=== PATIENT | female | born 1960 | race Caucasian/White ===

== ENCOUNTER 2019-08-04 15:14 | Emergency (ER) | payer BC, SELFPAY ==
[2019-08-04 15:17] VITALS: BP 150/70; PULSE 84; RESP 20; TEMP 36.8; O2SAT 96
--- NOTE | 2019-08-04 15:20 | ECG_ITS ---
Measurements Intervals [place] Rate: 89 P: 54 ND: 137 QRS: -10 QRSD: 118 T: 31 QT: 381 QTc: 465 Interpretive Statements SINUS RHYTHM INCOMPLETE RIGHT BUNDLE BRANCH BLOCK VOLTAGE CRITERIA FOR LVH MINIMAL Q WAVES- LATERAL LEADS BORDERLINE ECG Electronically Signed On 08-05-2019 7:03:10 CDT by Yves Mazariegos D.O.
[2019-08-04 15:36] LABS: Basophils Absolute Auto 0.1 K/mm3 (0.0-0.1); Basophils Percent Auto 0.9 % (0.2-1.2); Eosinophils Absolute Auto 0.1 K/mm3 (0-0.3); Eosinophils Percent Auto 0.9 % (0-4.4); Hematocrit 41.8 % (37.0-47.0); Hemoglobin 14.1 g/dL (12.0-15.0); Immature Granulocyte Absolute 0.02 K/mm3 (0.00-0.031); Immature Granulocyte Percent A 0.3 % (0-0.5); Lymphocytes Percent Auto 19.1 % (18.3-44.2); Mean Corpuscular HGB Conc 33.7 g/dl (32-36); Mean Corpuscular Hemoglobin 27.7 pg (26-34); Mean Corpuscular Volume 82.1 fl (80-100); Mean Platelet Volume 10.2 fl (7.4-10.4); Monocytes Absolute Auto 0.6 K/mm3 (0.1-0.6); Monocytes Percent Auto 11.1 % (2.6-8.5); Neutrophils Absolute Auto 3.9 K/mm3 (1.3-6.7); Neutrophils Percent Auto 67.7 % (45.5-73.1); Platelet Count Result 290 k/mm3 (150-375); Red Blood Count 5.09 M/mm3 (4.2-5.4); Red Cell Distribution Width 13.6 % (11.5-14.5); White Blood Count 5.8 K/mm3 (4.5-10.0)
[2019-08-04 15:48] LABS: Alanine Aminotransferase 28 U/L (4-35); Albumin Level 4.2 g/dL (3.5-5.1); Alkaline Phosphatase 76 U/L (38-126); Aspartate Amino Transferase 30 U/L (14-36); Bilirubin,Total 0.6 mg/dL (0.2-1.3); Blood Urea Nitrogen 8 mg/dL (7-17); Carbon Dioxide 25 mmol/L (22-30); Chloride 102 mmol/L (98-107); Estimated CRCL calculation 104 ml/min; Estimated Glomerular Filt Rate > 60; Ethanol < 10 mg/dL (<10); Glucose 141 mg/dL (65-105); Sodium 136 mmol/L (137-145)
--- NOTE | 2019-08-04 16:02 | ED.PSYCH ---
HPI - Psych General Chief Complaint: Psychiatric Symptoms Stated Complaint: psych Time Seen by Provider: 08/04/19 15:53 Source: patient and family Mode of arrival: ambulatory Limitations: no limitations History of Present Illness HPI Narrative: Patient arrived by ambulance to the emergency room with her . Her telling me that patient been doing weird the staff over the last 7 days, hearing voices over the last 2 days, patient is noncompliance with her medications. Patient denies any fever, chills, nausea, vomiting, suicidal or homicidal ideation. Duration: intermittent Related Data Home Medications Medication Instructions Recorded Confirmed allopurinol 100 mg PO DAILY 08/04/19 alprazolam [Xanax] 4 mg PO BID 08/04/19 amlodipine 5 mg PO DAILY 08/04/19 apixaban [Eliquis] 2.5 mg PO BID 08/04/19 atorvastatin 40 mg PO DAILY 08/04/19 buspirone 10 mg PO TID 08/04/19 calcitriol 0.25 mcg PO DAILY 08/04/19 diltiazem HCl 180 mg PO DAILY 08/04/19 divalproex [Depakote] 250 mg PO TID 08/04/19 ergocalciferol (vitamin D2) 50,000 unit PO 08/04/19 [Vitamin D2] ferrous sulfate 325 mg PO DAILY 08/04/19 flecainide 100 mg PO Q12H 08/04/19 fluticasone propionate [Flovent 1 puff INHALATION Q12H 08/04/19 HFA] furosemide [Lasix] 40 mg PO BID 08/04/19 hydralazine 50 mg PO DAILY 08/04/19 loratadine 10 mg PO DAILY 08/04/19 magnesium oxide 400 mg PO QID 08/04/19 melatonin 5 mg PO HS PRN 08/04/19 metoprolol succinate 100 mg PO DAILY 08/04/19 flhqdvtj-ote-GF-lycopen-lutein 1 tablet PO DAILY 08/04/19 [Centrum Silver Men] omega 3-njt-wmx-fish oil [Fish Oil] 1 cap PO BID 08/04/19 potassium chloride 99 meq PO BID 08/04/19 sertraline 100 mg PO DAILY 08/04/19 spironolactone 25 mg PO DAILY 08/04/19 tizanidine 2 mg PO HS 08/04/19 trazodone 50 mg PO HS 08/04/19 vitamin Q73-ngnpd acid tavia SUBLINGUAL 08/04/19 Allergies Allergy/AdvReac Type Severity Reaction Status Date / Time No Known Allergies Allergy Unverified 08/04/19 15:25 Review of Systems Review of Systems: Narrative: CONSTITUTIONAL: Denies fever, chills, or sweats. EYES: Denies visual changes, redness, or discharge. ENT: Denies rhinorrhea, congestion, sore throat, or otalgia. CARDIOVASCULAR: Denies chest pain, palpitations, or edema. RESPIRATORY: Denies cough or dyspnea. GASTROINTESTINAL: Denies abdominal pain, nausea, vomiting, or diarrhea. GENITOURINARY: Denies dysuria or hematuria. SKIN: Denies rash or itching. MUSCULOSKELETAL: Denies back pain, joint pain, or myalgia. NEUROLOGIC: Denies headache, numbness, or weakness. PSYCHIATRIC: Denies anxiety or depression. Exam Narrative: Exam Narrative: General appearance: Well-developed, well-nourished Skin: Normal color Head: Normocephalic, nontraumatic Eyes: Clear conjunctiva ENT: Oropharynx normal, ears normal, nose normal Neck: Supple, nontender Chest and respiratory: Airway patent, no respiratory distress, no accessory muscle use Heart: Regular rate/rhythm Abdomen: Soft, nontender, no organomegaly, quiet bowel sounds Vascular: Normal peripheral pulses, normal capillary refill. Musculoskeletal: Normal range of motion, nontender back Neurologic: Alert and oriented ?3, DRIVER STARTING GATE is normal as tested, no gross motor deficit Course Course Emergency Course: Stable Vital Signs Vital signs: Vital Signs Temperature 36.8 C 08/04/19 15:17 Pulse Rate 84 08/04/19 15:17 Respiratory Rate 08/04/19 15:17 Blood Pressure 150/70 H 08/04/19 15:17 Pulse Oximetry 96 08/04/19 15:17 Temperature 36.8 C 08/04/19 15:17 Pulse Rate 84 08/04/19 15:17 Respiratory Rate 08/04/19 15:17 Blood Pressure 150/70 H 05
[2019-08-04 16:50] LABS: Add Urine Microscopic? YES; Appearance Urine Cloudy (Clear); Bilirubin Urine Negative (Negative); Blood Urine 3+ (Negative); Color Urine Red (Yellow); Glucose Urine UA Negative (Negative); Ketones Urine 1+ mg/dL (Negative); Leukocyte Esterase Ur 1+ LEU/UL (Negative); Mucus Urine Rare /lpf; Nitrate Urine Negative (Negative); Protein Urine 2+ mg/dL (Negative); RBC Urine >75 /hpf (0-2); Specific Grav Ur 1.021 (1.001-1.035); WBC Urine 21-30 /hpf
[2019-08-04 16:56] LABS: Amphetamine Screen Urine Positive (Negative); Barbiturate Screen Urine Negative (Negative); Benzodiazepines Screen Urine Negative (Negative); Cannabinoid Screen Urine Positive (Negative); Cocaine Screen Urine Negative (Negative); Methadone Screen Urine Negative (Negative); Opiate Screen Urine Negative (Negative); Phencyclidine Screen Urine Negative (Negative)
--- NOTE | 2019-08-04 19:02 | PC.NURSE ---
pt amb to bathroom with out difficulty pt spoke with crisis for evaluation
[2019-08-04 19:04] VITALS: BP 128/60; PULSE 76; RESP 20; O2SAT 98
--- NOTE | 2019-08-04 20:57 | PC.NURSE ---
CALL RECEIVED FROM RN AT [facility]. UPDATES GIVEN. STATES WILL CALL MD AND CALL BACK IF PT IS ACCEPTED
--- NOTE | 2019-08-04 21:42 | PC.NURSE ---
CALL RECEIVED FROM DEONTE DEL CID HAS DENIED PT. STATES SHE JOHNSON SNOT MEET CRITERIA FOR INVOLUNTARY ADMISSION AT THIS TIME
[2019-08-04 21:57] VITALS: BP 119/64; PULSE 75; RESP 20; O2SAT 99
[2019-08-04 21:58] VITALS: BP 101/87; PULSE 72; RESP 20; O2SAT 99
--- NOTE | 2019-08-04 22:40 | PC.NURSE ---
CALL RECEIVED FROM GARY WITH CRISIS. UPDATES GIVEN. STATES SHE WILL CALL BACK IN THE MORNING TO CHECK WITH THE PT.
[2019-08-05 06:40] VITALS: BP 128/99; PULSE 76; RESP 20; O2SAT 100
[2019-08-05] MEDS: POTASSIUM CHLORIDE 20 MEQ TABLET 40 MEQ PO (08:14)
[2019-08-05 10:00] VITALS: BP 123/55; PULSE 72; RESP 16; TEMP 36.9; O2SAT 99
[2019-08-05 15:30] VITALS: BP 138/80; PULSE 95; RESP 16; TEMP 37.2; O2SAT 100
--- NOTE | 2019-08-05 19:37 | PC.NURSE ---
Could not update TRANSFER ASSESSMENT. [facility] arrived at 1934 to transport patient to [place].
== END 2019-08-05 19:42 | disposition short-term general hospital (02) ==
PROVIDERS: Emergency Medicine; Emergency Provider General Practice
DX: F20.9 Schizophrenia, unspecified (principal); N39.0 Urinary tract infection, site not specified; Z79.01 Long term (current) use of anticoagulants; I45.10 Unspecified right bundle-branch block; R94.31 Abnormal electrocardiogram [ECG] [EKG]
CPT/HCPCS: 36415; 80053; 80307; 81001; 84443; 85025; 87086; 93005; 99285; A9270

== ENCOUNTER → 2021-09-10 13:02 | Outpatient (CLI) | payer BC, SELFPAY ==
--- NOTE | ~2021-09-10 | CT_ITS ---
Corrected Report Correction to Ordering Provider 09/14/2021 [facility] CT OF LEFT ANKLE EXAMINATION: CT ankle LT wo con DATE: 09/10/2021 13:16 INDICATION: Pain in the arch of left foot for one month. Peroneal tendinitis. Plantar fasciitis. TECHNIQUE: Computed tomography (CT) of the left ankle was performed without intravenous contrast. Automated exposure control and iterative reconstruction technique were employed. The dose-length product was 107.67 mGy-cm. COMPARISON: None FINDINGS: Limitations: None. Bones: No acute fracture or dislocation. Corticated osseous fragments along the superior aspect of the anterior talus may reflect old capsular avulsion. Joint space narrowing, subchondral sclerosis and subchondral cyst formation present in the medial talus, posterior subtalar joint, and the articulation of the navicular with the medial cuneiform and the first through third tarsometatarsal joints. Plantar enthesopathy. Soft Tissues:The soft tissues appear within normal limits. No evidence of mass or fluid collection. Fluid: No significant fluid within the joint capsule or surrounding bursal spaces. IMPRESSION: No acute osseous finding in the right ankle. Degenerative changes present at the tibiotalar, posterior subtalar, and multiple midfoot joints. Plantar enthesopathy. Reviewed, dictated and finalized at location K. MTDD IMPRESSION: No acute osseous finding in the right ankle. Degenerative changes present at th e tibiotalar, posterior subtalar, and multiple midfoot joints. Plantar enthesop athy.
== END ==
PROVIDERS: PCP Family Medicine; Visit Provider Student in an Organized Health Care Education/Training Program
DX: M76.72 Peroneal tendinitis, left leg (principal); M19.072 Primary osteoarthritis, left ankle and foot; M72.2 Plantar fascial fibromatosis; M19.09 Primary osteoarthritis, other specified site
CPT/HCPCS: 73700

== ENCOUNTER 2021-10-27 15:42 | Outpatient (CLI) | payer BC, SELFPAY ==
--- NOTE | ~2021-10-27 | DEXA_ITS ---
Bone Density Report Name: AMALIA WILEY Age: 61 Sex: Female Ethnicity: White Date of : 1960 Indication: postmenopausal; screening for osteoporosis; height loss; cancer; Referring Provider: PHILOMENA, YEFRI [place] Study: Bone densitometry was performed. Exam Date: October 27, 2021 Accession number: [id number] Bone Density: Region BMD T-score Z-score Classification AP Spine(L1-L4) 1.007 -0.4 1.0 Normal Femoral Neck (Left) 0.759 -0.8 0.5 Normal Total Hip (Left) 0.761 -1.5 -0.6 Osteopenia Femoral Neck (Right) 0.712 -1.2 0.0 Osteopenia Total Hip (Right) 0.819 -1.0 -0.1 Normal Total Hip Mean 0.790 -1.3 -0.4 Osteopenia World Health Organization criteria for BMD impression classify patients as: Normal (T-score at or above -1.0), Osteopenia (T-score between -1.0 and -2.5), or Osteoporosis (T-score at or below -2.5). 10-year Fracture Risk(1): Major Osteoporotic Fracture 6.7% Hip Fracture 0.4% Reported Risk Factors: [place] (), Neck BMD=0.712, BMI=35.2 (1) FRAX(R) Version 3.08. Fracture probability calculated for an untreated patient. Fracture probability may be lower if the patient has received treatment. Clinical Information Provided by Patient: Has used the following medications: HRT (i.e. estrogen/hormone therapy) Has the following medical conditions: Cancer Patient maximum height was 68 Menopause Age: 60 No regular weight bearing exercise Drinks caffeinated beverages Onset of menses at age 15 Number of children 1 Impression: The patient has low bone mass, based on the Left Total Hip T-score. The patient has an estimated ten-year risk of hip fracture of 0.4% and an estimated ten-year risk of major fracture of 6.7%, based on the WHO FRAX algorithm. Discussion: BONE DENSITY IS LOW AT ONE OR MORE SKELETAL SITES. This patient's lowest T-score is low at one or more skeletal sites. It meets the World Health Organization's (WHO) criteria for ?low bone mass? (T-score between -1.0 and -2.5). The patient's 10-year risk of fracture as calculated by FRAX is less than the threshold where pharmacological therapy is recommended by the National Osteoporosis Foundation (NOF). However, all treatment decisions require clinical judgment and consideration of individual patient factors, including patient preferences, comorbidities, previous drug use, risk factors not captured in the FRAX model (e.g., frailty, falls, vitamin D deficiency, increased bone turnover, interval significant decline in bone density) and possible under or overestimation of fracture risk by FRAX. The patient should follow a healthful lifestyle (good nutrition with adequate calcium and vitamin D, and appropriate weight-bearing exercise). Follow-Up: Consider repeating this study in 2 to 3 years to reassess this patien
== END 2021-10-27 15:43 | disposition home or self-care (01) ==
PROVIDERS: PCP Family Medicine; Visit Provider Internal Medicine Medical Oncology
DX: Z78.0 Asymptomatic menopausal state (principal); M85.89 Other specified disorders of bone density and structure, multiple sites
CPT/HCPCS: 77080

== ENCOUNTER 2024-05-06 09:26 | Outpatient (CLI) | payer OTHER, SELFPAY ==
--- NOTE | ~2024-05-06 | XR_ITS ---
HISTORY: M17.12 - Unilateral primary osteoarthritis, left knee COMPARISON: None TECHNIQUE: 4 views of the left knee were performed FINDINGS: No acute or subacute fracture. Diffuse bony demineralization. Near complete obliteration of the medial tibiofemoral joint space with sclerosis of the tibial platea u. Trace lateral tibiofemoral joint space narrowing. Ossification of the insertion of the quadriceps tendon is identified. 3 mm ossific density projects within the lateral tibiofemoral joint space. No suprapatellar joint effusion is identified. The infrapatellar joint space is clear. Vascular calcifications within the soft tissues IMPRESSION: Severe degenerative disease and diffuse bony demineralization, without acute fracture. Reviewed, dictated and finalized at location A. ICAL MATERIAL HANDLER IMPRESSION: Severe degenerative disease and diffuse bony demineralization, wit hout acute fracture.
--- OUTSIDE RECORDS SUMMARY | 2024-05-06 10:24 | XMS_ITS | Clinical Summary ---
Author Organization [facility] Virtual Care Address [address] [place] [phone] Phone Care Team Providers Care Clinical Trials Systems Administrator Name Role Phone Tracie Hart MD Primary Care Provi osvaldo Dago Hannon MD Unavailable [phone] Allergies No known active allergies Medications Soolantra 1 % cream As needed 0 Active Invega Sustenna 117 mg/0.75 mL syringe INJ 117 MG IM TO DELTOID OR GLUTEAL AREA ONCE A MONTH UTD 0 Active Epiduo Forte 0.3-2.5 % gel with pump 1 Active methylphenidate CD (METADATE CD) 50 mg CR capsule Take 1 capsule (50 mg total) by mouth every morning Active temazepam (RESTORIL) 15 mg capsuleIndications :Insomnia Take 1 capsule (15 mg total) by mouth nightly as needed for sleep Active anastrozole (ARIMIDEX) 1 mg tabletIndications: Malignant neoplasm of overlapping sites of right breast in female, estrogen receptor positive (HCC) Take 1 tablet (1 mg total) by mouth daily 90 tablet 3 4 Active sertraline (ZOLOFT) 100 mg tablet Take 1 tablet (100 mg total) by mouth daily 5 Active tirzepatide, weight loss, (Zepbound) 2.5 mg/0.5 mL pen injector Inject 0.5 mL (2.5 mg total) under the skin every 7 days 2 mL 5 Active hydrocortisone 2.5 % cream 0 025 Discontin ued(Thera py completed ) spironolactone (ALDACTONE) 50 mg tablet Take by mouth daily 0 025 Discontin ued(Patie nt Reported) calcium carbonate (OS-WILLIAMS) 1,250 mg (500 mg elemental) tablet Take 1 tablet (1,250 mg total) by mouth daily 025 Discontin ued(Patie nt Reported) meloxicam (MOBIC) 7.5 mg tabletIndications: Primary osteoarthritis of both knees Take 1 tablet (7.5 mg total) by mouth daily 90 tablet 3 025 Discontin ued(Thera py completed ) semaglutide (Wegovy) 0.25 mg/0.5 mL auto-injector Inject 0.5 mL (0.25 mg total) under the skin every 7 days Notify provider 1 week prior to refill needed. 2 mL 4 025 Discontin ued(Alter angeline therapy) Active Problems Problem Noted Date Diagnosed Date History of colonic polyps 12/14/2023 Primary osteoarthritis of both knees 12/08/2022 Assessment & Plan (04/19/2024 12:24 PM GUM MACHINE FILLER): Chronic. Left greater than worse, planning to have arthroscopy on the left knee. - Continue to follow with Dr. Virgen ([place]) for x-rays - Patient that she will need to schedule a preoperative exam 1 month prior to her surgery once this is scheduled - We will plan to send a note to Dr. Virgen's office stating that she can proceed to scheduling surgery. Will need repeat CBC, CMP and EKG within 1 month of surgery. Assessment & Plan (12/14/2023 11:15 AM CDT): Chronic. Stable. Continue to follow with Orthopedic surgery, has MRI upcoming. History of right breast cancer 06/17/2021 Assessment & Plan (04/19/2024 9:02 AM GUM MACHINE FILLER): Chronic. Continue anastrozole. Continue to follow with Oncology. Assessment & Plan (12/14/2023 11:15 AM CDT): Chronic. Continue anastrozole. Continue to follow with Oncology. Assessment & Plan (12/08/2022 10:11 AM CDT): Chronic, stable Continue anastrozole Continue to follow with Oncology Update me with any changes or concerns Malignant neoplasm of overla pping sites of right breast in female, estrogen receptor positive 04/15/2021 Cancer Staging:Clinical stage from 04/05/2021:Stage IA(cT1b, cN0(f), cM0, G2, ER+, AR+, HER2-) - Signed by Tania Sloan MD on 04/21/2021 Assessment & Plan (12/08/2022 10:22 AM CDT): Chronic, stable Managed by oncology Continue anastrazole Assessment & Plan (10/11/2021 4:40 PM CDT): Continue Arimidex Continue to follow with Oncology and surgery Update me with any changes or concerns Again, she completed her preop clearance, and was cleared for her procedure Assessment & Plan (09/23/2021 8:36 AM CDT): Continue Arimidex Continue to follow with surgery and Oncology Cardiac clearance completed Will need psychiatry clearance Otherwise, medically cleared for surgery Assessment & Plan (05/06/2021 9:53 AM GUM MACHINE FILLER): Will try to recheck her labs We may need an us of her liver Keep appointment with oncology Hyponatremia 11/17/2020 Assessment & Plan (12/08/2022 10:11 AM CDT): Chronic, multifactorial Continue to monitor Assessment & Plan (10/11/2021 4:40 PM CDT): Last labs normal Continue to follow with Hematology/Oncology Continue to encourage no alcohol use Assessment & Plan (09/23/2021 8:36 AM CDT): Improved on her last lab recheck Assessment & Plan (05/06/2021 9:48 AM GUM MACHINE FILLER): Recurrent Appointment with oncology today Will recheck labs Differential is wide including medication effect vs over hydration vs other Will repeat labs Assessment & Plan (02/26/2021 7:51 AM GUM MACHINE FILLER): Follow up labs were normal Continue to monitor Assessment & Plan (11/17/2020 9:51 AM CDT): ?related to increased water intake prior to testing vs alcohol Will recheck in 6 weeks Encouraged to consider incendiaries supervisor Decrease alcohol Update me with any changes Elevated liver function tests 11/17/2020 Assessment & Plan (12/08/2022 10:10 AM CDT): Chronic, but now resolved Continue to monitor Assessment & Plan (10/11/2021 4:38 PM CDT): F/u LFT's normal Continue to monitor Assessment & Plan (09/23/2021 8:36 AM CDT): Repeat LFTs normal Assessment & Plan (05/06/2021 9:50 AM GUM MACHINE FILLER): Higher than is has been Will recheck her labs Stressed to her we need to look at an ultrasound for possible pathology- she declined Further guidance once we have the results Assessment & Plan (02/26/2021 7:52 AM GUM MACHINE FILLER): Repeat normal We discussed checking an ultrasound of her liver- she does want to hold off Update me with any changes Call for questions or concerns Assessment & Plan (11/17/2020 9:52 AM CDT): We discussed a GI referral, RUQ us- she does not want to do it at this time Will recheck in 6 weeks If it is still elevated- we need to do more testing Cut down on ETOH Any questions, let me know Annual physical exam 12/25/2019 Overview (12/14/2023): Discussed healthy diet and disease prevention- reviewed working on healthy diet, regular physical activity to your level, wearing sun screen, seat belts. Reviewed no drinking or driving, no texting/driving Discussed importance of scheduling recommended screening tests. Encouraged to look at a POA/Living will Health Maintenance: Last PAP: 12/2019- Neg, Neg HPV Last mammogram: 10/03- WNL Last colonoscopy:2020- due in 4 years, ordered Last Tdap: 2017 Last pneumonia/Prevnar: complete Last Shingrix: up to date Last Flu: 12/14/23 Last Pneumonia: 2022 Last COVID: booster encouraged Test results: if you have not received communication about test results within 7 days of the test being performed, please contact the office. I strongly encourage myChart sign ups. It can facilitate communication flow. Please contact the office for instructions on signing up. Assessment & Plan (12/14/2023 10:35 AM CDT): Health Maintenance: 12/14/23 Last PAP: 12/2019- Neg, Neg HPV Last mammogram: 10/03- WNL Last colonoscopy:2020- due in 4 years, referral provided Last Tdap: 2017 Last pneumonia/Prevnar: complete Last Shingrix: up to date Last Flu: 12/14/23 Last Pneumonia: 2022 Last COVID: booster encouraged Assessment & Plan (12/08/2022 10:19 AM CDT): Discussed healthy diet and disease prevention- reviewed working on healthy diet, regular physical activity to your level, wearing sun screen, seat belts. Reviewed no drinking or driving, no texting/driving Discussed importance of scheduling recommended screening tests. Encouraged to look at a POA/Living will Health Maintenance: Last PAP: 12/2019- Neg, Neg HPV Last mammogram: 08/02- WNL Last colonoscopy:2020- due in 4 years Last Tdap: 2018 Last pneumonia/Prevnar: reviewed Last Shingrix: up to date Last Flu: 2022 Last Pneumonia: 2022 Last COVID: reviewed booster Test results: if you have not received communication about test results within 7 days of the test being performed, please contact the office. I strongly encourage myChart sign ups. It can facilitate communication flow. Please contact the office for instructions on signing up. Assessment & Plan (10/11/2021 4:17 PM CDT): Discussed healthy diet and disease prevention- reviewed working on healthy diet, regular physical activity to your level, wearing sun screen, seat belts. Reviewed no drinking or driving, no texting/driving Discussed importance of scheduling recommended screening tests. Discussed importance of regular physical examinations for health maintenance Health Maintenance: Last PAP: 12/2019- Neg, Neg HPV Last mammogram: up to date Last colonoscopy:2020- due in 3 years Last Tdap: 2017 Last pneumonia/Prevnar: reviewed Last Shingrix: up to date Last Flu: up to date Last COVID: reviewed booster Test results: if you have not received communication about test results within 7 days of the test being performed, please contact the office. I strongly encourage [employer] sign ups. It can facilitate communication flow. Please contact the office for instructions on signing up. Assessment & Plan (12/25/2019 1:47 PM CDT): Work on healthy low carb diet Healthy activity for 30 minutes daily Wear sun screen, seat belts No texting/drinking and driving Health Maintenance: Last PAP: today Last mammogram:11/27/2019-Neg Last DEXA: @60 Last colonoscopy/cologuard: referral placed Last Tdap: 2014 Last pneumonia/Prevnar: pneumonia -2017 Last Shingrix: encouraged Last Flu: yearly Personal history of colonic polyps 12/11/2019 Overview (12/11/2019): Added automatically from request for surgery [id number] Assessment & Plan (12/08/2022 10:12 AM CDT): Last colonoscopy reviewed Will be due for follow-up in 2023 Assessment & Plan (10/11/2021 4:40 PM CDT): Plan for colonoscopy in 2022 Assessment & Plan (12/25/2019 1:47 PM CDT): Referral placed Class 2 obesity due to exces s calories with body mass index (BMI) of 36.0 to 36.9 in adult 09/24/2019 Assessment & Plan (04/19/2024 9:02 AM GUM MACHINE FILLER): Chronic. Uncontrolled. Patient working on keeping her BMI below 37 in order to have knee surgery. She would like to try Zepbound but this and Wegovy were not covered by her insurance last time we checked. She may look into Wellness clinics. Assessment & Plan (12/14/2023 11:16 AM CDT): Chronic uncontrolled. Not able to exercise much due to knee arthritis. Continue to work on healthy diet. Discussed options including medication management, patient would like to try Wegovy, script sent. Risks and benefits discussed today.. Assessment & Plan (12/08/2022 10:10 AM CDT): BMI Follow-up includes: nutrition counseling. Assessment & Plan (10/11/2021 4:37 PM CDT): BMI Follow-up includes: nutrition counseling. Assessment & Plan (05/06/2021 9:59 AM GUM MACHINE FILLER): BMI Follow-up includes: nutrition counseling. Assessment & Plan (11/17/2020 9:54 AM CDT): BMI Follow-up includes: nutrition counseling. Assessment & Plan (12/25/2019 5:16 PM CDT): BMI Follow-up includes: nutrition counseling. Assessment & Plan (09/24/2019 9:32 AM CDT): BMI Follow-up includes: nutrition counseling. Acne vulgaris 08/27/2019 Assessment & Plan (12/08/2022 10:20 AM CDT): Chronic, stable Managed by Dermatology Continue current regimen Assessment & Plan (10/11/2021 4:19 PM CDT): Chronic, stable Continue to follow with derm Assessment & Plan (11/17/2020 10:02 AM CDT): continue spironolactone Continue to monitor her labs Assessment & Plan (08/27/2019 9:28 AM CDT): Continue spironolactone Thalassemia 01/29/2014 Assessment & Plan (12/14/2023 10:35 AM CDT): Chronic. Stable. No evidence of anemia or blood cell abnormalities. Monitor. Assessment & Plan (12/08/2022 10:13 AM CDT): Chronic, stable Manage by Oncology/Hematology Update me with any changes Assessment & Plan (10/11/2021 4:52 PM CDT): Continue to follow with Oncology/Hematology Assessment & Plan (12/25/2019 5:18 PM CDT): Will try to get notes from her prior school photographs detailer Assessment & Plan (09/24/2019 9:30 AM CDT): With history of low iron Will recheck her CBC and iron Further guidance once we have the results Call for questions or concerns Assessment & Plan (08/27/2019 9:28 AM CDT): Will attempt to get records Bipolar I disorder, most rec ent episode (or current) depressed, severe, specified as with psychotic behavior ([facility]) 02/15/2013 Assessment & Plan (04/19/2024 9:01 AM GUM MACHINE FILLER): Chronic. Improving.. - Continue to follow with psychiatry managing sertraline Assessment & Plan (12/14/2023 10:33 AM CDT): Chronic. Not well controlled. Patient looking for a new psychiatrist, has reference listed call. Only taking fluoxetine 40 mg daily that she would like to continue with us until she see pschiatry. We will discuss with supervising physician Assessment & Plan (12/08/2022 10:09 AM CDT): Chronic, stable Bipolar versus schizophrenia Managed by Psychiatry Continue her current regimen Assessment & Plan (10/11/2021 4:36 PM CDT): Chronic, stable Continue her current regimen Continue to follow with psychiatry Update me with any changes Assessment & Plan (09/23/2021 8:36 AM CDT): Continue to follow with psychiatry Continue current regimen Update me with any changes or concerns Call for questions Assessment & Plan (11/17/2020 9:53 AM CDT): Doing fair Continue current regimen Continue to follow with psychiatry Update me with any changes Call for questions or concerns Assessment & Plan (12/25/2019 5:15 PM CDT): Continue to follow with her psychiatrist Assessment & Plan (09/24/2019 9:36 AM CDT): Improved on current regimen Continue current regimen Continue to follow with psychiatrist Assessment & Plan (08/27/2019 9:27 AM CDT): Continue to follow with her psychiatrist Update me with any changes Schizophrenia 06/29/2012 Assessment & Plan (04/19/2024 9:03 AM GUM MACHINE FILLER): Chronic. Continue to follow with psychiatry. Assessment & Plan (12/14/2023 10:35 AM CDT): Chronic. Uncertain of stability. Patient looking for a new psychiatrist, has reference listed call. Only taking fluoxetine 40 mg daily that she would like to continue with us until she see pschiatry. We will discuss with supervising physician Assessment & Plan (12/08/2022 10:12 AM CDT): Chronic, stable Managed by Psychiatry Continue her current regimen Assessment & Plan (10/11/2021 4:52 PM CDT): Chronic, stable Continue her current regimen Continue to follow with psychiatry Update me with any changes Assessment & Plan (09/23/2021 8:37 AM CDT): Continue to follow with psychiatry Continue Invega Update me with any changes or concerns Call for questions Assessment & Plan (05/06/2021 9:50 AM GUM MACHINE FILLER): With medications that could affect her sodium Will recheck her labs Assessment & Plan (02/26/2021 7:53 AM GUM MACHINE FILLER): Stable Continue to follow with her psychiatrist Continue healthy changes for her mood Call for questions or concerns Assessment & Plan (11/17/2020 9:53 AM CDT): Doing fair Continue current regimen Continue to follow with psychiatry Update me with any changes Call for questions or concerns Assessment & Plan (09/24/2019 9:36 AM CDT): Improved on current regimen Continue current regimen Continue to follow with psychiatrist Assessment & Plan (08/27/2019 9:26 AM CDT): Recently hospitalized Improved delusions, no dangerous thoughts currently Continue to follow with her psychiatrist Any dangerous thoughts to the er Call for questions or concerns ADHD, 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 Somewhat stable, not currently on medication - Continue to follow with psychiatry Assessment & Plan (12/14/2023 10:34 AM CDT): Chronic. Uncontrolled. Patient has run out of Vyvanse and can not go back to her previous psychiatrist. She is currently looking for a new psychiatrist. - Follow-up with recommendation list provided and those covered by insurance Assessment & Plan (12/08/2022 10:20 AM CDT): Chronic, stable Managed by Psychiatry Continue vyvanse Update me with any changes or concerns Assessment & Plan (10/11/2021 4:20 PM CDT): Chronic, stable Continue to follow with Dr Kam Assessment & Plan (12/25/2019 5:14 PM CDT): Continue to follow with her psychiatrist Assessment & Plan (09/24/2019 9:35 AM CDT): Stable Continue current regimen Continue to follow with her psychiatrist Assessment & Plan (08/27/2019 9:25 AM CDT): Continue to follow with her psychiatrist Generalized anxiety disorder 02/23/2012 Overview (08/27/2019): Note: Unchanged Assessment & Plan (12/14/2023 10:34 AM CDT): Chronic. Somewhat stable. Will discuss with supervising physician continuing fluoxetine 40 mg daily. Assessment & Plan (12/08/2022 10:10 AM CDT): Chronic, stable Managed by Psychiatry Continue her current regimen Assessment & Plan (10/11/2021 4:39 PM CDT): Chronic, stable Continue her current regimen Continue to follow with psychiatry Update me with any changes Assessment & Plan (12/25/2019 5:16 PM CDT): Continue to follow with her psychiatrist Assessment & Plan (08/27/2019 9:28 AM CDT): Continue to follow with her psychiatrist Update me with any changes Call for questions or concerns Panic disorder without agoraphobia 02/23/2012 Overview (08/27/2019): Note: Unchanged Assessment & Plan (12/14/2023 10:34 AM CDT): Chronic. Somewhat stable. Will discuss with supervising physician continuing fluoxetine 40 mg daily. Assessment & Plan (12/08/2022 10:11 AM CDT): Chronic, stable Managed by Psychiatry Continue her current regimen Update me with any changes Assessment & Plan (10/11/2021 4:40 PM CDT): Chronic, stable Continue her current regimen Continue to follow with psychiatry Update me with any changes Resolved Problems Problem Noted Date Diagnosed Date Resolved Date Screen for colon cancer 12/11/201911/12 Overview (12/11/2019): Added automatically from request for surgery [id number] Anemia 11/19/2013 10/11/2021 Assessment & Plan (09/23/2021 8:36 AM CDT): Currently following with Hematology Continue to monitor Assessment & Plan (12/25/2019 5:15 PM CDT): I am going to try to get notes from her prior school photographs detailer she feels that is related to her bariatric surgery She is currently on an [id number] iron, At this time she can continue it I would recommend a CBC in 6 months Call for questions or concerns Assessment & Plan (09/24/2019 9:30 AM CDT): Will check labs for possible pathology Encounters Date Type Department Care Team Description 04/19/2024 8:30 AM GUM MACHINE FILLER Office Visit [address] [phone] Kelsie Parra PA Primary osteoarthritis of both knees (Primary Dx); ADHD, predominantly inattentive type; Bipolar I disorder, most recent episode (or current) depressed, severe, specified as with psychotic behavior (CMS/HCC) (HCC); Class 2 severe obesity due to excess calories with serious comorbidity and body mass index (BMI) of 36.0 to 36.9 in adult ([facility]); History of right breast cancer; Other schizophrenia ([facility]) 04/19/2024 Telephone [facility] Medicine [address] [place] [phone] Tracie Hart MD Prior Auth request for Zepbound 04/19/2024 Orders Only [address] [phone] Kelsie Parra PA 04/19/[address] [phone] Tracie Hart MD Medical Question/Miscellaneous 02/21/2024 Telephone [facility] [address] [place] [address] Office [address] [place] [address] Clau Dave 02/19/2024 Telephone [facility] [address] [place] [address] Office [facility] [address] [place] [phone] Myrtle Gallagher CLT 02/09/2024 Orders Only [address] [phone] Kelsie Parra PA 02/09/[address] [phone] Kelsie Parra PA from Last 3 Months Immunizations Immunization Administration Dates Next Due Influenza, Quadrivalent, Spl it, Preservative Free, Intramuscular 12/08/2022,12/14/2021,12/25/2019,01/16 Influenza, Trivalent, IM (MDV) 12/11/2014 Influenza, Trivalent, Preser vative Free, Intramuscular 12/14/2023 Influenza, Unspecified 11/15/2021,2020,10/15/2013,10/01 Osiel SARS-CoV-2 Monovalen t Vaccination (12+ YRS) 02/16/2021 Pfizer SARS-CoV-2 Monovalent Vaccination (12+ Yrs) PURPLE 06/16/2020,05/26/2020 Pfizer Sars-Cov-2 Bivalent V accination (12+ YRS) 12/14/2021 Pneumococcal Conjugate Pcv20 12/08/2022 Pneumococcal Polysaccharide PPV23 01/04/2018 RSV Vaccine, Pref, Recombina nt, Subunit, Adjuvanted, PF, IM (Arexvy) 12/27/2022 Tdap 01/16/2018,03/13/2014 ZOSTER Recombinant 06/09/2021,02/26/2021 Surgical History Surgery Date Site/Laterality Comments BARIATRIC SURGERY 03/13/1999 - 03/12/2000 Wash [facility] COLONOSCOPY 10/23/2015 US GUIDED BIOPSY LYMPH NODE SUPERFICIAL LEFT 04/05/2021 N/A SECTION 03/13/2000 - 03/12/2001 BREAST BIOPSY 04/05/2021 Right MASTECTOMY COMPLETE / SIMPLE W/ SENTINEL NODE BIOPSY 06/17/2021 Right with sentinel lymph node dissection BREAST RECONSTRUCTION 06/17/2021 Right immediate with tissuse community liaison officer and matrix REDUCTION MAMMAPLASTY Medical History Medical History Date Comments ADHD (attention deficit hyperactivity disorder) Bipolar 1 disorder (HCC) Anxiety Psychotic affective disorder (HCC) Breast cancer (HCC) right Right bundle branch block Family History Medical History Relation Name Comments Diabetes Brother Diabetes Father Heart Valve Replacement Father Macular degeneration Father No Known Problems Maternal Grandfather Blood disorder Maternal Grandmother Hypothyroidism Maternal Grandmother Foot problems Mother Knee Replacement Mother Stroke Paternal Grandfather No Known Problems Paternal Grandmother Breast cancer Sister 1 Breast cancer Sister 2 Relation Name Status Comments Brother Alive Father Alive Maternal Grandfather Maternal Grandmother Mother Alive Paternal Grandfather Paternal Grandmother Sister 1 Alive Sister 2 Alive Social History Tobacco Use Types Packs/Day Years Used Date Smoking Tobacco: Never Smokeless Tobacco: Never Tobacco Cessation:Counseling Given: Not Answered Alcohol Use Standard Drinks/Week Comments Not Currently 0 (1 standard drink = 0.6 oz pur e alcohol) occasionally AUDIT-C Answer Date Recorded Q1: How often do you have a drink containing alc ohol? Monthly or less 04/19/2024 Q2: How many drinks containi ng alcohol do you have on a typical day when you are drinking? 1 or 2 04/19/2024 Q3: How often do you have si x or more drinks on one occasion? Never 04/19/2024 PHQ-2 Answer Date Recorded PHQ-2 Total Score (If total score is 3 or more points, staff should administer the PHQ-9) 0 04/19/2024 Comments No Sex and Gender Information Value Date Recorded Sex Assigned at Not on file Legal Sex Female 11:37 PM GUM MACHINE FILLER Gender Identity Not on file Sexual Orientation Not on file Obstetrics History Para Term AB IAB SAB Ectopic Multiple Livin g Live Births 2 1 1 Date Outcome GA Total Labor Labor/2nd/3rd Weight Sex Type Anes PTL Juliana A1 A5 Name Clin Term Last Filed Vital Signs Vital Sign Reading Time Taken Comments Blood Pressure 130/70 04/19/2024 8:29 AM GUM MACHINE FILLER Pulse 75 04/19/2024 8:29 AM GUM MACHINE FILLER Temperature 36.4 C (97.5 F) 04/19/2024 8:29 AM GUM MACHINE FILLER Respiratory Rate 16 04/19/2024 8:29 AM GUM MACHINE FILLER Oxygen Saturation 95% 04/19/2024 8:29 AM GUM MACHINE FILLER Inhaled Oxygen Concentration - - Weight 102.1 kg (225 lb) 04/19/2024 8:29 AM GUM MACHINE FILLER Height 167.6 cm (5' 6 ) 04/19/2024 8:29 AM GUM MACHINE FILLER Body Mass Index 36.32 04/19/2024 8:29 AM GUM MACHINE FILLER Plan of Treatment Upcoming Encounters Date Type Department Care Team (Late st Contact Info) Description 12/25/2024 7:55 AM CDT Hospital Encounter [address] [address] Donato Aragon MD [address] [place] [address] DR MINOR [address] [place] [phone] 12/25/2024 7:55 AM CDT - 12/25/2024 8:25 AM CDT Surgery [address] [address] Dontao Aragon MD [address] [place] [address] [place] [address] COLONOSCOPY Scheduled Procedures Name Priority Associated Diagnoses Date/Ti me COLONOSCOPY History of colonic polyps 12/25/2024 7:55 AM CDT Health Maintenance Due Date Last Done Comments Hepatitis B Screening 02/18/1980 Covid-19 Vaccine (7 - Mixed Product risk season) 2024 01/17/2024, 12/27/2022, 12/14/2021, Additional history exists Breast Cancer Screening-Mammogram 09/18/2024 09/19/2023, 07/18/2022, 02/23/2021, Additional history exists Regular Well Visit/Exam 18-64 12/13/2024, 12/08/2022, 12/08/2022, Additional history exists Cervical Cancer Screening 12/24/2024 12/25/2019, Depression Screening 04/19/2025 04/19/2024, 12/08/2022, 12/08/2022, Additional history exists DTaP/Tdap/Td Vaccine (3 - Td or Tdap) 01/17/2028 01/16/2018, 03/13/2014 Colon Cancer Screening-Colonoscopy 01/27/2030 01/28/2020, 01/28/2020, 10/23/2015 Colon Cancer Screening-CT Colonography Discontinued 01/28/2020, 01/28/2020, 10/23/2015 Colon Cancer Screening-DNA Stool Discontinued 01/28/2020, 01/28/2020, 10/23/2015 Colon Cancer Screening-FIT Discontinued 01/27, 01/28/2020, 10/23/2015 Colon Cancer Screening-Sigmoidoscopy Discontinued 01/28/2020, 01/28/2020, 10/23/2015 Hepatitis C Screening Completed 11/11/2020, 020 Zoster Vaccine Completed 06/09/2021, 02/26/2021 Pneumococcal vaccine <65 Completed 12/08/2022, 12/12 Influenza Vaccine Completed 12/14/2023, , 12/14/2021, Additional history exists Medical Devices Implanted Type Area Rn Field Case Manager Device Identifier Shelf Expiration Date Model / Serial / Lot [employer] [id number] Implant Mammary [id number] Plus Sm Te Mh 450cc - [id number] - [id number] Implanted:Qty: 1 on 06/17/2021 by Shen Reeder, DO at [facility] Right: Breast [employer] 12/13/2024 [id number] / [id number] / [employer] Implant Breast Moderate Plus Profile Smooth Memorygel Boost 590cc Gel [id number] - [id number] - [id number] Implanted:Qty: 1 on 10/15/2021 by Shen Reeder, DO at [facility] Right: Breast [employer] 07/20/2026 [id number] / [id number] / Procedures Procedure Name Priority Date/Time Associated Diagnosis Comments SCREENING MAMMOGRAM LEFT W ROCKY UNILATERAL ONLY Schedule Routine, Read Routine (OP Routine) 09/19/2023 10:27 AM CDT Encounter for screening mammogram for malignant neoplasm of breast HEPATITIS PANEL, ACUTE Routine 11/11/2020 2:42 PM CDT Elevated liver function tests COLONOSCOPY 01/28/2020 7:57 AM GUM MACHINE FILLER PAP ONLY Routine 12/25/2019 5:14 PM CDT from Last 3 Months or Most Recently Relevant to Health Maintenance Results * Screening Mammogram Left W Rocky Unilateral Only (09/19/2023 10:27 AM CDT) Anatomical Region Laterality Modality Breast Left Mammography Impressions 09/19/2023 12:25 PM CDT BI-RADS ATLAS category (left): 1 - Negative There is no mammographic evidence of malignancy. A 1 year screening mammogram is recommended. The patient has been or will be contacted. We recommend annual screening mammography for women at average risk of breast cancer beginning at age 40, based on guidelines of the [employer] (ACR Practice Parameter for the Performance of Screening and Diagnostic Mammography) and [employer]. For women with and elevated risk of breast cancer, please refer to the ACR Practice Parameter for specific screening recommendations. The patient will be entered into a reminder system with a target due date of 1 year for her next screening exam. Narrative 09/19/2023 12:25 PM CDT Screening Mammogram Left W Rocky Unilateral Only: 09/19/23 The study was acquired using full field digital technology and interpreted from soft copy. 2D digital mammographic views, as well as 3D digital tomosynthesis were performed in the CC and MLO projections of the left breast. CLINICAL: Encounter for screening mammogram for malignant neoplasm of breast. Medical history includes breast cancer. Status post left mastectomy. COMPARISONS: 07/18/2022 Screening Mammogram Left W Rocky Unilateral Only 06/17/2021 Radiologic Examination of Surgical Specimen 04/05/2021 US Guided Breast Biopsy Right 03/24/2021 US Breast Right Limited 03/24/2021 Diagnostic Mammogram Right W Rocky 02/23/2021 Screening Mammogram Bilateral W Rokcy 11/27/2019 Screening Mammogram 2D Bilateral BREAST TISSUE: The left breast has scattered areas of fibroglandular density. FINDINGS: No suspicious masses, suspicious calcifications, or other suspicious findings are seen within the left breast. There has been no suspicious change. us Aaron Mason MD IM MAMMO PROCEDURES Final Result * Hepatitis panel, acute (11/11/2020 2:42 PM CDT) Hep A IgM NON-REACTI VE NON-REACT JEFFREY [facility] Comment: For additional information, please refer to http://Get Fractal.[employer]/faq/VXN257 (This link is being provided for informational/ educational purposes only.) HepBsAg NON-REACTI VE NON-REACT JEFFREY [facility] Hep B core IgM NON-REACTI VE NON-REACT JEFFREY [facility] Hep C Ab NON-REACTI VE NON-REACT JEFFREY [facility] SIGNAL TO CUT-OFF 0.01 <1.00 [facility] Comment: HCV antibody was non-reactive. There is no laboratory evidence of HCV infection. In most cases, no further action is required. However, if recent HCV exposure is suspected, a test for HCV RNA (test code 08241) is suggested. For additional information please refer to http://Get Fractal.[employer]/faq/EUD50z1 (This link is being provided for informational/ educational purposes only.) Blood specimen (specimen) 11/11/2020 2:42 PM CDT 11/11/2020 2:42 PM CDT Narrative [facility] - 11/12/2020 3:22 PM CDT FASTING:NO FASTING: NO us Tracie Hart MD LAB MICROBIOLOGY - GENERAL ORDERABLES Final Result [facility] [address] [place] [id number] * COLONOSCOPY (01/28/2020 7:57 AM GUM MACHINE FILLER) Anatomical Region Laterality Modality Other Narrative Procedure Note Donato Aragon MD - 01/28/2020 7:57 AM CST [facility] Patient Name: Katrina Cheng Procedure Date: 01/28/2020 7:57 AM Date of : 1960 Admit Type: Outpatient Age: 59 Gender: Female Attending MD: Donato Aragon M.D. Room: [facility] ENDOSCOPY ROOM 1 Note Status: Finalized Patient Profile: This is a 59 year old female. Patient with historyof colon polyps including large adenoma polyp in the rectum requiring transanal resection. No familyhistory of colon cancer. Procedure: Colonoscopy Indications: Surveillance: Personal history of adenomatous polypson last colonoscopy > 3 years ago, Last colonoscopy: October 2015 Referring MD: Tracie Hart M.D. Providers: Donato Aragon M.D. Impression: - One 6 mm polyp in the descending colon, removedwith a jumbo cold forceps. Resected and retrieved. - One 4 mm polyp in the rectum, removed with a jumbo cold forceps. Resected and retrieved. - Internal hemorrhoids. Recommendation: - Await pathology results. - Repeat colonoscopy in 3 - 5 years for screening purposes. Medicines: Monitored Anesthesia Care Complications: No immediate complications. Estimated Blood Loss: Estimated blood loss: none. Procedure: Pre-Anesthesia Assessment: - Prior to the procedure, a History and Physical was performed, and patient medications and allergieswere reviewed. The patient's tolerance of previous anesthesia was also reviewed. The risks and benefitsof the procedure and the sedation options and riskswere discussed with the patient. All questions were answered, and informed consent was obtained. Prior Anticoagulants: The patient has taken no previous anticoagulant or antiplatelet agents. ASA Grade Assessment: II - A patient with mild systemicdisease. After reviewing the risks and benefits, the patientwas deemed in satisfactory condition to undergo the procedure. The benefits, risks and alternatives of theprocedure and sedation were discussed and informed consent was obtained. All questions were answered. Please referto the signed informed consent document in the medical record. Bowel prep was administered using a splitdose. The bowel preparation used was Miralax. The bowel preparation used was bisacodyl tablets. The scopewas passed under direct vision. The PediatricColonoscope [id number] was introduced through the anusand advanced to the the cecum, identified by appendiceal orifice and ileocecal valve. The quality of thebowel preparation was good. Findings: The perianal and digital rectal examinations were normal. The cecum appeared normal. The ileum appeared normal. A 6 mm polyp was found in the descending colon. The polyp wassessile. The polyp was removed with a jumbo cold forceps. Resection andretrieval were complete. A 4 mm polyp was found in the rectum. The polyp was sessile. Thepolyp was removed with a jumbo cold forceps. Resection and retrieval were complete. Internal hemorrhoids were found during retroflexion. The hemorrhoids were small. Electronically signed by Donato Aragon M.D. Danitza DonohueD. 01/28/2020 9:57:00 AM Number of Addenda: 0 Note Initiated On: 01/28/2020 7:57 AM Procedure Code(s): --- Professional --- 57262, Colonoscopy, flexible; with biopsy, single or multiple Diagnosis Code(s): --- Professional --- Z86.010, Personal history of colonic polyps K64.8, Other hemorrhoids D12.4, Benign neoplasm of descending colon K62.1, Rectal polyp CPT copyright 2017 [employer]. All rights reserved. The codes documented in this report are preliminary and upon book retailer reviewmay be revised to meet current compliance requirements. Recognized by the [employer] for promoting quality in endoscopy us Donato Aragon MD ENDOSCOPY PROCEDURES Final Result * Pap Only (12/25/2019 5:14 PM CDT) CLINICAL INFORMATION: Filiberto Kam Comment:SCREENING LMP Filiberto Kam Comment:UNKNOWN Previous Pap Filiberto Kam Comment:INFORMATION NOT PROV IDED Prev. Bx Filiberto Kam Comment:INFORMATION NOT PROV IDED SOURCE: Filiberto Kam Comment:Cervix, Endocervix Pap, specimen adequacy Filiberto Kam Comment: Satisfactory for evaluation. Endocervical/transformation zone component present. Age and/or menstrual status not provided HPV interp Filiberto Kam Comment:Negative for intraep ithelial lesion or malignancy. Paint Stockman [facility] Dot Kam Comment: MLO, CT(ASCP) CT screening location: [place] [address] [place] [address] Comment Filiberto Kam Comment: EXPLANATORY NOTE: The Pap is a screening test for cervical cancer. It is not a diagnostic test and is subject to false negative and false positive results. It is most reliable when a satisfactory sample, regularly obtained, is submitted with relevant clinical findings and history, and when the Pap result is evaluated along with historic and current clinical information. 12/25/2019 5:14 PM CDT 12/27/2019 12:27 PM CDT us Tracie Hart MD LAB CYTOLOGY ORDERA BLES Final Result Performing Organization Address City/State/[facility] Co de Phone [id number] [address] [place] [address] from Last 3 Months or Most Recently Relevant to Health Maintenance Insurance MEDICARE CIG[employer] OPEN ACCESS CIGNA OPEN ACCESS Advance Directives For more information, please contact: [phone] * Full Code (Latest Code Status on File) Date Activated Date Inactivated Comments 06/17/2021 7:15 PM 06/18/2021 7:28 PM * Full Code Date Activated Date Inactivated Comments 01/28/2020 8:22 AM 01/28/2020 2:39 PM Care Teams Clinical Trials Systems Administrator Relationship Specialty Start Date End Date Tracie Hart MD [address] [place] [address] PCP - General Family Medicine 08/28/19 Dago Hannon MD [address] [place] [address] Medical Oncologist Hematology and Oncology 04/21/21
--- OUTSIDE RECORDS SUMMARY | 2024-05-06 10:24 | XMS_ITS | Referral Summary ---
Author Organization [facility] Virtual Care Address [address] [place] [phone] Phone Care Team Providers Care Electro Winning Operator Name Role Phone Tracie Hart MD Primary Care Provi osvaldo Dago Hannon MD Unavailable [phone] Encounters Date Type Department Care Team Description 04/19/2024 Telephone [facility] [address] [place] [phone] Tracie Hart MD Prior Auth request for Zepbound 04/19/2024 Orders Only [address] [phone] Kelsie Parra PA 04/19/[address] [phone] Tracie Hart MD Medical Question/Miscellaneous 04/19/2024 8:30 AM SEWING TECHNIQUES DEMONSTRATOR Office Visit [facility] [address] [place] [phone] Kelsie Parra, PA Primary osteoarthritis of both knees (Primary Dx); ADHD, predominantly inattentive type; Bipolar I disorder, most recent episode (or current) depressed, severe, specified as with psychotic behavior (CMS/HCC) (HCC); Class 2 severe obesity due to excess calories with serious comorbidity and body mass index (BMI) of 36.0 to 36.9 in adult (HCC); History of right breast cancer; Other schizophrenia (HCC) 02/21/2024 Telephone [facility] [address] [place] [address] Office [facility] [address] [place] [phone] Clau Dave 02/19/2024 Telephone [facility] [address] [place] [address] Office [facility] [address] [place] [phone] Myrtle Gallagher, SEAN 02/09/2024 Orders Only [facility] [address] [place] [phone] Kelsie Parra PA 02/09/[address] [phone] Kelsie Parra PA from Last 3 Months Allergies No known active allergies Medications Soolantra [...] 12/08/2022 Assessment & Plan (04/19/2024 12:24 PM SEWING TECHNIQUES DEMONSTRATOR): Chronic. Left greater than worse, planning to have arthroscopy on the left knee. - Continue to follow with Dr. Virgen ([place]) for x-rays - Patient that she will [...] 06/17/2021 Assessment & Plan (04/19/2024 9:02 AM SEWING TECHNIQUES DEMONSTRATOR): Chronic. Continue anastrozole. Continue to follow with [...] from 04/05/2021:Stage IA(cT1b, cN0(f), cM0, G2, ER+, OR+, HER2-) - Signed by Tania Sloan MD [...] surgery Assessment & Plan (05/06/2021 9:53 AM SEWING TECHNIQUES DEMONSTRATOR): Will try to recheck her labs We [...] recheck Assessment & Plan (05/06/2021 9:48 AM SEWING TECHNIQUES DEMONSTRATOR): Recurrent Appointment with oncology today Will recheck labs Differential is wide including medication effect vs over hydration vs other Will repeat labs Assessment & Plan (02/26/2021 7:51 AM SEWING TECHNIQUES DEMONSTRATOR): Follow up labs were normal Continue to monitor Assessment & Plan (11/17/2020 9:51 AM CDT): ?related to increased water intake prior to testing vs alcohol Will recheck in 6 weeks Encouraged to consider splicer operator Decrease alcohol Update me with any changes Elevated liver function tests 11/17/2020 Assessment & Plan (12/08/2022 10:10 AM CDT): Chronic, but now resolved Continue to monitor Assessment & Plan (10/11/2021 4:38 PM CDT): F/u LFT's normal Continue to monitor Assessment & Plan (09/23/2021 8:36 AM CDT): Repeat LFTs normal Assessment & Plan (05/06/2021 9:50 AM SEWING TECHNIQUES DEMONSTRATOR): Higher than is has been Will recheck her labs Stressed to her we need to look at an ultrasound for possible pathology- she declined Further guidance once we have the results Assessment & Plan (02/26/2021 7:52 AM SEWING TECHNIQUES DEMONSTRATOR): Repeat normal We discussed checking an ultrasound [...] please contact the office. I strongly encourage [employer] sign ups. It can facilitate communication flow. [...] (12/11/2019): Added automatically from request for surgery [id number] Assessment & Plan (12/08/2022 10:12 AM CDT): [...] 09/24/2019 Assessment & Plan (04/19/2024 9:02 AM SEWING TECHNIQUES DEMONSTRATOR): Chronic. Uncontrolled. Patient working on keeping her [...] counseling. Assessment & Plan (05/06/2021 9:59 AM SEWING TECHNIQUES DEMONSTRATOR): BMI Follow-up includes: nutrition counseling. 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 Improving.. - Continue to follow with [...] 06/29/2012 Assessment & Plan (04/19/2024 9:03 AM SEWING TECHNIQUES DEMONSTRATOR): Chronic. Continue to follow with psychiatry. Assessment [...] questions Assessment & Plan (05/06/2021 9:50 AM SEWING TECHNIQUES DEMONSTRATOR): With medications that could affect her sodium Will recheck her labs Assessment & Plan (02/26/2021 7:53 AM SEWING TECHNIQUES DEMONSTRATOR): Stable Continue to follow with her psychiatrist [...] Unchanged Assessment & Plan (04/19/2024 9:01 AM SEWING TECHNIQUES DEMONSTRATOR): Chronic. Somewhat stable, not currently on medication [...] (12/11/2019): Added automatically from request for surgery [id number] Anemia 11/19/2013 10/11/2021 Assessment & Plan (09/23/2021 8:36 AM CDT): Currently following with Hematology Continue to monitor Assessment & Plan (12/25/2019 5:15 PM CDT): I am going to try to get notes from her prior master naval parachutist she feels that is related to her bariatric surgery She is currently on an zshy-[id number]-emjfdai iron, At this time she can continue it I would recommend a CBC in 6 months Call for questions or concerns Assessment & Plan (09/24/2019 9:30 AM CDT): Will check labs for possible pathology Immunizations Immunization Administration Dates Next Due Influenza, Quadrivalent, Spl it, Preservative Free, Intramuscular 12/08/2022,12/14/2021,12/25/2019,01/16 Influenza, Trivalent, IM (MDV) 12/11/2014 Influenza, Trivalent, Preser vative Free, Intramuscular 12/14/2023 Influenza, Unspecified 11/15/2021,2020,10/15/2013,10/01 Moderna SARS-CoV-2 Monovalen t Vaccination (12+ YRS) 02/16/2021 Pfizer SARS-CoV-2 Monovalent Vaccination (12+ Yrs) PURPLE 06/16/2020,05/26/2020 Pfizer Sars-Cov-2 Bivalent V accination (12+ YRS) 12/14/2021 Pneumococcal Conjugate Pcv20 12/08/2022 Pneumococcal Polysaccharide PPV23 01/04/2018 RSV Vaccine, Pref, Recombina nt, Subunit, Adjuvanted, PF, IM (Arexvy) 12/27/2022 Tdap 01/16/2018,03/13/2014 ZOSTER Recombinant 06/09/2021,02/26/2021 Social History Tobacco Use Types Packs/Day Years [...] on file Legal Sex Female 11:37 PM SEWING TECHNIQUES DEMONSTRATOR Gender Identity Not on file Sexual Orientation Not on file Last Filed Vital Signs Vital Sign Reading Time Taken Comments Blood Pressure 130/70 04/19/2024 8:29 AM SEWING TECHNIQUES DEMONSTRATOR Pulse 75 04/19/2024 8:29 AM SEWING TECHNIQUES DEMONSTRATOR Temperature 36.4 C (97.5 F) 04/19/2024 8:29 AM SEWING TECHNIQUES DEMONSTRATOR Respiratory Rate 16 04/19/2024 8:29 AM SEWING TECHNIQUES DEMONSTRATOR Oxygen Saturation 95% 04/19/2024 8:29 AM SEWING TECHNIQUES DEMONSTRATOR Inhaled Oxygen Concentration - - Weight 102.1 kg (225 lb) 04/19/2024 8:29 AM SEWING TECHNIQUES DEMONSTRATOR Height 167.6 cm (5' 6 ) 04/19/2024 8:29 AM SEWING TECHNIQUES DEMONSTRATOR Body Mass Index 36.32 04/19/2024 8:29 AM SEWING TECHNIQUES DEMONSTRATOR Plan of Treatment Upcoming Encounters Date Type Department Care Team (Late st Contact Info) Description 12/25/2024 7:55 AM CDT Hospital Encounter [address] [address] Donato Aragon MD [address] [place] [address] [address] 12/25/2024 7:55 AM CDT - 12/25/2024 8:25 AM CDT Surgery [address] [place] [address] Donato Aragon MD 4 [facility] [address] [address] COLONOSCOPY Scheduled Procedures Name Priority Associated Diagnoses Date/Ti me COLONOSCOPY History of colonic polyps 12/25/2024 7:55 AM CDT Medical Devices Implanted Type Area Contact Lens Curve Grinder Device Identifier Shelf Expiration Date Model / Serial / Lot [employer] [id number] Implant Mammary Cpx4 Plus Sm Te Mh 450cc - [id number] - [id number] Implanted:Qty: 1 on 06/17/2021 by Shen Reeder, DO at [facility] Right: Breast [employer] 12/13/2024 [id number] / [id number] / [employer] Implant Breast Moderate Plus Profile Smooth Memorygel Boost 590cc Gel Drpt497 - [id number] - [id number] Implanted:Qty: 1 on 10/15/2021 by Shen Reeder, DO at [facility] Right: Breast [employer] 07/20/2026 [id number] / [id number] / Procedures Procedure Name Priority Date/Time Associated Diagnosis Comments SCREENING MAMMOGRAM LEFT W ROCKY UNILATERAL ONLY Schedule Routine, Read Routine (OP Routine) 09/19/2023 10:27 AM CDT Encounter for screening mammogram for malignant neoplasm of breast HEPATITIS PANEL, ACUTE Routine 11/11/2020 2:42 PM CDT Elevated liver function tests COLONOSCOPY 01/28/2020 7:57 AM SEWING TECHNIQUES DEMONSTRATOR PAP ONLY Routine 12/25/2019 5:14 PM CDT [...] age 40, based on guidelines of the [employer] (ACR Practice Parameter for the Performance of Screening and Diagnostic Mammography) and [place] [employer]. For women [...] W Rocky 02/23/2021 Screening Mammogram Bilateral W Rocky 11/27/2019 Screening Mammogram 2D Bilateral BREAST TISSUE: The left breast has scattered areas of fibroglandular density. FINDINGS: No suspicious masses, suspicious calcifications, or other suspicious findings are seen within the left breast. There has been no suspicious change. us Aaron Mason MD IMG MAMMO PROCEDURES Final Result * Hepatitis panel, acute (11/11/2020 2:42 PM CDT) Hep A IgM NON-REACTI VE NON-REACT JEFFREY [facility] Comment: For additional information, please refer to http://education.SquareKey.[employer]/faq/BMS088 (This link is being provided for informational/ [...] a test for HCV RNA (test code 03560) is suggested. For additional information please refer to http://education.TouchOfModern.com/faq/NUH07s4 (This link is being provided for informational/ educational purposes only.) Blood specimen (specimen) 11/11/2020 2:42 PM CDT 11/11/2020 2:42 PM CDT Narrative [facility] - 11/12/2020 3:22 PM CDT FASTING:NO FASTING: NO Tracie Hart MD LAB MICROBIOLOGY - GENERAL ORDERABLES Final Result [facility] [address] [place] [address] * COLONOSCOPY (01/28/2020 7:57 AM SEWING TECHNIQUES DEMONSTRATOR) Anatomical Region Laterality Modality Other Narrative Procedure Note Donato Aragon MD - 01/28/2020 7:57 AM CST [facility] Patient Name: Katrina Cheng Procedure Date: 01/28/2020 7:57 AM Date of : 1960 Admit Type: Outpatient Age: 59 Gender: Female Attending MD: Donato Aragon M.D. Room: [facility] ENDOSCOPY ROOM 1 Note Status: [...] passed under direct vision. The PediatricColonoscope [id number] was introduced through the anusand advanced to [...] small. Electronically signed by Donato Aragon M.D. Donato Aragon M.D. 01/28/2020 9:57:00 AM Number of Addenda: 0 Note Initiated On: 01/28/2020 7:57 AM Procedure Code(s): --- Professional --- 24748, Colonoscopy, flexible; with biopsy, single or multiple Diagnosis Code(s): --- Professional --- Z86.010, Personal history of colonic polyps K64.8, Other hemorrhoids D12.4, Benign neoplasm of descending colon K62.1, Rectal polyp CPT copyright 2017 [employer]. All rights reserved. The codes documented in this report are preliminary and upon death surveys coder reviewmay be revised to meet current compliance requirements. Recognized by the [employer] for promoting quality in endoscopy Donato Aragon MD ENDOSCOPY PROCEDURES Final Result * Pap Only (12/25/2019 5:14 PM CDT) CLINICAL INFORMATION: Lisha SteinbergHever Kam Comment:SCREENING LMP Lisha SteinbergBernaConstance Kam Comment:UNKNOWN Previous Pap Lisha SteinbergBernaConstance Kam Comment:INFORMATION NOT PROV IDED Prev. Bx Lisha SteinbergBernaConstance hay Eddy Comment:INFORMATION NOT PROV IDED SOURCE: Lisha SteinbergBernaConstance Kam Comment:Cervix, Endocervix Pap, specimen adequacy Lisha SteinbergBernaConstance Kam Comment: Satisfactory for evaluation. Endocervical/transformation zone component present. Age and/or menstrual status not provided HPV interp Lisha SteinbergBernaConstance hay Eddy Comment:Negative for intraep ithelial lesion or malignancy. Packer Que st SteinbergBernaConstance Kam Comment: MLO, CT(ASCP) CT screening location: [place] [address] [address] [place] [address] Comment Lisha IdrisHever Kam Comment: EXPLANATORY NOTE: The Pap is [...] MD LAB CYTOLOGY ORDERA BLES Final Result LISHA Jurado [place] [address] [address] [place] [phone] from Last 3 Months or Most Recently Relevant to Health Maintenance Insurance MEDICARE [place] OPEN ACCESS [employer] OPEN ACCESS Advance Directives For more information, please contact: [phone] * Full Code (Latest Code Status on File) Date Activated Date Inactivated Comments 06/17/2021 7:15 PM 06/18/2021 7:28 PM * Full Code Date Activated Date Inactivated Comments 01/28/2020 8:22 AM 01/28/2020 2:39 PM Care Teams Electro Winning Operator Relationship Specialty Start Date End Date Tracie Hart MD [address] [place], [place] [id number] PCP - General Family Medicine 08/28/19 Dago Hannon MD [address] [place] [address] Medical Oncologist Hematology and Oncology 04/21/21
--- OUTSIDE RECORDS SUMMARY | 2024-05-06 10:24 | XMS_ITS ---
Author Organization [facility] As [employer] [facility] Address [address] [place] [address] [address] [facility] [address] [place] [address] Care Team Providers Care Fabricating Machine Operator Name Role Phone Jonnie Quach [phone] REASON FOR VISIT FYI only Social History Sex Assigned At : Social History Observation Description Sex Assigned At Female Encounters En[facility] [place] [address] [address] [facility] [address] [facility] [address] [place] [address] 12/04/2023 Jonnie Quach Plan Of Treatment No Information Progress Notes * Germaine WILEYKevinOB:1960 (63 yo F)Acc No.[id number]:12/04/2023 Patient: Katrina FLORENTINO :1960 A ge:63 Y S ex:Female Address:[address] [place] [id number] * true * Date: Generated for Printi ng/Famimig/eTransmitting on: 0 05/06/2024 10:24 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
--- OUTSIDE RECORDS SUMMARY | 2024-05-06 10:25 | XMS_ITS ---
Author Organization [facility] Address [facility] [facility] [address] [place] [address] Care Team Providers Care Manager Float Name Role Phone Jonnie Quach [phone] Social History Sex Assigned At : Social History Observation Description Sex Assigned At Female Encounters Encounter Location Date Provider Diagnosis [facility] [address] [facility] [address] [place] [address] 12/04/2023 Jonnie Quach Plan Of Treatment No Information Progress Notes * Jj WILEYOB:1960 (63 yo F)Acc No.[id number]:12/04/2023 Patient: Katrina FLORENTINO :1960 A ge:63 Y S ex:Female Address:[address] [place] [address] * true * Date: Generated for Shell barbosa/Sarina/eTransmitting on: 0 05/06/2024 10:24 AM 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
--- OUTSIDE RECORDS SUMMARY | 2024-05-06 10:25 | XMS_ITS | Patient Health Summary ---
Author Organization [facility] [email or web address] Address [address] [place] [address] Care Team Providers Care Baker [facility] Name Role Phone Unavailable Primary Care Provider Unavailabl e Note from [facility],non-owned Affiliates and Associated Physician Practices is amultiple site organization consisting of ambulatory clinics and hospital sitesin [place], [place], [place] and [place]. This disclosure is being madepursuant to the Care Everywhere program and may not contain all information available regarding this patient. Last updated 17.[facility] [email or web address] Allergies No known active allergies Medications * Be aware that medications may not be up to date on this document. Alwaysverify current medications with the patient. * spironolactone (ALDACTONE) 50 MG tablet Take 50 mg by mouth once daily Take 3 tabs for acne Reasons: Common Acne * clonazePAM (KLONOPIN) 0.5 MG tablet(Started 08/20/2019) Take 1 tablet by mouth nightly as needed for Anxiety Reasons: Manic-Depression * OXcarbazepine (TRILEPTAL) 300 MG tablet(Started 08/21/2019) Take 1 tablet by mouth once daily Reasons: Manic-Depression, bipo * OXcarbazepine (TRILEPTAL) 600 MG tablet(Started 08/20/2019) Take 1 tablet by mouth at bedtime Reasons: mood disorder * FLUoxetine (PROZAC) 20 MG capsule(Started 08/21/2019) Take 1 capsule by mouth once daily Reasons: Depression Active Problems Problem Noted Date Diagnosed Date Schizophrenia 08/05/2019 Social History Tobacco Use Types Packs/Day Years Used Date Smoking Tobacco: Never Smokeless Tobacco: Never Tobacco Cessation:Counseling Given: Yes Comments:nonsmoker Alcohol Use Standard Drinks/Week Comments Not Currently 0 (1 standard drink = 0.6 oz pur e alcohol) AUDIT-C Answer Date Recorded Q1: How often do you have a drink containing alc ohol? Never 08/05/2019 Average Number of Drinks Not on file 020 Frequency of Binge Drinking Not on file 07/12 Sex and Gender Information Value Date Recorded Sex Assigned at Not on file Gender Identity Not on file Sexual Orientation Not on file Last Filed Vital Signs Vital Sign Reading Time Taken Comments Blood Pressure 126/67 08/20/2019 7:50 AM CDT Pulse 69 08/20/2019 7:50 AM CDT Temperature 36.7 C (98.1 F) 08/20/2019 10:57 AM CDT Respiratory Rate 18 08/20/2019 7:50 AM CDT Oxygen Saturation 96% 08/20/2019 7:50 AM CDT Inhaled Oxygen Concentration - - Weight 95.3 kg (210 lb) 08/05/2019 9:20 PM CDT Height 167 cm (5' 5.75 ) 08/05/2019 9:20 PM CDT Body Mass Index 34.16 08/05/2019 9:20 PM CDT Procedures * HEMOGLOBIN A1C(Performed 08/08/2019) * LIPID PROFILE(Performed 08/08/2019) * BASIC METABOLIC PANEL (CALCIUM TOTAL)(Performed 08/07/2019) * GROSS + MICRO EXAM(Performed 12/02/1999) Results * HEMOGLOBIN A1C (08/08/2019 6:15 AM CDT) Hemoglobin A1c 5.4 4.2 - 5.6 % 08/08/2019 6:44 AM CDT [facility] Estimated Average Glucose 108 mg/dL 08/08/2019 6:44 AM CDT [facility] Blood BLOOD SPECIMEN / Unknown Lab Venipuncture / Unknown 08/08/2019 6:15 AM CDT 08/08/2019 6:25 AM CDT Narrative [facility] - 08/08/2019 6:44 AM CDT The following cutoff levels are recommended by [place] [employer]. A1c > 6.5% : considered as diabetes if two separate tests >6.5% or in an appropriate clinical setting. A1c 5.7% - 6.4% : considered as prediabetes (suggest increased risk for diabetes and cardiovascular disease) Control target level: Should be individualized. < 7 for general (non-) , < 8% less stringent goal, < 6.5 more stringent goal. Hemoglobin A1c measurements are used as an aid in the diagnosis of diabetic mellitus, as an aid to identify patients who may be at the risk for developing diabetic mellitus, and for the monitoring long-term blood glucose control in individuals with diabetes mellitus. This test should not replace glucose testing for patients with Type 1 diabetes, pediatric patients, or women. Falsely low HbA1c results may be observed in patients with clinical conditions that shorten erythrocyte life span or decrease mean erythrocyte age such as the presence of unstable hemoglobin variants, elevated hemoglobin F level or other causes of hemolytic anemia . HbA1c may not accurately reflect glycemic control when clinical conditions that affect erythrocyte survival are present. Severe Iron deficiency anemia may yield falsely high results. Hemoglobin A1c assay should not be used to diagnose or monitor diabetes in patients with malignancy, recent blood transfusion, chronic kidney or liver disease. This method may yield falsely low results when hemoglobin (HbF) exceeds 5% in the specimen. Josefina Tanner MD LAB - CHEMISTRY FABRIZIO GONZALEZ [facility] Organization Address City/State/[facility] Co de Phone Number [facility] [address] * LIPID PROFILE (08/08/2019 6:15 AM CDT) [facility] Cholesterol 126 <200 mg/dL 08/08/2019 6:52 AM T [facility] Triglycerides 67 <150 mg/dL 08/08/2019 6:52 AM T [facility] HDL Cholesterol 46 >40 mg/dL 0 6:52 AM T [facility] Chol HDL Ratio 2.7 1.0 - 6.0 08/08/2019 6:52 AM T [facility] LDL Calculated 67 65 - 130 mg/dL 08/08/2019 6:52 AM T [facility] VLDL Calculated 13 <=30 mg/dL 0 6:52 AM T [facility] Blood BLOOD SPECIMEN / Unknown Lab Venipuncture / Unknown 08/08/2019 6:15 AM CDT 08/08/2019 6:25 AM CDT Narrative [facility] - 08/08/2019 6:52 AM CDT Lipid Profile Comment: CHOLESTEROL LEVEL..................CLINICAL INTERPRETATION LESS THAN 200 MG/DL..............................DESIRABLE 200-239 MG/DL..............................BORDERLINE HIGH GREATER THAN 240 MG/DL................................HIGH LDL-CHOLESTEROL LEVEL..............CLINICAL INTERPRETATION LESS THAN 100 MG/DL................................OPTIMAL 100-129 MG/DL.................................NEAR OPTIMAL GREATER THAN 160 MG/DL...........................HIGH RISK HDL RISK LEVEL GREATER THEN 60 MG/DL............................DECREASED 40-60 MG/DL........................................AVERAGE LESS THAN 40 MG/DL...............................INCREASED TRIGLYCERIDE LEVEL..................CLINICAL INTERPRETATION LESS THAN 150 MG/DL...............................DESIRABLE 150-199 MG/DL...............................BORDERLINE HIGH 200-499 MG/DL..........................................HIGH GREATER THAN 500..................................VERY HIGH THE NATIONAL CHOLESTEROL EDUCATION PROGRAM HAS SET THE ABOVE GUIDELINES (REFERANCE VALUES) FOR CHOLESTEROL AND HDL. RISK ASSOCIATED WITH CHOLESTEROL/HDL RATIOS RISK....................MALE RATIO.............FEMALE RATIO 1/2 AVERAGE.................<3.4.......................<3.3 LOW RISK.................... 4.0 ...................... 3.8 AVERAGE..................... 5.0 ...................... 4.5 2X AVERAGE.................. 9.5 ...................... 7.0 3X AVERAGE...................>23........................>11 Josefina Tanner MD LAB - CHEMISTRY FABRIZIO GONZALEZ [facility] [address] [place], [place] [id number] [place] [address] * (ABNORMAL) BASIC METABOLIC PANEL (CALCIUM TOTAL) (08/07/2019 7:54 AM CDT) Glucose 108 70 - 125 mg/dL 08/07/2019 8:31 AM CDT [facility] Sodium 141 136 - 145 mmol/L 08/07/2019 8:31 AM CDT [facility] Potassium 3.6 3.4 - 4.5 mmol/L 08/07/2019 8:31 AM CDT [facility] Chloride 107 98 - 107 mmol/L 08/07/2019 8:31 AM CDT [facility] CO2 25 22 - 29 mmol/L 08/07/2019 8:31 AM CDT [facility] Calcium 9.3 8.4 - 10.2 mg/dL 08/07/2019 8:31 AM T [facility] Anion Gap 13 10 - 20 mmol/L 08/07/2019 8:31 AM CDT [facility] BUN 5.5(L) 9.8 - 20.1 mg/dL 08/07/2019 8:31 AM CDT [facility] Creatinine 0.66 0.57 - 1.11 mg/dL 08/07/2019 8:31 AM T [facility] eGFR by MDRD >60 >60 mL/min/1.7 3m2 08/07/2019 8:31 AM CDT [facility] eGFR by MDRD >60 >60 mL/min/1.7 3m2 08/07/2019 8:31 AM CDT [facility] Blood BLOOD SPECIMEN / Unknown Lab Venipuncture / Unknown 08/07/2019 7:54 AM CDT 08/07/2019 8:06 AM CDT Emma Garcia PRODUCE LABORER-INSPECTOR PLATING LAB - CHEMISTRY O RDERABLES Performing Organization Address [facility] Co de Phone Number [facility] [address] * GROSS + MICRO EXAM (12/02/1999 2:28 PM CDT) Result CASE NUMBER [id number] Comment: ORDERING PHYSICIAN DARREN JOYNER SPECIMEN TYPE Tissue-cerv. polyp Date 12/02/1999 Physician Akash Gross Description The specimen is received in a formalin-filled container labeled with the patient's name and `cervical polyp is a fernandez brown polyp, 2.5 x 1.5 x 1.0 cm. The specimen is bisected revealing a fernandez smooth cut surface. The specimen is totally submitted. RK/jmc Microscopic Exam The specimen consists ofa endocervical polyp lined by sqamo-columnar epithelium with kandice of sqamous metaplsia.No dysplasia is seen.The ar stroma is cellular in nature without mitotic activity. Within the cellular stroma is a mild to moderate degree of neutrophilic and lymphocytic infiltration. Benign endocervical glands with mucinous producing columnar epithelium are present. No atypia is identified within the endocervical glands.The stroma is myofibroblastic in nature. Trichrome stain confirms the smooth muscle nature.No evodencs of anaplasia ,malignancy is seen. RK/ SR Diagnosis I. Cervix, endocervical polyp A. Endocervical polyp. B. Marked acute and chronic inflammation C. See micro. mikaela SR Spool Hauler [facility] Pathologist Rainer Gooden M.D. Snomed. 12/03/1999 1141 <1> CPT code 05369/67733,[id number]/75993 MISCELLANEOUS SAMPLES / Unknown 12/02/1999 2:28 PM CDT 12/02/1999 2:28 PM CDT Historical Provider LAB - PATHOLOGY/C YTOLOGY ORDERABLES
--- OUTSIDE RECORDS SUMMARY | 2024-05-06 10:25 | XMS_ITS ---
Author Organization [facility] [employer] [facility] Address [address] [place] [address] Care Team Providers Care Clip Baker Name Role Phone Jonnie Quach Unavailable [phone] Carloz Hahn Unavailable [phone] REASON FOR VISIT ADHD Test Medications Medication SIG (Take, Route, Frequency, Duration) Notes Start Date End Date Status Escitalopram Oxalate 5 MG 1 tablet Orall y Once a day for 30 days 11/14/2023 Active Social History Sex Assigned At : Social History Observation Description Sex Assigned At Female Encounters Encounter Location Date Provider Diagnosis [facility] [address] [facility] [address] [facility] [address] [place] [address] 12/08/2023 Carloz Hahn Plan Of Treatment No Information Progress Notes * Germaine WILEYneDOB:1960 (64 yo F)Acc No.[id number]:12/08/2023 ADHD Testing Patient: Katrina FLORENTINO Provider: Constance HAHN MD :1960 A ge:63 Y S ex:Female Date:12/08/2023 Address:[address] [place], [place] [id number] Subjective: * Chief Complaints: * 1 . ADHD Test. * Medical History: * Medications: T aking Escitalopram Oxalate 5 MG Tablet 1 tablet Orally Once a day Objective: * Vitals: Assessment: Plan: * Treatment: * Billing Information: * Visit Code: * Procedure Codes: * Electronic signature of Pauly Hahn MD on 05/06/2024 at 10:25 AM PRODUCTION CONTROL COORDINATOR Sign off status: Pending * Provider: Constance HAHN MD Date: 0 12/08/2023 Generated for Shell barbosa/Sarina/Jaspal on: 0 05/06/2024 10:25 AM PRODUCTION CONTROL COORDINATOR
--- OUTSIDE RECORDS SUMMARY | 2024-05-06 10:25 | XMS_ITS | Referral Summary ---
Author Organization [facility] [employer] Address [address] [facility] [address] [facility] [address] Care Team Providers Care Armor Reconnaissance Specialist Name Role Phone Unavailable Primary Care Provider Unavailabl e Source Comments [facility],non-owned Affiliates and Associated Physician Practices is amultiple site organization consisting of ambulatory clinics and hospital sitesin [place], [place], [place] and [place]. This disclosure is being madepursuant to the Care Everywhere program and may not contain all information available regarding this patient. Last updated 17.[facility] [employer] Allergies No known active allergies Medications * Be aware that medications may not be up to date on this document. Alwaysverify current medications with the patient. Medication Sig Dispensed Refills Start Date End Date Status spironolactone (ALDACTONE) 50 MG tabletIndications:A cne Vulgaris Take 50 mg by mouth once daily Take 3 tabs for acne Reasons: Common Acne Active clonazePAM (KLONOPIN) 0.5 MG tabletIndications:B ipolar Mood Disorder Take 1 tablet by mouth nightly as needed for Anxiety Reasons: Manic-Depression 15 tablet 08/20/2019 Active OXcarbazepine (TRILEPTAL) 300 MG tabletIndications:B ipolar Mood Disorder,bipo Take 1 tablet by mouth once daily Reasons: Manic-Depression, bipo 30 tablet 08/21/2019 Active OXcarbazepine (TRILEPTAL) 600 MG tabletIndications:m ood disorder Take 1 tablet by mouth at bedtime Reasons: mood disorder 30 tablet 08/20/2019 Active FLUoxetine (PROZAC) 20 MG capsuleIndications: Depression Take 1 capsule by mouth once daily Reasons: Depression 30 capsule 08/21/2019 Active Active Problems Problem Noted Date Diagnosed Date [...] Mass Index 34.16 08/05/2019 9:20 PM CDT Functional Status Functional Status Response Date of Assess ment Is person deaf or have serious hearing difficult y? No 08/20/2019 Is person blind or have serious difficulty seein g? No 08/20/2019 Does person have serious dif ficulty walking/climbing stairs? No 08/20/2019 Does person have difficulty dressing/bathing? No 08/20/2019 Does person have difficulty doing errands alone? No 08/20/2019 Cognitive Status Response Date of Assessm ent Does person have difficulty concentrating/remembering/making decisions? No 08/20/2019 Plan of Treatment Not on file Procedures Procedure Name Priority Date/Time Associated Diagnosis Comments LIPID PROFILE Routine 08/08/2019 6:15 AM CDT from Last 3 Months or Most Recently Relevant to Health Maintenance Results * LIPID PROFILE (08/08/2019 6:15 AM CDT) Cholesterol 126 <200 mg/dL 08/08/2019 6:52 AM T [facility] Triglycerides 67 <150 mg/dL 08/08/2019 6:52 AM T [facility] HDL Cholesterol 46 >40 mg/dL 0 6:52 AM T [facility] Chol HDL Ratio 2.7 1.0 - 6.0 08/08/2019 6:52 AM T [facility] LDL Calculated 67 65 - 130 mg/dL 08/08/2019 6:52 AM T [facility] VLDL Calculated 13 <=30 mg/dL 0 6:52 AM T [facility] Blood BLOOD SPECIMEN / Unknown Lab Venipuncture / Unknown 08/08/2019 6:15 AM CDT 08/08/2019 6:25 AM CDT Narrative [facility] - 08/08/2019 6:52 AM CDT Lipid [...] Tanner MD LAB - CHEMISTRY FABRIZIO GONZALEZ [facility] [address] [place] [address], [place] from Last 3 Months or Most Recently Relevant to Health Maintenance Advance Directives * Full Code (Latest Code Status on File) Date Activated Date Inactivated Comments 08/05/2019 10:20 PM 08/20/2019 1:03 PM
--- OUTSIDE RECORDS SUMMARY | 2024-05-06 10:25 | XMS_ITS | Encounter Summary ---
Author Organization [facility] Healthcare Address [address] [place] [address] Care Team Providers Care Chemical Preparer Name Role Phone Tracie Hart MD Primary Care Provi osvaldo Dago Hannon MD Unavailable [phone] Reason for Visit * Reason Onset Date Comments Medical Question/Miscellaneous 04/19/2024 Encounter Details Date Type Department Care Team (Late st Contact Info) Description 04/19/2024 Telephone [facility] Medical Group Family Medicine [address] [address] Tracie Hart MD [address] [place] [id number] Medical Question/Miscellaneous Social History Tobacco Use Types Packs/Day Years Used Date Smoking Tobacco: Never Smokeless Tobacco: Never Alcohol Use Standard Drinks/Week Comments Not Currently [...] file Legal Sex Female 11:37 PM SEWING DEMONSTRATOR Gender Identity Not on file Sexual Orientation Not on file documented as of this encounter Functional Status * Audit-C Score Answer Date of Assessment Author 1 04/19/2024 8:27 AM Alexandra Key MA * Question Answer Date of Assessment Author Q1: How often do you have a drink containing alcohol? Monthly or less 04/19/2024 8:27 AM Alexandra Key MA Q2: How many drinks containing alcohol do you have on a typical day when you are drinking? 1 or 2 04/19/2024 8:27 AM Karsten Key MA Q3: How often do you have six or more drinks on one occasion? Never 04/19/2024 8:27 AM Alexandra Key MA documented as of this encounter Miscellaneous Notes * Telephone Encounter - Ella Wray - 04/19/2024 1:20 PM CST Call Back Caller???s Concern: Patient aware and 1 month follow up scheduled for 05/20 Does message need to be routed? Yes-Action Needed NG DEMONSTRATOR * Telephone Encounter - Thuy Meneses LPN - 04/19/2024 1:12 PM CST Spoke with dr henriquez's office. Faxed office note per their request to [phone] Attempted to reach patient l to set up 1 month follow up for weight loss check, unable to lvm. Willreach out again NG DEMONSTRATOR * Telephone Encounter - Kelsie Parra PA - 04/19/2024 12:24 PM SEWING DEMONSTRATOR Please contact: Dr. Vitaliy Virgen, orthopedic surgery at [place]. [facility]. [phone] fax Let them know that patient can proceed with scheduling knee knee arthroscopy, but she will need to have repeat lab work and EKG within 1 month of surgery date. NG DEMONSTRATOR * Telephone Encounter - Ro Vilchis - 04/19/2024 9:12 AM CST Medical Question/Miscellaneous Caller???s Concern: Pt says at her last OV Kelsie said she would prescribe her a GLP-1 if she wasinterested. So she would like a script for Tirzepatide/ Zepbound 2.5 mg sent over to [facility] #[id number] Does message need to be routed? Yes-Action Needed NG DEMONSTRATOR documented in this encounter Plan of Treatment Upcoming Encounters Date Type Department Care Team (Late st Contact Info) Description 12/25/2024 7:55 AM CDT Hospital Encounter [address] [address] Donato Aragon MD [address] [facility] [address] [place] [address] 12/25/2024 7:55 AM CDT - 12/25/2024 8:25 AM CDT Surgery [address] [address] Donato Aragon MD [address] [place] [address] [address] [place] [id number] COLONOSCOPY Scheduled Procedures Name Priority Associated Diagnoses Date/Ti me COLONOSCOPY History of colonic polyps 12/25/2024 7:55 AM CDT documented as of this encounter Visit Diagnoses Not on filedocumented in this encounter Care Teams Chemical Preparer Relationship Specialty Start Date End Date Tracie Hart MD [address] [place] [address] PCP - General Family Medicine 08/28/19 Dago Hannon MD [address] [place] [address] Medical Oncologist Hematology and Oncology 04/21/21 documented as of this encounter
--- OUTSIDE RECORDS SUMMARY | 2024-05-06 10:25 | XMS_ITS | Patient Health Record ---
Author Organization [facility] [employer] Address [address] [facility] [address] [place] [address] Care Team Providers Care Aluminum Siding Mechanic Name Role Phone Jonnie Quach Unavailable [phone] EstebanCarloz grove Unavailable [phone] Allergies No Known Allergies Results Component Value Reference Range Notes UDT Reviewed date:11/15/2023 12:22:16 PM Interpretation: Performing Lab: Notes/Report: THC N 0 - 50 ng/ml Cocaine N 0 - 300 ng/ml Amphetamine N 0 - 1000 ng/ml Buprenorphine (BUP) N 0 - 10 ng/ml Secobarbital (Bar) N 0 - 300 ng/ml Oxazepam (BZO) N 0 - 300 ng/ml 4-wgeiabqkom-1,7-oyytelxb-4,3-diphenylpyrrolidine (DONNY P) N 0 - 300 ng/ml Methamphetamine (MET) N 0 - 1000 ng/ml Methylenedioxymethamphetamine (MDMA) N 0 - 500 ng/ml Morphine (MOP 300/[id number]) N 0 - 300 ng/ml Methadone (MTD) N 0 - 300 ng/ml Phencyclidine (PCP) N 0 - 25 ng/ml Propoxyphene (PPX) N 0 - 300 ng/ml Nortriptyline (TCA) N 0 - 1000 ng/ml Oxycodone N 0 - 300 ng/ml Reason For Referral No Information Medications Medication SIG (Take, Route, Frequency, Duration) Notes Start Date End Date Status Escitalopram Oxalate 5 MG 1 tablet Orall y Once a day for 30 days 11/14/2023 Active Social History Tobacco Use: Social History Observation Description Date Details (start date - stop date) Never Smoker NA - NA Sex Assigned At : Social History Observation Description Sex Assigned At Female Tobacco Control (Standard) Question Answer Notes Tobacco use: Nonsmoker Problems Problem Type SNOMED Code ICD Code Onset Dates Problem Status W/U Status Risk Notes Problem [id number] Severe episode o f recurrent major depressive disorder, without psychotic features (F33.2) Active confirmed Problem [id number] ADHD (attention deficit hyperactivity disorder) evaluation (Z13.39) Active confirmed Vital Signs Heart Rate 75 /min 11/14/2023 Height-cm 170.18 cm 11/14/2023 Blood pressure diastolic 72 mm Hg 11/14/2023 Weight-kg 96.89 kg 11/14/2023 Height 67 in 11/14/2023 Blood pressure systolic 101 mm Hg 11/14/2023 Weight 213.6 lbs 11/14/2023 BMI 33.45 kg/m2 11/14/2023 Procedures Procedure Date Ordered Date Performed Result Body Sit e ADHD Testing 11/14/2023 N/A Encounters Encounter Location Date Provider Diagnosis [employer] ([employer] [address] [address] 11/14/2023 Jonnie Clubb Severe episode of recurrent major depressive disorder, without psychotic features F33.2 and ADHD (attention deficit hyperactivity disorder) evaluation Z13.39 [facility] [address] [address] 11/20/2023 Jonnie Clubb [employer] [address] [address] 11/20/2023 Jonnie Clubb Severe episode of recurrent major depressive disorder, without psychotic features F33.2 [facility] [address] [address] 12/04/2023 Jonnie Clubb [facility] [address] [address] 12/04/2023 Jonnie Clubb Assessments Encounter Date Diagnosis (ICD Code) Assessment Notes Treatment Notes Treatment Clinical Notes Section Notes 11/14/2023 Severe episode of recurrent major depressive disorder, without psychotic features (ICD-10 - F33.2) 1. Major Depressive Disorder, Moderately Severe - Plan: Discontinue Jeanine's Wort after 6 months of use. Initiate Escitalopram (Lexapro) at 5 mg daily. Monitor for side effects such as GI issues, serotonin surge, and increased suicidal thoughts. If severe side effects occur, advise the patient to cut the pill in half. Schedule a follow-up appointment in two weeks to assess medication response and side effects. 2. Anxiety - Plan: Utilize Escitalopram (Lexapro) to address anxiety symptoms, as it may also aid in anxiety relief. Consider referral to counseling or therapy if anxiety symptoms persist. 3. Suspected Attention Deficit Hyperactivity Disorder (ADHD) - Plan: Schedule ADHD testing due to reported symptoms like difficulty concentrating, organizing tasks, and completing activities. Reevaluate the treatment plan based on test results and consider medication adjustments if necessary. 4. Follow-up Appointment - Plan: Schedule a follow-up appointment for November 28 at 9:00 AM to assess the response to Escitalopram, discuss ADHD testing results, and adjust the treatment plan as needed. 5. Additional Notes - Plan: Note the patient reports no allergies or significant medical history. There is a family history of schizophrenia (paternal uncle). The patient currently does not use alcohol, tobacco, or illicit drugs and reports no suicidal ideation at this time. 11/14/2023 ADHD (attention deficit hyperactivity disorder) evaluation (ICD-10 - Z13.39) 1. Major Depressive Disorder, Moderately Severe - Plan: Discontinue Jeanine's Wort after 6 months of use. Initiate Escitalopram (Lexapro) at 5 mg daily. Monitor for side effects such as GI issues, serotonin surge, and increased suicidal thoughts. If severe side effects occur, advise the patient to cut the pill in half. Schedule a follow-up appointment in two weeks to assess medication response and side effects. 2. Anxiety - Plan: Utilize Escitalopram (Lexapro) to address anxiety symptoms, as it may also aid in anxiety relief. Consider referral to counseling or therapy if anxiety symptoms persist. 3. Suspected Attention Deficit Hyperactivity Disorder (ADHD) - Plan: Schedule ADHD testing due to reported symptoms like difficulty concentrating, organizing tasks, and completing activities. Reevaluate the treatment plan based on test results and consider medication adjustments if necessary. 4. Follow-up Appointment - Plan: Schedule a follow-up appointment for November 28 at 9:00 AM to assess the response to Escitalopram, discuss ADHD testing results, and adjust the treatment plan as needed. 5. Additional Notes - Plan: Note the patient reports no allergies or significant medical history. There is a family history of schizophrenia (paternal uncle). The patient currently does not use alcohol, tobacco, or illicit drugs and reports no suicidal ideation at this time. 11/20/2023 Severe episode of recurrent major depressive disorder, without psychotic features (ICD-10 - F33.2) 11/14/2023 Other Learning About Depression Screening material was printed Assessment and plan reviewed with patient Call for problems with medication, side effects or need for dosage change Discussed medication side effects Patient education materials were given to the patient. discontinue [place] Wart. call office or come to walk-in clinic or go to the emergency room if suicidal thoughts occur. 1. Major Depressive Disorder, Moderately Severe - Plan: Discontinue Oscoda's Wort after 6 months of use. Initiate Escitalopram (Lexapro) at 5 mg daily. Monitor for side effects such as GI issues, serotonin surge, and increased suicidal thoughts. If severe side effects occur, advise the patient to cut the pill in half. Schedule a follow-up appointment in two weeks to assess medication response and side effects. 2. Anxiety - Plan: Utilize Escitalopram (Lexapro) to address anxiety symptoms, as it may also aid in anxiety relief. Consider referral to counseling or therapy if anxiety symptoms persist. 3. Suspected Attention Deficit Hyperactivity Disorder (ADHD) - Plan: Schedule ADHD testing due to reported symptoms like difficulty concentrating, organizing tasks, and completing activities. Reevaluate the treatment plan based on test results and consider medication adjustments if necessary. 4. Follow-up Appointment - Plan: Schedule a follow-up appointment for November 28 at 9:00 AM to assess the response to Escitalopram, discuss ADHD testing results, and adjust the treatment plan as needed. 5. Additional Notes - Plan: Note the patient reports no allergies or significant medical history. There is a family history of schizophrenia (paternal uncle). The patient currently does not use alcohol, tobacco, or illicit drugs and reports no suicidal ideation at this time. Plan Of Treatment Pending Test Test Name Order Date ADHD Testing 11/14/2023 Insurance Providers Payer Name Payer Address Payer Phone Subscriber Number Group Number Insured Name Patient Relationship to Insured Coverage Start Date Coverage End Date Cameron [employer] [address] [facility] [place] [id number] [phone] [id number] Katrina Cheng Self - patient is the insured
--- OUTSIDE RECORDS SUMMARY | 2024-05-06 10:25 | XMS_ITS | Clinical Summary ---
Author Organization [facility] Address [address] [facility] [place] [address] Care Team Providers Care Fruit Sorter Name Role Phone Unavailable Primary Care Provider Unavailabl e Source Comments [facility],non-owned Affiliates and Associated Physician Practices is amultiple site organization consisting of ambulatory clinics and hospital sitesin [place], [place], [place] and [place]. This disclosure is being madepursuant to the Care Everywhere program and may not contain all information available regarding this patient. Last updated 17.[facility] Allergies No known active allergies Medications * [...] Mass Index 34.16 08/05/2019 9:20 PM CDT Plan of Treatment Health Maintenance Due Date Last Done Comments COLOGUARD (AGES 45-75) - COL ON CA SCREENING 1960 COLON MONITORING 1962 COLONOSCOPY - COLON CA SCREENING 1962 CT COLONOGRAPHY - COLON CA SCREENING 1962 Colorectal Cancer Screening 1962 FIT - COLON CA SCREENING 1962 FLEX SIG - COLON CA SCREENING 1962 MAMMOGRAM 1962 PAP SMEAR 1962 HIV SCREENING 1977 HEPATITIS C SCREENING 02/13/1980 DTAP/TDAP/TD VACCINES (1 - Tdap) 1981 PNEUMOCOCCAL VACCINE 50+ (1 of 1 - PCV) 02/18/2012 ZOSTER VACCINE (1 of 2) 02/18/2012 COVID-19 VACCINE ( - 2023-2 5 season) 2023 INFLUENZA VACCINE (#1) 2023 DEPRESSION SCREENING 03/13/2024 LIPID TESTING 08/07/2024 08/08/2019 Respiratory Syncytial Virus (RSV) Vaccine Pt: or over 60 yrs (1 - 1-dose 75+ series) 2037 HEPATITIS B VACCINE Aged Out No longe r eligible based on patient's age to complete this topic HIB VACCINE Aged Out No longer eligi ble based on patient's age to complete this topic HPV VACCINE Aged Out No longer eligi ble based on patient's age to complete this topic MENINGOCOCCAL (Group B) VACCINE Aged Out No longer eligible based on patient's age to complete this topic MENINGOCOCCAL VACCINE Aged Out No vicki yordy eligible based on patient's age to complete this topic PNEUMOCOCCAL VACCINE Aged Out No long er eligible based on patient's age to complete this topic Procedures Procedure Name Priority Date/Time Associated Diagnosis Comments LIPID PROFILE Routine 08/08/2019 6:15 AM CDT from Last 3 Months or Most Recently Relevant to Health Maintenance Results * LIPID PROFILE (08/08/2019 6:15 AM CDT) [facility] Cholesterol 126 <200 mg/dL 08/08/2019 6:52 AM CDT [facility] Triglycerides 67 <150 mg/dL 08/08/2019 6:52 AM CDT [facility] HDL Cholesterol 46 >40 mg/dL 0 6:52 AM CDT [facility] Chol HDL Ratio 2.7 1.0 - 6.0 08/08/2019 6:52 AM CDT [facility] LDL Calculated 67 65 - 130 mg/dL 08/08/2019 6:52 AM CDT [facility] VLDL Calculated 13 <=30 mg/dL 0 6:52 AM CDT [facility] Blood BLOOD SPECIMEN / Unknown Lab Venipuncture / Unknown 08/08/2019 6:15 AM CDT 08/08/2019 6:25 AM CDT Narrative [facility] - 08/08/2019 6:52 AM CDT [...] Tanner MD LAB - CHEMISTRY FABRIZIO GONZALEZ [facility] [address] [place] [address], [facility] from Last 3 Months or Most Recently Relevant to Health Maintenance Advance Directives * Full Code (Latest Code Status on File) Date Activated Date Inactivated Comments 08/05/2019 10:20 PM 08/20/2019 1:03 PM
--- OUTSIDE RECORDS SUMMARY | 2024-05-06 10:25 | XMS_ITS | Clinical Summary ---
Author Organization [facility] Address [address] [place] [address] Care Team Providers Care Float Tender Name Role Phone Unavailable Primary Care Provider Unavailabl e Social History Tobacco Use Types Packs/Day Years Used Date Smoking Tobacco: Never Assessed Comments Unknown Sex and Gender Information Value Date Recorded Sex Assigned at Not on file Legal Sex Female 4:12 PM CDT Gender Identity Not on file Sexual Orientation Not on file Plan of Treatment Health Maintenance Due Date Last Done Comments Cervical Cancer Screening Pa p Smear (Age 30 to 64) Every 3 Years 1962 Colorectal Cancer Screening Colonoscopy (10 Years) 1962 Annual Physical 1965 Hepatitis C 02/18/1980 DTaP, Tdap and Td Vaccines ( 1 - Tdap) 1981 Cervical Cancer Screening Pa p with HPV Testing (Age 30 to 64) Every 5 Years 02/18/1992 Cervical Cancer Screening with HPV 02/18/1992 Mammogram Screening 2002 Zoster Vaccines (1 of 2) 02/18/2012 COVID-19 Vaccine (2023-2 5 season) 2023 Influenza Adult (#1) 2023 RSV Immunization or 60+ Years (1 - 1-dose 75+ series) 2037 Meningococcal B Vaccine Aged Out No l onger eligible based on patient's age to complete this topic Meningococcal Vaccine Aged Out No vicki yordy eligible based on patient's age to complete this topic Pneumococcal Vaccine: Pediat rics (0 to 5 Years) and At-Risk Patients (6 to 64 Years) Aged Out No longer eligible b ased on patient's age to complete this topic RSV Immunizations Under 20 Months Aged Out No longer eligible based on patient's age to complete this topic
== END 2024-05-06 09:27 | disposition home or self-care (01) ==
PROVIDERS: Visit Provider Orthopaedic Surgery
DX: M17.12 Unilateral primary osteoarthritis, left knee (principal); M81.0 Age-related osteoporosis without current pathological fracture
CPT/HCPCS: 73564

== ENCOUNTER 2024-06-11 09:25 | Outpatient (CLI) | payer OTHER, SELFPAY ==
--- NOTE | ~2024-06-11 | CT_ITS ---
EXAMINATION: CT LE LT wo con DATE: 06/11/2024 09:50 INDICATION: Left knee osteoarthritis for preoperative planning TECHNIQUE: High resolution computed tomography (CT) of the left lower extremity from the hip through the ankle was performed without intravenous contrast. Additional sagittal and coronal reconstructions were performed. Automated exposure control and iterative reconstruction technique were employed. The dose-length product was 1749.05 mGy-cm. COMPARISON: None FINDINGS: Tricompartmental osteoarthritis at the left knee, severe with prominent subarticular cystlike changes in the medial compartment and at the lateral side of the patellofemoral compartment. Mild osteoarthr itis at the lateral compartment. Minimal left knee joint effusion. Small Solano's cyst. Mild osteoarth ritis at the left ankle with subarticular cystlike changes along the medial margin of the talar dome. Moderate to severe osteoarthritis at the subtalar, naviculocuneiform and multiple tarsometatarsal juancho ints. Mild osteoarthritis at the remaining joints in the left foot. Minimal left hip osteoarthritis. There is a soft tissues are unremarkable. No pathologically enlarged left pelvic or inguinal lymphade nopathy. IMPRESSION: 1. Polyarticular osteoarthritis, severe at the medial and patellofemoral compartment of the left knee . 2. Additional moderate to severe polyarticular osteoarthritis at the left mid and hindfoot. Reviewed, dictated and finalized at location A. IMPRESSION: 1. Polyarticular osteoarthritis, severe at the medial and patellofemoral compar tment of the left knee. 2. Additional moderate to severe polyarticular osteoarthritis at the left mid a nd hindfoot.
--- OUTSIDE RECORDS SUMMARY | 2024-06-11 10:05 | XMS_ITS ---
Author Organization [facility] [email or web address] [facility] Address [address] [place] [address] [address] [facility] [address] [place] [address] Care Team Providers Care Circuit Board Inspector Name Role Phone Jonnie Quach [phone] REASON FOR VISIT FYI only Social History Sex Assigned At : Social History Observation Description Sex Assigned At Female [facility]counters En[facility] [place] [address] [facility] [address] [facility] [address] [place] [address] 12/04/2023 Jonnie Quach Plan Of Treatment No Information Progress Notes * Germaine WILEYKevinOB:1960 (63 yo F)Acc No.[id number]:12/04/2023 Patient: Katrina FLORENTINO :1960 A ge:63 Y S ex:Female Address:[address] [place] [address] * true * Date: Generated for Printi ng/Rog/eTransmitting on: 0 06/11/2024 10:05 AM CDT
--- OUTSIDE RECORDS SUMMARY | 2024-06-11 10:05 | XMS_ITS | Referral Summary ---
Author Organization [facility] Virtual Care Address [address] [place] [phone] Phone Care Team Providers Care Renovation Plant Supervisor Name Role Phone Tracie Hart MD Primary Care Provi osvaldo Gibran Cooper MD Unavailable [phone] Encounters Date Type Department Care Team Description 06/11/2024 Telephone [facility] [address] [place] [address] Medical Office [address] [place] [address] [facility] 06/07/2024 Results Follow-Up [facility] [address] [phone] Tracie Hart MD 05/27/2024 9:00 AM CDT Lab [address] [place] [address] Malignant neoplasm of overlapping sites of right breast in female, estrogen receptor positive (HCC); Vitamin D deficiency 05/27/2024 9:30 AM CDT Office Visit [facility] [address] [place] [address] Office [address] [place] [address] Gibran Cooper MD Malignant neoplasm of overlapping sites of right breast in female, estrogen receptor positive (HCC) (Primary Dx); Screening mammogram for breast cancer; 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; Vitamin D deficiency 04/19/2024 Telephone [facility] [address] [address] Tracie Hart MD Prior Auth request for Zepbound 04/19/2024 Orders Only [facility] [address] [place] [phone] Kelsie Parra PA 04/19/[address] [address] Tracie Hart MD Medical Question/Miscellaneous 04/19/2024 8:30 AM DEPUTY SHERIFF BAILIFF Office Visit [address] [address] Kelsie Parra PA Primary osteoarthritis of both knees (Primary Dx); ADHD, predominantly inattentive type; Bipolar I disorder, most recent episode (or current) depressed, severe, specified as with psychotic behavior (HCC); Class 2 severe obesity due to excess calories with serious comorbidity and body mass index (BMI) of 36.0 to 36.9 in adult (HCC); History of right breast cancer; Other schizophrenia (HCC) from Last 3 Months Allergies No known active allergies Medications Soolantra 1 % cream As needed 0 Active Invega Sustenna 117 mg/0.75 mL syringe INJ 117 MG IM TO DELTOID OR GLUTEAL AREA ONCE A MONTH UTD 0 Active Epiduo Forte 0.3-2.5 % gel with pump 1 Active temazepam (RESTORIL) 15 mg capsuleIndicati ons:Insomnia Take 1 capsule (15 mg total) by mouth nightly as needed for sleep Active anastrozole (ARIMIDEX) 1 mg tabletIndicatio ns:Malignant neoplasm of overlapping sites of right breast [...] every 7 days 2 mL 5 Active Additional Information Patient not taking.Reported on 05/27/2024 methylphenidate ER (METADATE ER) 20 mg CR tablet TAKE 1 TABLET BY MOUTH TWICE DAILY IN THE MORNING AND AT NOON 5 Active methylphenidate CD (METADATE CD) 50 mg CR capsule Take 1 capsule (50 mg total) by mouth every morning 025 Discontin ued(Alter angeline therapy) Active Problems Problem Noted Date Diagnosed Date History of colonic polyps 12/14/2023 Primary osteoarthritis of both knees 12/08/2022 Assessment & Plan (04/19/2024 12:24 PM DEPUTY SHERIFF BAILIFF): Chronic. Left greater than worse, planning to have arthroscopy on the left knee. - Continue to follow with Dr. Virgen ([place]) for x-rays - Patient that she will [...] 06/17/2021 Assessment & Plan (04/19/2024 9:02 AM DEPUTY SHERIFF BAILIFF): Chronic. Continue anastrozole. Continue to follow with [...] from 04/05/2021:Stage IA(cT1b, cN0(f), cM0, G2, ER+, WA+, HER2-) - Signed by Tania Sloan MD [...] surgery Assessment & Plan (05/06/2021 9:53 AM DEPUTY SHERIFF BAILIFF): Will try to recheck her labs We [...] recheck Assessment & Plan (05/06/2021 9:48 AM DEPUTY SHERIFF BAILIFF): Recurrent Appointment with oncology today Will recheck labs Differential is wide including medication effect vs over hydration vs other Will repeat labs Assessment & Plan (02/26/2021 7:51 AM DEPUTY SHERIFF BAILIFF): Follow up labs were normal Continue to monitor Assessment & Plan (11/17/2020 9:51 AM CDT): ?related to increased water intake prior to testing vs alcohol Will recheck in 6 weeks 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 Decrease alcohol Update me with any changes Elevated liver function tests 11/17/2020 Assessment & Plan (12/08/2022 10:10 AM CDT): Chronic, but now resolved Continue to monitor Assessment & Plan (10/11/2021 4:38 PM CDT): F/u LFT's normal Continue to monitor Assessment & Plan (09/23/2021 8:36 AM CDT): Repeat LFTs normal Assessment & Plan (05/06/2021 9:50 AM DEPUTY SHERIFF BAILIFF): Higher than is has been Will recheck her labs Stressed to her we need to look at an ultrasound for possible pathology- she declined Further guidance once we have the results Assessment & Plan (02/26/2021 7:52 AM DEPUTY SHERIFF BAILIFF): Repeat normal We discussed checking an ultrasound [...] Neg HPV Last mammogram: 10/03- WNL Last colonoscopy:2019- due in 4 years, ordered Last Tdap: [...] colonoscopy:2020- due in 4 years Last Tdap: 2017 Last pneumonia/Prevnar: reviewed [...] colonoscopy:2020- due in 3 years Last Tdap: 2018 Last pneumonia/Prevnar: reviewed [...] (12/11/2019): Added automatically from request for surgery [id number] Assessment & Plan (12/08/2022 10:12 AM CDT): [...] 09/24/2019 Assessment & Plan (04/19/2024 9:02 AM DEPUTY SHERIFF BAILIFF): Chronic. Uncontrolled. Patient working on keeping her [...] medication management, patient would like to try Weteey, script sent. Risks and benefits discussed today.. Assessment & Plan (12/08/2022 10:10 AM CDT): BMI Follow-up includes: nutrition counseling. Assessment & Plan (10/11/2021 4:37 PM CDT): BMI Follow-up includes: nutrition counseling. Assessment & Plan (05/06/2021 9:59 AM DEPUTY SHERIFF BAILIFF): BMI Follow-up includes: nutrition counseling. 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 Improving.. - Continue to follow with [...] 06/29/2012 Assessment & Plan (04/19/2024 9:03 AM DEPUTY SHERIFF BAILIFF): Chronic. Continue to follow with psychiatry. Assessment [...] questions Assessment & Plan (05/06/2021 9:50 AM DEPUTY SHERIFF BAILIFF): With medications that could affect her sodium Will recheck her labs Assessment & Plan (02/26/2021 7:53 AM DEPUTY SHERIFF BAILIFF): Stable Continue to follow with her psychiatrist [...] Unchanged Assessment & Plan (04/19/2024 9:01 AM DEPUTY SHERIFF BAILIFF): Chronic. 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 she feels that is related to her bariatric surgery She is currently on an wzax-[id number]-[id number] iron, At this time she can continue [...] on file Legal Sex Female 11:37 PM DEPUTY SHERIFF BAILIFF Gender Identity Not on file Sexual Orientation Not on file Last Filed Vital Signs Vital Sign Reading Time Taken Comments Blood Pressure 120/63 05/27/2024 9:11 AM CDT Pulse 64 05/27/2024 9:11 AM CDT Temperature 36.3 C (97.3 F) 05/27/2024 9:11 AM CDT Respiratory Rate 20 05/27/2024 9:11 AM CDT Oxygen Saturation 97% 05/27/2024 9:11 AM CDT Inhaled Oxygen Concentration - - Weight 100.7 kg (222 lb) 05/27/2024 9:11 AM CDT Height 167.6 cm (5' 6 ) 04/19/2024 8:29 AM DEPUTY SHERIFF BAILIFF Body Mass Index 35.83 04/19/2024 8:29 AM DEPUTY SHERIFF BAILIFF Plan of Treatment Upcoming Encounters Date Type Department Care Team (Late st Contact Info) Description 12/25/2024 7:55 AM CDT Hospital Encounter [address] [address] Donato Aragon MD [address] [place] [address] [address] MINOR [address] [place] [phone] 12/25/2024 7:55 AM CDT - 12/25/2024 8:25 AM CDT Surgery [address] [address] Donato Aragon MD [address] [place] [address] DR MINOR [address] [place] [id number] COLONOSCOPY Scheduled Procedures Name Priority Associated Diagnoses Date/Ti me COLONOSCOPY History of colonic polyps 12/25/2024 7:55 AM CDT Medical Devices Implanted Type Area Continuous Improvement Facilitator Device Identifier Shelf Expiration Date Model / Serial / Lot Gap Extend [employer] [id number] Implant Mammary [id number] Plus Sm Te Mh 450cc - [id number] - [id number] Implanted:Qty: 1 on 06/17/2021 by Shen Reeder, DO at [facility] Right: Breast [employer] 12/13/2024 [id number] / [id number] / [employer] Implant Breast Moderate Plus Profile Smooth Memorygel Boost 590cc Gel [id number] - [id number] - [id number] Implanted:Qty: 1 on 10/15/2021 by Shen Reeder, DO at [facility] Right: Breast [employer] 07/20/2026 [id number] / [id number] / Procedures Procedure Name Priority Date/Time Associated Diagnosis Comments EGFR Routine 05/27/2024 8:55 AM CDT Malignant neoplasm of overlapping sites of right breast in female, estrogen receptor positive (HCC) VITAMIN D 25 HYDROXY Routine 05/27/2024 8:55 AM CDT Vitamin D deficiency DIFFERENTIAL AUTO Routine 05/27/2024 8:5 5 AM CDT Malignant neoplasm of overlapping sites of right breast in female, estrogen receptor positive (HCC) CBC WITH AUTO DIFFERENTIAL Routine 05/27/2024 8:55 AM CDT Malignant neoplasm of overlapping sites of right breast in female, estrogen receptor positive (HCC) COMPREHENSIVE METABOLIC PANEL Routine 05/27/2024 8:55 AM CDT Malignant neoplasm of overlapping sites of right breast in female, estrogen receptor positive (HCC) CEA Routine 05/27/2024 8:55 AM CDT Malignant neoplasm of overlapping sites of right breast in female, estrogen receptor positive (HCC) CANCER ANTIGEN 15-3 Routine 05/27/2024 8 :55 AM CDT Malignant neoplasm of overlapping sites of right breast in female, estrogen receptor positive (HCC) SCREENING MAMMOGRAM LEFT W ROCKY UNILATERAL ONLY Schedule Routine, Read Routine (OP Routine) 09/19/2023 10:27 AM CDT Encounter for screening mammogram for malignant neoplasm of breast HEPATITIS PANEL, ACUTE Routine 11/11/2020 2:42 PM CDT Elevated liver function tests COLONOSCOPY 01/28/2020 7:57 AM DEPUTY SHERIFF BAILIFF PAP ONLY Routine 12/25/2019 5:14 PM CDT from Last 3 Months or Most Recently Relevant to Health Maintenance Results * eGFR (05/27/2024 8:55 AM CDT) eGFR >90 >=60 mL/min/1. 73 m2 Comment: Interpretive Data Reference Interval Normal >/= 90 mL/min/1.73m2 Mildly decreased* 60 - 89 mL/min/1.73m2 Mildly to moderately decreased 45 - 59 mL/min/1.73m2 Moderately to severely decreased 30 - 44 mL/min/1.73m2 Severely decreased 15 - 29 mL/min/1.73m2 Kidney Failure < 15 mL/min/1.73m2 *Relative to young adult level Estimated glomerular filtration rate is determined by the 2020 CKD-EPI equation recommended by the National Kidney Foundation (A Unifying Approach to GFR Estimation: Recommendations of the NKF-ASK Task Force on Reassessing the Inclusion of Race in Diagnosing Kidney Disease, JASN 2020). The CKD-EPI equation should not be used for patients with unstable renal function and has not been validated in children and those over 70. Current interpretive data was last reviewed 2021. Testing performed by: [facility], [facility], [place], [address] Blood 05/27/2024 8:55 AM CDT 05/27/2024 9:09 AM CDT us Florecita Singh SOFTWARE VALIDATION ENGINEER LAB BLOOD ORDERABLES Final Result CARL ANGUIANO (GENTRY) 1 [facility] Department [place] [address] * Differential, auto (05/27/2024 8:55 AM CDT) Pathologist [facility] Neutrophil abs 3.6 1.5 - 6.5 K/cumm Comment:Testing performed by : [facility] [address], Medical Office [facility] [address], [place] [address] Imm gran abs 0.0 0.0 - 0.1 K/cumm [facility] ([place]) Comment:Testing performed by : [facility] [address], Medical Office [facility] [address], [place] [address] Lymphocyte abs 1.6 0.8 - 3.3 K/cumm [facility] ([place]) Comment:Testing performed by : [facility] [address], Medical Office [facility] [address], [place] [address] Monocyte abs 0.4 0.2 - 0.8 K/cumm [facility] ([place]) Comment:Testing performed by : [facility] [address], Medical Office [facility] [address], [place] [address] Eosinophil abs 0.1 0.0 - 0.5 K/cumm [facility] ([place]) Comment:Testing performed by : [facility] [address], Medical Office [facility] [address] [facility] [address], [place] [address] Basophil abs 0.1 0.0 - 0.1 K/cumm [facility] ([place]) Comment:Testing performed by : [facility] [address], Medical Office [facility] [address], [place] [address] Neutrophil pct 62.2 % [facility] ([place]) Comment: Interpretive Data Percent cell count reference ranges are not reported, since discordance with absolute values may lead to misinterpretation of CBC data. Current Interpretive Data was last revised on 2022. Testing performed by: [facility] [address], Medical Office [facility] [address], [place] [address] Imm gran pct 0.2 % [facility] ([place]) Comment: Interpretive Data Percent cell count reference ranges are not reported, since discordance with absolute values may lead to misinterpretation of CBC data. Current Interpretive Data was last revised on 2022. Testing performed by: [facility] [address], Medical Office [address], [place] [address] Lymphocyte pct 27.2 % [facility] ([place]) Comment: Interpretive Data Percent cell count reference ranges are not reported, since discordance with absolute values may lead to misinterpretation of CBC data. Current Interpretive Data was last revised on 2022. Testing performed by: [facility] [address], Medical Office [facility] [address], [place] [address] Monocyte pct 7.3 % CARL ANGUIANO ([place]) Comment: Interpretive Data Percent cell count reference ranges are not reported, since discordance with absolute values may lead to misinterpretation of CBC data. Current Interpretive Data was last revised on 2022. Testing performed by: [facility] [address], Medical Office [facility] [address], [place] [address] Eosinophil pct 2.1 % CERNE R SILVIO ([place]) Comment: Interpretive Data Percent cell count reference ranges are not reported, since discordance with absolute values may lead to misinterpretation of CBC data. Current Interpretive Data was last revised on 2022. Testing performed by: [facility] [address], Medical Office [facility] [address], [place] [address] Basophil pct 1.0 % CARL ANGUIANO ([place]) Comment: Interpretive Data Percent cell count reference ranges are not reported, since discordance with absolute values may lead to misinterpretation of CBC data. Current Interpretive Data was last revised on 2022. Testing performed by: [facility] [address], Medical Office [facility] [address], [place] [address] Blood 05/27/2024 8:55 AM CDT 05/27/2024 9:01 AM CDT us Florecita Singh SOFTWARE VALIDATION ENGINEER LAB BLOOD ORDERABLES Final Result CARL ANGUIANO ([place]) 1 [facility] [place] [address] * CBC with auto differential (05/27/2024 8:55 AM CDT) WBC 5.7 3.8 - 9.9 K/cumm Comment:Testing performed by : [facility] [address], Medical Office [address], [place] [address] Hgb 13.8 11.9 - 15.5 g/dL [facility] ([place]) Comment:Testing performed by : [facility] [address], Medical Office [address], [place] [address] Hct 42.5 35.6 - 45.5 % [facility] ([place]) Comment:Testing performed by : [facility] [address], Medical Office [address], [place] [address] Plt 281 150 - 400 K/cumm [facility] ([place]) Comment:Testing performed by : [facility] [address], Medical Office [facility] [address], [place] [address] MPV 10.1 9.1 - 12.3 fL [facility] ([place]) Comment:Testing performed by : [facility] [address], Medical Office [facility] [address], [place] [address] RBC 4.85 3.90 - 5.20 M/cumm [facility] ([place]) Comment:Testing performed by : [facility] [address], Medical Office [facility] [address], [place] [address] MCV 87.6 81.3 - 96.4 fL [facility] ([place]) Comment:Testing performed by : [facility] [address], Medical Office [facility] [address], [place] [address] MCH 28.5 27.1 - 33.3 pg [facility] ([place]) Comment:Testing performed by : [facility] [address], Medical Office [address], [place] [address] MCHC 32.5 32.3 - 35.7 g/dL [facility] ([place]) Comment:Testing performed by : [facility] [address], Medical Office [facility] [address], [place] [address] RDW CV 13.4 11.1 - 14.9 % [facility] ([place]) Comment:Testing performed by : [facility] [address], Medical Office [address], [place] [address] RDW SD 43.5 35.7 - 48.1 fL CARL ANGUIANO (GENTRY) Comment:Testing performed by : [facility] [address], Medical Office [address], [place] [address] NRBC abs Not Measured 0.00 - 0.01 K/cumm CARL ANGUIANO (GENTRY) Comment:Testing performed by : [facility] [address], Medical Office [facility] [address], [place] [address] Blood 05/27/2024 8:55 AM CDT 05/27/2024 9:01 AM CDT us Florecita Singh NP LAB BLOOD ORDERABLES Final Result Performing Organization Address City/[facility]/ZIP Co de Phone Number CARL ANGUIANO (GENTRY) 1 [facility] Department [place] [address] * Cancer antigen 15-3 (05/27/2024 8:55 AM CDT) Pathologist [facility] CA 15-3 ag 6.0 1.0 - 30.0 units/mL Comment: Interpretive Data The Víctor CA 15-3 assay procedure was used. Results from different manufacturers or methods may not be comparable. Serial testing should be performed using the same method. Testing performed by: [facility], [address] [place] [address]., [id number] Blood 05/27/2024 8:55 AM CDT 05/27/2024 11:21 AM CDT us Gibran Cooper MD LAB BLOOD ORDERABLES Alejandra l Result CARL ANGUIANO (GENTRY) 1 [facility] Department [place] [address] * Vitamin D 25 hydroxy (05/27/2024 8:55 AM CDT) [facility] Vitamin D 25-OH 41 30 - 80 ng/mL Comment:Testing performed by : [facility], [facility], [place], [address] Blood 05/27/2024 8:55 AM CDT 05/27/2024 9:48 AM CDT Gibran Cooper MD LAB BLOOD ORDERABLES Alejandra l Result Performing Organization Address City/[facility]/ZIP Co de Phone Number CARL ANGUIANO ([place]) 1 [facility] Department [place] [address] * CEA (05/27/2024 8:55 AM CDT) CEA 1.8 0.1 - 5.0 ng/mL Comment: Interpretive Data The Víctor CEA assay procedure was used. Results from different manufacturers or methods may not be comparable. Serial testing should be performed using the same method. Testing performed by: [facility], [address] [place] [address], [address] Blood 05/27/2024 8:55 AM CDT 05/27/2024 11:21 AM CDT Gibran Cooper MD LAB BLOOD ORDERABLES Alejandra l Result Performing Organization Address [facility] Co de Phone Number CALR ANGUIANO (GENTRY) 1 [facility] Department [place] [address] * Comprehensive metabolic panel (05/27/2024 8:55 AM CDT) Pathologist [facility] Sodium 138 135 - 145 mmol/L Comment:Testing performed by : [place], [address] Potassium, pl 3.9 3.3 - 4.9 mmol/L [facility] ([place]) Comment:Testing performed by : [place], [address] Chloride 101 97 - 110 mmol/L [facility] ([place]) Comment:Testing performed by : [place], [address] CO2 25 22 - 32 mmol/L [facility] ([place]) Comment:Testing performed by : [place], [address] Anion gap 12 2 - 15 mmol/L [facility] ([place]) Comment:Testing performed by : [place], [address] BUN 11 6 - 25 mg/dL [facility] ([place]) Comment:Testing performed by : [facility], [place], [address] Creatinine 0.61 0.60 - 1.10 mg/dL [facility] ([place]) Comment:Testing performed by : [facility], [place], [address] Glucose 93 70 - 199 mg/dL [facility] ([place]) Comment: Interpretive Data Fasting glucose >/= 126 mg/dl is diagnostic for diabetes. Fasting is defined as no caloric intake for at least 8 hours. Fasting glucose between 100 mg/dl to 125 mg/dl is diagnostic of prediabetes. In a patient with classic symptoms of hyperglycemia or hyperglycemic crisis, a random glucose >/= 200 mg/dl is diagnostic for diabetes. In the absence of unequivocal hyperglycemia, results should be confirmed by repeat testing. The classification and Diagnosis of Diabetes Diabetes Care 202; 46: S19-S40. Current interpretive data was last revised 2022. Testing performed by: [place], [address] Calcium 9.6 8.5 - 10.3 mg/dL [facility] (GEN[place]) Comment:Testing performed by : [place], [address] Bilirubin, total 0.3 0.1 - 1.2 mg/dL [facility] ([place]) Comment:Testing performed by : [facility], [place], [address] Protein, pl 7.3 6.5 - 8.5 g/dL [facility] ([place]) Comment:Testing performed by : [facility], [place], [address] Albumin 4.5 3.5 - 5.0 g/dL [facility] ([place]) Comment:Testing performed by : [facility], [place], [address] Alk phos 89 40 - 130 Units/L [facility] (GENTRY) Comment:Testing performed by : [facility], [place], [address] ALT 17 7 - 45 Units/L [facility] ([place]) Comment:Testing performed by : [facility], [place], [address] AST 20 10 - 45 Units/L [facility] (GENTRY) Comment:Testing performed by : [facility], [facility], [place], [address] Blood 05/27/2024 8:55 AM CDT 05/27/2024 9:09 AM CDT us Florecita Singh SOFTWARE VALIDATION ENGINEER LAB BLOOD ORDERABLES Final Result CARL SILVIO (GENTRY) 1 [facility] Department [place] [address] * Screening Mammogram Left W Rocky Unilateral [...] age 40, based on guidelines of the [employer] (ACR Practice Parameter for the Performance of Screening and Diagnostic Mammography) and [employer] [place]. For women [...] Comment: For additional information, please refer to http://[employer]/faq/ZWB791 (This link is being provided for informational/ [...] a test for HCV RNA (test code 53886) is suggested. For additional information please refer to http://[employer]/faq/ZAQ96u6 (This link is being provided for informational/ educational purposes only.) Blood specimen (specimen) 11/11/2020 2:42 PM CDT 11/11/2020 2:42 PM CDT Narrative [facility] - 11/12/2020 3:22 PM CDT FASTING:NO FASTING: NO us Tracie Hart MD LAB MICROBIOLOGY - GENERAL ORDERABLES Final Result [facility] [address] [facility] [place] [address] * COLONOSCOPY (01/28/2020 7:57 AM DEPUTY SHERIFF BAILIFF) Anatomical Region Laterality Modality Other Narrative Procedure Note Donato Aragon MD - 01/28/2020 7:57 AM CST [facility] Patient Name: Katrina Cheng Procedure Date: 01/28/2020 7:57 AM Date of : 1960 Admit Type: Outpatient Age: 59 Gender: Female Attending MD: Donato Aragon M.D. Room: [facility] ENDOSCOPY ROOM 1 Note Status: Finalized Patient [...] passed under direct vision. The PediatricColonoscope PCF-H190L [id number] was introduced through the anusand advanced to [...] 7:57 AM Procedure Code(s): --- Professional --- 21897, Colonoscopy, flexible; with biopsy, single or multiple Diagnosis Code(s): --- Professional --- Z86.010, Personal history of colonic polyps K64.8, Other hemorrhoids D12.4, Benign neoplasm of descending colon K62.1, Rectal polyp CPT copyright 2017 [employer]. All rights reserved. The codes documented in this report are preliminary and upon battery plate remover reviewmay be revised to meet current compliance requirements. Recognized by the [employer] for promoting quality [...] Comment:Negative for intraep ithelial lesion or malignancy. Sales Order Clerk Des Gonsalves Comment: MLO, CT(ASCP) CT screening location: [place] [address] [place] [address] Comment Filiberto Kam Comment: EXPLANATORY NOTE: The [...] 5:14 PM CDT 12/27/2019 12:27 PM CDT Tracie Hart MD LAB CYTOLOGY ORDERA BLES Final Result [facility] [address] [place] [address] from Last 3 Months or Most Recently Relevant to Health Maintenance Insurance MEDICARE CIGNA OPEN ACCESS CIGNA OPEN ACCESS Advance Directives For more information, please contact: [phone] * Full Code (Latest Code Status on File) Date Activated Date Inactivated Comments 06/17/2021 7:15 PM 06/18/2021 7:28 PM * Full Code Date Activated Date Inactivated Comments 01/28/2020 8:22 AM 01/28/2020 2:39 PM Care Teams Renovation Plant Supervisor Relationship Specialty Start Date End Date Tracie Hart MD [address] [facility] [place] [address] PCP - General Family Medicine 08/28/19 Gibran Cooper MD [address] [place] [address] [address] [place] [address] Medical Oncologist Medical Oncology 05/23/24
--- OUTSIDE RECORDS SUMMARY | 2024-06-11 10:05 | XMS_ITS | Encounter Summary ---
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 Gender Identity Not on file Sexual Orientation Not on file documented as of this encounter Plan of Treatment Upcoming Encounters Date Type Department Care Team (Late st Contact Info) Description 12/25/2024 7:55 AM CDT Hospital Encounter [address] [address] Donato Aragon MD [address] [facility] [address] [place] [address] 12/25/2024 7:55 AM CDT - 12/25/2024 8:25 AM CDT Surgery [address] [address] Donato Aragon MD [address] [facility] [address] [place] [address] COLONOSCOPY Scheduled Procedures Name Priority Associated Diagnoses Date/Ti me COLONOSCOPY History of colonic polyps 12/25/2024 7:55 AM CDT documented as of this encounter Visit Diagnoses Not on filedocumented in this encounter Care Teams Quality Control Technician Relationship Specialty Start Date End Date Tracie Hart MD [address] [place] [address] PCP - General Family Medicine 08/28/19 Gibran Cooper MD [address] [place] [address] [address] [place] [address] Medical Oncologist Medical Oncology 05/23/24 documented as of this encounter
--- OUTSIDE RECORDS SUMMARY | 2024-06-11 10:05 | XMS_ITS | Clinical Summary ---
Author Organization [facility] Address [address] [place] [address] Care Team Providers Care Cloud Systems Architect Name Role Phone Unavailable Primary Care Provider [...]
--- OUTSIDE RECORDS SUMMARY | 2024-06-11 10:05 | XMS_ITS ---
Author Organization [facility] Address [address] [facility] [address] [place] [address] Care Team Providers Care Escalator Service Mechanic Name Role Phone Jonnie Quach [phone] Social History Sex Assigned At : Social History Observation Description Sex Assigned At Female Encounters Encounter Location Date Provider Diagnosis [facility] [address] [facility] [address] [place] [address] 12/04/2023 Jonnie Quach Plan Of Treatment No Information Progress Notes * Jj WILEYOB:1960 (63 yo F)Acc No.[id number]:12/04/2023 Patient: Katrina FLORENTINO :1960 A ge:63 Y S ex:Female Address:[address] [place] [address] * true * Date: Generated for Shell barbosa/Sarina/eTransmitting on: 0 06/11/2024 10:05 AM CDT
--- OUTSIDE RECORDS SUMMARY | 2024-06-11 10:05 | XMS_ITS | Encounter Summary ---
Author Organization [facility] Address [address] [place] [address] Phone Care Team Providers Care Ems Instructor Name Role Phone Tracie Hart MD Primary Care Provi osvaldo Gibran Cooper MD Unavailable [phone] Encounter Details Date Type Department Care Team (Late st Contact Info) Description 06/11/2024 Telephone [facility] Oncology [address] [place] [address] [address] [address] Kari Mejias Social History Tobacco Use Types Packs/Day Years [...] on file 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 Pt stated that she had a lump removed during breast exam and this company will be testing the lump against her current medications. The phone number provided was [phone] and pt was told to call back if this number did not work. Pt voiced understanding. documented in this encounter Plan of Treatment Upcoming Encounters Date Type Department Care Team (Late st Contact Info) Description 12/25/2024 7:55 AM CDT Hospital Encounter [address] [address] Donato Aragon MD [address] [facility] [address] [place] [address] 12/25/2024 7:55 AM CDT - 12/25/2024 8:25 AM CDT Surgery [address] [address] Donato Aragon MD [address] [place] [address] [address] [place] [address] COLONOSCOPY Scheduled Procedures Name Priority Associated Diagnoses Date/Ti me COLONOSCOPY History of colonic polyps 12/25/2024 7:55 AM CDT documented as of this encounter Visit Diagnoses Not on filedocumented in this encounter Care Teams Ems Instructor Relationship Specialty Start Date End Date Tracie Hart MD [facility] [address] [place] [address] PCP - General Family Medicine 08/28/19 Gibran Cooper MD [address] [facility] [address] [place] [address] Medical Oncologist Medical Oncology 05/23/24 documented as of this encounter
--- OUTSIDE RECORDS SUMMARY | 2024-06-11 10:05 | XMS_ITS | Clinical Summary ---
Author Organization [facility] [employer] Address [address] [facility] [place] [address] Care Team Providers Care Campus Recruiting Intern Name Role Phone Unavailable Primary Care Provider Unavailabl e Source Comments [facility],non-owned Affiliates and Associated Physician Practices is amultiple site organization consisting of ambulatory clinics and hospital sitesin [place], [place] and [place]. This disclosure is being madepursuant to the Care Everywhere program and may not contain all information available regarding this patient. Last updated 17.[facility] [employer] Allergies No known active allergies Medications * [...] to complete this topic MENINGOCOCCAL (Group B) VACC INE SHARED DECISION-MAKING Aged Out No longer eligibl e based on patient's age to complete this topic MENINGOCOCCAL GROUPS A/C/Y/W VACCINE Aged Out No longer eligible b ased [...] 126 <200 mg/dL 08/08/2019 6:52 AM CDT [facility] Triglycerides 67 <150 mg/dL 08/08/2019 6:52 AM CDT [facility] HDL Cholesterol 46 >40 mg/dL 0 6:52 AM CDT [facility] Chol HDL Ratio 2.7 1.0 - 6.0 08/08/2019 6:52 AM CDT [facility] LDL Calculated 67 65 - 130 mg/dL 08/08/2019 6:52 AM CDT [facility] VLDL Calculated 13 <=30 mg/dL 0 6:52 AM CDT [facility] Blood BLOOD SPECIMEN / Unknown Lab Venipuncture / Unknown 08/08/2019 6:15 AM CDT 08/08/2019 6:25 AM CDT Narrative [facility] - 08/08/2019 6:52 AM [...] Tanner MD LAB - CHEMISTRY FABRIZIO GONZALEZ Performing Organization Address City/State/[facility] Co de Phone Number [facility] [address] from Last 3 Months or Most Recently Relevant to Health Maintenance Advance Directives * Full Code (Latest Code Status on File) Date Activated Date Inactivated Comments 08/05/2019 10:20 PM 08/20/2019 1:03 PM
--- OUTSIDE RECORDS SUMMARY | 2024-06-11 10:05 | XMS_ITS | Clinical Summary ---
Author Organization [facility] Virtual Care Address [address] [place] [phone] Phone Care Team Providers Care Clinical Sales Consultant Name Role Phone Tracie Hart MD Primary Care Provi osvaldo Gibran Cooper MD Unavailable [phone] Allergies No known active allergies Medications Soolantra [...] 12/08/2022 Assessment & Plan (04/19/2024 12:24 PM CAKE PULLER): Chronic. Left greater than worse, planning to have arthroscopy on the left knee. - Continue to follow with Dr. Virgen (Gilson) for x-rays - Patient that she will [...] 06/17/2021 Assessment & Plan (04/19/2024 9:02 AM CAKE PULLER): Chronic. Continue anastrozole. Continue to follow with [...] surgery Assessment & Plan (05/06/2021 9:53 AM CAKE PULLER): Will try to recheck her labs We [...] recheck Assessment & Plan (05/06/2021 9:48 AM CAKE PULLER): Recurrent Appointment with oncology today Will recheck labs Differential is wide including medication effect vs over hydration vs other Will repeat labs Assessment & Plan (02/26/2021 7:51 AM CAKE PULLER): Follow up labs were normal Continue to monitor Assessment & Plan (11/17/2020 9:51 AM CDT): ?related to increased water intake prior to testing vs alcohol Will recheck in 6 weeks Encouraged to consider human services professional Decrease alcohol Update me with any changes Elevated liver function tests 11/17/2020 Assessment & Plan (12/08/2022 10:10 AM CDT): Chronic, but now resolved Continue to monitor Assessment & Plan (10/11/2021 4:38 PM CDT): F/u LFT's normal Continue to monitor Assessment & Plan (09/23/2021 8:36 AM CDT): Repeat LFTs normal Assessment & Plan (05/06/2021 9:50 AM CAKE PULLER): Higher than is has been Will recheck her labs Stressed to her we need to look at an ultrasound for possible pathology- she declined Further guidance once we have the results Assessment & Plan (02/26/2021 7:52 AM CAKE PULLER): Repeat normal We discussed checking an ultrasound [...] please contact the office. I strongly encourage [facility] sign ups. It can facilitate communication flow. [...] Neg HPV Last mammogram: 08/02- WNL Last colonoscopy:2019- due in 4 years Last Tdap: 2017 Last pneumonia/Prevnar: reviewed Last Shingrix: up to date Last Flu: 2022 Last Pneumonia: 2022 Last COVID: reviewed booster Test results: if you have not received communication about test results within 7 days of the test being performed, please contact the office. I strongly encourage [facility] sign ups. It can facilitate communication flow. [...] (12/11/2019): Added automatically from request for surgery [id number] Assessment & Plan (12/08/2022 10:12 AM CDT): [...] 09/24/2019 Assessment & Plan (04/19/2024 9:02 AM CAKE PULLER): Chronic. Uncontrolled. Patient working on keeping her [...] counseling. Assessment & Plan (05/06/2021 9:59 AM CAKE PULLER): BMI Follow-up includes: nutrition counseling. Assessment & [...] try to get notes from her prior internet sales associate Assessment & Plan (09/24/2019 9:30 AM CDT): [...] 02/15/2013 Assessment & Plan (04/19/2024 9:01 AM CAKE PULLER): Chronic. Improving.. - Continue to follow with [...] 06/29/2012 Assessment & Plan (04/19/2024 9:03 AM CAKE PULLER): Chronic. Continue to follow with psychiatry. Assessment [...] questions Assessment & Plan (05/06/2021 9:50 AM CAKE PULLER): With medications that could affect her sodium Will recheck her labs Assessment & Plan (02/26/2021 7:53 AM CAKE PULLER): Stable Continue to follow with her psychiatrist [...] Unchanged Assessment & Plan (04/19/2024 9:01 AM CAKE PULLER): Chronic. Somewhat stable, not currently on medication [...] (12/11/2019): Added automatically from request for surgery [id number] Anemia 11/19/2013 10/11/2021 Assessment & Plan (09/23/2021 8:36 AM CDT): Currently following with Hematology Continue to monitor Assessment & Plan (12/25/2019 5:15 PM CDT): I am going to try to get notes from her prior internet sales associate she feels that is related to her bariatric surgery She is currently on an dpfr-ccl-etjzjnf iron, At this time she can continue it I would recommend a CBC in 6 months Call for questions or concerns Assessment & Plan (09/24/2019 9:30 AM CDT): Will check labs for possible pathology Encounters Date Type Department Care Team Description 06/11/2024 Telephone [facility] On[facility] [address] [place] [address] Office [facility] [address] [place] [address] Kari Mejias 06/07/2024 Results Follow-Up [address] [phone] Tracie Hart MD 05/27/2024 9:30 AM CDT Office Visit [facility] On[facility] [address] [place] [address] [address] [place] [address] Gibran Cooper MD Malignant neoplasm of overlapping sites of right breast in female, estrogen receptor positive (HCC) (Primary Dx); Screening mammogram for breast cancer; USP 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 inhibitor; Vitamin D deficiency 05/27/2024 9:00 AM CDT Lab [address] [place] [address] Malignant neoplasm of overlapping sites of right breast in female, estrogen receptor positive (HCC); Vitamin D deficiency 04/19/2024 8:30 AM CAKE PULLER Office Visit [address] [phone] Kelsie Parra PA Primary osteoarthritis of both knees (Primary Dx); ADHD, predominantly inattentive type; Bipolar I disorder, most recent episode (or current) depressed, severe, specified as with psychotic behavior (HCC); Class 2 severe obesity due to excess calories with serious comorbidity and body mass index (BMI) of 36.0 to 36.9 in adult (HCC); History of right breast cancer; Other schizophrenia (HCC) 04/19/[address] [phone] Tracie Hart MD Prior Auth request for Zepbound 04/19/2024 Orders Only [facility] Medicine [address] [phone] Kelsie Parra PA 04/19/2024 Telephone [facility] [address] [phone] Tracie Hart MD Medical Question/Miscellaneous from Last 3 Months Immunizations Immunization Administration [...] Comments BARIATRIC SURGERY 03/13/1999 - 03/12/2000 [facility] COLONOSCOPY 10/23/2015 US GUIDED BIOPSY LYMPH NODE SUPERFICIAL LEFT 04/05/2021 N/A SECTION 03/13/2000 - 03/12/2001 BREAST BIOPSY 04/05/2021 Right MASTECTOMY COMPLETE / SIMPLE W/ SENTINEL NODE BIOPSY 06/17/2021 Right with sentinel lymph node dissection BREAST RECONSTRUCTION 06/17/2021 Right immediate with tissuse operating room surgical technician and matrix REDUCTION MAMMAPLASTY Medical History Medical History Date Comments ADHD (attention deficit hyperactivity disorder) Bipolar 1 disorder (HCC) Anxiety Psychotic affective disorder Breast cancer (HCC) right Right bundle branch [...] on file Legal Sex Female 11:37 PM CAKE PULLER Gender Identity Not on file Sexual Orientation [...] cm (5' 6 ) 04/19/2024 8:29 AM CAKE PULLER Body Mass Index 35.83 04/19/2024 8:29 AM CAKE PULLER Plan of Treatment Upcoming Encounters Date Type Department Care Team (Late st Contact Info) Description 12/25/2024 7:55 AM CDT Hospital Encounter [address] [address] Donato Aragon MD [address] [facility] [address] [place] [address] 12/25/2024 7:55 AM CDT - 12/25/2024 8:25 AM CDT Surgery [address] [address] Donato Aragon MD [address] [facility] [address] [place] [address] COLONOSCOPY Scheduled Procedures Name Priority Associated Diagnoses Date/Ti me COLONOSCOPY History of colonic polyps 12/25/2024 7:55 AM CDT Health Maintenance Due Date Last Done Comments Hepatitis B Screening 02/18/1980 Covid-19 Vaccine (7 - Mixed Product risk ) 07/16/2024 01/17/2024, 12/27/2022, 12/14/2021, Additional history exists Breast [...] history exists Medical Devices Implanted Type Area Strip Cutter Device Identifier Shelf Expiration Date Model / Serial / Lot [employer] [id number] Implant Mammary Cpx4 Plus Sm Te 450cc - [id number] - [id number] Implanted:Qty: 1 on 06/17/2021 by Shen Reeder, DO at [facility] Right: Breast [employer] 12/13/2024 [id number] / [id number] / [employer] Implant Breast Moderate Plus Profile Smooth Memorygel Boost 590cc Gel [id number] - [id number] - [id number] Implanted:Qty: 1 on 10/15/2021 by Shen Reeder, DO at [facility] Right: Breast [employer] 07/20/2026 [id number] / [id number] / Procedures Procedure Name Priority Date/Time [...] liver function tests COLONOSCOPY 01/28/2020 7:57 AM CAKE PULLER PAP ONLY Routine 12/25/2019 5:14 PM CDT [...] was last reviewed 2021. Testing performed by: [facility], [facility], [place], [address] Blood 05/27/2024 8:55 AM CDT 05/27/2024 9:09 AM CDT us Florecita Singh DIALYSIS TECHNICIAN LAB BLOOD ORDERABLES Final Result CARL ANGUIANO ([place]) 1 [facility] Department [place] [address] * Differential, auto (05/27/2024 8:55 AM CDT) Neutrophil abs 3.6 1.5 - 6.5 K/cumm Comment:Testing performed by : [facility] [address], Medical Office [facility] [address], [place] [address] Imm gran abs 0.0 0.0 - 0.1 K/cumm [facility] ([place]) Comment:Testing performed by : [facility] [address], Medical Office [facility] [address], [place] [address] Lymphocyte abs 1.6 0.8 - 3.3 K/cumm [facility] ([place]) Comment:Testing performed by : [facility] [address], Medical Office [facility] [address], [place] [address] Monocyte abs 0.4 0.2 - 0.8 K/cumm [facility] ([place]) Comment:Testing performed by : [facility] [address], Medical Office [facility] [address], [place] [address] Eosinophil abs 0.1 0.0 - 0.5 K/cumm [facility] ([place]) Comment:Testing performed by : [facility] [address], Medical Office [facility] [address], [place] [address] Basophil abs 0.1 0.0 - 0.1 K/cumm [facility] ([place]) Comment:Testing performed by : [facility] [address], Medical Office [address], [place] [address] Neutrophil pct 62.2 % [facility] ([place]) Comment: Interpretive Data Percent cell count reference ranges are not reported, since discordance with absolute values may lead to misinterpretation of CBC data. Current Interpretive Data was last revised on 2022. Testing performed by: [facility] [address], Medical Office [address], [place] [address] Imm gran pct 0.2 % [facility] ([place]) Comment: Interpretive Data Percent cell count reference ranges are not reported, since discordance with absolute values may lead to misinterpretation of CBC data. Current Interpretive Data was last revised on 2022. Testing performed by: [facility] [address], Medical Office [address], [place] [address] Lymphocyte pct 27.2 % [facility] ([place]) Comment: Interpretive Data Percent cell count reference ranges are not reported, since discordance with absolute values may lead to misinterpretation of CBC data. Current Interpretive Data was last revised on 2022. Testing performed by: [facility] [address], Medical Office [address], [place] [address] Monocyte pct 7.3 % [facility] ([place]) Comment: Interpretive Data Percent cell count reference ranges are not reported, since discordance with absolute values may lead to misinterpretation of CBC data. Current Interpretive Data was last revised on 2022. Testing performed by: [facility] [address], Medical Office [address], [place] [address] Eosinophil pct 2.1 % [facility] ([place]) Comment: Interpretive Data Percent cell count reference ranges are not reported, since discordance with absolute values may lead to misinterpretation of CBC data. Current Interpretive Data was last revised on 2022. Testing performed by: [facility] [address], Medical Office [address], [place] [address] Basophil pct 1.0 % [facility] ([place]) Comment: Interpretive Data Percent cell count reference ranges are not reported, since discordance with absolute values may lead to misinterpretation of CBC data. Current Interpretive Data was last revised on 2022. Testing performed by: [facility] [address], Medical Office [facility] [address], [place] [address] Blood 05/27/2024 8:55 AM CDT 05/27/2024 9:01 AM CDT Florecita Singh DIALYSIS TECHNICIAN LAB BLOOD ORDERABLES Final Result CARL ANGUIANO ([place]) [address] [facility] Department of Laboratories [place] [address] [address] * CBC with auto differential (05/27/2024 8:55 AM CDT) WBC 5.7 3.8 - 9.9 K/cumm Comment:Testing performed by : [facility] [address], Medical Office [facility] [address], [place] [address] Hgb 13.8 11.9 - 15.5 g/dL [facility] ([place]) Comment:Testing performed by : [facility] [address], Medical Office [facility] [address], [place] [address] Hct 42.5 35.6 - 45.5 % [facility] ([place]) Comment:Testing performed by : [facility] [address], Medical Office [facility] [address], [place] [address] Plt 281 150 - 400 K/cumm [facility] ([place]) Comment:Testing performed by : [facility] [address], Medical Office [facility] [address], [place] [address] MPV 10.1 9.1 - 12.3 fL [facility] ([place]) Comment:Testing performed by : [facility] [address], Medical Office [facility] [address], [place] [address] RBC 4.85 3.90 - 5.20 M/cumm [facility] ([place]) Comment:Testing performed by : [facility] [address], Medical Office [facility] [address], [place] [address] MCV 87.6 81.3 - 96.4 fL [facility] ([place]) Comment:Testing performed by : [facility] [address], Medical Office [facility] [address], [place] [address] MCH 28.5 27.1 - 33.3 pg [facility] ([place]) Comment:Testing performed by : [facility] [address], Medical Office [facility] [address], [place] [address] MCHC 32.5 32.3 - 35.7 g/dL [facility] ([place]) Comment:Testing performed by : [facility] [address], Medical Office [facility] [address], [place] [address] RDW CV 13.4 11.1 - 14.9 % [facility] ([place]) Comment:Testing performed by : [facility] [address], Medical Office [facility] [address], [place] [address] RDW SD 43.5 35.7 - 48.1 fL [facility] ([place]) Comment:Testing performed by : [facility] [address], Medical Office [facility] [address], [place] [address] NRBC abs Not Measured 0.00 - 0.01 K/cumm [facility] ([place]) Comment:Testing performed by : [facility] [address], Medical Office [facility] [address], [place] [address] Blood 05/27/2024 8:55 AM CDT 05/27/2024 9:01 AM CDT Florecita Singh DIALYSIS TECHNICIAN LAB BLOOD ORDERABLES Final Result CARL ANGUIANO ([place]) 1 [facility] Department [place] [address] * Cancer antigen 15-3 (05/27/2024 8:55 AM CDT) Pathologist [facility] CA 15-3 ag 6.0 1.0 - 30.0 units/mL Comment: Interpretive Data The Víctor CA 15-3 assay procedure was used. Results from different manufacturers or methods may not be comparable. Serial testing should be performed using the same method. Testing performed by: [address] [address] Blood 05/27/2024 8:55 AM CDT 05/27/2024 11:21 AM CDT Gibran Cooper MD LAB BLOOD ORDERABLES Alejandra l Result CARL ANGUIANO ([place]) 1 [facility] [place] [address] * Vitamin D 25 hydroxy (05/27/2024 8:55 AM CDT) Vitamin D 25-OH 41 30 - 80 ng/mL Comment:Testing performed by : [facility], [facility], [place], [address] Blood 05/27/2024 8:55 AM CDT 05/27/2024 9:48 AM CDT Gibran Cooper MD LAB BLOOD ORDERABLES Alejandra l Result Performing Organization Address [facility] Co de Phone Number CARL [facility] (SCHENECTADY) 1 [facility] [place] [address] * CEA (05/27/2024 8:55 AM CDT) CEA 1.8 0.1 - 5.0 ng/mL Comment: Interpretive Data The Víctor CEA assay procedure was used. Results from different manufacturers or methods may not be comparable. Serial testing should be performed using the same method. Testing performed by: [address] [place]., [address] Blood 05/27/2024 8:55 AM CDT 05/27/2024 11:21 AM CDT Gibran Cooper MD LAB BLOOD ORDERABLES Alejandra l Result CARL ANGUIANO ([place]) [address] [facility] [place] [address] * Comprehensive metabolic panel (05/27/2024 8:55 AM CDT) Sodium 138 135 - 145 mmol/L Comment:Testing performed by : [facility], [facility], [place], [address] Potassium, pl 3.9 3.3 - 4.9 mmol/L [facility] ([place]) Comment:Testing performed by : [facility], [place], [address] Chloride 101 97 - 110 mmol/L [facility] ([place]) Comment:Testing performed by : [facility], [facility], [place], [address] CO2 25 22 - 32 mmol/L [facility] ([place]) Comment:Testing performed by : [facility], [facility], [place], [address] Anion gap 12 2 - 15 mmol/L [facility] ([place]) Comment:Testing performed by : [facility], [place], [address] BUN 11 6 - 25 mg/dL [facility] ([place]) Comment:Testing performed by : [facility], [place], [address] Creatinine 0.61 0.60 - 1.10 mg/dL [facility] ([place]) Comment:Testing performed by : [facility], [place], [address] Glucose 93 70 - 199 mg/dL [facility] ([place]) Comment: Interpretive Data Fasting glucose >/= 126 [...] classification and Diagnosis of Diabetes Diabetes Care 2021; 46: S19-S40. Current interpretive data was last revised 2022. Testing performed by: [facility], [place], [address] Calcium 9.6 8.5 - 10.3 mg/dL [facility] ([place]) Comment:Testing performed by : [facility], [place], [address] Bilirubin, total 0.3 0.1 - 1.2 mg/dL [facility] ([place]) Comment:Testing performed by : [facility], [place], [address] Protein, pl 7.3 6.5 - 8.5 g/dL [facility] ([place]) Comment:Testing performed by : [facility], [place], [address] Albumin 4.5 3.5 - 5.0 g/dL [facility] ([place]) Comment:Testing performed by : [facility], [place], [address] Alk phos 89 40 - 130 Units/L [facility] ([place]) Comment:Testing performed by : [facility], [place], [address] ALT 17 7 - 45 Units/L [facility] ([place]) Comment:Testing performed by : [facility], [place], [address] AST 20 10 - 45 Units/L [facility] ([place]) Comment:Testing performed by : [facility], [place], [address] Blood 05/27/2024 8:55 AM CDT 05/27/2024 9:09 AM CDT Florecita Singh DIALYSIS TECHNICIAN LAB BLOOD ORDERABLES Final Result CARL [facility] ([place]) 1 [facility] [place] [address] * Screening Mammogram Left W Rocky Unilateral [...] age 40, based on guidelines of the [employer] (ACR Practice Parameter for the Performance of Screening and Diagnostic Mammography) and [place] [employer]. For women [...] Comment: For additional information, please refer to http://education.BigMachines.Turbine Truck Engines/faq/UQW197 (This link is being provided for informational/ [...] a test for HCV RNA (test code 51608) is suggested. For additional information please refer to http://education.Moneylib/faq/JPV12d5 (This link is being provided for informational/ educational purposes only.) Blood specimen (specimen) 11/11/2020 2:42 PM CDT 11/11/2020 2:42 PM CDT Narrative [facility] - 11/12/2020 3:22 PM CDT FASTING:NO FASTING: NO us Tracie Hart MD LAB MICROBIOLOGY - GENERAL ORDERABLES Final Result [facility] [address] [address] * COLONOSCOPY (01/28/2020 7:57 AM CAKE PULLER) Anatomical Region Laterality Modality Other Narrative Procedure Note Donato Aragon MD - 01/28/2020 7:57 AM CST [facility] Patient Name: Katrina Cheng Procedure Date: 01/28/2020 7:57 AM Date of : 1960 Admit Type: Outpatient Age: 59 Gender: Female Attending MD: Donato Aragon M.D. Room: [facility] ENDOSCOPY ROOM 1 Note Status: Finalized [...] passed under direct vision. The PediatricColonoscope [id number] was introduced through the anusand advanced to [...] 7:57 AM Procedure Code(s): --- Professional --- 82132, Colonoscopy, flexible; with biopsy, single or multiple Diagnosis Code(s): --- Professional --- Z86.010, Personal history of colonic polyps K64.8, Other hemorrhoids D12.4, Benign neoplasm of descending colon K62.1, Rectal polyp CPT copyright 2017 [employer]. All rights reserved. The codes documented in this report are preliminary and upon bid writer reviewmay be revised to meet current compliance requirements. Recognized by the [place] [employer] for promoting quality [...] and/or menstrual status not provided HPV interp [facility] Comment:Negative for intraep ithelial lesion or malignancy. Baggage Porter [facility] Comment: MLO, CT(ASCP) CT screening location: [place] [address] [place] [address] [facility] Comment: EXPLANATORY NOTE: The Pap is [...] MD LAB CYTOLOGY ORDERA BLES Final Result [place] [address] [place] [address] from Last 3 Months or Most Recently Relevant to Health Maintenance Insurance MEDICARE [facility] Address: [facility] [address] [place] [address] [employer] OPEN ACCESS [facility] OPEN ACCESS Advance Directives For more information, please contact: [phone] * Full Code (Latest Code Status on File) Date Activated Date Inactivated Comments 06/17/2021 7:15 PM 06/18/2021 7:28 PM * Full Code Date Activated Date Inactivated Comments 01/28/2020 8:22 AM 01/28/2020 2:39 PM Care Teams Clinical Sales Consultant Relationship Specialty Start Date End Date Tracie Hart MD [facility] [address] [place] [address] PCP - General Family Medicine 08/28/19 Gibran Cooper MD [address] [place] [address] [place] [address] Medical Oncologist Medical Oncology 05/23/24
--- OUTSIDE RECORDS SUMMARY | 2024-06-11 10:05 | XMS_ITS | Patient Health Record ---
Author Organization [facility] As [employer] Address [address] [facility] [address] [facility] [address] [place] [address] Care Team Providers Care Hide Worker Name Role Phone Jonnie Quach Unavailable [phone] EtsebanCarloz grove Unavailable [phone] Allergies No Known Allergies Results Component Value Reference Range Notes UDT Reviewed date:11/15/2023 12:22:16 PM Interpretation: Performing Lab: Notes/Report: THC N 0 - 50 ng/ml Cocaine N 0 - 300 ng/ml Amphetamine N 0 - 1000 ng/ml Buprenorphine (BUP) N 0 - 10 ng/ml Secobarbital (Bar) N 0 - 300 ng/ml Oxazepam (BZO) N 0 - 300 ng/ml 3-eutdhkofpm-6,4-jfyfjimr-0,3-diphenylpyrrolidine (DONNY P) N 0 - 300 ng/ml Methamphetamine (MET) N 0 - 1000 ng/ml Methylenedioxymethamphetamine (MDMA) N 0 - 500 ng/ml Morphine (MOP 300/DSQ5857) N 0 - 300 ng/ml Methadone (MTD) N 0 - 300 ng/ml Phencyclidine (PCP) N 0 - 25 ng/ml Nortriptyline (TCA) N 0 - 1000 ng/ml Oxycodone N 0 - 300 ng/ml x N 0 - 300 ng/ml Reason For [...] Problem Status W/U Status Risk Notes Problem [id number] Severe episode o f recurrent major depressive disorder, without psychotic features (F33.2) Active confirmed Problem [id number] ADHD (attention deficit hyperactivity disorder) evaluation (Z13.39) [...] N/A Encounters Encounter Location Date Provider Diagnosis [facility] [address] [address] 11/14/2023 Jonnie Clubb Severe episode of recurrent major depressive disorder, without psychotic features F33.2 and ADHD (attention deficit hyperactivity disorder) evaluation Z13.39 [facility] [address] [address] 11/20/2023 Jonnie Clubb [facility] [address] [address] 11/20/2023 Jonnie Clubb Severe episode of recurrent major depressive disorder, without psychotic features F33.2 [facility] [address] [address] 12/04/2023 Jonnie Clubb [facility] [address] [address] 12/04/2023 Jonnie Clubb Assessments Encounter Date Diagnosis [...] Depressive Disorder, Moderately Severe - Plan: Discontinue Stony[place]'s Wort after 6 months of use. Initiate [...] materials were given to the patient. discontinue [place] [facility]. call office or come to walk-in clinic or go to the emergency room if suicidal thoughts occur. 1. Major Depressive Disorder, Moderately Severe - Plan: Discontinue [place]ony[place]'s Wort after 6 months of use. Initiate [...] Insured Coverage Start Date Coverage End Date [employer] [address] [place] [address] [phone] [id number] Katrina Cheng Self - patient is the insured
--- OUTSIDE RECORDS SUMMARY | 2024-06-11 10:06 | XMS_ITS ---
Author Organization [facility] [employer] [facility] Address [address] [place] [address] Care Team Providers Care Blender Conveyor Operator Name Role Phone Jonnie Quach Unavailable [phone] Carloz Hahn Unavailable [phone] REASON FOR VISIT ADHD Test Medications Medication SIG (Take, Route, Frequency, Duration) Notes Start Date End Date Status Escitalopram Oxalate 5 MG 1 tablet Orall y Once a day for 30 days 11/14/2023 Active Social History Sex Assigned At : Social History Observation Description Sex Assigned At Female Encounters Encounter Location Date Provider Diagnosis [facility] [address] [facility] [address] [facility] [address] [place] [address] 12/08/2023 Carloz Hahn Plan Of Treatment No Information Progress Notes * Germaine WILEYneDOB:1960 (64 yo F)Acc No.[id number]:12/08/2023 ADHD Testing Patient: Katrina FLORENTINO Provider: Constance HAHN MD :1960 A ge:63 Y S ex:Female Date:12/08/2023 Address:[address] [place], [place] [id number] Subjective: * Chief Complaints: * 1 . ADHD Test. * Medical History: * Medications: T aking Escitalopram Oxalate 5 MG Tablet 1 tablet Orally Once a day Objective: * Vitals: Assessment: Plan: * Treatment: * Billing Information: * Visit Code: * Procedure Codes: * Electronic signature of Pauly Hahn MD on 06/11/2024 at 10:05 AM CDT Sign off status: Pending * Provider: Constance HAHN MD Date: 0 12/08/2023 Generated for Shell barbosa/Sarina/Jaspal on: 0 06/11/2024 10:05 AM CDT
[2024-06-11 17:08] LABS: Hematocrit 40.8 % (37.0-47.0); Hemoglobin 13.5 g/dL (12.0-15.0)
[2024-06-11 17:31] LABS: Albumin Level 4.3 g/dL (3.5-5.1); Estimated Glomerular Filt Rate > 60; Glucose 109 mg/dL (65-110)
== END 2024-06-11 09:26 | disposition home or self-care (01) ==
PROVIDERS: PCP Orthopaedic Surgery; Visit Provider Orthopaedic Surgery
DX: M17.12 Unilateral primary osteoarthritis, left knee (principal); D64.9 Anemia, unspecified
CPT/HCPCS: 36415; 73700; 82040; 82565; 82947; 85014; 85018

== ENCOUNTER 2024-06-12 13:34 | Outpatient (CLI) | payer OTHER, SELFPAY ==
--- NOTE | 2024-06-12 13:39 | ECG_ITS ---
Test Date: 2024-06-12 13:52:05 Measurements Intervals [place] Rate: 57 P: 1 [place]: 128 QRS: -12 QRSD: 116 T: 8 QT: 481 QTc: 469 Interpretive Statements SINUS BRADYCARDIA INCOMPLETE RIGHT BUNDLE BRANCH BLOCK VOLTAGE CRITERIA FOR LVH BORDERLINE ECG No previous ECG available for comparison Electronically Signed On 06-12-2024 14:07:49 CDT by Yves Mazariegos D.O.
--- OUTSIDE RECORDS SUMMARY | 2024-06-12 14:52 | XMS_ITS | Encounter Summary ---
Author Organization [facility] Address [address] [place] [address] Care Team Providers Care Weaving Professor Name Role Phone Tracie Hart MD Primary Care Provi osvaldo Gibran Cooper MD Unavailable [phone] Encounter Details Date Type Department Care Team (Late st Contact Info) Description 06/07/2024 Results Follow-Up [facility] Family Medicine [address] [address] Tracie Hart MD [address] [address] Social History Tobacco Use Types [...] on file Legal Sex Female 11:37 PM INPATIENT NURSING AIDE Gender Identity Not on file Sexual Orientation Not on file documented as of this encounter Plan of Treatment Upcoming Encounters Date Type Department Care Team (Late st Contact Info) Description 12/25/2024 7:55 AM CDT Hospital Encounter [address] [address] Donato Aragon MD [address] [facility] [address] [place] [address] 12/25/2024 7:55 AM CDT - 12/25/2024 8:25 AM CDT Surgery [address] [address] Donato Aragon MD [address] [facility] [address] [place] [address] COLONOSCOPY Scheduled Procedures Name Priority Associated Diagnoses Date/Ti me COLONOSCOPY History of colonic polyps 12/25/2024 7:55 AM CDT documented as of this encounter Visit Diagnoses Not on filedocumented in this encounter Care Teams Weaving Professor Relationship Specialty Start Date End Date Tracie Hart MD [address] [place] [address] PCP - General Family Medicine 08/28/19 Gibran Cooper MD [address] [place] [address] [address] [place] [address] Medical Oncologist Medical Oncology 05/23/24 documented as of this encounter
--- OUTSIDE RECORDS SUMMARY | 2024-06-12 14:52 | XMS_ITS | Referral Summary ---
Author Organization [facility] Virtual [facility] Address [address] [place] [phone] Phone Care Team Providers Care Survey Research Professor Name Role Phone Tracie Hart MD Primary Care Provi osvaldo Gibran Cooper MD Unavailable [phone] Encounters Date Type Department Care Team Description 06/11/2024 Telephone [facility] Oncology [address] [place] [address] Medical [address] [place] [address] [facility] 06/07/2024 Results Follow-Up [facility] Medicine [address] [address] Tracie Hart MD 05/27/2024 9:00 AM CDT Lab [address] [place] [address] Malignant neoplasm of overlapping sites of right breast in female, estrogen receptor positive (HCC); Vitamin D deficiency 05/27/2024 9:30 AM CDT Office Visit [facility] Oncology [address] [place] [address] Office [address] [place] [address] Gibran Cooper MD Malignant neoplasm of overlapping sites of right breast in female, estrogen receptor positive (HCC) (Primary Dx); Screening mammogram for breast cancer; 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 terminal 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 Left greater than worse, planning to have arthroscopy on the left knee. - Continue to follow with Dr. Virgen ([place]) for x-rays - Patient that she will [...] 06/17/2021 Assessment & Plan (04/19/2024 9:02 AM FRAMING INSPECTOR): Chronic. Continue anastrozole. Continue to follow with [...] from 04/05/2021:Stage IA(cT1b, cN0(f), cM0, G2, ER+, WY+, HER2-) - Signed by Tania Sloan MD [...] surgery Assessment & Plan (05/06/2021 9:53 AM FRAMING INSPECTOR): Will try to recheck her labs We [...] recheck Assessment & Plan (05/06/2021 9:48 AM FRAMING INSPECTOR): Recurrent Appointment with oncology today Will recheck labs Differential is wide including medication effect vs over hydration vs other Will repeat labs Assessment & Plan (02/26/2021 7:51 AM FRAMING INSPECTOR): Follow up labs were normal Continue to monitor Assessment & Plan (11/17/2020 9:51 AM CDT): ?related to increased water intake prior to testing vs alcohol Will recheck in 6 weeks Encouraged to consider financial associate Decrease alcohol Update me with any changes Elevated liver function tests 11/17/2020 Assessment & Plan (12/08/2022 10:10 AM CDT): Chronic, but now resolved Continue to monitor Assessment & Plan (10/11/2021 4:38 PM CDT): F/u LFT's normal Continue to monitor Assessment & Plan (09/23/2021 8:36 AM CDT): Repeat LFTs normal Assessment & Plan (05/06/2021 9:50 AM FRAMING INSPECTOR): Higher than is has been Will recheck her labs Stressed to her we need to look at an ultrasound for possible pathology- she declined Further guidance once we have the results Assessment & Plan (02/26/2021 7:52 AM FRAMING INSPECTOR): Repeat normal We discussed checking an ultrasound [...] (12/11/2019): Added automatically from request for surgery [id number] Assessment & Plan (12/08/2022 10:12 AM CDT): [...] 09/24/2019 Assessment & Plan (04/19/2024 9:02 AM FRAMING INSPECTOR): Chronic. Uncontrolled. Patient working on keeping her [...] counseling. Assessment & Plan (05/06/2021 9:59 AM FRAMING INSPECTOR): BMI Follow-up includes: nutrition counseling. Assessment & [...] try to get notes from her prior operations asst Assessment & Plan (09/24/2019 9:30 AM CDT): [...] 02/15/2013 Assessment & Plan (04/19/2024 9:01 AM FRAMING INSPECTOR): Chronic. Improving.. - Continue to follow with [...] 06/29/2012 Assessment & Plan (04/19/2024 9:03 AM FRAMING INSPECTOR): Chronic. Continue to follow with psychiatry. Assessment [...] questions Assessment & Plan (05/06/2021 9:50 AM FRAMING INSPECTOR): With medications that could affect her sodium Will recheck her labs Assessment & Plan (02/26/2021 7:53 AM FRAMING INSPECTOR): Stable Continue to follow with her psychiatrist [...] Unchanged Assessment & Plan (04/19/2024 9:01 AM FRAMING INSPECTOR): Chronic. Somewhat stable, not currently on medication [...] (12/11/2019): Added automatically from request for surgery [id number] Anemia 11/19/2013 10/11/2021 Assessment & Plan (09/23/2021 8:36 AM CDT): Currently following with Hematology Continue to monitor Assessment & Plan (12/25/2019 5:15 PM CDT): I am going to try to get notes from her prior operations asst she feels that is related to her bariatric surgery She is currently on an [id number] iron, At this time she can continue [...] on file Legal Sex Female 11:37 PM FRAMING INSPECTOR Gender Identity Not on file Sexual Orientation [...] cm (5' 6 ) 04/19/2024 8:29 AM FRAMING INSPECTOR Body Mass Index 35.83 04/19/2024 8:29 AM FRAMING INSPECTOR Plan of Treatment Upcoming Encounters Date Type Department Care Team (Late st Contact Info) Description 12/25/2024 7:55 AM CDT Hospital Encounter [address] [address] Donato Aragon MD [address] [place] [address] DR [address]OR [address] [place] [address] 12/25/2024 7:55 AM CDT - 12/25/2024 8:25 AM CDT Surgery [address] [address] Donato Aragon MD [address] [place] [address] DR [address] [place] [address] COLONOSCOPY Scheduled Procedures Name Priority Associated Diagnoses Date/Ti me COLONOSCOPY History of colonic polyps 12/25/2024 7:55 AM CDT Medical Devices Implanted Type Area Application Support Manager Device Identifier Shelf Expiration Date Model / Serial / Lot [employer] [id number] Implant Mammary Cpx4 Plus Sm Te Mh 450cc - [id number] - [id number] Implanted:Qty: 1 on 06/17/2021 by Shen Reeder, DO at [facility] Right: Breast [employer] 12/13/2024 [id number] / [id number] / [employer] Implant Breast Moderate Plus Profile Smooth Memorygel Boost 590cc Gel [id number] - [id number] - [id number] Implanted:Qty: 1 on 10/15/2021 by Shen Reeder, DO at [facility] Right: Breast [employer] 07/20/2026 [id number] / [id number] / Procedures Procedure Name Priority Date/Time [...] liver function tests COLONOSCOPY 01/28/2020 7:57 AM FRAMING INSPECTOR PAP ONLY Routine 12/25/2019 5:14 PM CDT [...] was last reviewed 2021. Testing performed by: [facility], [facility], [place], [address] Blood 05/27/2024 8:55 AM CDT 05/27/2024 9:09 AM CDT us Florecita Singh [employer] LAB BLOOD ORDERABLES Final Result [facility] AN[facility] ([place]) 1 [facility] Department [place] [address] * Differential, auto (05/27/2024 8:55 AM CDT) Pathologist [facility] Neutrophil abs 3.6 1.5 - 6.5 K/cumm Comment:Testing performed by : [facility] [address], Medical Office [facility] [address], [place] [address] Imm gran abs 0.0 0.0 - 0.1 K/cumm [facility] ([place]) Comment:Testing performed by : [facility] [address], Medical Office [facility] [address], [place] [address] Lymphocyte abs 1.6 0.8 - 3.3 K/cumm [facility] ([place]) Comment:Testing performed by : [facility] [address], Medical Office [facility] [address], [place] [address] Monocyte abs 0.4 0.2 - 0.8 K/cumm [facility] ([place]) Comment:Testing performed by : [facility] [address], Medical Office [facility] [address], [place] [address] Eosinophil abs 0.1 0.0 - 0.5 K/cumm [facility] ([place]) Comment:Testing performed by : [facility] [address], Medical Office [facility] B [facility] [address], [place] [address] Basophil abs 0.1 0.0 - 0.1 K/cumm [facility] ([place]) Comment:Testing performed by : [facility] [address], Medical Office [facility] [address], [place] [address] Neutrophil pct 62.2 % [facility] ([place]) Comment: Interpretive Data Percent cell count reference ranges are not reported, since discordance with absolute values may lead to misinterpretation of CBC data. Current Interpretive Data was last revised on 2022. Testing performed by: [facility] [address], Medical Office [facility] B [facility] [address], [place] [address] Imm gran pct 0.2 % [facility] ([place]) Comment: Interpretive Data Percent cell count reference ranges are not reported, since discordance with absolute values may lead to misinterpretation of CBC data. Current Interpretive Data was last revised on 2022. Testing performed by: [facility] [address], Medical Office Bld[address], [place] [address] Lymphocyte pct 27.2 % [facility] ([place]) Comment: Interpretive Data Percent cell count reference ranges are not reported, since discordance with absolute values may lead to misinterpretation of CBC data. Current Interpretive Data was last revised on 2022. Testing performed by: [facility] [address], Medical Office [facility] [address], [place] [address] Monocyte pct 7.3 % [facility] ([place]) Comment: Interpretive Data Percent cell count reference ranges are not reported, since discordance with absolute values may lead to misinterpretation of CBC data. Current Interpretive Data was last revised on 2022. Testing performed by: [facility] [address], Medical Office [facility] [address], [place] [address] Eosinophil pct 2.1 % [facility] R [facility] ([place]) Comment: Interpretive Data Percent cell count reference ranges are not reported, since discordance with absolute values may lead to misinterpretation of CBC data. Current Interpretive Data was last revised on 2022. Testing performed by: [facility] [address], Medical Office [facility] [address], [place] [address] Basophil pct 1.0 % [facility] ([place]) Comment: Interpretive Data Percent cell count reference ranges are not reported, since discordance with absolute values may lead to misinterpretation of CBC data. Current Interpretive Data was last revised on 2022. Testing performed by: [facility] [address], Medical Office [facility] [address], [place] [address] Blood 05/27/2024 8:55 AM CDT 05/27/2024 9:01 AM CDT us Florecita Singh [employer] LAB BLOOD ORDERABLES Final Result [facility] AN[facility]O ([place]) 1 [facility] [place] [address] * CBC with auto differential (05/27/2024 8:55 AM CDT) WBC 5.7 3.8 - 9.9 K/cumm Comment:Testing performed by : [facility] [address], Medical Office Bld[address], [place] [address] Hgb 13.8 11.9 - 15.5 g/dL [facility] ([place]) Comment:Testing performed by : [facility] [address], Medical Office [address], [place] [address] Hct 42.5 35.6 - 45.5 % [facility] ([place]) Comment:Testing performed by : [facility] [address], Medical Office [address], [place] [address] Plt 281 150 - 400 K/cumm [facility] ([place]) Comment:Testing performed by : [facility] [address], Medical Office [facility] [address], [place] [address] MPV 10.1 9.1 - 12.3 fL [facility] ([place]) Comment:Testing performed by : [facility] [address], Medical Office [facility] [address], [place] [address] RBC 4.85 3.90 - 5.20 M/cumm [facility] ([place]) Comment:Testing performed by : [facility] [address], Medical Office [facility] [address], [place] [address] MCV 87.6 81.3 - 96.4 fL [facility] ([place]) Comment:Testing performed by : [facility] [address], Medical Office [facility] [address], [place] [address] MCH 28.5 27.1 - 33.3 pg [facility] ([place]) Comment:Testing performed by : [facility] [address], Medical Office [address]ld[address], [place] [address] MCHC 32.5 32.3 - 35.7 g/dL [facility] ([place]) Comment:Testing performed by : [facility] [address], Medical Office [facility] [address], [place] [address] RDW CV 13.4 11.1 - 14.9 % [facility] ([place]) Comment:Testing performed by : [facility] [address], Medical Office [address]ld[address], [place] [address] RDW SD 43.5 35.7 - 48.1 fL [facility] AN[facility] ([place]) Comment:Testing performed by : [facility] [address], Medical Office [address], [place] [address] NRBC abs Not Measured 0.00 - 0.01 K/cumm CAR[facility] ANGUIAN[facility] ([place]) Comment:Testing performed by : [facility] [address], Medical Office [facility] [address], [place] [address] Blood 05/27/2024 8:55 AM CDT 05/27/2024 9:01 AM CDT us Florecita Singh NP LAB BLOOD ORDERABLES Final Result Performing Organization Address City/[facility]/ZIP Co de Phone Number CARL ANGUIANO ([place]) 1 [facility] Department [place] [address] * Cancer antigen 15-3 (05/27/2024 8:55 AM CDT) Pathologist [facility] CA 15-3 ag 6.0 1.0 - 30.0 units/mL Comment: Interpretive Data The Víctor CA 15-3 assay procedure was used. Results from different manufacturers or methods may not be comparable. Serial testing should be performed using the same method. Testing performed by: [facility], [address] [place] [address]., [address] Blood 05/27/2024 8:55 AM CDT 05/27/2024 11:21 AM CDT us Gibran Cooper MD LAB BLOOD ORDERABLES Alejandra l Result [facility] ANGUIANO ([place]) 1 [facility] Department [place] [address] * Vitamin D 25 hydroxy (05/27/2024 8:55 AM CDT) [facility] Vitamin D 25-OH 41 30 - 80 ng/mL Comment:Testing performed by : [facility], [facility], [place], [address] Blood 05/27/2024 8:55 AM CDT 05/27/2024 9:48 AM CDT Gibran Cooper MD LAB BLOOD ORDERABLES Alejandra l Result Performing Organization Address City/[facility]/ZIP Co de Phone Number CARL ANGUIANO ([place]) 1 [facility] Department [place] [address] * CEA (05/27/2024 8:55 AM CDT) CEA 1.8 0.1 - 5.0 ng/mL Comment: Interpretive Data The Víctor CEA assay procedure was used. Results from different manufacturers or methods may not be comparable. Serial testing should be performed using the same method. Testing performed by: [facility], [address] [place] [address], [address] Blood 05/27/2024 8:55 AM CDT 05/27/2024 11:21 AM CDT Gibran Cooper MD LAB BLOOD ORDERABLES Alejandra l Result Performing Organization Address [facility] Co de Phone Number CARL ANGUIANO ([place]) 1 [facility] Department [place] [address] * Comprehensive metabolic panel (05/27/2024 8:55 AM CDT) Pathologist [facility] Sodium 138 135 - 145 mmol/L Comment:Testing performed by : [place], [address] Potassium, pl 3.9 3.3 - 4.9 mmol/L [facility] ([place]) Comment:Testing performed by : [place], [address] Chloride 101 97 - 110 mmol/L [facility] ([place]) Comment:Testing performed by : [place], [address] CO2 25 22 - 32 mmol/L [facility] ([place]) Comment:Testing performed by : [place], [address] Anion gap 12 2 - 15 mmol/L [facility] ([place]) Comment:Testing performed by : [place], [address] BUN 11 6 - 25 mg/dL [facility] ([place]) Comment:Testing performed by : [facility][1], [place], [address] Creatinine 0.61 0.60 - 1.10 mg/dL [facility] ([place]) Comment:Testing performed by : [facility][1], [place], [address] Glucose 93 70 - 199 mg/dL [facility] ([place]) Comment: Interpretive Data Fasting glucose >/= 126 [...] was last revised 2022. Testing performed by: [place], [address] Calcium 9.6 8.5 - 10.3 mg/dL [facility] ([place]) Comment:Testing performed by : [place], [address] Bilirubin, total 0.3 0.1 - 1.2 mg/dL [facility] ([place]) Comment:Testing performed by : [facility][1], [place], [address] Protein, pl 7.3 6.5 - 8.5 g/dL [facility] ([place]) Comment:Testing performed by : [facility][1], [place], [address] Albumin 4.5 3.5 - 5.0 g/dL [facility] ([place]) Comment:Testing performed by : [facility][1], [place], [address] Alk phos 89 40 - 130 Units/L [facility] ([place]) Comment:Testing performed by : [facility][1], [place], [address] ALT 17 7 - 45 Units/L [facility] ([place]) Comment:Testing performed by : [facility][1], [place], [address] AST 20 10 - 45 Units/L [facility] ([place]) Comment:Testing performed by : [facility], [facility], [place], [address] Blood 05/27/2024 8:55 AM CDT 05/27/2024 9:09 AM CDT us Florecita Singh [employer] LAB BLOOD ORDERABLES Final Result CARL SILVIO ([place]) 1 [facility] Department [place] [address] * Screening Mammogram Left W Rocky Unilateral [...] age 40, based on guidelines of the [employer] [employer] (ACR Practice Parameter for the Performance of Screening and Diagnostic Mammography) and [employer] [employer]. For women [...] Comment: For additional information, please refer to http://SmartCells.protected-networks.com/faq/YMF541 (This link is being provided for informational/ [...] a test for HCV RNA (test code 70386) is suggested. For additional information please refer to http://SmartCells.protected-networks.com/faq/WSV27k7 (This link is being provided for informational/ educational purposes only.) Blood specimen (specimen) 11/11/2020 2:42 PM CDT 11/11/2020 2:42 PM CDT Narrative [facility] - 11/12/2020 3:22 PM CDT FASTING:NO FASTING: NO us Tracie Hart MD LAB MICROBIOLOGY - GENERAL ORDERABLES Final Result [facility] [address] [address] [facility] [place] [address] * COLONOSCOPY (01/28/2020 7:57 AM FRAMING INSPECTOR) Anatomical Region Laterality Modality Other Narrative Procedure Note Donato Aragon MD - 01/28/2020 7:57 AM CST [facility] Patient Name: Katrina Cheng Procedure Date: 01/28/2020 7:57 AM Date of : 1960 Admit Type: Outpatient Age: 59 Gender: Female Attending MD: Donato Aragon M.D. Room: COUNT INCLUDES THE [facility] ENDOSCOPY ROOM 1 Note Status: Finalized [...] passed under direct vision. The PediatricColonoscope [id number] was introduced through the anusand advanced to [...] 7:57 AM Procedure Code(s): --- Professional --- 69491, Colonoscopy, flexible; with biopsy, single or multiple Diagnosis Code(s): --- Professional --- Z86.010, Personal history of colonic polyps K64.8, Other hemorrhoids D12.4, Benign neoplasm of descending colon K62.1, Rectal polyp CPT copyright 2017 [employer]. All rights reserved. The codes documented in this report are preliminary and upon remote coders reviewmay be revised to meet current compliance requirements. Recognized by the [place] [employer] for promoting quality [...] Comment:Negative for intraep ithelial lesion or malignancy. Program Advocate Des Gonsalves Comment: MLO, CT(ASCP) CT screening location: [place] [address] [place] [address] Comment Filiberto Kam Comment: EXPLANATORY NOTE: The [...] MD LAB CYTOLOGY ORDERA BLES Final Result [facility] [place] [address] [place] [address] from Last 3 Months or Most Recently Relevant to Health Maintenance Insurance MEDICARE CIGNA OPEN ACCESS CIGNA OPEN ACCESS Advance Directives For more information, please contact: [phone] * Full Code (Latest Code Status on File) Date Activated Date Inactivated Comments 06/17/2021 7:15 PM 06/18/2021 7:28 PM * Full Code Date Activated Date Inactivated Comments 01/28/2020 8:22 AM 01/28/2020 2:39 PM Care Teams Survey Research Professor Relationship Specialty Start Date End Date Tracie Hart MD [address] [facility] [place] [address] PCP - General Family Medicine 08/28/19 Gibran Cooper MD [address] [place] [address] [address] [place] [address] Medical Oncologist Medical Oncology 05/23/24
--- OUTSIDE RECORDS SUMMARY | 2024-06-12 14:52 | XMS_ITS | Encounter Summary ---
Author Organization [facility] Address [address] [place] [address] Phone Care Team Providers Care Demonstrator Sales Name Role Phone Tracie Hart MD Primary Care Provi osvaldo Gibran Cooper MD Unavailable [phone] Encounter Details Date Type Department Care Team (Late st Contact Info) Description 06/11/[address] 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 Pt stated that she had a lump removed during breast exam and this company will be testing the lump against her current medications. The phone number provided was [phone] and pt was told to call back if this number did not work. Pt voiced understanding. documented in this encounter Plan of Treatment Upcoming Encounters Date Type Department Care Team (Late st Contact Info) Description 12/25/2024 7:55 AM CDT Hospital Encounter [address] [address] Donato Aragon MD [address] [facility] [address] [place] [address] 12/25/2024 7:55 AM CDT - 12/25/2024 8:25 AM CDT Surgery [address] [address] Donato Aragon MD [address] [place] [address] [address] [place] [address] COLONOSCOPY Scheduled Procedures Name Priority Associated Diagnoses Date/Ti me COLONOSCOPY History of colonic polyps 12/25/2024 7:55 AM CDT documented as of this encounter Visit Diagnoses Not on filedocumented in this encounter Care Teams Demonstrator Sales Relationship Specialty Start Date End Date Tracie Hart MD [facility] [address] [place] [address] PCP - General Family Medicine 08/28/19 Gibran Cooper MD [address] [facility] [address] [place] [address] Medical Oncologist Medical Oncology 05/23/24 documented as of this encounter
--- OUTSIDE RECORDS SUMMARY | 2024-06-12 14:52 | XMS_ITS | Clinical Summary ---
Author Organization [facility] Virtual Care Address [address] [place] [phone] Phone Care Team Providers Care Track Fitter Name Role Phone Tracie Hart MD Primary Care Provi osvaldo Gibran Cooper MD Unavailable [phone] Allergies No known active allergies Medications Soolantra [...] 12/08/2022 Assessment & Plan (04/19/2024 12:24 PM MANAGER PROFESSIONAL DEVELOPMENT): Chronic. Left greater than worse, planning to have arthroscopy on the left knee. - Continue to follow with Dr. Virgen ([place]) for x-rays - Patient that she will [...] 06/17/2021 Assessment & Plan (04/19/2024 9:02 AM MANAGER PROFESSIONAL DEVELOPMENT): Chronic. Continue anastrozole. Continue to follow with [...] from 04/05/2021:Stage IA(cT1b, cN0(f), cM0, G2, ER+, NJ+, HER2-) - Signed by Tania Sloan MD [...] surgery Assessment & Plan (05/06/2021 9:53 AM MANAGER PROFESSIONAL DEVELOPMENT): Will try to recheck her labs We [...] recheck Assessment & Plan (05/06/2021 9:48 AM MANAGER PROFESSIONAL DEVELOPMENT): Recurrent Appointment with oncology today Will recheck labs Differential is wide including medication effect vs over hydration vs other Will repeat labs Assessment & Plan (02/26/2021 7:51 AM MANAGER PROFESSIONAL DEVELOPMENT): Follow up labs were normal Continue to monitor Assessment & Plan (11/17/2020 9:51 AM CDT): ?related to increased water intake prior to testing vs alcohol Will recheck in 6 weeks 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 Decrease alcohol Update me with any changes Elevated liver function tests 11/17/2020 Assessment & Plan (12/08/2022 10:10 AM CDT): Chronic, but now resolved Continue to monitor Assessment & Plan (10/11/2021 4:38 PM CDT): F/u LFT's normal Continue to monitor Assessment & Plan (09/23/2021 8:36 AM CDT): Repeat LFTs normal Assessment & Plan (05/06/2021 9:50 AM MANAGER PROFESSIONAL DEVELOPMENT): Higher than is has been Will recheck her labs Stressed to her we need to look at an ultrasound for possible pathology- she declined Further guidance once we have the results Assessment & Plan (02/26/2021 7:52 AM MANAGER PROFESSIONAL DEVELOPMENT): Repeat normal We discussed checking an ultrasound [...] please contact the office. I strongly encourage Pheedohart sign ups. It can facilitate communication flow. [...] please contact the office. I strongly encourage Pheedohart sign ups. It can facilitate communication flow. [...] (12/11/2019): Added automatically from request for surgery [id number] Assessment & Plan (12/08/2022 10:12 AM CDT): [...] 09/24/2019 Assessment & Plan (04/19/2024 9:02 AM MANAGER PROFESSIONAL DEVELOPMENT): Chronic. Uncontrolled. Patient working on keeping her [...] counseling. Assessment & Plan (05/06/2021 9:59 AM MANAGER PROFESSIONAL DEVELOPMENT): BMI Follow-up includes: nutrition counseling. 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 Improving.. - Continue to follow with [...] 06/29/2012 Assessment & Plan (04/19/2024 9:03 AM MANAGER PROFESSIONAL DEVELOPMENT): Chronic. Continue to follow with psychiatry. Assessment [...] questions Assessment & Plan (05/06/2021 9:50 AM MANAGER PROFESSIONAL DEVELOPMENT): With medications that could affect her sodium Will recheck her labs Assessment & Plan (02/26/2021 7:53 AM MANAGER PROFESSIONAL DEVELOPMENT): Stable Continue to follow with her psychiatrist [...] Unchanged Assessment & Plan (04/19/2024 9:01 AM MANAGER PROFESSIONAL DEVELOPMENT): Chronic. 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 she feels that is related to her bariatric surgery She is currently on an juqc-tfd-iwfmtll iron, At this time she can continue it I would recommend a CBC in 6 months Call for questions or concerns Assessment & Plan (09/24/2019 9:30 AM CDT): Will check labs for possible pathology Encounters Date Type Department Care Team Description 06/11/2024 Telephone [facility] [address] [place] [address] Office [facility] [address] [place] [address] Krai Mejias 06/07/2024 Results Follow-Up [address] [phone] Tracie Hart MD 05/27/2024 9:30 AM CDT Office Visit [facility] [address] [place] [address] [address] [place] [address] Gibran Cooper MD Malignant neoplasm of overlapping sites of right breast in female, estrogen receptor positive (HCC) (Primary Dx); Screening mammogram for breast cancer; half-way 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 inhibitor; Vitamin D deficiency 05/27/2024 9:00 AM CDT Lab [address] [place] [address] Malignant neoplasm of overlapping sites of right breast in female, estrogen receptor positive (HCC); Vitamin D deficiency 04/19/2024 8:30 AM MANAGER PROFESSIONAL DEVELOPMENT Office Visit [address] [phone] Kelsie Parra PA Primary osteoarthritis of both knees (Primary Dx); ADHD, predominantly inattentive type; Bipolar I disorder, most recent episode (or current) depressed, severe, specified as with psychotic behavior (HCC); Class 2 severe obesity due to excess calories with serious comorbidity and body mass index (BMI) of 36.0 to 36.9 in adult (HCC); History of right breast cancer; Other schizophrenia (HCC) 04/19/[address] [phone] Tracie Hart MD Prior Auth request for Zepbound 04/19/2024 Orders Only [facility] [address] [phone] Kelsie Parra PA 04/19/2024 Telephone [facility] [address] [phone] Tracie Hart MD Medical Question/Miscellaneous [...] Comments BARIATRIC SURGERY 03/13/1999 - 03/12/2000 [facility] COLONOSCOPY 10/23/2015 US GUIDED BIOPSY LYMPH NODE SUPERFICIAL LEFT 04/05/2021 N/A SECTION 03/13/2000 - 03/12/2001 BREAST BIOPSY 04/05/2021 Right MASTECTOMY COMPLETE / SIMPLE W/ SENTINEL NODE BIOPSY 06/17/2021 Right with sentinel lymph node dissection BREAST RECONSTRUCTION 06/17/2021 Right immediate with tissuse sound printer and matrix REDUCTION MAMMAPLASTY Medical History Medical [...] on file Legal Sex Female 11:37 PM MANAGER PROFESSIONAL DEVELOPMENT Gender Identity Not on file Sexual Orientation [...] cm (5' 6 ) 04/19/2024 8:29 AM MANAGER PROFESSIONAL DEVELOPMENT Body Mass Index 35.83 04/19/2024 8:29 AM MANAGER PROFESSIONAL DEVELOPMENT Plan of Treatment Upcoming Encounters Date Type Department Care Team (Late st Contact Info) Description 12/25/2024 7:55 AM CDT Hospital Encounter [address] [address] Donato Aragon MD [address] [facility] [address] [place] [address] 12/25/2024 7:55 AM CDT - 12/25/2024 8:25 AM CDT Surgery [address] [address] Donato Aragon MD [address] [facility] [facility] [address] [place] [address] COLONOSCOPY Scheduled Procedures Name Priority Associated Diagnoses [...] history exists Medical Devices Implanted Type Area Hotel Maintenance Engineer Device Identifier Shelf Expiration Date Model / Serial / Lot [employer] [id number] Implant Mammary Cpx4 Plus Sm Te 450cc - [id number] - [id number] Implanted:Qty: 1 on 06/17/2021 by Shen Redeer, DO at [facility] Right: Breast [employer] 12/13/2024 [id number] / [id number] / [employer] Implant Breast Moderate Plus Profile Smooth Memorygel Boost 590cc Gel [id number] - [id number] - [id number] Implanted:Qty: 1 on 10/15/2021 by Shen Reeder, DO at [facility] Right: Breast [employer] 07/20/2026 [id number] / [id number] / Procedures Procedure Name Priority Date/Time [...] liver function tests COLONOSCOPY 01/28/2020 7:57 AM MANAGER PROFESSIONAL DEVELOPMENT PAP ONLY Routine 12/25/2019 5:14 PM CDT [...] was last reviewed 2021. Testing performed by: [facility], [facility], [place], [address] Blood 05/27/2024 8:55 AM CDT 05/27/2024 9:09 AM CDT us Florecita Singh STAFF DESIGN ENGINEER LAB BLOOD ORDERABLES Final Result [facility] ([place]) [facility] Department [place] [address] * Differential, auto (05/27/2024 8:55 AM CDT) Neutrophil abs 3.6 1.5 - 6.5 K/cumm Comment:Testing performed by : [facility] [address], Medical Office [facility] [address], [place] [address] Imm gran abs 0.0 0.0 - 0.1 K/cumm [facility] ([place]) Comment:Testing performed by : [facility] [address], Medical Office [facility] [address], [place] [address] Lymphocyte abs 1.6 0.8 - 3.3 K/cumm [facility] ([place]) Comment:Testing performed by : [facility] [address], Medical Office [facility] [address], [place] [address] Monocyte abs 0.4 0.2 - 0.8 K/cumm [facility] ([place]) Comment:Testing performed by : [facility] [address], Medical Office [facility] [address], [place] [address] Eosinophil abs 0.1 0.0 - 0.5 K/cumm [facility] ([place]) Comment:Testing performed by : [facility] [address], Medical Office [facility] [address], [place] [address] Basophil abs 0.1 0.0 - 0.1 K/cumm [facility] ([place]) Comment:Testing performed by : [facility] [address], Medical Office [address], [place] [address] Neutrophil pct 62.2 % [facility] ([place]) Comment: Interpretive Data Percent cell count reference ranges are not reported, since discordance with absolute values may lead to misinterpretation of CBC data. Current Interpretive Data was last revised on 2022. Testing performed by: [facility] [address], Medical Office [address], [place] [address] Imm gran pct 0.2 % [facility] ([place]) Comment: Interpretive Data Percent cell count reference ranges are not reported, since discordance with absolute values may lead to misinterpretation of CBC data. Current Interpretive Data was last revised on 2022. Testing performed by: [facility] [address], Medical Office [address], [place] [address] Lymphocyte pct 27.2 % [facility] ([place]) Comment: Interpretive Data Percent cell count reference ranges are not reported, since discordance with absolute values may lead to misinterpretation of CBC data. Current Interpretive Data was last revised on 2022. Testing performed by: [facility] [address], Medical Office [address], [place] [address] Monocyte pct 7.3 % [facility] ([place]) Comment: Interpretive Data Percent cell count reference ranges are not reported, since discordance with absolute values may lead to misinterpretation of CBC data. Current Interpretive Data was last revised on 2022. Testing performed by: [facility] [address], Medical Office [address], [place] [address] Eosinophil pct 2.1 % [facility] ([place]) Comment: Interpretive Data Percent cell count reference ranges are not reported, since discordance with absolute values may lead to misinterpretation of CBC data. Current Interpretive Data was last revised on 2022. Testing performed by: [facility] [address], Medical Office [address], [place] [address] Basophil pct 1.0 % [facility] ([place]) Comment: Interpretive Data Percent cell count reference ranges are not reported, since discordance with absolute values may lead to misinterpretation of CBC data. Current Interpretive Data was last revised on 2022. Testing performed by: [facility] [address], Medical Office [facility] [address], [place] [address] Blood 05/27/2024 8:55 AM CDT 05/27/2024 9:01 AM CDT Florecita Singh STAFF DESIGN ENGINEER LAB BLOOD ORDERABLES Final Result [facility] ([place]) [facility] Department of Laboratories [place] [address] [address] * CBC with auto differential (05/27/2024 8:55 AM CDT) WBC 5.7 3.8 - 9.9 K/cumm Comment:Testing performed by : [facility] [address], Medical Office [facility] [address], [place] [address] Hgb 13.8 11.9 - 15.5 g/dL [facility] ([place]) Comment:Testing performed by : [facility] [address], Medical Office [facility] [address], [place] [address] Hct 42.5 35.6 - 45.5 % [facility] ([place]) Comment:Testing performed by : [facility] [address], Medical Office [facility] [address], [place] [address] Plt 281 150 - 400 K/cumm [facility] ([place]) Comment:Testing performed by : [facility] [address], Medical Office [facility] [address], [place] [address] MPV 10.1 9.1 - 12.3 fL [facility] ([place]) Comment:Testing performed by : [facility] [address], Medical Office [facility] [address], [place] [address] RBC 4.85 3.90 - 5.20 M/cumm [facility] ([place]) Comment:Testing performed by : [facility] [address], Medical Office [facility] [address], [place] [address] MCV 87.6 81.3 - 96.4 fL [facility] ([place]) Comment:Testing performed by : [facility] [address], Medical Office [facility] [address], [place] [address] MCH 28.5 27.1 - 33.3 pg [facility] ([place]) Comment:Testing performed by : [facility] [address], Medical Office [facility] [address], [place] [address] MCHC 32.5 32.3 - 35.7 g/dL [facility] ([place]) Comment:Testing performed by : [facility] [address], Medical Office [facility] [address], [place] [address] RDW CV 13.4 11.1 - 14.9 % [facility] ([place]) Comment:Testing performed by : [facility] [address], Medical Office [facility] [address], [place] [address] RDW SD 43.5 35.7 - 48.1 fL [facility] ([place]) Comment:Testing performed by : [facility] [address], Medical Office [facility] [address], [place] [address] NRBC abs Not Measured 0.00 - 0.01 K/cumm [facility] ([place]) Comment:Testing performed by : [facility] [address], Medical Office [facility] [address], [place] [address] Blood 05/27/2024 8:55 AM CDT 05/27/2024 9:01 AM CDT Florecita Singh STAFF DESIGN ENGINEER LAB BLOOD ORDERABLES Final Result [facility] ([place]) [facility] Department [place] [address] * Cancer antigen 15-3 (05/27/2024 8:55 AM CDT) Pathologist [facility] CA 15-3 ag 6.0 1.0 - 30.0 units/mL Comment: Interpretive Data The Víctor CA 15-3 assay procedure was used. Results from different manufacturers or methods may not be comparable. Serial testing should be performed using the same method. Testing performed by: [address] [address] Blood 05/27/2024 8:55 AM CDT 05/27/2024 11:21 AM CDT Gibran Cooper MD LAB BLOOD ORDERABLES Alejandra l Result [facility] ([place]) 1 [facility] [place] [address] * Vitamin D 25 hydroxy (05/27/2024 8:55 AM CDT) Vitamin D 25-OH 41 30 - 80 ng/mL Comment:Testing performed by : [facility], [facility], [place], [address] Blood 05/27/2024 8:55 AM CDT 05/27/2024 9:48 AM CDT Gibran Cooper MD LAB BLOOD ORDERABLES Alejandra l Result Performing Organization Address [facility] Co de Phone Number [facility] ([place]) 1 [facility] [place] [address] * CEA (05/27/2024 8:55 AM CDT) CEA 1.8 0.1 - 5.0 ng/mL Comment: Interpretive Data The Víctor CEA assay procedure was used. Results from different manufacturers or methods may not be comparable. Serial testing should be performed using the same method. Testing performed by: [address] [place]., [address] Blood 05/27/2024 8:55 AM CDT 05/27/2024 11:21 AM CDT Gibran Cooper MD LAB BLOOD ORDERABLES Alejandra l Result [facility] ([place]) [facility] [place] [address] * Comprehensive metabolic panel (05/27/2024 8:55 AM CDT) Sodium 138 135 - 145 mmol/L Comment:Testing performed by : [facility], [facility], [place], [address] Potassium, pl 3.9 3.3 - 4.9 mmol/L [facility] ([place]) Comment:Testing performed by : [facility], [place], [address] Chloride 101 97 - 110 mmol/L [facility] ([place]) Comment:Testing performed by : [facility], [facility], [place], [address] CO2 25 22 - 32 mmol/L [facility] ([place]) Comment:Testing performed by : [facility], [facility], [place], [address] Anion gap 12 2 - 15 mmol/L [facility] ([place]) Comment:Testing performed by : [facility], [place], [address] BUN 11 6 - 25 mg/dL [facility] ([place]) Comment:Testing performed by : [facility], [place], [address] Creatinine 0.61 0.60 - 1.10 mg/dL [facility] ([place]) Comment:Testing performed by : [facility], [place], [address] Glucose 93 70 - 199 mg/dL [facility] ([place]) Comment: Interpretive Data Fasting glucose >/= 126 [...] was last revised 2022. Testing performed by: [facility], [place], [address] Calcium 9.6 8.5 - 10.3 mg/dL [facility] ([place]) Comment:Testing performed by : [facility], [place], [address] Bilirubin, total 0.3 0.1 - 1.2 mg/dL [facility] ([place]) Comment:Testing performed by : [facility], [place], [address] Protein, pl 7.3 6.5 - 8.5 g/dL [facility] ([place]) Comment:Testing performed by : [facility], [place], [address] Albumin 4.5 3.5 - 5.0 g/dL [facility] ([place]) Comment:Testing performed by : [facility], [place], [address] Alk phos 89 40 - 130 Units/L [facility] ([place]) Comment:Testing performed by : [facility], [place], [address] ALT 17 7 - 45 Units/L [facility] ([place]) Comment:Testing performed by : [facility], [place], [address] AST 20 10 - 45 Units/L [facility] ([place]) Comment:Testing performed by : [facility], [place], [address] Blood 05/27/2024 8:55 AM CDT 05/27/2024 9:09 AM CDT Florecita Singh STAFF DESIGN ENGINEER LAB BLOOD ORDERABLES Final Result [facility] ([place]) 1 [facility] [place] [address] * Screening Mammogram Left W Rocky Unilateral [...] age 40, based on guidelines of the [place] [employer] (ACR Practice Parameter for the Performance of Screening and Diagnostic Mammography) and [place] [employer]. For women [...] Comment: For additional information, please refer to http://education.Jo[employer]/faq/PQX539 (This link is being provided for informational/ [...] a test for HCV RNA (test code 81308) is suggested. For additional information please refer to http://education.[employer]/faq/BVZ84t8 (This link is being provided for informational/ educational purposes only.) Blood specimen (specimen) 11/11/2020 2:42 PM CDT 11/11/2020 2:42 PM CDT Narrative [facility] - 11/12/2020 3:22 PM CDT FASTING:NO FASTING: NO us Tracie Hart MD LAB MICROBIOLOGY - GENERAL ORDERABLES Final Result [email or web address] [address] [address] [address] * COLONOSCOPY (01/28/2020 7:57 AM MANAGER PROFESSIONAL DEVELOPMENT) Anatomical Region Laterality Modality Other Narrative Procedure Note Donato Aragon MD - 01/28/2020 7:57 AM CST [facility] Patient Name: Katrina Cheng Procedure Date: 01/28/2020 7:57 AM Date of : 1960 Admit Type: Outpatient Age: 59 Gender: Female Attending MD: Donato Aragon M.D. Room: [facility] ENDOSCOPY ROOM 1 Note Status: [...] passed under direct vision. The PediatricColonoscope [id number] was introduced through the anusand advanced to [...] 7:57 AM Procedure Code(s): --- Professional --- 01179, Colonoscopy, flexible; with biopsy, single or multiple Diagnosis Code(s): --- Professional --- Z86.010, Personal history of colonic polyps K64.8, Other hemorrhoids D12.4, Benign neoplasm of descending colon K62.1, Rectal polyp CPT copyright 2017 [place] [employer]. All rights reserved. The codes documented in this report are preliminary and upon shear grinder operator helper reviewmay be revised to meet current compliance requirements. Recognized by the [place] [employer] for promoting quality [...] and/or menstrual status not provided HPV interp [facility] Comment:Negative for intraep ithelial lesion or malignancy. Screw Machine Set Up Operator [facility] Comment: MLO, CT(ASCP) CT screening location: [place] [address] [place] [address] Comment [facility] Comment: EXPLANATORY NOTE: The Pap is [...] MD LAB CYTOLOGY ORDERA BLES Final Result [place] [address] [place] [address] from Last 3 Months or Most Recently Relevant to Health Maintenance Insurance MEDICARE [employer] OPEN ACCESS [facility] OPEN ACCESS Advance Directives For more information, please contact: [phone] * Full Code (Latest Code Status on File) Date Activated Date Inactivated Comments 06/17/2021 7:15 PM 06/18/2021 7:28 PM * Full Code Date Activated Date Inactivated Comments 01/28/2020 8:22 AM 01/28/2020 2:39 PM Care Teams Track Fitter Relationship Specialty Start Date End Date Tracie Hart MD [facility] [address] [place] [address] PCP - General Family Medicine 08/28/19 Gibran Cooper MD [address] [place] [address] [place] [address] Medical Oncologist Medical Oncology 05/23/24
--- OUTSIDE RECORDS SUMMARY | 2024-06-12 14:52 | XMS_ITS ---
Author Organization [facility] As [facility] Address [address] [place] [address] [address] [facility] [address] [place] [address] Care Team Providers Care Conservation Policy Analyst Name Role Phone Jonnie Quach [phone] REASON FOR VISIT FYI only Social History Sex Assigned At : Social History Observation Description Sex Assigned At Female Encounters Encounter [facility] Date [facility] [place] [address] [facility] [address] [facility] [address] [place] [address] 12/04/2023 Jonnie Quach Plan Of Treatment No Information Progress Notes * Germaine WILEYKevinOB:1960 (63 yo F)Acc No.[id number]:12/04/2023 Patient: Katrina FLORENTINO :1960 A ge:63 Y S ex:Female Address:[address] [place] [address] * true * Date: Generated for Printi ng/Rog/eTransmitting on: 0 06/12/2024 02:52 PM CDT
--- OUTSIDE RECORDS SUMMARY | 2024-06-12 14:53 | XMS_ITS ---
Author Organization [facility] Address [address] [facility] [address] [place] [address] Care Team Providers Care Pairer Odds Name Role Phone Jonnie Quach [phone] Social History Sex Assigned At : Social History Observation Description Sex Assigned At Female Encounters Encounter Location Date Provider Diagnosis [facility] [address] [facility] [address] [place] [address] 12/04/2023 Jonnie Quach Plan Of Treatment No Information Progress Notes * Jj WILEYOB:1960 (63 yo F)Acc No.[id number]:12/04/2023 Patient: Katrina FLORENTINO :1960 A ge:63 Y S ex:Female Address:[address] [place] [address] * true * Date: Generated for Shell barbosa/Sarina/eTransmitting on: 0 06/12/2024 02:52 PM CDT
--- OUTSIDE RECORDS SUMMARY | 2024-06-12 14:53 | XMS_ITS | Clinical Summary ---
Author Organization [facility] [employer] Address [address] [facility] [place] [address] Care Team Providers Care Ladies Attendant Name Role Phone Unavailable Primary Care Provider Unavailabl e Source Comments [facility],non-owned Affiliates and Associated Physician Practices is amultiple site organization consisting of ambulatory clinics and hospital sitesin [place], [place], [place] and [place]. This disclosure is being madepursuant to the Care Everywhere program and may not contain all information available regarding this patient. Last updated 17.[facility] [employer] Allergies No known active allergies Medications * [...] VACCINE ( - 2023-2 5 season) 2023 DEPRESSION SCREENING 03/13/2024 LIPID TESTING 08/07/2024 08/08/2019 INFLUENZA VACCINE (Season Ended) 2024 Respiratory Syncytial Virus (RSV) Vaccine Pt: or [...] 126 <200 mg/dL 08/08/2019 6:52 AM CDT [facility] Triglycerides 67 <150 mg/dL 08/08/2019 6:52 AM CDT [facility] HDL Cholesterol 46 >40 mg/dL 0 6:52 AM CDT [facility] Chol HDL Ratio 2.7 1.0 - 6.0 08/08/2019 6:52 AM CDT [facility] LDL Calculated 67 65 - 130 mg/dL 08/08/2019 6:52 AM CDT [facility] VLDL Calculated 13 <=30 mg/dL 0 6:52 AM CDT [facility] Blood BLOOD SPECIMEN / Unknown Lab Venipuncture / Unknown 08/08/2019 6:15 AM CDT 08/08/2019 6:25 AM CDT Narrative [facility] - 08/08/2019 6:52 AM CDT [...] - CHEMISTRY FABRIZIO GONZALEZ Performing Organization Address City/State/[facility] [[email or web address]] Co de Phone Number [facility] [address] from Last 3 Months or Most Recently Relevant to Health Maintenance Advance Directives * Full Code (Latest Code Status on File) Date Activated Date Inactivated Comments 08/05/2019 10:20 PM 08/20/2019 1:03 PM
--- OUTSIDE RECORDS SUMMARY | 2024-06-12 14:53 | XMS_ITS ---
Author Organization [facility] Address [address] [place] [address] Care Team Providers Care Manager Oncology Name Role Phone Jonnie Quach Unavailable [phone] Carloz Hahn Unavailable [phone] REASON FOR VISIT ADHD Test Medications Medication SIG (Take, Route, Frequency, Duration) Notes Start Date End Date Status Escitalopram Oxalate 5 MG 1 tablet Orall y Once a day for 30 days 11/14/2023 Active Social History Sex Assigned At : Social History Observation Description Sex Assigned At Female Encounters Encounter Location Date Provider Diagnosis [facility] [address] [facility] [address] [facility] [address] [place] [address] 12/08/2023 Carloz Hahn Plan Of Treatment No Information Progress Notes * Germaine WILEYneDOB:1960 (64 yo F)Acc No.[id number]:12/08/2023 ADHD Testing Patient: Katrina FLORENTINO Provider: Constance HAHN MD :1960 A ge:63 Y S ex:Female Date:12/08/2023 Address:[address] [place], [place] [id number] Subjective: * Chief Complaints: * 1 . ADHD Test. * Medical History: * Medications: T aking Escitalopram Oxalate 5 MG Tablet 1 tablet Orally Once a day Objective: * Vitals: Assessment: Plan: * Treatment: * Billing Information: * Visit Code: * Procedure Codes: * Electronic signature of Pauly Hahn MD on 06/12/2024 at 02:53 PM CDT Sign off status: Pending * Provider: Constance HAHN MD Date: 0 12/08/2023 Generated for Shell barbosa/Sarina/Jaspal on: 0 06/12/2024 02:53 PM CDT
--- OUTSIDE RECORDS SUMMARY | 2024-06-12 14:53 | XMS_ITS | Patient Health Record ---
Author Organization [facility] Address [address] [facility] [address] [facility] [address] [place] [address] Care Team Providers Care Investor Relations Associate Name Role Phone Jonnie Quach Unavailable [phone] EstebanCarloz grove Unavailable [phone] Allergies No Known Allergies Results Component Value Reference Range Notes UDT Reviewed date:11/15/2023 12:22:16 PM Interpretation: Performing Lab: Notes/Report: THC N 0 - 50 ng/ml Cocaine N 0 - 300 ng/ml Amphetamine N 0 - 1000 ng/ml Buprenorphine (BUP) N 0 - 10 ng/ml Secobarbital (Bar) N 0 - 300 ng/ml Oxazepam (BZO) N 0 - 300 ng/ml 2-qkuytqwfio-5,3-tvyebghg-3,3-diphenylpyrrolidine (DONNY P) N 0 - 300 ng/ml Methamphetamine (MET) N 0 - 1000 ng/ml Methylenedioxymethamphetamine (MDMA) N 0 - 500 ng/ml Morphine (MOP 300/BTB4556) N 0 - 300 ng/ml Methadone (MTD) [...] Problem Status W/U Status Risk Notes Problem [id number] Severe episode o f recurrent major depressive disorder, without psychotic features (F33.2) Active confirmed Problem 215307593 ADHD (attention deficit hyperactivity disorder) evaluation (Z13.39) [...] N/A Encounters Encounter Location Date Provider Diagnosis [facility] [address] [address] 11/14/2023 Jonnie Clubb Severe episode of recurrent major depressive disorder, without psychotic features F33.2 and ADHD (attention deficit hyperactivity disorder) evaluation Z13.39 [employer] [address] [address] 11/20/2023 Jonnie Clubb [facility] [address] [address] 11/20/2023 Jonnie Clubb Severe episode of recurrent major depressive disorder, without psychotic features F33.2 [employer] [address] [address] 12/04/2023 Jonnie Clubb [employer] [address] [address] 12/04/2023 Jonnie Clubb Assessments Encounter Date Diagnosis [...] Depressive Disorder, Moderately Severe - Plan: Discontinue Val[place]'s Wort after 6 months of use. Initiate [...] materials were given to the patient. discontinue [place] Wart. call office or come to walk-in clinic or go to the emergency room if suicidal thoughts occur. 1. Major Depressive Disorder, Moderately Severe - Plan: Discontinue Val[place]'s Wort after 6 months of use. Initiate [...] Date Coverage End Date [employer] [address] [place] [address] [id number] Katrina Cheng Self - patient is the insured
--- OUTSIDE RECORDS SUMMARY | 2024-06-12 14:53 | XMS_ITS | Clinical Summary ---
Author Organization [facility] Address [address] [place] [id number] Care Team Providers Care Pot Liner Name Role Phone Unavailable Primary Care Provider [...]
== END 2024-06-12 13:35 | disposition home or self-care (01) ==
PROVIDERS: Visit Provider Orthopaedic Surgery
DX: Z01.812 Encounter for preprocedural laboratory examination (principal); M17.12 Unilateral primary osteoarthritis, left knee; R00.1 Bradycardia, unspecified; I45.10 Unspecified right bundle-branch block
CPT/HCPCS: 93005

== ENCOUNTER 2024-07-29 11:09 | Inpatient (IN) | payer OTHER, MEDICARE, SELFPAY ==
[2024-07-29] VITALS (12 sets, daily range): BP systolic 134–178; BP diastolic 62–90; PULSE 65–109; RESP 15–21; TEMP 36.6–37.2; O2SAT 96–98; BMI 34.6
--- NOTE | ~2024-07-29 | XR_ITS ---
EXAMINATION: XR surgery orthopedic DATE: 07/30/2024 14:45 CDT INDICATION: LEFT IT NAIL . TECHNIQUE: 7 fluoroscopic images of the left leg were obtained during left intertrochanteric nail maksim cement, performed by Dr. Smalls. I was not present during the procedure. Fluoroscopy exposure chio e was 1 minute 4.7 seconds. Air Kerma 28.843 mGy. DAP 5.7179 mGym2. COMPARISON: X-ray left femur 07/29/2024 FINDINGS/IMPRESSION: Fluoroscopic documentation of left intertrochanteric nail placement. Please refer to the operative no te for complete procedural details . Reviewed, dictated and finalized at location K.
--- NOTE | ~2024-07-29 | XR_ITS ---
CHEST RADIOGRAPH CLINICAL HISTORY: cough . COMPARISON: None available TECHNIQUE: Single portable view of the chest. FINDINGS The cardiomediastinal silhouette is unremarkable. The lungs are clear. IMPRESSION: No focal infiltrate or effusion. Reviewed, dictated and finalized at location A.
--- NOTE | ~2024-07-29 | XR_ITS ---
EXAMINATION: XR hip LT 2V w AP pelvis, XR femur LT min 2V, [id number] DATE: 07/29/2024 15:08 INDICATION: Shortening of the left leg and left knee pain post fall TECHNIQUE: 1. Anteroposterior view of the pelvis and anteroposterior and cross-table lateral views of the left h ip were obtained. 2. AP and lateral views of the left femur were obtained on overlapping proximal and distal images. 3. AP and lateral views of the left knee were obtained. COMPARISON: None. FINDINGS: Mildly comminuted intertrochanteric fracture of the proximal left femur with 15 degrees varus angulat ion and some external rotation of the main distal fragment relative to the femoral head and neck frag ment. There appears be a nondisplaced fracture line extending across the base of the lesser trochante r. No other fractures identified either in the pelvis or in the more distal left femur. Bilateral hip joint spaces appear normal. Mild osteoarthritis at the bilateral sacral iliac joints. There is trico mpartmental osteoarthritis at the left knee with severe joint space narrowing at the medial compartme nt on the lateral projection. Mild to moderate joint space narrowing at the patellofemoral articulati on. No left knee joint effusion. IMPRESSION: 1. Mildly comminuted intertrochanteric fracture the proximal left femur with external rotation and 15 degrees varus angulation between the femoral head and neck fragment in the metaphyseal fragment. 2. Severe medial compartment predominant tricompartmental osteoarthritis at the left knee. Reviewed, dictated and finalized at location A. IMPRESSION: 1. Mildly comminuted intertrochanteric fracture the proximal left femur with ex ternal rotation and 15 degrees varus angulation between the femoral head and ne ck fragment in the metaphyseal fragment. 2. Severe medial compartment predominant tricompartmental osteoarthritis at the left knee. IMPRESSION: 1. Mildly comminuted intertrochanteric fracture the proximal left femur with ex ternal rotation and 15 degrees varus angulation between the femoral head and ne ck fragment in the metaphyseal fragment. 2. Severe medial compartment predominant tricompartmental osteoarthritis at the left knee.
--- OUTSIDE RECORDS SUMMARY | 2024-07-29 11:46 | XMS_ITS | Referral Summary ---
Author Organization [facility] Virtual Care Address [address] [place] [phone] Phone Care Team Providers Care Molding Line Assistant Name Role Phone Tracie Hart MD Primary Care Provi osvaldo Gibran Cooper MD Unavailable [phone] Encounters Date Type Department Care Team Description 07/29/2024 Nurse Triage [facility] Medicine [address] [place] [phone] Tracie Hart MD 07/15/[address] [phone] Tracie Hart MD Surgery Clearance Form 07/04/2024 Telephone [facility] Oncology [address] [place] [address] Medical [address] [place] [phone] Myrtle Gallagher, CLLamonte 06/11/2024 Telephone [facility] Oncology [address] [place] [address] Medical Office [address] [place] [phone] Kari Mejias 06/07/2024 Results Follow-Up [address] [phone] Tracie Hart MD Surgical pathology 05/27/2024 9:00 AM CDT Lab [facility] [address] [place] [address] Malignant neoplasm of overlapping sites of right breast in female, estrogen receptor positive (HCC); Vitamin D deficiency 05/27/2024 9:30 AM CDT Office Visit [facility] Oncology [address] Medical Office [address] [place] [phone] Gibran Cooper MD Malignant neoplasm of overlapping sites of right breast in female, estrogen receptor positive (HCC) (Primary Dx); Screening mammogram for breast cancer; 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 counselor 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 inhibitor; Vitamin D deficiency from Last 3 Months Allergies No known active allergies Medications Soolantra 1 % cream As needed 0 Active Invega Sustenna 117 mg/0.75 mL syringe INJ 117 MG IM TO DELTOID OR GLUTEAL AREA ONCE A MONTH UTD 0 Active Epiduo Forte 0.3-2.5 % gel with pump 1 Active temazepam (RESTORIL) 15 mg capsuleIndicatio ns:Insomnia Take 1 capsule (15 mg total) by mouth nightly as needed for sleep Active anastrozole (ARIMIDEX) 1 mg tabletIndication s:Malignant neoplasm of overlapping sites of right breast [...] THE MORNING AND AT NOON 5 Active Active Problems Problem Noted Date Diagnosed Date History of colonic polyps 12/14/2023 Primary osteoarthritis of both knees 12/08/2022 Assessment & Plan (04/19/2024 12:24 PM ECO INDUSTRIAL DEVELOPMENT CONSULTANT): Chronic. Left greater than worse, planning to have arthroscopy on the left knee. - Continue to follow with Dr. Virgen ([place]) for x-rays - Patient that she will [...] 06/17/2021 Assessment & Plan (04/19/2024 9:02 AM ECO INDUSTRIAL DEVELOPMENT CONSULTANT): Chronic. Continue anastrozole. Continue to follow with [...] from 04/05/2021:Stage IA(cT1b, cN0(f), cM0, G2, ER+, NH+, HER2-) - Signed by Tania Sloan MD [...] surgery Assessment & Plan (05/06/2021 9:53 AM ECO INDUSTRIAL DEVELOPMENT CONSULTANT): Will try to recheck her labs We [...] recheck Assessment & Plan (05/06/2021 9:48 AM ECO INDUSTRIAL DEVELOPMENT CONSULTANT): Recurrent Appointment with oncology today Will recheck labs Differential is wide including medication effect vs over hydration vs other Will repeat labs Assessment & Plan (02/26/2021 7:51 AM ECO INDUSTRIAL DEVELOPMENT CONSULTANT): Follow up labs were normal Continue to monitor Assessment & Plan (11/17/2020 9:51 AM CDT): ?related to increased water intake prior to testing vs alcohol Will recheck in 6 weeks 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 Decrease alcohol Update me with any changes Elevated liver function tests 11/17/2020 Assessment & Plan (12/08/2022 10:10 AM CDT): Chronic, but now resolved Continue to monitor Assessment & Plan (10/11/2021 4:38 PM CDT): F/u LFT's normal Continue to monitor Assessment & Plan (09/23/2021 8:36 AM CDT): Repeat LFTs normal Assessment & Plan (05/06/2021 9:50 AM ECO INDUSTRIAL DEVELOPMENT CONSULTANT): Higher than is has been Will recheck her labs Stressed to her we need to look at an ultrasound for possible pathology- she declined Further guidance once we have the results Assessment & Plan (02/26/2021 7:52 AM ECO INDUSTRIAL DEVELOPMENT CONSULTANT): Repeat normal We discussed checking an ultrasound [...] please contact the office. I strongly encourage Level Chefhart sign ups. It can facilitate communication flow. Please contact the office for instructions on signing up. Assessment & Plan (12/14/2023 10:35 AM CDT): Health Maintenance: 12/14/23 Last PAP: 12/2019- Neg, Neg HPV Last mammogram: 10/03- WNL Last colonoscopy:2020- due in 4 years, referral provided Last Tdap: 2018 Last pneumonia/Prevnar: complete Last Shingrix: up to [...] placed Last Tdap: 2014 Last pneumonia/Prevnar: pneumonia Last Shingrix: encouraged Last Flu: yearly Personal history of colonic polyps 12/11/2019 Overview (12/11/2019): Added automatically from request for surgery [id number] Assessment & Plan (12/08/2022 10:12 AM CDT): [...] 09/24/2019 Assessment & Plan (04/19/2024 9:02 AM ECO INDUSTRIAL DEVELOPMENT CONSULTANT): Chronic. Uncontrolled. Patient working on keeping her [...] counseling. Assessment & Plan (05/06/2021 9:59 AM ECO INDUSTRIAL DEVELOPMENT CONSULTANT): BMI Follow-up includes: nutrition counseling. Assessment & [...] try to get notes from her prior adolescent medicine specialist Assessment & Plan (09/24/2019 9:30 AM CDT): [...] 02/15/2013 Assessment & Plan (04/19/2024 9:01 AM ECO INDUSTRIAL DEVELOPMENT CONSULTANT): Chronic. Improving.. - Continue to follow with [...] 06/29/2012 Assessment & Plan (04/19/2024 9:03 AM ECO INDUSTRIAL DEVELOPMENT CONSULTANT): Chronic. Continue to follow with psychiatry. Assessment [...] questions Assessment & Plan (05/06/2021 9:50 AM ECO INDUSTRIAL DEVELOPMENT CONSULTANT): With medications that could affect her sodium Will recheck her labs Assessment & Plan (02/26/2021 7:53 AM ECO INDUSTRIAL DEVELOPMENT CONSULTANT): Stable Continue to follow with her psychiatrist [...] Unchanged Assessment & Plan (04/19/2024 9:01 AM ECO INDUSTRIAL DEVELOPMENT CONSULTANT): Chronic. Somewhat stable, not currently on medication [...] (12/11/2019): Added automatically from request for surgery [id number] Anemia 11/19/2013 10/11/2021 Assessment & Plan (09/23/2021 8:36 AM CDT): Currently following with Hematology Continue to monitor Assessment & Plan (12/25/2019 5:15 PM CDT): I am going to try to get notes from her prior adolescent medicine specialist she feels that is related to her bariatric surgery She is currently on an auok-mep-qoazroa iron, At this time she can continue [...] on file Legal Sex Female 11:37 PM ECO INDUSTRIAL DEVELOPMENT CONSULTANT Gender Identity Not on file Sexual Orientation [...] cm (5' 6 ) 04/19/2024 8:29 AM ECO INDUSTRIAL DEVELOPMENT CONSULTANT Body Mass Index 35.83 04/19/2024 8:29 AM ECO INDUSTRIAL DEVELOPMENT CONSULTANT Plan of Treatment Upcoming Encounters Date Type Department Care Team (Late st Contact Info) Description 12/25/2024 8:00 AM CDT Hospital Encounter [address] [address] Donato Aragon MD [address] [facility] [address] [place] [phone] 12/25/2024 8:00 AM CDT - 12/25/2024 8:30 AM CDT Surgery [address] [address] Donato Aragon MD [address] [facility] [address] [place] [address] COLONOSCOPY Scheduled Procedures Name Priority Associated Diagnoses Date/Ti me COLONOSCOPY History of colonic polyps 12/25/2024 8:00 AM CDT Medical Devices Implanted Type Area Electronic Masking System Operator Device Identifier Shelf Expiration Date Model / Serial / Lot [employer] [id number] Implant Mammary Cpx4 Plus Sm Te Mh 450cc - [id number] - [id number] Implanted:Qty: 1 on 06/17/2021 by Shen Reeder, DO at [facility] Right: Breast [employer] 12/13/2024 [id number] / [id number] / [employer] Implant Breast Moderate Plus Profile Smooth Memorygel Boost 590cc Gel [id number] - [id number] - [id number] Implanted:Qty: 1 on 10/15/2021 by Shen Reeder, DO at [facility] Right: Breast [employer] 07/20/2026 [id number] / [id number] / Procedures Procedure Name Priority Date/Time [...] liver function tests COLONOSCOPY 01/28/2020 7:57 AM ECO INDUSTRIAL DEVELOPMENT CONSULTANT PAP ONLY Routine 12/25/2019 5:14 PM CDT [...] was last reviewed 2021. Testing performed by: [facility], [address], [place], [address] Blood 05/27/2024 8:55 AM CDT 05/27/2024 9:09 AM CDT us Florecita Singh BAR ROLLER LAB BLOOD ORDERABLES Final Result [facility] ([place]) [address] Department [place] [address] * Differential, auto (05/27/2024 8:55 AM CDT) Neutrophil abs 3.6 1.5 - 6.5 K/cumm Comment:Testing performed by : [facility] [address], Medical Office [facility] [address], [place] [address] Imm gran abs 0.0 0.0 - 0.1 K/cumm [facility] ([place]) Comment:Testing performed by : [facility] [address], Medical Office [facility] [address], [place] [address] Lymphocyte abs 1.6 0.8 - 3.3 K/cumm [facility] ([place]) Comment:Testing performed by : [facility] [address], Medical Office [facility] [address], [place] [address] Monocyte abs 0.4 0.2 - 0.8 K/cumm [facility] ([place]) Comment:Testing performed by : [facility] [address], Medical Office [address], [place] [address] Eosinophil abs 0.1 0.0 - 0.5 K/cumm [facility] ([place]) Comment:Testing performed by : [facility] [address], Medical Office [address], [place] [address] Basophil abs 0.1 0.0 - 0.1 K/cumm [facility] ([place]) Comment:Testing performed by : [facility] [address], Medical Office [facility] [address], [place] [address] Neutrophil pct 62.2 % [facility] ([place]) Comment: Interpretive Data Percent cell count reference ranges are not reported, since discordance with absolute values may lead to misinterpretation of CBC data. Current Interpretive Data was last revised on 2022. Testing performed by: [facility] [address], Medical Office [facility] [address], [place] [address] Imm gran pct 0.2 % [facility] ([place]) Comment: Interpretive Data Percent cell count reference ranges are not reported, since discordance with absolute values may lead to misinterpretation of CBC data. Current Interpretive Data was last revised on 2022. Testing performed by: [facility] [address], Medical Office [facility] [address], [place] [address] Lymphocyte pct 27.2 % [facility] ([place]) Comment: Interpretive Data Percent cell count reference ranges are not reported, since discordance with absolute values may lead to misinterpretation of CBC data. Current Interpretive Data was last revised on 2022. Testing performed by: [facility] [address], Medical Office [facility] [address], [place] [address] Monocyte pct 7.3 % [facility] ([place]) Comment: Interpretive Data Percent cell count reference ranges are not reported, since discordance with absolute values may lead to misinterpretation of CBC data. Current Interpretive Data was last revised on 2022. Testing performed by: [facility] [address], Medical Office [address], [place] [address] Eosinophil pct 2.1 % [facility] ([place]) Comment: Interpretive Data Percent cell count reference ranges are not reported, since discordance with absolute values may lead to misinterpretation of CBC data. Current Interpretive Data was last revised on 2022. Testing performed by: [facility] [address], Medical Office [facility] [address], [place] [address] Basophil pct 1.0 % [facility] ([place]) Comment: Interpretive Data Percent cell count reference ranges are not reported, since discordance with absolute values may lead to misinterpretation of CBC data. Current Interpretive Data was last revised on 2022. Testing performed by: [facility] [address], Medical Office [facility] [address], [place] [address] Blood 05/27/2024 8:55 AM CDT 05/27/2024 9:01 AM CDT Florecita Singh BAR ROLLER LAB BLOOD ORDERABLES Final Result [facility] ([place]) [address] [facility] Department [place] [address] * CBC with auto differential (05/27/2024 8:55 AM CDT) WBC 5.7 3.8 - 9.9 K/cumm Comment:Testing performed by : [facility] [address], Medical Office [facility] [address], [place] [address] Hgb 13.8 11.9 - 15.5 g/dL [facility] ([place]) Comment:Testing performed by : [facility] [address], Medical Office [facility] [address], [place] [address] Hct 42.5 35.6 - 45.5 % [facility] ANGUIAN[facility] ([place]) Comment:Testing performed by : [facility] [address], Medical Office [address], [place] [address] Plt 281 150 - 400 K/cumm [facility] ([place]) Comment:Testing performed by : [facility] [address], Medical Office [facility] [address], [place] [address] MPV 10.1 9.1 - 12.3 fL [facility] ([place]) Comment:Testing performed by : [facility] [address], Medical Office [facility] [address], [place] [address] RBC 4.85 3.90 - 5.20 M/cumm [facility] ([place]) Comment:Testing performed by : [facility] [address], Medical Office [facility] [address], [place] [address] MCV 87.6 81.3 - 96.4 fL [facility] ([place]) Comment:Testing performed by : [facility] [address], Medical Office [facility] [address], [place] [address] MCH 28.5 27.1 - 33.3 pg [facility] ([place]) Comment:Testing performed by : [facility] [address], Medical Office [facility] [address], [place] [address] MCHC 32.5 32.3 - 35.7 g/dL [facility] ([place]) Comment:Testing performed by : [facility] [address], Medical Office [facility] [address], [place] [address] RDW CV 13.4 11.1 - 14.9 % [facility] ([place]) Comment:Testing performed by : [facility] [address], Medical Office [facility] [address], [place] [address] RDW SD 43.5 35.7 - 48.1 fL [facility] ([place]) Comment:Testing performed by : [facility] [address], Medical Office [facility] [address], [place] [address] NRBC abs Not Measured 0.00 - 0.01 K/cumm [facility] ([place]) Comment:Testing performed by : [facility] [address], Medical Office [facility] [address], [place] [address] Blood 05/27/2024 8:55 AM CDT 05/27/2024 9:01 AM CDT us Florecita Singh BAR ROLLER LAB BLOOD ORDERABLES Final Result [facility] ([place]) [address] [facility] Department [place] [address] * Cancer antigen 15-3 (05/27/2024 8:55 AM CDT) CA 15-3 ag 6.0 1.0 - 30.0 units/mL Comment: Interpretive Data The Víctor CA 15-3 assay procedure was used. Results from different manufacturers or methods may not be comparable. Serial testing should be performed using the same method. Testing performed by: [address], [address] Blood 05/27/2024 8:55 AM CDT 05/27/2024 11:21 AM CDT Gibran Cooper MD LAB BLOOD ORDERABLES Alejandra l Result Performing Organization Address City/[facility]/ZIP Co de Phone Number [facility] ([place]) [address] [facility] Department [place] [address] * Vitamin D 25 hydroxy (05/27/2024 8:55 AM CDT) [facility] Vitamin D 25-OH 41 30 - 80 ng/mL Comment:Testing performed by : [facility], [facility], [place], [address] Blood 05/27/2024 8:55 AM CDT 05/27/2024 9:48 AM CDT Gibran Cooper MD LAB BLOOD ORDERABLES Alejandra l Result [facility] ([place]) [address] [place] [address] [place] [address] * CEA (05/27/2024 8:55 AM CDT) Pathologist [facility] CEA 1.8 0.1 - 5.0 ng/mL Comment: Interpretive Data The Víctor CEA assay procedure was used. Results from different manufacturers or methods may not be comparable. Serial testing should be performed using the same method. Testing performed by: [address] [address] Blood 05/27/2024 8:55 AM CDT 05/27/2024 11:21 AM CDT us Gibran Cooper MD LAB BLOOD ORDERABLES Alejandra damon Result [facility] ([place]) [address] [facility] Department [place] [address] * Comprehensive metabolic panel (05/27/2024 8:55 AM CDT) Sodium 138 135 - 145 mmol/L Comment:Testing performed by : [facility], [place], [address] Potassium, pl 3.9 3.3 - 4.9 mmol/L [facility] ([place]) Comment:Testing performed by : [facility], [place], [address] Chloride 101 97 - 110 mmol/L [facility] ([place]) Comment:Testing performed by : [facility], [place], [address] CO2 25 22 - 32 mmol/L [facility] ([place]) Comment:Testing performed by : [facility], [place], [address] Anion gap 12 2 - 15 mmol/L [facility] ([place]) Comment:Testing performed by : [facility], [place], [address] BUN 11 6 - 25 mg/dL [facility] ([place]) Comment:Testing performed by : [facility], [place], [address] Creatinine 0.61 0.60 - 1.10 mg/dL [facility] ([place]) Comment:Testing performed by : [facility], [place], [address] Glucose 93 70 - 199 mg/dL [facility] ([place]) Comment: Interpretive Data Fasting glucose >/= 126 [...] was last revised 2022. Testing performed by: [place], [address] Calcium 9.6 8.5 - 10.3 mg/dL [facility] ([place]) Comment:Testing performed by : [facility], [place], [address] Bilirubin, total 0.3 0.1 - 1.2 mg/dL [facility] ([place]) Comment:Testing performed by : [facility], [place], [address] Protein, pl 7.3 6.5 - 8.5 g/dL [facility] ([place]) Comment:Testing performed by : [facility], [place], [address] Albumin 4.5 3.5 - 5.0 g/dL [facility] ([place]) Comment:Testing performed by : [facility], [place], [address] Alk phos 89 40 - 130 Units/L [facility] ([place]) Comment:Testing performed by : [facility], [place], [address] ALT 17 7 - 45 Units/L [facility] ([place]) Comment:Testing performed by : [facility], [place], [address] AST 20 10 - 45 Units/L [facility] ([place]) Comment:Testing performed by : [facility], [place], [address] Blood 05/27/2024 8:55 AM CDT 05/27/2024 9:09 AM CDT us Florecita Singh BAR ROLLER LAB BLOOD ORDERABLES Final Result [facility] ([place]) [address] [facility] Department [place] [address] * Screening Mammogram Left W Rocky Unilateral [...] age 40, based on guidelines of the [employer] (ACR Practice Parameter for the Performance of Screening and Diagnostic Mammography) and [place]. For women [...] Hep A IgM NON-REACTI VE NON-REACT JEFFREY [facility] Comment: For additional information, please refer to http://education.tabulate.PadMatcher/faq/BXX440 (This link is being provided for informational/ [...] a test for HCV RNA (test code 47446) is suggested. For additional information please refer to http://education.DEY Storage Systems/faq/VCF25x5 (This link is being provided for informational/ educational purposes only.) Blood specimen (specimen) 11/11/2020 2:42 PM CDT 11/11/2020 2:42 PM CDT Narrative [facility] - 11/12/2020 3:22 PM CDT FASTING:NO FASTING: NO Tracie Hart MD LAB MICROBIOLOGY - GENERAL ORDERABLES Final Result [facility] [address] [place] [address] * COLONOSCOPY (01/28/2020 7:57 AM ECO INDUSTRIAL DEVELOPMENT CONSULTANT) Anatomical Region Laterality Modality Other Narrative Procedure Note Donato Aragon MD - 01/28/2020 7:57 AM CST [facility] Patient Name: Katrina Cheng Procedure Date: 01/28/2020 7:57 AM Date of : 1960 Admit Type: Outpatient Age: 59 Gender: Female Attending MD: Donato Aragon M.D. Room: [facility] ENDOSCOPY ROOM 1 Note Status: Finalized Patient [...] passed under direct vision. The PediatricColonoscope [id number] was introduced through the anusand advanced to [...] 7:57 AM Procedure Code(s): --- Professional --- 44503, Colonoscopy, flexible; with biopsy, single or multiple Diagnosis Code(s): --- Professional --- Z86.010, Personal history of colonic polyps K64.8, Other hemorrhoids D12.4, Benign neoplasm of descending colon K62.1, Rectal polyp CPT copyright 2017 [employer]. All rights reserved. The codes documented in this report are preliminary and upon sales and customer relations rep reviewmay be revised to meet current compliance requirements. Recognized by the [place] [employer] for promoting quality in endoscopy Donato Aragon MD ENDOSCOPY PROCEDURES Final Result * Pap Only (12/25/2019 5:14 PM CDT) Pathologist [facility] CLINICAL INFORMATION: Lisha Kam Comment:SCREENING LMP Lisha Kam Comment:UNKNOWN Previous Pap Lisha SteinbergBernaConstance hay Eddy Comment:INFORMATION NOT PROV IDED Prev. Bx Lisha hay Eddy Comment:INFORMATION NOT PROV IDED SOURCE: Lisha Kam Comment:Cervix, Endocervix Pap, specimen adequacy Lisha SteinbergBernaConstance Kam Comment: Satisfactory for evaluation. Endocervical/transformation zone component present. Age and/or menstrual status not provided HPV interp Lisha SteinbergBernaConstance Kam Comment:Negative for intraep ithelial lesion or malignancy. Polisher And Buffer Que st SteinbergBernaConstance Kam Comment: MLO, CT(ASCP) CT screening location: [place] [address] [address] [place] [address] Comment Lisha SteinbergBernaConstance hay Eddy Comment: EXPLANATORY NOTE: The Pap is a [...] CYTOLOGY ORDERA BLES Final Result LISHA [place] [address] [place] [phone] from Last 3 Months or Most Recently Relevant to Health Maintenance Insurance MEDICARE [employer] OPEN ACCESS [facility] OPEN ACCESS Advance Directives For more information, please contact: [phone] * Full Code (Latest Code Status on File) Date Activated Date Inactivated Comments 06/17/2021 7:15 PM 06/18/2021 7:28 PM * Full Code Date Activated Date Inactivated Comments 01/28/2020 8:22 AM 01/28/2020 2:39 PM Care Teams Molding Line Assistant Relationship Specialty Start Date End Date Tracie Hart MD [address] [place], [place] [address] PCP - General Family Medicine 08/28/19 Gibran Cooper MD [address] [place] [address] [place] [address] Medical Oncologist Medical Oncology 05/23/24
--- OUTSIDE RECORDS SUMMARY | 2024-07-29 11:46 | XMS_ITS | Clinical Summary ---
Author Organization [facility] Address [address] [place] [address] Care Team Providers Care Salesforce Developer Name Role Phone Unavailable Primary Care Provider [...] Screening with HPV 02/18/1992 Mammogram Screening 2002 Pneumococcal Vaccine: 50+ Ye ars (1 of 1 - PCV) 02/18/2012 Zoster Vaccines (1 of 2) 02/18/2012 COVID-19 Vaccine (2023-2 5 season) 2023 RSV Immunization or 60+ Years (1 [...]
--- OUTSIDE RECORDS SUMMARY | 2024-07-29 11:46 | XMS_ITS | Encounter Summary ---
Author Organization [facility] Healthcare Address [address] [place] [id number] Care Team Providers Care Director Of Technology Name Role Phone Tracie Hart MD Primary Care Provi osvaldo Gibran Cooper MD Unavailable [phone] Reason for Visit * Reason Onset Date Comments Leg Injury 07/29/2024 Encounter Details Date Type Department Care Team (Late st Contact Info) Description 07/29/2024 Nurse Triage [facility] Family Medicine [address] [phone] Tracie Hart MD [address] [place] [id number] Social History Tobacco Use Types Packs/Day [...] on file Legal Sex Female 11:37 PM [employer]CIAL [employer] Gender Identity Not on file Sexual Orientation Not on file documented as of this encounter Miscellaneous Notes * Telephone Encounter - Latasha Bangura RN - 07/29/2024 9:01 AM CDT Reason for Conversation Leg Injury Background 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 Pt twisted left foot last night. Pt report she cannot put weight on L foot. Pt denies swelling, obvious deformity, lacerations ornumbness. Pt notes using tylenol is helpful. Pt reports since yesterday has not gotten out of bed due to pain and pt was assisted to bed by her daughter yesterday after fall. Pt reports she thinks its muscular pain. JAGJIT Miller sent SC and advised OV or UC. Pt reports her can help get her to the office, advised to call back with worsening concerns. Pt verbalized understanding. Provider contacted via secure chat for ED disposition consult. Recommendation from provider:Schedule in PCP office Disposition Go to ED/UCC Now (or to Office With PCP Approval) Reason for Disposition Can't stand (bear weight) or walk No Initial Assessment on file. No Additional Information on file. Protocols Used Foot [id number] * Telephone Encounter - Latasha Bangura RN - 07/29/2024 8:56 AM CDT Regarding: fell on left leg, severe pain with movement ----- Message from Hue [place] sent at 07/29/2024 8:55 AM CDT ----- Symptom Based Call Chief Complaint(s): fell on left leg, severe pain with movement Duration: 1 day What type of symptom(s) is the patient experiencing? Red Flag. Is the patient concerned they are experiencing a medical emergency requiring an ambulance? No Additional Comments: Patient fell last night on left leg, she stated when she moves the pain is severe and she feels she is unable to walk, she made an appointment for Monday, 07/31 but would stilllike to discuss next steps with nurse until her appointment date Does message need to be routed? Yes-Action Needed documented in this encounter Plan of Treatment Upcoming Encounters Date Type Department Care Team (Late st Contact Info) Description 12/25/2024 8:00 AM CDT Hospital Encounter [address] [address] Donato Aragon MD [address] [facility] [address] [place] [address] 12/25/2024 8:00 AM CDT - 12/25/2024 8:30 AM CDT Surgery [address] [address] Donato Aragon MD [address] [facility] [address] [place] [address] COLONOSCOPY Scheduled Procedures Name Priority Associated Diagnoses Date/Ti me COLONOSCOPY History of colonic polyps 12/25/2024 8:00 AM CDT documented as of this encounter Visit Diagnoses Not on filedocumented in this encounter Care Teams Director Of Technology Relationship Specialty Start Date End Date Tracie Hart MD [facility] [address] [place] [address] PCP - General Family Medicine 08/28/19 Gibran Cooper MD [address] [place] [address] [address] [place] [address] Medical Oncologist Medical Oncology 05/23/24 documented as of this encounter
--- OUTSIDE RECORDS SUMMARY | 2024-07-29 11:46 | XMS_ITS | Clinical Summary ---
Author Organization [facility] Virtual Care Address [address] [place] [phone] Phone Care Team Providers Care Cattle Feeder Name Role Phone Tracie Hart MD Primary Care Provi osvaldo Gibran Cooper MD Unavailable [phone] Allergies No known active allergies Medications Soolantra [...] 12/08/2022 Assessment & Plan (04/19/2024 12:24 PM [employer]): Chronic. Left greater than worse, planning to have arthroscopy on the left knee. - Continue to follow with Dr. Virgen ([place]) for x-rays - Patient that she will [...] 06/17/2021 Assessment & Plan (04/19/2024 9:02 AM [employer]): Chronic. Continue anastrozole. Continue to follow with [...] from 04/05/2021:Stage IA(cT1b, cN0(f), cM0, G2, ER+, LA+, HER2-) - Signed by Tania Sloan MD [...] surgery Assessment & Plan (05/06/2021 9:53 AM [employer]): Will try to recheck her labs We [...] recheck Assessment & Plan (05/06/2021 9:48 AM [employer]): Recurrent Appointment with oncology today Will recheck labs Differential is wide including medication effect vs over hydration vs other Will repeat labs Assessment & Plan (02/26/2021 7:51 AM [employer]): Follow up labs were normal Continue to monitor Assessment & Plan (11/17/2020 9:51 AM CDT): ?related to increased water intake prior to testing vs alcohol Will recheck in 6 weeks 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 Decrease alcohol Update me with any changes Elevated liver function tests 11/17/2020 Assessment & Plan (12/08/2022 10:10 AM CDT): Chronic, but now resolved Continue to monitor Assessment & Plan (10/11/2021 4:38 PM CDT): F/u LFT's normal Continue to monitor Assessment & Plan (09/23/2021 8:36 AM CDT): Repeat LFTs normal Assessment & Plan (05/06/2021 9:50 AM [employer]): Higher than is has been Will recheck her labs Stressed to her we need to look at an ultrasound for possible pathology- she declined Further guidance once we have the results Assessment & Plan (02/26/2021 7:52 AM [employer]): Repeat normal We discussed checking an ultrasound [...] (12/11/2019): Added automatically from request for surgery [id number] Assessment & Plan (12/08/2022 10:12 AM CDT): [...] 09/24/2019 Assessment & Plan (04/19/2024 9:02 AM [employer]): Chronic. Uncontrolled. Patient working on keeping her [...] counseling. Assessment & Plan (05/06/2021 9:59 AM [employer]): BMI Follow-up includes: nutrition counseling. 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 Improving.. - Continue to follow with [...] 06/29/2012 Assessment & Plan (04/19/2024 9:03 AM [employer]): Chronic. Continue to follow with psychiatry. Assessment [...] questions Assessment & Plan (05/06/2021 9:50 AM [employer]): With medications that could affect her sodium Will recheck her labs Assessment & Plan (02/26/2021 7:53 AM [employer]): Stable Continue to follow with her psychiatrist [...] Unchanged Assessment & Plan (04/19/2024 9:01 AM [employer]): Chronic. 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 she feels that is related to her bariatric surgery She is currently on an vaqe-weq-xswwfeu iron, At this time she can continue it I would recommend a CBC in 6 months Call for questions or concerns Assessment & Plan (09/24/2019 9:30 AM CDT): Will check labs for possible pathology Encounters Date Type Department Care Team Description 07/29/2024 Nurse Triage [address] [address] Tracie Hart MD 07/15/[address] [address] Tracie Hart MD Surgery Clearance Form 07/04/2024 Telephone [facility] Oncology [address] [place] [address] [address] [place] [address] Myrtle Gallagher, CLT 06/11/2024 Telephone [facility] Oncology [address] [place] [address] [address] [place] [address] Kari Mejias 06/07/2024 Results Follow-Up [address] [phone] Tracie Hart MD Surgical pathology 05/27/2024 9:30 AM CDT Office Visit [facility] Oncology [address] [place] [address] [address] [place] [address] Gibran Cooper MD Malignant neoplasm of overlapping sites of right breast in female, estrogen receptor positive (HCC) (Primary Dx); Screening mammogram for breast cancer; 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; Vitamin D deficiency 05/27/2024 9:00 AM CDT Lab [address] [place] [address] Malignant neoplasm of overlapping sites of right breast in female, estrogen receptor positive (HCC); Vitamin D deficiency from Last 3 Months Immunizations Immunization Administration [...] Site/Laterality Comments BARIATRIC SURGERY 03/13/1999 - 03/12/2000 [facility] COLONOSCOPY 10/23/2015 US GUIDED BIOPSY LYMPH NODE SUPERFICIAL LEFT 04/05/2021 N/A SECTION 03/13/2000 - 03/12/2001 BREAST BIOPSY 04/05/2021 Right MASTECTOMY COMPLETE / SIMPLE W/ SENTINEL NODE BIOPSY 06/17/2021 Right with sentinel lymph node dissection BREAST RECONSTRUCTION 06/17/2021 Right immediate with tissuse professor of apologetics and matrix REDUCTION MAMMAPLASTY Medical History Medical [...] on file Legal Sex Female 11:37 PM [employer] Gender Identity Not on file Sexual Orientation [...] cm (5' 6 ) 04/19/2024 8:29 AM [employer] Body Mass Index 35.83 04/19/2024 8:29 AM [employer] Plan of Treatment Upcoming Encounters Date Type Department Care Team (Late st Contact Info) Description 12/25/2024 8:00 AM CDT Hospital Encounter [address] [address] Donato Aragon MD [address] [place] [address] DR MINOR [address] [place] [address] 12/25/2024 8:00 AM CDT - 12/25/2024 8:30 AM CDT Surgery [address] [address] Donato Aragon MD [address] [place] [address] [address] [address] COLONOSCOPY Scheduled Procedures Name Priority Associated Diagnoses Date/Ti me COLONOSCOPY History of colonic polyps 12/25/2024 8:00 AM CDT Health Maintenance Due Date Last Done Comments Meningococcal B Vaccine (1 o f 5 - Increased Risk) 02/18/1972 Hepatitis B Screening 02/18/1980 Covid-19 Vaccine (7 [...] history exists Medical Devices Implanted Type Area Accountant Auditor Device Identifier Shelf Expiration Date Model / Serial / Lot [employer] [id number] Implant Mammary [id number] Plus Sm Te Mh 450cc - [id number] - [id number] Implanted:Qty: 1 on 06/17/2021 by Shen Reeder, DO at [facility] Right: Breast [employer] 12/13/2024 [id number] / [id number] / [employer] Implant Breast Moderate Plus Profile Smooth Memorygel Boost 590cc Gel [id number] - [id number] - [id number] Implanted:Qty: 1 on 10/15/2021 by Shen Reeder, DO at [facility] Right: Breast [employer] 07/20/2026 [id number] / [id number] / Procedures Procedure Name Priority Date/Time [...] liver function tests COLONOSCOPY 01/28/2020 7:57 AM [employer] PAP ONLY Routine 12/25/2019 5:14 PM CDT [...] was last reviewed 2021. Testing performed by: [facility], [facility], [place], [address] Blood 05/27/2024 8:55 AM CDT 05/27/2024 9:09 AM CDT us Florecita Singh PATTERN CHECKER LAB BLOOD ORDERABLES Final Result [facility] ([place]) 1 [facility] Department [place] [address] * Differential, auto (05/27/2024 8:55 AM CDT) Neutrophil abs 3.6 1.5 - 6.5 K/cumm Comment:Testing performed by : [facility] [address], Medical Office [facility] [address], [place] [address] Imm gran abs 0.0 0.0 - 0.1 K/cumm [facility] ([place]) Comment:Testing performed by : [facility] [address], Medical Office [facility] [address], [place] [address] Lymphocyte abs 1.6 0.8 - 3.3 K/cumm [facility] ([place]) Comment:Testing performed by : [facility] [address], Medical Office [facility] [address], [place] [address] Monocyte abs 0.4 0.2 - 0.8 K/cumm [facility] ([place]) Comment:Testing performed by : [facility] [address], Medical Office [facility] [address], [place] [address] Eosinophil abs 0.1 0.0 - 0.5 K/cumm [facility] ([place]) Comment:Testing performed by : [facility] [address], Medical Office [facility] [address], [place] [address] Basophil abs 0.1 0.0 - 0.1 K/cumm [facility] ([place]) Comment:Testing performed by : [facility] [address], Medical Office [facility] [address], [place] [address] Neutrophil pct 62.2 % [facility] ([place]) Comment: Interpretive Data Percent cell count reference ranges are not reported, since discordance with absolute values may lead to misinterpretation of CBC data. Current Interpretive Data was last revised on 2022. Testing performed by: [facility] [address], Medical Office [facility] [address], [place] [address] Imm gran pct 0.2 % [facility] ([place]) Comment: Interpretive Data Percent cell count reference ranges are not reported, since discordance with absolute values may lead to misinterpretation of CBC data. Current Interpretive Data was last revised on 2022. Testing performed by: [facility] [address], Medical Office [facility] [address], [place] [address] Lymphocyte pct 27.2 % [facility] ([place]) Comment: Interpretive Data Percent cell count reference ranges are not reported, since discordance with absolute values may lead to misinterpretation of CBC data. Current Interpretive Data was last revised on 2022. Testing performed by: [facility] [address], Medical Office [facility] [address], [place] [address] Monocyte pct 7.3 % [facility] ([place]) Comment: Interpretive Data Percent cell count reference ranges are not reported, since discordance with absolute values may lead to misinterpretation of CBC data. Current Interpretive Data was last revised on 2022. Testing performed by: [facility] [address], Medical Office [facility] [address], [place] [address] Eosinophil pct 2.1 % [facility] ([place]) Comment: Interpretive Data Percent cell count reference ranges are not reported, since discordance with absolute values may lead to misinterpretation of CBC data. Current Interpretive Data was last revised on 2022. Testing performed by: [facility] [address], Medical Office [facility] [address], [place] [address] Basophil pct 1.0 % [facility] ([place]) Comment: Interpretive Data Percent cell count reference ranges are not reported, since discordance with absolute values may lead to misinterpretation of CBC data. Current Interpretive Data was last revised on 2022. Testing performed by: [facility] [address], Medical Office [facility] [address], [place] [address] Blood 05/27/2024 8:55 AM CDT 05/27/2024 9:01 AM CDT us Florecita Singh NP LAB BLOOD ORDERABLES Final Result [facility] ([place]) 1 [facility] [place] [address] * CBC with auto differential (05/27/2024 8:55 AM CDT) WBC 5.7 3.8 - 9.9 K/cumm Comment:Testing performed by : [facility] [address], Medical Office [address], [place] [address] Hgb 13.8 11.9 - 15.5 g/dL [facility] ([place]) Comment:Testing performed by : [facility] [address], Medical Office [address], [place] [address] Hct 42.5 35.6 - 45.5 % [facility] ([place]) Comment:Testing performed by : [facility] [address], Medical Office [address], [place] [address] Plt 281 150 - 400 K/cumm [facility] ([place]) Comment:Testing performed by : [facility] [address], Medical Office [address], [place] [address] MPV 10.1 9.1 - 12.3 fL [facility] ([place]) Comment:Testing performed by : [facility] [address], Medical Office [address], [place] [address] RBC 4.85 3.90 - 5.20 M/cumm [facility] ([place]) Comment:Testing performed by : [facility] [address], Medical Office [address], [place] [address] MCV 87.6 81.3 - 96.4 fL [facility] ([place]) Comment:Testing performed by : [facility] [address], Medical Office [address], [place] [address] MCH 28.5 27.1 - 33.3 pg [facility] ([place]) Comment:Testing performed by : [facility] [address], Medical Office [address], [place] [address] MCHC 32.5 32.3 - 35.7 g/dL [facility] ([place]) Comment:Testing performed by : [facility] [address], Medical Office [address], [place] [address] RDW CV 13.4 11.1 - 14.9 % [facility] ([place]) Comment:Testing performed by : [facility] [address], Medical Office [address], [place] [address] RDW SD 43.5 35.7 - 48.1 fL [facility] ([place]) Comment:Testing performed by : [facility] [address], Medical Office [address], [place] [address] NRBC abs Not Measured 0.00 - 0.01 K/cumm [facility] ([place]) Comment:Testing performed by : [facility] [address], Medical Office [address], [place] [address] Blood 05/27/2024 8:55 AM CDT 05/27/2024 9:01 AM CDT us Florecita Singh NP LAB BLOOD ORDERABLES Final Result Performing Organization Address City/[facility]/ZIP Co de Phone Number [facility] ([place]) 1 [facility] [employer] [place] [address] * Cancer antigen 15-3 (05/27/2024 8:55 AM CDT) Pathologist [facility] CA 15-3 ag 6.0 1.0 - 30.0 units/mL Comment: Interpretive Data The Víctor CA 15-3 assay procedure was used. Results from different manufacturers or methods may not be comparable. Serial testing should be performed using the same method. Testing performed by: [facility], [address] [place] [address]., [address] Blood 05/27/2024 8:55 AM CDT 05/27/2024 11:21 AM CDT us Gibran Cooper MD LAB BLOOD ORDERABLES Alejandra l Result [facility] ([place]) 1 [facility] [place] [address] * Vitamin D 25 hydroxy (05/27/2024 8:55 AM CDT) Pathologist [facility] Vitamin D 25-OH 41 30 - 80 ng/mL Comment:Testing performed by : [facility], [place], [address] Blood 05/27/2024 8:55 AM CDT 05/27/2024 9:48 AM CDT us Gibran Cooper MD LAB BLOOD ORDERABLES Alejandra l Result [facility] ([place]) [address] [place] [address] Department [place] [address] * CEA (05/27/2024 8:55 AM CDT) CEA 1.8 0.1 - 5.0 ng/mL Comment: Interpretive Data The Víctor CEA assay procedure was used. Results from different manufacturers or methods may not be comparable. Serial testing should be performed using the same method. Testing performed by: [facility], [address] [place] [address], [address] Blood 05/27/2024 8:55 AM CDT 05/27/2024 11:21 AM CDT us Gibran Cooper MD LAB BLOOD ORDERABLES Alejandra l Result Performing Organization Address City/[facility]/ZIP Co de Phone Number [facility] ([place]) [address] [place] [address] Department [place] [address] * Comprehensive metabolic panel (05/27/2024 8:55 AM CDT) Sodium 138 135 - 145 mmol/L Comment:Testing performed by : [place], [address] Potassium, pl 3.9 3.3 - 4.9 mmol/L [facility] ([place]) Comment:Testing performed by : [place], [address] Chloride 101 97 - 110 mmol/L [facility] ([place]) Comment:Testing performed by : [place], [address] CO2 25 22 - 32 mmol/L [facility] ([place]) Comment:Testing performed by : [facility], [place], [address] Anion gap 12 2 - 15 mmol/L [facility] ([place]) Comment:Testing performed by : [facility], [place], [address] BUN 11 6 - 25 mg/dL [facility] ([place]) Comment:Testing performed by : [facility], [place], [address] Creatinine 0.61 0.60 - 1.10 mg/dL [facility] ([place]) Comment:Testing performed by : [facility], [place], [address] Glucose 93 70 - 199 mg/dL [facility] ([place]) Comment: Interpretive Data Fasting glucose >/= 126 [...] was last revised 2022. Testing performed by: [facility], [place], [address] Calcium 9.6 8.5 - 10.3 mg/dL [facility] ([place]) Comment:Testing performed by : [facility], [place], [address] Bilirubin, total 0.3 0.1 - 1.2 mg/dL [facility] ([place]) Comment:Testing performed by : [facility], [place], [address] Protein, pl 7.3 6.5 - 8.5 g/dL [facility] ([place]) Comment:Testing performed by : [facility], [place], [address] Albumin 4.5 3.5 - 5.0 g/dL [facility] ([place]) Comment:Testing performed by : [facility], [place], [address] Alk phos 89 40 - 130 Units/L [facility] ([place]) Comment:Testing performed by : [facility], [place], [address] ALT 17 7 - 45 Units/L [facility] ([place]) Comment:Testing performed by : [facility], [facility], [place], [address] AST 20 10 - 45 Units/L [facility] ([place]) Comment:Testing performed by : [facility], [facility], [place], [address] Blood 05/27/2024 8:55 AM CDT 05/27/2024 9:09 AM CDT us Florecita Singh NP LAB BLOOD ORDERABLES Final Result [facility] ([place]) 1 [facility] Department [place] [address] * Screening Mammogram Left W Rocky Unilateral [...] age 40, based on guidelines of the [place] [employer] (ACR Practice Parameter for the Performance of Screening and Diagnostic Mammography) and [place] [employer]. For women [...] Comment: For additional information, please refer to http://hoccer/faq/DBK214 (This link is being provided for informational/ [...] a test for HCV RNA (test code 41671) is suggested. For additional information please refer to http://Divided[employer]/faq/JNM48g7 (This link is being provided for informational/ educational purposes only.) Blood specimen (specimen) 11/11/2020 2:42 PM CDT 11/11/2020 2:42 PM CDT Narrative [facility] - 11/12/2020 3:22 PM CDT FASTING:NO FASTING: NO us Tracie Hart MD LAB MICROBIOLOGY - GENERAL ORDERABLES Final Result [facility] [address] [address] * COLONOSCOPY (01/28/2020 7:57 AM [employer]) Anatomical Region Laterality Modality Other Narrative Procedure Note Donato Aragon MD - 01/28/2020 7:57 AM CST [facility] Patient Name: Katrina Cheng Procedure Date: [...] passed under direct vision. The PediatricColonoscope [id number] was introduced through the anusand advanced to [...] The hemorrhoids were small. Electronically signed by Ahmad Karadaghy, M.D. Donato Aragon M.D. 01/28/2020 9:57:00 AM Number of Addenda: 0 Note Initiated On: 01/28/2020 7:57 AM Procedure Code(s): --- Professional --- 60970, Colonoscopy, flexible; with biopsy, single or multiple Diagnosis Code(s): --- Professional --- Z86.010, Personal history of colonic polyps K64.8, Other hemorrhoids D12.4, Benign neoplasm of descending colon K62.1, Rectal polyp CPT copyright 2017 [employer]. All rights reserved. The codes documented in this report are preliminary and upon metallurgical tester reviewmay be revised to meet current compliance requirements. Recognized by the [place] [employer] for promoting quality [...] Comment:Negative for intraep ithelial lesion or malignancy. Chamber Walker Des Gonsalves Comment: MLO, CT(ASCP) CT screening location: [place] [address] [place] [address] Comment Filiberto Kam Comment: EXPLANATORY NOTE: The [...] CDT Tracie Hart MD LAB CYTOLOGY ORDERA MICHELLES Final Result [facility] [address] [place] [address] from Last 3 Months or Most Recently Relevant to Health Maintenance Insurance MEDICARE [employer] OPEN ACCESS [employer] Advance Directives For more information, please contact: [phone] * Full Code (Latest Code Status on File) Date Activated Date Inactivated Comments 06/17/2021 7:15 PM 06/18/2021 7:28 PM * Full Code Date Activated Date Inactivated Comments 01/28/2020 8:22 AM 01/28/2020 2:39 PM Care Teams Cattle Feeder Relationship Specialty Start Date End Date Tracie Hart MD [address] [place] [address] PCP - General Family Medicine 08/28/19 Gibran Cooper MD [address] [place] [address] Medical Oncologist Medical Oncology 05/23/24
--- OUTSIDE RECORDS SUMMARY | 2024-07-29 11:46 | XMS_ITS ---
Author Organization [facility] As NewsBasis [facility] Address [address] [place] [address] Care Team Providers Care Spd Manager Name Role Phone Jonnie Quach Unavailable [phone] Carloz Hahn Unavailable [phone] REASON FOR VISIT ADHD Test Medications Medication SIG (Take, Route, Frequency, Duration) Notes Start Date End Date Status Escitalopram Oxalate 5 MG 1 tablet Orall y Once a day for 30 days 11/14/2023 Active Social History Sex Assigned At : Social History Observation Description Sex Assigned At Female Encounters Encounter Location Date Provider Diagnosis [facility] [address] [facility] [address] [place] [address] 12/08/2023 Carloz Hahn Plan Of Treatment No Information Progress Notes * Germaine WILEYneDOB:1960 (64 yo F)Acc No.[id number]:12/08/2023 ADHD Testing Patient: Katrina FLORENTINO Provider: Constance HAHN MD :1960 A ge:63 Y S ex:Female Date:12/08/2023 Address:[address] [place] [address] Subjective: * Chief Complaints: * 1 . ADHD Test. * Active Problem List F33.2 Severe episode of re current major depressive disorder, without psychotic features Modified On:11/14/2023W/U Status:confirmed Z13.39 ADHD (attention defi cit hyperactivity disorder) evaluation Modified On:11/14/2023W/U Status:confirmed * Medical History: * Medications: T aking Escitalopram Oxalate 5 MG Tablet 1 tablet Orally Once a day Objective: * Vitals: Assessment: Plan: * Treatment: * Billing Information: * Visit Code: * Procedure Codes: * Electronic signature of Pauly Hahn MD on 07/29/2024 at 11:46 AM CDT Sign off status: Pending * Provider: Constance HAHN MD Date: 0 12/08/2023 Generated for Shell barbosa/Sarina/Jaspal on: 0 07/29/2024 11:46 AM CDT
--- OUTSIDE RECORDS SUMMARY | 2024-07-29 11:46 | XMS_ITS | Clinical Summary ---
Author Organization [facility] [employer] Address [address] [place] [address] Care Team Providers Care Outside Sales Inspector Name Role Phone Unavailable Primary Care Provider Unavailabl e Source Comments [facility],non-owned Affiliates and Associated Physician Practices is amultiple site organization consisting of ambulatory clinics and hospital sitesin [place], [place], [place] and [place]. This disclosure is being madepursuant to the Care Everywhere program and may not contain all information available regarding this patient. Last updated 17.[facility] [employer] Allergies No known active allergies Medications * This document contains information received from the source organization and may not represent a complete record from that organization. * Be aware that medications may not be up to date on this document. Alwaysverify current medications with the patient. spironolactone (ALDACTONE) 50 MG tabletIndicatio ns:Acne Vulgaris Take 50 mg by mouth once daily Take 3 tabs for acne Reasons: Common Acne Active clonazePAM (KLONOPIN) 0.5 MG tabletIndicatio ns:Bipolar Mood Disorder Take 1 tablet by mouth nightly as needed for Anxiety Reasons: Manic-Depressio n 15 tablet 0 Active OXcarbazepine (TRILEPTAL) 300 MG tabletIndicatio ns:Bipolar Mood Disorder,bipo Take 1 tablet by mouth once daily Reasons: Manic-Depressio n, bipo 30 tablet 0 Active OXcarbazepine (TRILEPTAL) 600 MG tabletIndicatio ns:mood disorder Take 1 tablet by mouth at bedtime Reasons: mood disorder 30 tablet 0 Active FLUoxetine (PROZAC) 20 MG capsuleIndicati ons:Depression Take 1 capsule by mouth once daily Reasons: Depression 30 capsule 0 Active Active Problems Problem Noted Date Diagnosed [...] of Binge Drinking Not on file 07/12 Comments No Sex and Gender Information Value Date Recorded Sex Assigned at Not on file 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 Gender Identity Not on file Sexual Orientation [...] - COLON CA SCREENING 1962 MAMMOGRAM 1962 HIV SCREENING 1977 HEPATITIS C SCREENING 02/13/1980 DTAP/TDAP/TD VACCINES (1 - Tdap) 1981 PNEUMOCOCCAL VACCINE 50+ (1 of 1 - PCV) 02/18/2012 ZOSTER VACCINE (1 of 2) 02/18/2012 COVID-19 VACCINE (1 - 2023-2 5 season) 2023 DEPRESSION SCREENING [...] 126 <200 mg/dL 08/08/2019 6:52 AM CDT [facility] Triglycerides 67 <150 mg/dL 08/08/2019 6:52 AM CDT [facility] HDL Cholesterol 46 >40 mg/dL 0 6:52 AM CDT [facility] Chol HDL Ratio 2.7 1.0 - 6.0 08/08/2019 6:52 AM CDT [facility] LDL Calculated 67 65 - 130 mg/dL 08/08/2019 6:52 AM CDT [facility] VLDL Calculated 13 <=30 mg/dL 0 6:52 AM CDT [facility] Blood BLOOD SPECIMEN / Unknown Lab Venipuncture / Unknown 08/08/2019 6:15 AM CDT 08/08/2019 6:25 AM CDT Narrative [facility] - 08/08/2019 6:52 AM CDT Lipid [...] 2X AVERAGE.................. 9.5 ...................... 7.0 3X AVERAGE...................>23........................>11 us Josefina Tanner MD LAB - CHEMISTRY ORDERABLES Alejandra damon Result [facility] [address] from Last 3 Months or Most Recently Relevant to Health Maintenance Insurance [facility] Advance Directives * Full Code (Latest Code Status on File) Date Activated Date Inactivated Comments 08/05/2019 10:20 PM 08/20/2019 1:03 PM
--- OUTSIDE RECORDS SUMMARY | 2024-07-29 11:46 | XMS_ITS | Patient Health Record ---
Author Organization [facility] [employer] Address [address] [facility] [address] [facility] [address] [place] [address] Care Team Providers Care Weatherization Director Name Role Phone Jonnie Quach Unavailable [phone] EstebanCarloz grove Unavailable [phone] Allergies No Known Allergies Results Component Value Reference Range Notes UDT Reviewed date:11/15/2023 12:22:16 PM Interpretation: Performing Lab: Notes/Report: THC N 0 - 50 ng/ml Cocaine N 0 - 300 ng/ml Amphetamine N 0 - 1000 ng/ml Buprenorphine (BUP) N 0 - 10 ng/ml Secobarbital (Bar) N 0 - 300 ng/ml Oxazepam (BZO) N 0 - 300 ng/ml 0-ecfywqxaml-7,1-amsafghl-6,3-diphenylpyrrolidine (DONNY P) N 0 - 300 ng/ml Methamphetamine (MET) N 0 - 1000 ng/ml Methylenedioxymethamphetamine (MDMA) N 0 - 500 ng/ml Morphine (MOP 300/[id number]) N 0 - 300 ng/ml Methadone (MTD) [...] Problem Status W/U Status Risk Notes Problem [id number] Severe episode o f recurrent major depressive disorder, without psychotic features (F33.2) Active confirmed Problem 137799171 ADHD (attention deficit hyperactivity disorder) evaluation (Z13.39) [...] N/A Encounters Encounter Location Date Provider Diagnosis Action, [facility] [address] [address] 11/14/2023 Jonnie Clubb Severe episode of recurrent major depressive disorder, without psychotic features F33.2 and ADHD (attention deficit hyperactivity disorder) evaluation Z13.39 [facility] [address] [address] 11/20/2023 Jonnie Clubb [facility] [address] [address] 11/20/2023 Jonnie Clubb Severe episode of recurrent major depressive disorder, without psychotic features F33.2 [facility] [address] [address] 12/04/2023 Jonnie Clubb [facility] [address] [address] 12/04/2023 Jonnie Clubb Assessments Encounter Date Diagnosis (ICD Code) Assessment Notes Treatment Notes Treatment Clinical Notes Section Notes 11/20/2023 Severe episode of recurrent major depressive disorder, without psychotic features (ICD-10 - F33.2) 11/14/2023 Severe episode of recurrent major depressive [...] no suicidal ideation at this time. 11/14/2023 Other Learning About Depression Screening material was printed Assessment and plan reviewed with patient Call for problems with medication, side effects or need for dosage change Discussed medication side effects Patient education materials were given to the patient. discontinue Collier Wart. call office or come to walk-in [...] Coverage Start Date Coverage End Date [employer] [address] [place] [address] [phone] [id number] Katrina Cheng Self - patient is the insured
--- OUTSIDE RECORDS SUMMARY | 2024-07-29 11:46 | XMS_ITS | Encounter Summary ---
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 Gender Identity Not on file Sexual Orientation Not on file documented as of this encounter Plan of Treatment Upcoming Encounters Date Type Department Care Team (Late st Contact Info) Description 12/25/2024 8:00 AM CDT Hospital Encounter [address] [address] Donato Aragon MD [address] [facility] [address] [place] [address] 12/25/2024 8:00 AM CDT - 12/25/2024 8:30 AM CDT Surgery [address] [address] Donato Aragon MD [address] [facility] [address] [place] [address] COLONOSCOPY Scheduled Procedures Name Priority Associated Diagnoses Date/Ti me COLONOSCOPY History of colonic polyps 12/25/2024 8:00 AM CDT documented as of this encounter Visit Diagnoses Not on filedocumented in this encounter Care Teams Surgical Garment Assembly Supervisor Relationship Specialty Start Date End Date Tracie Hart MD [address] [place] [address] PCP - General Family Medicine 08/28/19 Gibran Cooper MD [address] [place] [address] [address] [place] [address] Medical Oncologist Medical Oncology 05/23/24 documented as of this encounter
[2024-07-29 13:26] LABS: Add Urine Microscopic? YES; Appearance Urine Cloudy (Clear); Bacteria Urine None Seen /hpf; Bilirubin Urine Negative (Negative); Blood Urine Negative (Negative); Color Urine Dark Yellow (Yellow); Glucose Urine UA Negative (Negative); Hyaline Casts Urine Present /lpf; Ketones Urine 3+ mg/dL (Negative); Leukocyte Esterase Ur Negative LEU/UL (Negative); Need Manual Microscopic Reviewed; Nitrate Urine Negative (Negative); Non Pathogenic Casts >20; Protein Urine 1+ mg/dL (Negative); RBC Urine 0-2 /hpf (0-2); Specific Grav Ur 1.029 (1.001-1.035); Squamous Epithelial Cell Urine Few /hpf (Few); WBC Urine 0-5 /hpf (0-3); pH Urine 5.5 (5.0-9.0)
--- OUTSIDE RECORDS SUMMARY | 2024-07-29 13:30 | XMS_ITS | Clinical Summary ---
Author Organization [facility] [employer] Address [address] [facility] [place] [address] Care Team Providers Care Environmental Services Supervisor Name Role Phone Unavailable Primary Care Provider Unavailabl e Source Comments [facility],non-owned Affiliates and Associated Physician Practices is amultiple site organization consisting of ambulatory clinics and hospital sitesin [place], [place], [place] and [place]. This disclosure is being madepursuant to the Care Everywhere program and may not contain all information available regarding this patient. 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 Gender Identity Not on file Sexual Orientation [...] 126 <200 mg/dL 08/08/2019 6:52 AM CDT [facility] Triglycerides 67 <150 mg/dL 08/08/2019 6:52 AM CDT [facility] HDL Cholesterol 46 >40 mg/dL 0 6:52 AM CDT [facility] Chol HDL Ratio 2.7 1.0 - 6.0 08/08/2019 6:52 AM CDT [facility] LDL Calculated 67 65 - 130 mg/dL 08/08/2019 6:52 AM CDT [facility] VLDL Calculated 13 <=30 mg/dL 0 6:52 AM CDT [facility] Blood BLOOD SPECIMEN / Unknown Lab Venipuncture / Unknown 08/08/2019 6:15 AM CDT 08/08/2019 6:25 AM CDT Narrative [facility] - 08/08/2019 6:52 AM CDT [...] LAB - CHEMISTRY ORDERABLES Alejandra damon Result [facility] [address] from Last 3 Months or Most Recently Relevant to Health Maintenance Insurance [facility] Advance Directives * Full Code (Latest Code Status on File) Date Activated Date Inactivated Comments 08/05/2019 10:20 PM 08/20/2019 1:03 PM
--- OUTSIDE RECORDS SUMMARY | 2024-07-29 13:30 | XMS_ITS | Encounter Summary ---
Author Organization [facility] Healthcare Address [address] [place] [address] Care Team Providers Care Hog Man Name Role Phone Tracie Hart MD Primary Care Provi osvaldo Gibran Cooper MD Unavailable [phone] Reason for Visit * Reason Onset Date Comments Leg Injury 07/29/2024 Encounter Details Date Type Department Care Team (Late st Contact Info) Description 07/29/2024 Nurse Triage [facility] Medical Group Family Medicine [address] [address] Tracie Hart MD [address] [place] [address] Social History Tobacco Use Types Packs/Day [...] on file 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 [...] Additional Information on file. Protocols Used Foot Kslhrn-Ihtjz-IS * Telephone Encounter - Latasha Bangura RN [...] Description 12/25/2024 8:00 AM CDT Hospital Encounter [address] [address] Donato Aragon MD [address] [facility] [place] [address] 12/25/2024 8:00 AM CDT - 12/25/2024 8:30 AM CDT Surgery [address] [address] Donato Aragon MD [address] [facility] [address] [place] [address] COLONOSCOPY Scheduled Procedures Name Priority Associated Diagnoses Date/Ti me COLONOSCOPY History of colonic polyps 12/25/2024 8:00 AM CDT documented as of this encounter Visit Diagnoses Not on filedocumented in this encounter Care Teams Hog Man Relationship Specialty Start Date End Date Tracie Hart MD [facility] [address] [place] [address] PCP - General Family Medicine 08/28/19 Gibran Cooper MD [address] [place] [address] [address] [place] [address] Medical Oncologist Medical Oncology 05/23/24 documented as of this encounter
--- OUTSIDE RECORDS SUMMARY | 2024-07-29 13:30 | XMS_ITS | Referral Summary ---
Author Organization [facility] Virtual Care Address [address] [place] [phone] Phone Care Team Providers Care Lathe Puller Name Role Phone Tracie Hart MD Primary Care Provi osvaldo Gibran Cooper MD Unavailable [phone] Encounters Date Type Department Care Team Description 07/29/2024 Nurse Triage [facility] Medicine [address] [place] [phone] Tracie Hart MD 07/15/[address] [phone] Tracie Hart MD Surgery Clearance Form 07/04/2024 Telephone [facility] [address] [place] [address] Medical [address] [place] [phone] Myrtle Gallagher, CLLamonte 06/11/2024 Telephone [facility] [address] [place] [address] Medical Office [address] [place] [phone] Kari Mejias 06/07/2024 Results Follow-Up [address] [phone] Tracie Hart MD Surgical pathology 05/27/2024 9:[address] 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 Left greater than worse, planning to have arthroscopy on the left knee. - Continue to follow with Dr. Virgen ([place]) for x-rays - Patient that she will [...] 06/17/2021 Assessment & Plan (04/19/2024 9:02 AM ORDNANCE ENGINEER): Chronic. Continue anastrozole. Continue to follow with [...] from 04/05/2021:Stage IA(cT1b, cN0(f), cM0, G2, ER+, MN+, HER2-) - Signed by Tania Sloan MD [...] surgery Assessment & Plan (05/06/2021 9:53 AM ORDNANCE ENGINEER): Will try to recheck her labs We [...] recheck Assessment & Plan (05/06/2021 9:48 AM ORDNANCE ENGINEER): Recurrent Appointment with oncology today Will recheck labs Differential is wide including medication effect vs over hydration vs other Will repeat labs Assessment & Plan (02/26/2021 7:51 AM ORDNANCE ENGINEER): Follow up labs were normal Continue to monitor Assessment & Plan (11/17/2020 9:51 AM CDT): ?related to increased water intake prior to testing vs alcohol Will recheck in 6 weeks 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 Decrease alcohol Update me with any changes Elevated liver function tests 11/17/2020 Assessment & Plan (12/08/2022 10:10 AM CDT): Chronic, but now resolved Continue to monitor Assessment & Plan (10/11/2021 4:38 PM CDT): F/u LFT's normal Continue to monitor Assessment & Plan (09/23/2021 8:36 AM CDT): Repeat LFTs normal Assessment & Plan (05/06/2021 9:50 AM ORDNANCE ENGINEER): Higher than is has been Will recheck her labs Stressed to her we need to look at an ultrasound for possible pathology- she declined Further guidance once we have the results Assessment & Plan (02/26/2021 7:52 AM ORDNANCE ENGINEER): Repeat normal We discussed checking an ultrasound [...] please contact the office. I strongly encourage FX Alignedhart sign ups. It can facilitate communication flow. [...] (12/11/2019): Added automatically from request for surgery [id number] Assessment & Plan (12/08/2022 10:12 AM CDT): [...] 09/24/2019 Assessment & Plan (04/19/2024 9:02 AM ORDNANCE ENGINEER): Chronic. Uncontrolled. Patient working on keeping her [...] counseling. Assessment & Plan (05/06/2021 9:59 AM ORDNANCE ENGINEER): BMI Follow-up includes: nutrition counseling. 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 Improving.. - Continue to follow with [...] 06/29/2012 Assessment & Plan (04/19/2024 9:03 AM ORDNANCE ENGINEER): Chronic. Continue to follow with psychiatry. Assessment [...] questions Assessment & Plan (05/06/2021 9:50 AM ORDNANCE ENGINEER): With medications that could affect her sodium Will recheck her labs Assessment & Plan (02/26/2021 7:53 AM ORDNANCE ENGINEER): Stable Continue to follow with her psychiatrist [...] Unchanged Assessment & Plan (04/19/2024 9:01 AM ORDNANCE ENGINEER): Chronic. 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 she feels that is related to her bariatric surgery She is currently on an [id number] iron, At this time she can continue [...] on file Legal Sex Female 11:37 PM ORDNANCE ENGINEER Gender Identity Not on file Sexual [...] cm (5' 6 ) 04/19/2024 8:29 AM ORDNANCE ENGINEER Body Mass Index 35.83 04/19/2024 8:29 AM ORDNANCE ENGINEER Plan of Treatment Upcoming Encounters Date Type Department Care Team (Late st Contact Info) Description 12/25/2024 8:00 AM CDT Hospital Encounter [address] [address] Donato Aragon MD [address] [facility] [address] [place] [address] 12/25/2024 8:00 AM CDT - 12/25/2024 8:30 AM CDT Surgery [address] [address] Donato Aragon MD [address] [facility] [address] [place] [address] COLONOSCOPY Scheduled Procedures Name Priority Associated Diagnoses Date/Ti me COLONOSCOPY History of colonic polyps 12/25/2024 8:00 AM CDT Medical Devices Implanted Type Area Operations Support Specialist Device Identifier Shelf Expiration Date Model / Serial / Lot [employer] [id number] Implant Mammary Cpx4 Plus Sm Te Mh 450cc - [id number] - [id number] Implanted:Qty: 1 on 06/17/2021 by Shen Reeder, DO at [facility] Right: Breast [employer] 12/13/2024 [id number] / [id number] / [employer] Implant Breast Moderate Plus Profile Smooth Memorygel Boost 590cc Gel [id number] - [id number] - [id number] Implanted:Qty: 1 on 10/15/2021 by Shen Reeder, DO at [facility] Right: Breast [employer] 07/20/2026 [id number] / [id number] / Procedures Procedure Name Priority Date/Time [...] liver function tests COLONOSCOPY 01/28/2020 7:57 AM ORDNANCE ENGINEER PAP ONLY Routine 12/25/2019 5:14 PM CDT [...] was last reviewed 2021. Testing performed by: [facility], One [facility], [place], [address] Blood 05/27/2024 8:55 AM CDT 05/27/2024 9:09 AM CDT us Florecita Singh MERCHANDISE EXECUTIVE LAB BLOOD ORDERABLES Final Result [facility] ([place]) 1 [facility] Department [place] [address] * Differential, auto (05/27/2024 8:55 AM CDT) Neutrophil abs 3.6 1.5 - 6.5 K/cumm Comment:Testing performed by : [facility] [address], Medical Office [facility] [address], [place] [address] Imm gran abs 0.0 0.0 - 0.1 K/cumm [facility] ([place]) Comment:Testing performed by : [facility] [address], Medical Office [facility] [address], [place] [address] Lymphocyte abs 1.6 0.8 - 3.3 K/cumm [facility] ([place]) Comment:Testing performed by : [facility] [address], Medical Office [facility] [address], [place] [address] Monocyte abs 0.4 0.2 - 0.8 K/cumm [facility] ([place]) Comment:Testing performed by : [facility] [address], Medical Office [address], [place] [address] Eosinophil abs 0.1 0.0 - 0.5 K/cumm [facility] ([place]) Comment:Testing performed by : [facility] [address], Medical Office [address], [place] [address] Basophil abs 0.1 0.0 - 0.1 K/cumm [facility] ([place]) Comment:Testing performed by : [facility] [address], Medical Office [facility] [address], [place] [address] Neutrophil pct 62.2 % [facility] R [facility] ([place]) Comment: Interpretive Data Percent cell count reference ranges are not reported, since discordance with absolute values may lead to misinterpretation of CBC data. Current Interpretive Data was last revised on 2022. Testing performed by: [facility] [address], Medical Office [facility] [address], [place] [address] Imm gran pct 0.2 % [facility] ([place]) Comment: Interpretive Data Percent cell count reference ranges are not reported, since discordance with absolute values may lead to misinterpretation of CBC data. Current Interpretive Data was last revised on 2022. Testing performed by: [facility] [address], Medical Office [facility] [address], [place] [address] Lymphocyte pct 27.2 % [facility] ([place]) Comment: Interpretive Data Percent cell count reference ranges are not reported, since discordance with absolute values may lead to misinterpretation of CBC data. Current Interpretive Data was last revised on 2022. Testing performed by: [facility] [address], Medical Office [facility] [address], [place] [address] Monocyte pct 7.3 % [facility] ([place]) Comment: Interpretive Data Percent cell count reference ranges are not reported, since discordance with absolute values may lead to misinterpretation of CBC data. Current Interpretive Data was last revised on 2022. Testing performed by: [facility] [address], Medical Office [address], [place] [address] Eosinophil pct 2.1 % [facility] ([place]) Comment: Interpretive Data Percent cell count reference ranges are not reported, since discordance with absolute values may lead to misinterpretation of CBC data. Current Interpretive Data was last revised on 2022. Testing performed by: [facility] [address], Medical Office [facility] [address], [place] [address] Basophil pct 1.0 % [facility] ([place]) Comment: Interpretive Data Percent cell count reference ranges are not reported, since discordance with absolute values may lead to misinterpretation of CBC data. Current Interpretive Data was last revised on 2022. Testing performed by: [facility] [address], Medical Office [facility] [address], [place] [address] Blood 05/27/2024 8:55 AM CDT 05/27/2024 9:01 AM CDT Florecita Singh MERCHANDISE EXECUTIVE LAB BLOOD ORDERABLES Final Result [facility] ([place]) 1 [facility] Department [place] [address] * CBC with auto differential (05/27/2024 8:55 AM CDT) WBC 5.7 3.8 - 9.9 K/cumm Comment:Testing performed by : [facility] [address], Medical Office [facility] [address], [place] [address] Hgb 13.8 11.9 - 15.5 g/dL [facility] ([place]) Comment:Testing performed by : [facility] [address], Medical Office [facility] [address], [place] [address] Hct 42.5 35.6 - 45.5 % [facility] AN[facility] ([place]) Comment:Testing performed by : [facility] [address], Medical Office dg [address], [place] [address] Plt 281 150 - 400 K/cumm [facility] ([place]) Comment:Testing performed by : [facility] [address], Medical Office [facility] [address], [place] [address] MPV 10.1 9.1 - 12.3 fL [facility] ([place]) Comment:Testing performed by : [facility] [address], Medical Office [facility] [address], [place] [address] RBC 4.85 3.90 - 5.20 M/cumm [facility] ([place]) Comment:Testing performed by : [facility] [address], Medical Office [facility] [address], [place] [address] MCV 87.6 81.3 - 96.4 fL [facility] ([place]) Comment:Testing performed by : [facility] [address], Medical Office [facility] [address], [place] [address] MCH 28.5 27.1 - 33.3 pg [facility] ([place]) Comment:Testing performed by : [facility] [address], Medical Office [facility] [address], [place] [address] MCHC 32.5 32.3 - 35.7 g/dL [facility] ([place]) Comment:Testing performed by : [facility] [address], Medical Office [facility] [address], [place] [address] RDW CV 13.4 11.1 - 14.9 % [facility] ([place]) Comment:Testing performed by : [facility] [address], Medical Office [facility] [address], [place] [address] RDW SD 43.5 35.7 - 48.1 fL [facility] ([place]) Comment:Testing performed by : [facility] [address], Medical Office [facility] [address], [place] [address] NRBC abs Not Measured 0.00 - 0.01 K/cumm [facility] ([place]) Comment:Testing performed by : [facility] [address], Medical Office [facility] [address], [place] [address] Blood 05/27/2024 8:55 AM CDT 05/27/2024 9:01 AM CDT us Florecita Singh MERCHANDISE EXECUTIVE LAB BLOOD ORDERABLES Final Result [facility] ([place]) 1 [facility] Department [place] [address] * Cancer antigen 15-3 (05/27/2024 8:55 AM CDT) CA 15-3 ag 6.0 1.0 - 30.0 units/mL Comment: Interpretive Data The Víctor CA 15-3 assay procedure was used. Results from different manufacturers or methods may not be comparable. Serial testing should be performed using the same method. Testing performed by: [address], [address] Blood 05/27/2024 8:55 AM CDT 05/27/2024 11:21 AM CDT Gibran Cooper MD LAB BLOOD ORDERABLES Alejandra l Result Performing Organization Address City/[facility]/ZIP Co de Phone Number [facility] ([place]) [facility] Department [place] [address] * Vitamin D 25 hydroxy (05/27/2024 8:55 AM CDT) [facility] Vitamin D 25-OH 41 30 - 80 ng/mL Comment:Testing performed by : [facility], [facility], [place], [address] Blood 05/27/2024 8:55 AM CDT 05/27/2024 9:48 AM CDT Gibran Cooper MD LAB BLOOD ORDERABLES Alejandra l Result [facility] ([place]) [address] [place] [address] [place] [address] * CEA (05/27/2024 8:55 AM CDT) Pathologist [facility] CEA 1.8 0.1 - 5.0 ng/mL Comment: Interpretive Data The Víctor CEA assay procedure was used. Results from different manufacturers or methods may not be comparable. Serial testing should be performed using the same method. Testing performed by: [address] [address] Blood 05/27/2024 8:55 AM CDT 05/27/2024 11:21 AM CDT us Gibran Cooper MD LAB BLOOD ORDERABLES Alejandra damon Result [facility] ([place]) 1 [facility] Department [place] [address] * Comprehensive metabolic panel (05/27/2024 8:55 AM CDT) Sodium 138 135 - 145 mmol/L Comment:Testing performed by : [facility], [place], [address] Potassium, pl 3.9 3.3 - 4.9 mmol/L [facility] ([place]) Comment:Testing performed by : [facility], [place], [address] Chloride 101 97 - 110 mmol/L [facility] ([place]) Comment:Testing performed by : [facility], [place], [address] CO2 25 22 - 32 mmol/L [facility] ([place]) Comment:Testing performed by : [facility], [place], [address] Anion gap 12 2 - 15 mmol/L [facility] ([place]) Comment:Testing performed by : [facility], [place], [address] BUN 11 6 - 25 mg/dL [facility] ([place]) Comment:Testing performed by : [facility], [place], [address] Creatinine 0.61 0.60 - 1.10 mg/dL [facility] ([place]) Comment:Testing performed by : [facility], [place], [address] Glucose 93 70 - 199 mg/dL [facility] ([place]) Comment: Interpretive Data Fasting glucose >/= 126 [...] was last revised 2022. Testing performed by: [place], [address] Calcium 9.6 8.5 - 10.3 mg/dL [facility] ([place]) Comment:Testing performed by : [facility], [place], [address] Bilirubin, total 0.3 0.1 - 1.2 mg/dL [facility] ([place]) Comment:Testing performed by : [facility], [place], [address] Protein, pl 7.3 6.5 - 8.5 g/dL [facility] ([place]) Comment:Testing performed by : [facility], [place], [address] Albumin 4.5 3.5 - 5.0 g/dL [facility] ([place]) Comment:Testing performed by : [facility], [place], [address] Alk phos 89 40 - 130 Units/L [facility] ([place]) Comment:Testing performed by : [facility], [place], [address] ALT 17 7 - 45 Units/L [facility] ([place]) Comment:Testing performed by : [facility], [place], [address] AST 20 10 - 45 Units/L [facility] ([place]) Comment:Testing performed by : [facility], [place], [address] Blood 05/27/2024 8:55 AM CDT 05/27/2024 9:09 AM CDT us Florecita Singh MERCHANDISE EXECUTIVE LAB BLOOD ORDERABLES Final Result [facility] ([place]) 1 [facility] Department [place] [address] * Screening Mammogram Left W Rocky Unilateral [...] age 40, based on guidelines of the [place] [employer] (ACR Practice Parameter for the Performance of Screening and Diagnostic Mammography) and [place] [employer]. For women [...] Hep A IgM NON-REACTI VE NON-REACT JEFF[facility] Comment: For additional information, please refer to http://education.Nurigene.Souktel/faq/SKP713 (This link is being provided for informational/ [...] a test for HCV RNA (test code 63542) is suggested. For additional information please refer to http://education.Ektron/faq/UEK12z4 (This link is being provided for informational/ educational purposes only.) Blood specimen (specimen) 11/11/2020 2:42 PM CDT 11/11/2020 2:42 PM CDT Narrative [facility] - 11/12/2020 3:22 PM CDT FASTING:NO FASTING: NO Tracie Hart MD LAB MICROBIOLOGY - GENERAL ORDERABLES Final Result [facility] [address] [address] [place] [address] * COLONOSCOPY (01/28/2020 7:57 AM ORDNANCE ENGINEER) Anatomical Region Laterality Modality Other Narrative Procedure Note Donato Aragon MD - 01/28/2020 7:57 AM CST [facility] Patient Name: Katrina Cheng Procedure Date: 01/28/2020 7:57 AM Date of : 1960 Admit Type: Outpatient Age: 59 Gender: Female Attending MD: Donato Aragon M.D. Room: [facility] ENDOSCOPY ROOM 1 Note Status: [...] passed under direct vision. The PediatricColonoscope [id number] was introduced through the anusand advanced to [...] 7:57 AM Procedure Code(s): --- Professional --- 72332, Colonoscopy, flexible; with biopsy, single or multiple Diagnosis Code(s): --- Professional --- Z86.010, Personal history of colonic polyps K64.8, Other hemorrhoids D12.4, Benign neoplasm of descending colon K62.1, Rectal polyp CPT copyright 2017 [place] [employer]. All rights reserved. The codes documented in this report are preliminary and upon collections analyst reviewmay be revised to meet current compliance requirements. Recognized by the [place] [employer] for promoting quality in endoscopy Donato Aragon MD ENDOSCOPY PROCEDURES Final Result * Pap Only (12/25/2019 5:14 PM CDT) Pathologist [facility] CLINICAL INFORMATION: Lisha Kam Comment:SCREENING LMP Lisha [...] Comment:Negative for intraep ithelial lesion or malignancy. Foreign Agent Que st SteinbergBenraConstance Kam Comment: MLO, CT(ASCP) CT screening location: [place] [address] [address] [place] [address] Comment Lisha SteinbergBernaConstance hay Eddy Comment: EXPLANATORY [...] ORDERA BLES Final Result LISHA [place] [address] [place] [address] from Last 3 Months or Most Recently Relevant to Health Maintenance Insurance MEDICARE [employer] OPEN ACCESS [facility] OPEN ACCESS Advance Directives For more information, please contact: [phone] * Full Code (Latest Code Status on File) Date Activated Date Inactivated Comments 06/17/2021 7:15 PM 06/18/2021 7:28 PM * Full Code Date Activated Date Inactivated Comments 01/28/2020 8:22 AM 01/28/2020 2:39 PM Care Teams Lathe Puller Relationship Specialty Start Date End Date Tracie Hart MD [address] [place], [place] [address] PCP - General Family Medicine 08/28/19 Gibran Cooper MD [address] [place] [address] [place] [address] Medical Oncologist Medical Oncology 05/23/24
--- OUTSIDE RECORDS SUMMARY | 2024-07-29 13:30 | XMS_ITS | Encounter Summary ---
Author Organization [facility] Healthcare Address [address] [place] [address] Care Team Providers Care School Transportation Supervisor Name Role Phone Tracie Hart MD Primary Care Provi osvaldo Gibran Cooper MD Unavailable [phone] Encounter Details Date Type Department Care Team (Late st Contact Info) Description 06/07/2024 Results Follow-Up [facility] Medical Group Family Medicine [address] [phone] Tracie Hart MD [address] [address] Surgical pathology Social History Tobacco [...] on file Legal Sex Female 11:37 PM 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 Gender Identity Not on file Sexual Orientation Not on file documented as of this encounter Plan of Treatment Upcoming Encounters Date Type Department Care Team (Late st Contact Info) Description 12/25/2024 8:00 AM CDT Hospital Encounter [address] [address] Donato Aragon MD [address] [facility] [address] [place] [address] 12/25/2024 8:00 AM CDT - 12/25/2024 8:30 AM CDT Surgery [address] [address] Donato Aragon MD [address] [facility] [address] [place] [address] COLONOSCOPY Scheduled Procedures Name Priority Associated Diagnoses Date/Ti me COLONOSCOPY History of colonic polyps 12/25/2024 8:00 AM CDT documented as of this encounter Visit Diagnoses Not on filedocumented in this encounter Care Teams School Transportation Supervisor Relationship Specialty Start Date End Date Tracie Hart MD [address] [place] [address] PCP - General Family Medicine 08/28/19 Gibran Cooper MD [address] [place] [address] [address] [place] [address] Medical Oncologist Medical Oncology 05/23/24 documented as of this encounter
--- OUTSIDE RECORDS SUMMARY | 2024-07-29 13:30 | XMS_ITS | Clinical Summary ---
Author Organization [facility] Virtual Care Address [address] [place] [phone] Phone Care Team Providers Care Automotive Painter Helper Name Role Phone Tracie Hart MD Primary Care Provi osvaldo Gibran Cooper MD Unavailable [phone] Allergies No known active allergies Medications Soolantra [...] 12/08/2022 Assessment & Plan (04/19/2024 12:24 PM RECESSING MACHINE OPERATOR): Chronic. Left greater than worse, planning to have arthroscopy on the left knee. - Continue to follow with Dr. Virgen ([place]) for x-rays - Patient that she will [...] 06/17/2021 Assessment & Plan (04/19/2024 9:02 AM RECESSING MACHINE OPERATOR): Chronic. Continue anastrozole. Continue to follow with [...] from 04/05/2021:Stage IA(cT1b, cN0(f), cM0, G2, ER+, CT+, HER2-) - Signed by Tania Sloan MD [...] surgery Assessment & Plan (05/06/2021 9:53 AM RECESSING MACHINE OPERATOR): Will try to recheck her labs We [...] recheck Assessment & Plan (05/06/2021 9:48 AM RECESSING MACHINE OPERATOR): Recurrent Appointment with oncology today Will recheck labs Differential is wide including medication effect vs over hydration vs other Will repeat labs Assessment & Plan (02/26/2021 7:51 AM RECESSING MACHINE OPERATOR): Follow up labs were normal Continue to monitor Assessment & Plan (11/17/2020 9:51 AM CDT): ?related to increased water intake prior to testing vs alcohol Will recheck in 6 weeks Encouraged to consider cryptography teacher Decrease alcohol Update me with any changes Elevated liver function tests 11/17/2020 Assessment & Plan (12/08/2022 10:10 AM CDT): Chronic, but now resolved Continue to monitor Assessment & Plan (10/11/2021 4:38 PM CDT): F/u LFT's normal Continue to monitor Assessment & Plan (09/23/2021 8:36 AM CDT): Repeat LFTs normal Assessment & Plan (05/06/2021 9:50 AM RECESSING MACHINE OPERATOR): Higher than is has been Will recheck her labs Stressed to her we need to look at an ultrasound for possible pathology- she declined Further guidance once we have the results Assessment & Plan (02/26/2021 7:52 AM RECESSING MACHINE OPERATOR): Repeat normal We discussed checking an ultrasound [...] (12/11/2019): Added automatically from request for surgery [id number] Assessment & Plan (12/08/2022 10:12 AM CDT): [...] 09/24/2019 Assessment & Plan (04/19/2024 9:02 AM RECESSING MACHINE OPERATOR): Chronic. Uncontrolled. Patient working on keeping her [...] counseling. Assessment & Plan (05/06/2021 9:59 AM RECESSING MACHINE OPERATOR): BMI Follow-up includes: nutrition counseling. Assessment & [...] try to get notes from her prior clinical information systems director Assessment & Plan (09/24/2019 9:30 AM CDT): [...] 02/15/2013 Assessment & Plan (04/19/2024 9:01 AM RECESSING MACHINE OPERATOR): Chronic. Improving.. - Continue to follow with [...] 06/29/2012 Assessment & Plan (04/19/2024 9:03 AM RECESSING MACHINE OPERATOR): Chronic. Continue to follow with psychiatry. Assessment [...] questions Assessment & Plan (05/06/2021 9:50 AM RECESSING MACHINE OPERATOR): With medications that could affect her sodium Will recheck her labs Assessment & Plan (02/26/2021 7:53 AM RECESSING MACHINE OPERATOR): Stable Continue to follow with her psychiatrist [...] Unchanged Assessment & Plan (04/19/2024 9:01 AM RECESSING MACHINE OPERATOR): Chronic. Somewhat stable, not currently on medication [...] (12/11/2019): Added automatically from request for surgery [id number] Anemia 11/19/2013 10/11/2021 Assessment & Plan (09/23/2021 8:36 AM CDT): Currently following with Hematology Continue to monitor Assessment & Plan (12/25/2019 5:15 PM CDT): I am going to try to get notes from her prior clinical information systems director she feels that is related to her bariatric surgery She is currently on an xvzv-rwx-podwvvp iron, At this time she can continue it I would recommend a CBC in 6 months Call for questions or concerns Assessment & Plan (09/24/2019 9:30 AM CDT): Will check labs for possible pathology Encounters Date Type Department Care Team Description 07/29/2024 Nurse Triage [address] [phone] Tracie Hart MD 07/15/[address] [phone] Tracie Hart MD Surgery Clearance Form 07/04/[address] [facility] [address] [place] [address] [address] [place] [address] Myrtle Gallagher, CLT 06/11/[address] [facility] [address] [place] [address] [address] [place] [address] Kari Mejias 06/07/2024 Results Follow-Up [address] [phone] Tracie Hart MD Surgical pathology 05/27/2024 9:30 AM CDT Office Visit [facility]cology [address] [place] [address] [address] [place] [address] Gibran Cooper MD Malignant neoplasm of overlapping sites of right breast in female, estrogen receptor positive (HCC) (Primary Dx); Screening mammogram for breast cancer; technician terminal and repeater 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 inhibitor; Vitamin D deficiency 05/27/2024 9:00 AM CDT Lab [address] [place] [address] Malignant neoplasm of overlapping sites of right [...] Site/Laterality Comments BARIATRIC SURGERY 03/13/1999 - 03/12/2000 [facility] COLONOSCOPY 10/23/2015 US GUIDED BIOPSY LYMPH NODE SUPERFICIAL LEFT 04/05/2021 N/A SECTION 03/13/2000 - 03/12/2001 BREAST BIOPSY 04/05/2021 Right MASTECTOMY COMPLETE / SIMPLE W/ SENTINEL NODE BIOPSY 06/17/2021 Right with sentinel lymph node dissection BREAST RECONSTRUCTION 06/17/2021 Right immediate with tissuse technical training coordinator and matrix REDUCTION MAMMAPLASTY Medical History Medical [...] on file Legal Sex Female 11:37 PM RECESSING MACHINE OPERATOR Gender Identity Not on file Sexual Orientation [...] cm (5' 6 ) 04/19/2024 8:29 AM RECESSING MACHINE OPERATOR Body Mass Index 35.83 04/19/2024 8:29 AM RECESSING MACHINE OPERATOR Plan of Treatment Upcoming Encounters Date Type Department Care Team (Late st Contact Info) Description 12/25/2024 8:00 AM CDT Hospital Encounter [address] [address] Donato Aragon MD [address] [place] [address] DR MINOR [address] [place] [address] 12/25/2024 8:00 AM CDT - 12/25/2024 8:30 AM CDT Surgery [address] [address] Donato Aragon MD [address] [place] [address] [place] [address] COLONOSCOPY Scheduled Procedures Name Priority Associated Diagnoses [...] history exists Medical Devices Implanted Type Area Track Patrol Device Identifier Shelf Expiration Date Model / Serial / Lot [employer] [id number] Implant Mammary Cpx4 Plus Sm Te Mh 450cc - [id number] - [id number] Implanted:Qty: 1 on 06/17/2021 by Shen Reeder, DO at [facility] Right: Breast [employer] 12/13/2024 [id number] / [id number] / [employer] Implant Breast Moderate Plus Profile Smooth Memorygel Boost 590cc Gel [id number] - [id number] - [id number] Implanted:Qty: 1 on 10/15/2021 by Shen Reeder, DO at [facility] Right: Breast [employer] 07/20/2026 [id number] / [id number] / Procedures Procedure Name Priority Date/Time [...] liver function tests COLONOSCOPY 01/28/2020 7:57 AM RECESSING MACHINE OPERATOR PAP ONLY Routine 12/25/2019 5:14 PM CDT [...] was last reviewed 2021. Testing performed by: [facility], [facility], [place], [address] Blood 05/27/2024 8:55 AM CDT 05/27/2024 9:09 AM CDT us Florecita Singh [facility] LAB BLOOD ORDERABLES Final Result [facility] ([place]) [facility] [place] [address] * Differential, auto (05/27/2024 8:55 AM CDT) Neutrophil abs 3.6 1.5 - 6.5 K/cumm Comment:Testing performed by : [facility] [address], Medical Office [facility] [address], [place] [address] Imm gran abs 0.0 0.0 - 0.1 K/cumm [facility] ([place]) Comment:Testing performed by : [facility] [address], Medical Office [facility] [address], [place] [address] Lymphocyte abs 1.6 0.8 - 3.3 K/cumm [facility] ([place]) Comment:Testing performed by : [facility] [address], Medical Office [facility] [address], [place] [address] Monocyte abs 0.4 0.2 - 0.8 K/cumm [facility] ([place]) Comment:Testing performed by : [facility] [address], Medical Office [facility] [address], [place] [address] Eosinophil abs 0.1 0.0 - 0.5 K/cumm [facility] ([place]) Comment:Testing performed by : [facility] [address], Medical Office [facility] [address], [place] [address] Basophil abs 0.1 0.0 - 0.1 K/cumm [facility] ([place]) Comment:Testing performed by : [facility] [address], Medical Office [facility] [address], [place] [address] Neutrophil pct 62.2 % [facility] ([place]) Comment: Interpretive Data Percent cell count reference ranges are not reported, since discordance with absolute values may lead to misinterpretation of CBC data. Current Interpretive Data was last revised on 2022. Testing performed by: [facility] [address], Medical Office [facility] [address], [place] [address] Imm gran pct 0.2 % [facility] ([place]) Comment: Interpretive Data Percent cell count reference ranges are not reported, since discordance with absolute values may lead to misinterpretation of CBC data. Current Interpretive Data was last revised on 2022. Testing performed by: [facility] [address], Medical Office [facility] [address], [place] [address] Lymphocyte pct 27.2 % [facility] ([place]) Comment: Interpretive Data Percent cell count reference ranges are not reported, since discordance with absolute values may lead to misinterpretation of CBC data. Current Interpretive Data was last revised on 2022. Testing performed by: [facility] [address], Medical Office [facility] [address], [place] [address] Monocyte pct 7.3 % [facility] ([place]) Comment: Interpretive Data Percent cell count reference ranges are not reported, since discordance with absolute values may lead to misinterpretation of CBC data. Current Interpretive Data was last revised on 2022. Testing performed by: [facility] [address], Medical Office [facility] [address], [place] [address] Eosinophil pct 2.1 % [facility] ([place]) Comment: Interpretive Data Percent cell count reference ranges are not reported, since discordance with absolute values may lead to misinterpretation of CBC data. Current Interpretive Data was last revised on 2022. Testing performed by: [facility] [address], Medical Office [facility] [address], [place] [address] Basophil pct 1.0 % [facility] ([place]) Comment: Interpretive Data Percent cell count reference ranges are not reported, since discordance with absolute values may lead to misinterpretation of CBC data. Current Interpretive Data was last revised on 2022. Testing performed by: [facility] [address], Medical Office [facility] [address], [place] [address] Blood 05/27/2024 8:55 AM CDT 05/27/2024 9:01 AM CDT us Florecita Singh NP LAB BLOOD ORDERABLES Final Result [facility] ([place] [place] [address] * CBC with auto differential (05/27/2024 8:55 AM CDT) WBC 5.7 3.8 - 9.9 K/cumm Comment:Testing performed by : [facility] [address], Medical Office Bld[address], [place] [address] Hgb 13.8 11.9 - 15.5 g/dL [facility] ([place]) Comment:Testing performed by : [facility] [address], Medical Office [address], [place] [address] Hct 42.5 35.6 - 45.5 % [facility] ([place]) Comment:Testing performed by : [facility] [address], Medical Office [address], [place] [address] Plt 281 150 - 400 K/cumm [facility] ([place]) Comment:Testing performed by : [facility] [address], Medical Office Bl [address], [place] [address] MPV 10.1 9.1 - 12.3 fL [facility] ([place]) Comment:Testing performed by : [facility] [address], Medical Office [address], [place] [address] RBC 4.85 3.90 - 5.20 M/cumm [facility] ([place]) Comment:Testing performed by : [facility] [address], Medical Office [address], [place] [address] MCV 87.6 81.3 - 96.4 fL [facility] ([place]) Comment:Testing performed by : [facility] [address], Medical Office [address], [place] [address] MCH 28.5 27.1 - 33.3 pg [facility] ([place]) Comment:Testing performed by : [facility] [address], Medical Office [address], [place] [address] MCHC 32.5 32.3 - 35.7 g/dL [facility] ([place]) Comment:Testing performed by : [facility] [address], Medical Office [address], [place] [address] RDW CV 13.4 11.1 - 14.9 % [facility] ([place]) Comment:Testing performed by : [facility] [address], Medical Office [address], [place] [address] RDW SD 43.5 35.7 - 48.1 fL [facility] ([place]) Comment:Testing performed by : [facility] [address], Medical Office [address], [place] [address] NRBC abs Not Measured 0.00 - 0.01 K/cumm [facility] ([place]) Comment:Testing performed by : [facility] [address], Medical Office [address], [place] [address] Blood 05/27/2024 8:55 AM CDT 05/27/2024 9:01 AM CDT us Florecita Singh NP LAB BLOOD ORDERABLES Final Result Performing Organization Address City/[facility]/ZIP Co de Phone Number [facility] ([place]) [facility] [employer] [place] [address] * Cancer antigen 15-3 (05/27/2024 8:55 AM CDT) Pathologist [facility] CA 15-3 ag 6.0 1.0 - 30.0 units/mL Comment: Interpretive Data The V[employer]ctor CA 15-3 assay procedure was used. Results from different manufacturers or methods may not be comparable. Serial testing should be performed using the same method. Testing performed by: [facility], [address] [place] [address]., [address] Blood 05/27/2024 8:55 AM CDT 05/27/2024 11:21 AM CDT us Gibran Cooper MD LAB BLOOD ORDERABLES Alejandra l Result [facility] ([place]) [facility] [place] [address] * Vitamin D 25 hydroxy (05/27/2024 8:55 AM CDT) Pathologist [facility] Vitamin D 25-OH 41 30 - 80 ng/mL Comment:Testing performed by : [facility], [place], [address] Blood 05/27/2024 8:55 AM CDT 05/27/2024 9:48 AM CDT us Gibran Cooper MD LAB BLOOD ORDERABLES Alejandra l Result [facility] ([place]) [address] [place] [address] Department [place] [address] * CEA (05/27/2024 8:55 AM CDT) CEA 1.8 0.1 - 5.0 ng/mL Comment: Interpretive Data The V[employer]ctor CEA assay procedure was used. Results from different manufacturers or methods may not be comparable. Serial testing should be performed using the same method. Testing performed by: [facility], [address] [place] [address], [address] Blood 05/27/2024 8:55 AM CDT 05/27/2024 11:21 AM CDT us Gibran Cooper MD LAB BLOOD ORDERABLES Alejandra l Result Performing Organization Address City/[facility]/ZIP Co de Phone Number [facility] ([place]) [address] [place] [address] Department [place] [address] * Comprehensive metabolic panel (05/27/2024 8:55 AM CDT) Sodium 138 135 - 145 mmol/L Comment:Testing performed by : [place], [address] Potassium, pl 3.9 3.3 - 4.9 mmol/L [facility] ([place]) Comment:Testing performed by : [place], [address] [place] 101 97 - 110 mmol/L [facility] ([place]) Comment:Testing performed by : [place], [address] CO2 25 22 - 32 mmol/L [facility] ([place]) Comment:Testing performed by : [facility] [place] [place], [place], [address] Anion gap 12 2 - 15 mmol/L [facility] ([place]) Comment:Testing performed by : [facility] [place] [place], [place], [address] BUN 11 6 - 25 mg/dL [facility] ([place]) Comment:Testing performed by : [facility] [place] [place], [place], [address] Creatinine 0.61 0.60 - 1.10 mg/dL [facility] ([place]) Comment:Testing performed by : [facility] [place], [place], [address] Glucose 93 70 - 199 mg/dL [facility] ([place]) Comment: Interpretive Data Fasting glucose >/= 126 [...] was last revised 2022. Testing performed by: [facility] [place] [place], [place], [address] Calcium 9.6 8.5 - 10.3 mg/dL [facility] ([place]) Comment:Testing performed by : [facility] [place], [place], [address] Bilirubin, total 0.3 0.1 - 1.2 mg/dL [facility] ([place]) Comment:Testing performed by : [facility] [place], [place], [address] Protein, pl 7.3 6.5 - 8.5 g/dL [facility] ([place]) Comment:Testing performed by : [facility] [place], [place], [address] Albumin 4.5 3.5 - 5.0 g/dL [facility] ([place]) Comment:Testing performed by : [facility] [place] [place], [place], [address] Alk phos 89 40 - 130 Units/L [facility] ([place]) Comment:Testing performed by : [facility] [place], [place], [address] ALT 17 7 - 45 Units/L [facility] ([place]) Comment:Testing performed by : [facility], [facility], [place], [address] AST 20 10 - 45 Units/L [facility] ([place]) Comment:Testing performed by : [facility], [facility], [place], [address] Blood 05/27/2024 8:55 AM CDT 05/27/2024 9:09 AM CDT us Florecita Singh NP LAB BLOOD ORDERABLES Final Result [facility] ([place]) [facility] Department [place] [address] * Screening Mammogram Left W Rocky Unilateral [...] age 40, based on guidelines of the [place] [employer] (ACR Practice Parameter for the Performance of Screening and Diagnostic Mammography) and [place] [employer]. For women [...] Comment: For additional information, please refer to http://Silenseed/faq/DSQ452 (This link is being provided for informational/ [...] a test for HCV RNA (test code 14856) is suggested. For additional information please refer to http://[employer] [employer].MindMixer/faq/EYK83a1 (This link is being provided for informational/ educational purposes only.) Blood specimen (specimen) 11/11/2020 2:42 PM CDT 11/11/2020 2:42 PM CDT Narrative [facility] - 11/12/2020 3:22 PM CDT FASTING:NO FASTING: NO us Tracie Hart MD LAB MICROBIOLOGY - GENERAL ORDERABLES Final Result [facility] [address] [address] * COLONOSCOPY (01/28/2020 7:57 AM RECESSING MACHINE OPERATOR) Anatomical Region Laterality Modality Other Narrative Procedure Note Donato Aragon MD - 01/28/2020 7:57 AM CST [facility] Patient Name: Katrina Cheng Procedure Date: 01/28/2020 7:57 AM Date of : 1960 Admit Type: Outpatient Age: 59 Gender: Female Attending MD: Donaot Aragon M.D. Room: [facility] ENDOSCOPY ROOM 1 Note Status: Finalized [...] passed under direct vision. The PediatricColonoscope [id number] was introduced through the anusand advanced to [...] 7:57 AM Procedure Code(s): --- Professional --- 73652, Colonoscopy, flexible; with biopsy, single or multiple Diagnosis Code(s): --- Professional --- Z86.010, Personal history of colonic polyps K64.8, Other hemorrhoids D12.4, Benign neoplasm of descending colon K62.1, Rectal polyp CPT copyright 2017 [place] [employer]. All rights reserved. The codes documented in this report are preliminary and upon linotype machinist apprentice reviewmay be revised to meet current compliance requirements. Recognized by the [place] [employer] for promoting quality [...] Comment:Negative for intraep ithelial lesion or malignancy. Coat Room Attendant Des Gonsalves Comment: MLO, CT(ASCP) CT screening location: [place] [address] [place] [address] Comment Filiberto Kam Comment: EXPLANATORY NOTE: The [...] MD LAB CYTOLOGY ORDERA MICHELLES Final Result [facility] [address] [place] [address] from Last 3 Months or Most Recently Relevant to Health Maintenance Insurance MEDICARE [employer] OPEN ACCESS [employer] OPEN ACCESS Advance Directives For more information, please contact: [phone] * Full Code (Latest Code Status on File) Date Activated Date Inactivated Comments 06/17/2021 7:15 PM 06/18/2021 7:28 PM * Full Code Date Activated Date Inactivated Comments 01/28/2020 8:22 AM 01/28/2020 2:39 PM Care Teams Automotive Painter Helper Relationship Specialty Start Date End Date Tracie Hart MD [address] [place] [address] PCP - General Family Medicine 08/28/19 Gibran Cooper MD [address] [facility] [place] [address] Medical Oncologist Medical Oncology 05/23/24
--- OUTSIDE RECORDS SUMMARY | 2024-07-29 13:30 | XMS_ITS | Clinical Summary ---
Author Organization [facility] Address [address] [place] [address] Care Team Providers Care Assistant Credit Manager Name Role Phone Unavailable Primary Care Provider [...]
[2024-07-29 13:35] LABS: Hematocrit 42.6 % (37.0-47.0); Hemoglobin 14.6 g/dL (12.0-15.0); Mean Corpuscular HGB Conc 34.3 g/dl (32-36); Mean Corpuscular Hemoglobin 28.5 pg (26-34); Mean Platelet Volume 9.7 fl (7.4-10.4); Platelet Count Result 235 k/mm3 (150-375); Red Blood Count 5.13 M/mm3 (4.2-5.4); Red Cell Distribution Width 13.2 % (11.5-14.5)
[2024-07-29 13:51] LABS: Alanine Aminotransferase 25 U/L (6-35); Albumin Level 4.3 g/dL (3.5-5.1); Alkaline Phosphatase 87 U/L (38-126); Anion Gap 11 mmol/L (4-12); Aspartate Amino Transferase 37 U/L (14-36); Bilirubin,Total 0.7 mg/dL (0.2-1.3); Blood Urea Nitrogen 10 mg/dL (7-17); Calcium 9.2 mg/dL (8.4-10.2); Carbon Dioxide 23 mmol/L (22-30); Chloride 100 mmol/L (98-107); Estimated Glomerular Filt Rate > 60; Glucose 165 mg/dL (65-110); Lipase 20 U/L (23-300); Potassium 3.7 mmol/L (3.4-5.0); Sodium 134 mmol/L (137-145)
--- NOTE | 2024-07-29 13:52 | ED.LOWEXIN ---
HPI - Extremity Injury (Lower) General Chief Complaint: Extremity Injury, Lower Stated Complaint: left leg issues Time Seen by Provider: 07/29/24 13:20 Source: patient and family ( Ed) Limitations: physical limitation History of Present Illness HPI Narrative: Patient presents with complaint left leg pain. She has been having diarrhea for approximately 1 week and has also been coughing for approximately the same duration. She has been incontinent of liquid stool. Recent travel or antibiotics. Denies any associated abdominal pain. She took Tylenol for pain this morning. She is requesting that she receive a sleep aid this evening as she uses 1 at home but does not recall the name as she gets it [id number]. Because she has been feeling unwell last evening she accidentally fell and landed on her buttocks. She is unable to bear weight today. She states she is having some pain at her hip but the pain is predominantly throughout her entire left knee. She has a history of left knee issues for which she has seen Dr. Smalls and is already scheduled for knee surgery on 08/22/24. Denies smoking. No underlying respiratory conditions Related Data Home Medications ?Medication ?Instructions ?Recorded ?Confirmed ?Last Taken ?Type methylphenidate HCl 20 mg 20 mg PO DAILY 02/19/24 07/29/24 07/28/24 History capsule,extended release (40-60) sprinkle sertraline 100 mg tablet 100 mg PO DAILY 02/19/24 07/29/24 07/28/24 History temazepam 15 mg capsule 15 mg PO QHS 02/19/24 07/29/24 07/28/24 History Allergies Allergy/AdvReac Type Severity Reaction Status Date / Time No Known Allergies Allergy Verified 05/15/24 08:47 [facility] Past Medical History Medical History Generalized anxiety disorder (~02/23/12) Schizophrenia (~06/29/12) Anemia (~11/19/13) Thalassemia (~01/29/14) Acne vulgaris (~08/27/19) Class 2 obesity due to excess calories without serious comorbidity with body mass index (BMI) of 36.0 to 36.9 in adult (~09/24/19) Personal history of colonic polyps (~12/11/19) Screen for colon cancer (~12/11/19) Well adult exam (~12/25/19) Elevated liver function tests Hyponatremia (~11/17/20) Psychotic affective disorder (~11/17/20) Breast cancer Bipolar 1 disorder (~02/15/13) Anxiety ADHD (attention deficit hyperactivity disorder) (~02/23/12) Surgical History Surgical History History of mastectomy History of colonoscopy (~10/23/15) History of section (~2000) History of breast biopsy (~04/05/21) Right History of bariatric surgery (~1999) Family History Family History Mother History of knee replacement Father Diabetes mellitus Macular degeneration History of heart valve replacement Sibling Breast cancer Sibling Diabetes mellitus Grandparent Hypothyroidism Blood disorder Cerebrovascular accident Social History Social History (Updated 07/30/24 @ 07:40 by Lian Ramirez MD) Social History: She lives at home with her of 30 years. She has 1 biological daughter who lives with them is in her 20s. She has 3 step children and several grandchildren. She is on disability due to her psychiatric illness. She is a lifelong nonsmoker. She drinks 4-6 alcoholic beverages on the weekend. Code status: The patient states she wishes to be a do not intubate. She would be okay with CPR. But she will consent to remain full code as she is likely to need surgery during this hospital stay. Surrogate decision maker: Bob () Smoking status: Never smoker Alcohol intake: never Substance use: never Do You Feel Safe in your Home?: Yes Lack of Transportation: No Lack of Food: Never True Current Housing: I Have Housing Concerned About Future Housing: No Difficulty Paying Gas/Electric Bills: No Difficulty Paying for Meds: No Currently Unemployed: No Education: Don't Know Difficulty w/ Childcare or Family Care: No Living arrangements: with family Additional living arrangements comments: Spiritual care concerns: No Exam Narrative: GENERAL: Well-appearing, well-nourished, and in no acute distress. HEAD: Normocephalic, atraumatic. EYES: Non injected, non icteric ENT: Nares clear, no rhinorrhea or epistaxis. Dry mucous membranes NECK: Supple. CHEST: Speaking in full sentences. No respiratory distress. Coarse rhonchorous bilateral breath sounds on auscultation with wheezes HEART: Regular rate and rhythm. . ABDOMEN: Soft, nondistended. Not peritoneal. EXTREMITIES: Left leg shortened externally rotated. No lower extremity edema. No tenderness to palpation overlying left hip. Mild tenderness to palpation throughout left knee. Unable to significantly move left leg secondary to pain. SKIN: Warm, dry, no rash. No erythema, ecchymosis. Skin intact. NEURO: No focal deficits. Alert and oriented x3. PSYCH: Normal mood and affect. Course Vital Signs Vital signs: Vital Signs Temperature 97.8 F 07/29/24 12:59 Pulse Rate 88 07/29/24 12:59 Respiratory Rate 21 H 07/29/24 12:59 Blood Pressure 136/62 07/29/24 12:59 Pulse Oximetry 97 07/29/24 12:59 Temperature 98.7 F 07/30/24 06:00 Pulse Rate 95 07/30/24 06:00 Respiratory Rate 20 07/30/24 06:00 Blood Pressure 160/98 H 07/30/24 06:00 Pulse Oximetry 94 07/30/24 06:00 Oxygen Delivery Room Air 07/29/24 20:00 MDM - Extremity Injury (Lower) MDM Narrative Medical decision making narrative: Patient presents with report of left leg pain. She has been having a cough and diarrhea for approximately 1 week and because she was feeling unwell and generally weak last night she accidentally fell landing on her buttocks. Her primary pain is in her left knee which at baseline has dysfunction and she is scheduled for an upcoming knee surgery in August with Dr. Smalls. In the emergency department she is afebrile with vital signs notable for mild tachypnea. I have significant concern patient has a fracture based on fact that her left leg is shortened and externally rotated. The differential for acute ( less than 14d) diarrhea includes infectious etiologies (viral, preformed toxins, toxins formed after colonization, invasive bacteria, and parasites), medications, inflammatory causes (IBD, radiation enteritis, ischemic colitis, diverticulitis), malabsorption, secretory causes, or motility disorders. 3+ ketones so 1 L fluid bolus ordered. Normal renal function. Hyperglycemia without anion gap acidosis. Sodium partially corrects (to 135/136) in the setting of hyperglycemia. Leukocytosis. Fracture as below. Discussed with absorption and adsorption engineer orthopedic surgeon Dr Sheets. Given patient has previously established with Dr Smalls, he does recommend I call them as a courtesy regarding who should take the consultation. Dorsey ordered. Discussed with Dr Smalls who confirms he will take the consultation. (Dr Sheets told of this to confirm by hospital admitting clerk.) Patient discussed with absorption and adsorption engineer hospitalist KENTRELL Wilson. Later told that surgery scheduled for tomorrow so patient made NPO at midnigth. Differential Diagnosis Differential diagnosis: Likely acute internal derangement of knee (Versus chronic), fracture of femur, fracture of hip and other (Legionella, pneumonia, acute viral syndrome, bronchitis) Lab Data Attestation: I reviewed the patient's lab results. 07/30/24 06:45 07/30/24 06:45 Labs: Lab Results 07/29/24 07/29/24 07/29/24 Range/Units 13:01 13:26 14:22 WBC 13.0 H (4.5-10.0) K/mm3 RBC 5.13 (4.2-5.4) M/mm3 Hgb 14.6 (12.0-15.0) g/dL Hct 42.6 (37.0-47.0) % MCV 83.0 (80-100) fl MCH 28.5 (26-34) pg MCHC 34.3 (32-36) g/dl RDW 13.2 (11.5-14.5) % Plt Count 235 (150-375) k/mm3 MPV 9.7 (7.4-10.4) fl Immature Gran % (Auto) Not Reportable Neut % (Auto) Not Reportable Lymph % (Auto) Not Reportable Garden % (Auto) Not Reportable Eos % (Auto) Not Reportable Baso % (Auto) Not Reportable Lymph # (Auto) Not Reportable Garden # (Auto) Not Reportable Eos # (Auto) Not Reportable Baso # (Auto) Not Reportable Abs Immat Gran (auto) Not Reportable Absolute Neuts (auto) Not Reportable Absolute Nucleated RBC Not Reportable Total Counted 100 Neutrophils % (Manual) 79 H (46-73) % Band Neutrophils % 9 H (0-6) % Lymphocytes % (Manual) 4.0 L (18-44) % Monocytes % (Manual) 8 (3-9) % Nucleated RBC % Not Reportable Abs Neuts (Manual) 11.44 H (1.7-7.2) K/mm3 Abs Lymphs (Manual) 0.52 L (1.1-4.5) K/mm3 Abs Monocytes (Manual) 1.04 H (0.1-0.90) K/mm3 Platelet Estimate Adequate (Adequate) Clumped Platelets Present Schistocytes None seen PT 14.6 (11.1-14.7) Seconds INR 1.1 APTT 28.7 (22.3-36.8) Seconds Sodium 134 L (137-145) mmol/L Potassium 3.7 (3.4-5.0) mmol/L Chloride 100 (98-107) mmol/L Carbon Dioxide 23 (22-30) mmol/L Anion Gap 11 (4-12) mmol/L BUN 10 (7-17) mg/dL Creatinine 0.58 L (0.7-1.0) mg/dL Estim Creat Clear Calc Not Reportable Estimated GFR > 60 (59 - ) Glucose 165 H (65-110) mg/dL Calcium 9.2 (8.4-10.2) mg/dL Magnesium 1.8 (1.6-2.3) mg/dL Total Bilirubin 0.7 (0.2-1.3) mg/dL AST 37 H (14-36) U/L ALT 25 (6-35) U/L Alkaline Phosphatase 87 (38-126) U/L Total Creatine Kinase 105 (30-135) U/L Total Protein 8.0 (6.3-8.2) g/dL Albumin 4.3 (3.5-5.1) g/dL Lipase 20 L (23-300) U/L Urine Color Dark yellow (Yellow) Urine Appearance Cloudy H (Clear) Urine pH 5.5 (5.0-9.0) Ur Specific Chandler 1.029 (1.001-1.035) Urine Protein 1+ H (Negative) mg/dL Urine Glucose (UA) Negative (Negative) mg/dL Urine Ketones 3+ H (Negative) mg/dL Ur Blood (Man) Negative (Negative) Urine Nitrate Negative (Negative) Urine Bilirubin Negative (Negative) Urine Urobilinogen 1.0 (<2.0) mg/dL Add Ur Microanalysis Reviewed Leukocyte Esterase Rfl Negative (Negative) FRANK/UL Urine RBC 0-2 (0-2) /hpf Urine WBC 0-5 (0-3) /hpf Ur Squamous Epith Cells Few (Few) /hpf Urine Bacteria None seen /hpf Urine Casts >20 Hyaline Casts Present (None) /lpf C. difficile (PCR) Negative (NEGATIVE) Influenza A (RT-PCR) Negative (Negative) Influenza B (RT-PCR) Negative (Negative) Ur L.pneumophila Ag Pending RSV (RT-PCR) Negative (Negative) SARS-CoV-2 RNA (RT-PCR) Negative (Negative) Imaging Data Radiologist's impression: Impressions Chest X-Ray 07/29/24 15:11 IMPRESSION: No focal infiltrate or effusion. Femur X-Ray 07/29/24 15:13 IMPRESSION: 1. Mildly comminuted intertrochanteric fracture the proximal left femur with external rotation and 15 degrees varus angulation between the femoral head and neck fragment in the metaphyseal fragment. 2. Severe medial compartment predominant tricompartmental osteoarthritis at the left knee. Hip/Pelvis X-Ray 07/29/24 15:13 IMPRESSION: 1. Mildly comminuted intertrochanteric fracture the proximal left femur with external rotation and 15 degrees varus angulation between the femoral head and neck fragment in the metaphyseal fragment. 2. Severe medial compartment predominant tricompartmental osteoarthritis at the left knee. Knee X-Ray 07/29/24 15:13 IMPRESSION: 1. Mildly comminuted intertrochanteric fracture the proximal left femur with external rotation and 15 degrees varus angulation between the femoral head and neck fragment in the metaphyseal fragment. 2. Severe medial compartment predominant tricompartmental osteoarthritis at the left knee. Discharge Plan Discharge Clinical Impression: Acute diarrhea, Hyperglycemia, Tricompartment osteoarthritis of left knee Fall Qualifiers: Encounter type: sequela Qualified Code(s): W19.XXXS - Unspecified fall, sequela Leukocytosis Qualifiers: Leukocytosis type: bandemia Qualified Code(s): D72.825 - Bandemia Closed comminuted intertrochanteric fracture of femur Qualifiers: Encounter type: initial encounter Laterality: left Qualified Code(s): S72.142A - Displaced intertrochanteric fracture of left femur, initial encounter for closed fracture Patient Disposition: Still a Patient Condition: Stable
[2024-07-29 14:10] LABS: Band Neutrophils Percent 9 % (0-6); Lymphocytes Absolute Manual 0.52 K/mm3 (1.1-4.5); Monocytes Absolute Manual 1.04 K/mm3 (0.1-0.90); Monocytes Percent Manual 8 % (3-9); Neutrophils Absolute Manual 11.44 K/mm3 (1.7-7.2); Neutrophils Percent Manual 79 % (46-73); Platelet Estimate Adequate (Adequate); Schistocytes None Seen; Total Cells Counted 100
[2024-07-29 14:11] LABS: Platelet Clumps Present
[2024-07-29] MEDS: SODIUM CHLORIDE 0.9% IV 1,000 ML 999 ML IV CONT (14:16)
[2024-07-29] MEDS: MORPHINE SULFATE (*CRX) 4 MG/ML INJ IV PUSH (14:16)
[2024-07-29 14:18] LABS: Magnesium 1.8 mg/dL (1.6-2.3)
[2024-07-29] MEDS: ALBUTEROL SULFATE NEB 2.5 MG/3 ML INH INHALATION (14:28)
[2024-07-29 14:36] LABS: Creatine Kinase 105 U/L (30-135)
[2024-07-29 15:07] LABS: Influenza A QL RT-PCR Negative (Negative); Influenza B QL RT-PCR Negative (Negative); RSV RNA, RT-PCR Negative (Negative); SARS-CoV-2 RNA PCR Negative (Negative)
[2024-07-29 15:11] LABS: INR 1.1; Prothrombin Time 14.6 Seconds (11.1-14.7)
[2024-07-29 15:12] LABS: Partial Thromboplastin Time 28.7 Seconds (22.3-36.8)
[2024-07-29 15:20] LABS: Toxigenic C. Diff NEGATIVE (NEGATIVE)
[2024-07-29] MEDS: HYDROmorphone HCL INJ (*CRX) 2 MG/ML VIAL 0.5 MG IV PUSH ×2 (16:12→21:26)
[2024-07-29] MEDS: BENZONATATE 100 MG CAPSULE PO (16:16)
[2024-07-29] MEDS: LACTATED RINGERS 1,000 ML 125 ML IV CONT (17:15)
--- NOTE | 2024-07-29 17:20 | P.CONOP_ITS ---
Assessment and Plan Assessment and plan (1) Closed comminuted intertrochanteric fracture of femur: Qualifiers: Encounter type: initial encounter Laterality: left Qualified Code(s): S72.142A - Displaced intertrochanteric fracture of left femur, initial encounter for closed fracture Code(s): S72.143A - Displaced intertrochanteric fracture of unspecified femur, initial encounter for closed fracture Status: Acute (2) Tricompartment osteoarthritis of left knee: Code(s): M17.12 - Unilateral primary osteoarthritis, left knee Status: Acute Plan Displaced left intertrochanteric fracture will benefit from ORIF with intramedullary nail. The total knee arthroplasty will be deferred indefinitely. We discussed the risks, benefits, and alternatives to surgery. Proceed with ORIF left hip intertrochanteric fracture with intramedullary nail History of Present Illness HPI Consult date: 07/29/24 Chief complaint: left leg issues Narrative: Patient complains of acute left hip pain. Fell from standing height. She states she got her foot caught and spun around and fell yesterday. Brought to the emergency room today when she did not improve. Patient is known to me as a upcoming total knee patient. No previous hip pain. Comfortable at rest. No numbness, tingling, or other associated symptoms. Review of Systems 2 Review of Systems: Denies loss of consciousness. Severe diarrhea. Negative for C diff. All systems reviewed & are unremarkable except as noted in HPI and below PMFSH Past Medical History Medical History Generalized anxiety disorder (~02/23/12) Schizophrenia (~06/29/12) Anemia (~11/19/13) Thalassemia (~01/29/14) Acne vulgaris (~08/27/19) Class 2 obesity due to excess calories without serious comorbidity with body mass index (BMI) of 36.0 to 36.9 in adult (~09/24/19) Personal history of colonic polyps (~12/11/19) Screen for colon cancer (~12/11/19) Well adult exam (~12/25/19) Elevated liver function tests Hyponatremia (~11/17/20) Psychotic affective disorder (~11/17/20) Breast cancer Bipolar 1 disorder (~02/15/13) Anxiety ADHD (attention deficit hyperactivity disorder) (~02/23/12) Surgical History Surgical History History of mastectomy History of colonoscopy (~10/23/15) History of section (~2000) History of breast biopsy (~04/05/21) Right History of bariatric surgery (~1999) Family History Family History Mother History of knee replacement Father Diabetes mellitus Macular degeneration History of heart valve replacement Sibling Breast cancer Sibling Diabetes mellitus Grandparent Hypothyroidism Blood disorder Cerebrovascular accident Social History Social History Smoking status: Never smoker Meds Home Medications and Allergies Home Medications ?Medication ?Instructions ?Recorded ?Confirmed ?Type divalproex 250 mg tablet,delayed 750 mg PO HS 08/04/19 05/15/24 History release (Depakote) iloperidone 4 mg tablet (Fanapt) 4 mg PO BID 08/04/19 05/15/24 History lisdexamfetamine 30 mg capsule 30 mg PO DAILY 08/04/19 05/15/24 History (Vyvanse) clonazepam 0.5 mg tablet 0.5 mg PO DAILY 02/06/24 05/15/24 History doxycycline monohydrate 40 mg 40 mg PO DAILY 02/06/24 05/15/24 History capsule,immediate - delay release (Oracea) fluoxetine 20 mg capsule 20 mg PO DAILY 02/06/24 05/15/24 History hydrocortisone 2.5 % topical cream 1 applic topical BID PRN 02/06/24 05/15/24 History oxcarbazepine 300 mg tablet 300 mg PO BID 02/06/24 05/15/24 History paliperidone palmitate 117 mg/0.75 117 mg IM MONTHLY 02/06/24 05/15/24 History mL intramuscular syringe (Invega Sustenna) spironolactone 50 mg tablet 50 mg PO DAILY 02/06/24 05/15/24 History methylphenidate HCl 20 mg 20 mg PO DAILY 02/19/24 05/15/24 History capsule,extended release (40-60) sprinkle sertraline 100 mg tablet 100 mg PO DAILY 02/19/24 05/15/24 History temazepam 15 mg capsule 15 mg PO QHS 02/19/24 05/15/24 History Allergies Allergy/AdvReac Type Severity Reaction Status Date / Time No Known Allergies Allergy Verified 05/15/24 08:47 Vital Signs Vital Signs - 24 hr 07/29/24 12:59 07/29/24 13:01 07/29/24 13:03 Temperature 36.6 C Pulse Rate 88 100 90 Respiratory Rate 21 H 21 H 17 Blood Pressure 136/62 178/88 H 178/88 H Pulse Oximetry 97 96 98 07/29/24 13:42 07/29/24 14:31 07/29/24 14:39 Temperature Pulse Rate 65 86 99 Respiratory Rate 21 H 20 20 Blood Pressure 134/78 Pulse Oximetry 97 07/29/24 17:18 Temperature Pulse Rate 98 Respiratory Rate 19 Blood Pressure 162/76 H Pulse Oximetry 96 Exam 2 Narrative: Lower extremity shortened and externally rotated. Poor hygiene. Obesity. Const: General: no acute distress Eyes: General: appearance normal, both eyes and all related structures Resp: Effort & Inspection: normal respiratory effort GI: GI Palp: Yes Soft to palpation and No Guarding due to palpation present (GI) Urinary Catheter: Urinary Catheter: patent and draining and urine clear Skin: General skin exam: no rashes or lesions noted Neuro: Speech: normal speech Other: Wiggles toes well. Capillary refill brisk. Distal light touch sensation intact. Dorsalis pedis pulse palpable. Extrem: Other: No edema. Psych: Mental Status: mental status grossly normal Results Labs 07/29/24 13:26 07/29/24 13:26 Labs: Abnormal lab results 07/29/24 07/29/24 Range/Units 13:01 13:26 WBC 13.0 H (4.5-10.0) K/mm3 Neutrophils % (Manual) 79 H (46-73) % Band Neutrophils % 9 H (0-6) % Lymphocytes % (Manual) 4.0 L (18-44) % Abs Neuts (Manual) 11.44 H (1.7-7.2) K/mm3 Abs Lymphs (Manual) 0.52 L (1.1-4.5) K/mm3 Abs Monocytes (Manual) 1.04 H (0.1-0.90) K/mm3 Sodium 134 L (137-145) mmol/L Creatinine 0.58 L (0.7-1.0) mg/dL Glucose 165 H (65-110) mg/dL AST 37 H (14-36) U/L Lipase 20 L (23-300) U/L Urine Appearance Cloudy H (Clear) Urine Protein 1+ H (Negative) mg/dL Urine Ketones 3+ H (Negative) mg/dL H & H 07/29/24 Range/Units 13:26 Hgb 14.6 (12.0-15.0) g/dL Hct 42.6 (37.0-47.0) % Coagulation 07/29/24 Range/Units 13:01 INR 1.1 All other labs normal. Quality VTE Prophylaxis VTE prophylaxis: mechanical ordered
--- NOTE | 2024-07-29 18:50 | ADMGEN ---
This patient, Katrina Cheng, was admitted to [address] [place] [address] Room 332-02. Patient/family oriented to hospital policies and general routines including ID bracelet, bed and alarms, visiting hours, pain management, procedures, bathroom and other care routines, personal items, smoking policy, room service/diet, and visiting hours. Information on how to activate the Rapid Response Team has been discussed. Patient/Family are encouraged to report perceived risks to care and to ask questions if they do not understand what they are told or what they should do.
--- NOTE | 2024-07-29 21:02 | PM.IMHP ---
H&P: HPI History of Present Illness Date/Time: 07/29/24 21:02 Chief Complaint: Left leg pain, diarrhea Narrative: 64-year-old female with a past medical history anxiety, schizophrenia and prior weight loss surgery (over 20 years ago) who presented to the ER from home after having fall last night and now having left leg pain and is unable to bear weight. The patient also states that she has been having diarrhea for 1 week with multiple episodes of incontinent liquid stool. She reports that her grand child had recent GI symptoms that lasted about 3 days. Her had also been ill with nausea vomiting and diarrhea for about 3-4 days. Her symptoms lasted the longest with her last incontinent stool being in the ER. She denies any abdominal pain, fevers or chills. He stated that he had been having some lightheadedness with standing but did not pass out or. She reported that yesterday she was rushing around and caught her foot on the coronal rib piece of furniture. She subsequently fell landing on her left buttock. When she fell she reported that she twisted on her leg. She had immediate pain and her hip. Her family members helped her to bed and she laid in bed for the day. When she tried to get up the next day and was still having severe pain she decided come to the ER for evaluation. She does have a lump to her middle of her forehead that she reports is from an old pimple that created a calcium buildup. She denies actually hitting her head her having any loss of consciousness. She reports that she was having some cough and felt as if she was having some phlegm stuck in her throat. She received a nebulizer treatment and 1 dose of benzo weight she reports she had a cough productive of some clear sputum. Since then she does not feel like she has anything else in her airway. She did have some erythema noted to her posterior soft palate but she denies any sore throat. She had reported some rhinorrhea and postnasal drip. Her COVID flu and RSV PCR were negative in the ER. Review of Systems Review of Systems: 12 systems were reviewed with pertinent positives and negatives per HPI. Except as documented in the HPI, all other systems were reviewed and are negative. [facility] Past Medical History Medical History Generalized anxiety disorder (~02/23/12) Schizophrenia (~06/29/12) Anemia (~11/19/13) Thalassemia (~01/29/14) Acne vulgaris (~08/27/19) Class 2 obesity due to excess calories without serious comorbidity with body mass index (BMI) of 36.0 to 36.9 in adult (~09/24/19) Personal history of colonic polyps (~12/11/19) Screen for colon cancer (~12/11/19) Well adult exam (~12/25/19) Elevated liver function tests Hyponatremia (~11/17/20) Psychotic affective disorder (~11/17/20) Breast cancer Bipolar 1 disorder (~02/15/13) Anxiety ADHD (attention deficit hyperactivity disorder) (~02/23/12) Surgical History Surgical History History of mastectomy History of colonoscopy (~10/23/15) History of section (~2000) History of breast biopsy (~04/05/21) Right History of bariatric surgery (~1999) Family History Family History Mother History of knee replacement Father Diabetes mellitus Macular degeneration History of heart valve replacement Sibling Breast cancer Sibling Diabetes mellitus Grandparent Hypothyroidism Blood disorder Cerebrovascular accident Social History Social History (Updated 07/30/24 @ 07:39 by China Elizondo DO) Social History: She lives at home with her of 30 years. She has 1 biological daughter who lives with them is in her 20s. She has 3 step children and several grandchildren. She is on disability due to her psychiatric illness. She is a lifelong nonsmoker. She drinks 4-6 alcoholic beverages on the weekend. Code status: The patient states she wishes to be a do not intubate. She would be okay with CPR. But she will consent to remain full code as she is likely to need surgery during this hospital stay. Surrogate decision maker: Bob () Smoking status: Never smoker Alcohol intake: never Substance use: never Do You Feel Safe in your Home?: Yes Lack of Transportation: No Lack of Food: Never True Current Housing: I Have Housing Concerned About Future Housing: No Difficulty Paying Gas/Electric Bills: No Difficulty Paying for Meds: No Currently Unemployed: No Education: Don't Know Difficulty w/ Childcare or Family Care: No Living arrangements: with family Additional living arrangements comments: Spiritual care concerns: No Meds Home Medications and Allergies Home Medications ?Medication ?Instructions ?Recorded ?Confirmed ?Type methylphenidate HCl 20 mg 20 mg PO DAILY 02/19/24 07/29/24 History capsule,extended release (40-60) sprinkle sertraline 100 mg tablet 100 mg PO DAILY 02/19/24 07/29/24 History temazepam 15 mg capsule 15 mg PO QHS 02/19/24 07/29/24 History Allergies Allergy/AdvReac Type Severity Reaction Status Date / Time No Known Allergies Allergy Verified 05/15/24 08:47 Vital Signs Vital Signs - 24 hr 07/29/24 12:59 07/29/24 13:01 07/29/24 13:03 Temperature 97.8 F Pulse Rate 88 100 90 Respiratory Rate 21 H 21 H 17 Blood Pressure 136/62 178/88 H 178/88 H Pulse Oximetry 97 96 98 07/29/24 13:42 07/29/24 14:01 07/29/24 14:31 Temperature Pulse Rate 65 82 86 Respiratory Rate 21 H 21 H 20 Blood Pressure 134/78 164/90 H Pulse Oximetry 97 97 07/29/24 14:39 07/29/24 15:07 07/29/24 16:01 Temperature Pulse Rate 99 109 H 100 Respiratory Rate 20 19 15 Blood Pressure 177/73 H 159/76 H Pulse Oximetry 96 97 07/29/24 17:18 07/29/24 18:56 Temperature 98.1 F Pulse Rate 98 87 Respiratory Rate 19 18 Blood Pressure 162/76 H 168/72 H Pulse Oximetry 96 97 Exam Narrative: Weight 100.2 kg BMI 34.6 Const: Other: No acute distress, obese, appears stated age HENMT: Other: Mucous membranes are dry, mild erythema of the posterior soft palate, poor dentition, lump to central forehead Eyes: Other: Pupils are equal and reactive, bilateral clouding of lenses Neck: Other: No lymphadenopathy, no JVD Resp: Other: Clear to auscultation bilaterally, no increased work of breathing Cardio: Other: Regular rate, regular rhythm, 2+ bilateral radial pedal pulses GI: Other: Soft, nontender, nondistended, positive bowel sounds, no organomegaly Skin: Other: No jaundice, no pallor Neuro: Other: Alert oriented x4, speech is slightly slurred, no facial asymmetry, no localizing neurologic deficits noted during course of conversation Extrem: Other: No clubbing, cyanosis no edema, distal extremities are neurovascularly intact, pain with any movement of the left lower extremity, extremity is not shortened or obviously rotated Psych: Other: Pleasant and cooperative, fair judgment and insight H&P: Results Labs Labs: Laboratory Tests 07/29/24 13:26 07/29/24 13:26 07/29/24 07/29/24 07/29/24 13:01 13:26 14:22 WBC 13.0 H RBC 5.13 Hgb 14.6 Hct 42.6 MCV 83.0 MCH 28.5 MCHC 34.3 RDW 13.2 Plt Count 235 MPV 9.7 Immature Gran % (Auto) Not Reportable Neut % (Auto) Not Reportable Lymph % (Auto) Not Reportable Piatt % (Auto) Not Reportable Eos % (Auto) Not Reportable Baso % (Auto) Not Reportable Lymph # (Auto) Not Reportable Piatt # (Auto) Not Reportable Eos # (Auto) Not Reportable Baso # (Auto) Not Reportable Abs Immat Gran (auto) Not Reportable Absolute Neuts (auto) Not Reportable Absolute Nucleated RBC Not Reportable Total Counted 100 Neutrophils % (Manual) 79 H Band Neutrophils % 9 H Lymphocytes % (Manual) 4.0 L Monocytes % (Manual) 8 Nucleated RBC % Not Reportable Abs Neuts (Manual) 11.44 H Abs Lymphs (Manual) 0.52 L Abs Monocytes (Manual) 1.04 H Platelet Estimate Adequate Clumped Platelets Present Schistocytes None seen PT 14.6 INR 1.1 APTT 28.7 Sodium 134 L Potassium 3.7 Chloride 100 Carbon Dioxide 23 Anion Gap 11 BUN 10 Creatinine 0.58 L Estim Creat Clear Calc Not Reportable Estimated GFR > 60 Glucose 165 H Calcium 9.2 Magnesium 1.8 Total Bilirubin 0.7 AST 37 H ALT 25 Alkaline Phosphatase 87 Total Creatine Kinase 105 Total Protein 8.0 Albumin 4.3 Lipase 20 L Urine Color Dark yellow Urine Appearance Cloudy H Urine pH 5.5 Ur Specific [place] 1.029 Urine Protein 1+ H Urine Glucose (UA) Negative Urine Ketones 3+ H Ur Blood (Man) Negative Urine Nitrate Negative Urine Bilirubin Negative Urine Urobilinogen 1.0 Add Ur Microanalysis Reviewed Leukocyte Esterase Rfl Negative Urine RBC 0-2 Urine WBC 0-5 Ur Squamous Epith Cells Few Urine Bacteria None seen Urine Casts >20 Hyaline Casts Present C. difficile (PCR) Negative Influenza A (RT-PCR) Negative Influenza B (RT-PCR) Negative Ur L.pneumophila Ag Pending RSV (RT-PCR) Negative SARS-CoV-2 RNA (RT-PCR) Negative Impressions Chest X-Ray 07/29/24 15:11 IMPRESSION: No focal infiltrate or effusion. Femur X-Ray 07/29/24 15:13 IMPRESSION: 1. Mildly comminuted intertrochanteric fracture the proximal left femur with external rotation and 15 degrees varus angulation between the femoral head and neck fragment in the metaphyseal fragment. 2. Severe medial compartment predominant tricompartmental osteoarthritis at the left knee. Hip/Pelvis X-Ray 07/29/24 15:13 IMPRESSION: 1. Mildly comminuted intertrochanteric fracture the proximal left femur with external rotation and 15 degrees varus angulation between the femoral head and neck fragment in the metaphyseal fragment. 2. Severe medial compartment predominant tricompartmental osteoarthritis at the left knee. Knee X-Ray 07/29/24 15:13 IMPRESSION: 1. Mildly comminuted intertrochanteric fracture the proximal left femur with external rotation and 15 degrees varus angulation between the femoral head and neck fragment in the metaphyseal fragment. 2. Severe medial compartment predominant tricompartmental osteoarthritis at the left knee. Assessment and Plan Assessment and plan (1) Closed comminuted intertrochanteric fracture of femur: Qualifiers: Encounter type: initial encounter Laterality: left Qualified Code(s): S72.142A - Displaced intertrochanteric fracture of left femur, initial encounter for closed fracture Code(s): S72.143A - Displaced intertrochanteric fracture of unspecified femur, initial encounter for closed fracture Status: Acute (2) Acute diarrhea: Code(s): R19.7 - Diarrhea, unspecified Status: Acute (3) Leukocytosis: Qualifiers: Leukocytosis type: bandemia Qualified Code(s): D72.825 - Bandemia Code(s): D72.829 - Elevated white blood cell count, unspecified Status: Acute (4) Acute dehydration: Code(s): E86.0 - Dehydration Status: Acute (5) Hyperglycemia: Code(s): R73.9 - Hyperglycemia, unspecified Status: Acute (6) Fall: Qualifiers: Encounter type: sequela Qualified Code(s): W19.XXXS - Unspecified fall, sequela Code(s): W19.XXXA - Unspecified fall, initial encounter Status: Acute Plan Patient has left comminuted angulated intratrochanteric hip fracture. Orthopedic surgery has been consulted. Patient will be made NPO midnight for anticipated procedure in a.m.. P.r.n. pain medications are available. Patient did have recent URI symptoms and diarrheal symptoms likely viral in nature. Symptoms have improved significantly. Patient does appear to be intervascular volume depleted with 3+ ketones in her urine. Will continue IV fluids at 125 mL an hour overnight and then re-evaluate fluid status with repeat electrolyte panel. The patient did have some mild leukocytosis with some mild bandemia but no fevers. Changes are likely due to her acute viral process. Will repeat CBC in a.m. and monitor for other signs of infection. Blood cultures are pending. Patient did have some moderate hyperglycemia on labs performed in the ER. She denies history of diabetes. Will check A1c with a.m. labs. Will continue home psychiatric medications. Patient reports that she takes Tylenol p.m. for insomnia at home. Will provide Benadryl 50 mg q.h.s. as needed. Dorsey catheter is in place due to immobility. Quality VTE Prophylaxis VTE prophylaxis: pharmacologic ordered (Lovenox 40 mg subQ daily.) Hospitalist [facility] Advance Care Plan I have confirmed that the patient's Advanced Care Plan is present, code status is documented, or surrogate decision maker is listed in patient medical record.: Yes Medication Reconciliation I have utilized all available resources to obtain, update and review the patients current medications (includes all prescriptions, OTC, herbals, cannabis, and nutritional supplements).: Yes
--- NOTE | 2024-07-29 21:09 | ECG_ITS ---
Test Date: 2024-07-29 21:55:39 Measurements Intervals [place] Rate: 88 P: 56 [place]: 147 QRS: -2 QRSD: 119 T: 30 QT: 396 QTc: 480 Interpretive Statements SINUS RHYTHM WITH OCCASIONAL VENTRICULAR PREMATURE COMPLEXES INCOMPLETE RIGHT BUNDLE BRANCH BLOCK [90+ ms QRS DURATION, TERMINAL R IN V1/V2, 40+ ms S IN I/aVL/V4/V5/V6] BASELINE ARTIFACT PRESENT Compared to ECG 06/12/2024 13:52:05 NO SIGNIFICANT CHANGES Electronically Signed On 07-30-2024 13:30:59 CDT by Shreya Kenney M.D.
[2024-07-30] VITALS (13 sets, daily range): BP systolic 111–194; BP diastolic 68–98; PULSE 83–100; RESP 15–20; TEMP 36.3–37.4; O2SAT 92–99
[2024-07-30] MEDS: TEMAZEPAM (*CRX) 15 MG CAPSULE PO ×2 (01:48→20:36)
[2024-07-30] MEDS: LACTATED RINGERS 1,000 ML 125 ML IV CONT ×2 (01:58→10:26)
[2024-07-30] MEDS: HYDROmorphone HCL INJ (*CRX) 2 MG/ML VIAL 0.5 MG IV PUSH (06:52)
[2024-07-30 07:00] LABS: Basophils Absolute Auto 0.1 K/mm3 (0.0-0.1); Basophils Percent Auto 0.7 % (0.2-1.2); Eosinophils Percent Auto 0.2 % (0-4.4); Hematocrit 39.4 % (37.0-47.0); Hemoglobin 12.6 g/dL (12.0-15.0); Immature Granulocyte Absolute 0.04 K/mm3 (0.00-0.031); Immature Granulocyte Percent A 0.5 % (0-0.5); Lymphocytes Absolute Auto 0.84 K/mm3 (0.9-3.2); Lymphocytes Percent Auto 9.5 % (18.3-44.2); Mean Corpuscular Hemoglobin 27.5 pg (26-34); Mean Platelet Volume 9.9 fl (7.4-10.4); Monocytes Absolute Auto 1.2 K/mm3 (0.1-0.6); Monocytes Percent Auto 13.6 % (2.6-8.5); Neutrophils Absolute Auto 6.7 K/mm3 (1.3-6.7); Neutrophils Percent Auto 75.5 % (45.5-73.1); Platelet Count Result 235 k/mm3 (150-375); Red Blood Count 4.58 M/mm3 (4.2-5.4); Red Cell Distribution Width 13.2 % (11.5-14.5); White Blood Count 8.9 K/mm3 (4.5-10.0)
[2024-07-30 07:12] LABS: Anion Gap 10 mmol/L (4-12); Blood Urea Nitrogen 6 mg/dL (7-17); Calcium 8.5 mg/dL (8.4-10.2); Carbon Dioxide 22 mmol/L (22-30); Chloride 101 mmol/L (98-107); Estimated CRCL calculation 120 ml/min; Estimated Glomerular Filt Rate > 60; Glucose 118 mg/dL (65-110); Potassium 3.4 mmol/L (3.4-5.0); Sodium 133 mmol/L (137-145)
--- NOTE | 2024-07-30 07:17 | WPDHPUPDATE1 ---
History and Physical Update Update Date/Time: 07/30/24 07:17 History and Physical has been reviewed, including an updated exam of the patient. There are NO changes in the patient's condition. Risks, benefits, and alternatives have been discussed and questions answered. Patient agrees to proceed with procedure.
[2024-07-30 08:08] LABS: Glucose Point of Care 128 mg/dl (65-105)
[2024-07-30 08:18] LABS: Hemoglobin A1C 5.4 % (<5.7)
--- NOTE | 2024-07-30 08:42 | P.PNIM_ITS ---
Progress Note: A&P Assessment and Plan (1) Closed comminuted intertrochanteric fracture of femur: Qualifiers: Encounter type: initial encounter Laterality: left Qualified Code(s): S72.142A - Displaced intertrochanteric fracture of left femur, initial encounter for closed fracture Code(s): S72.143A - Displaced intertrochanteric fracture of unspecified femur, initial encounter for closed fracture Status: Acute Assessment and Plan: * Fall from standing height, caught foot, spun, and fell on 07/28. * Follows with Dr. Smalls, already scheduled for total knee arthroplasty * L Hip/Pelvis XR: Mildly comminuted intertrochanteric fracture the proximal left femur with external rotation and 15 degrees varus angulation between the femoral head and neck fragment in the metaphyseal fragment. * Ortho consulted and following * Planned for ORIF with intramedullary nail today (07/30) * TKA deferred (2) Fall: Qualifiers: Encounter type: sequela Qualified Code(s): W19.XXXS - Unspecified fall, sequela Code(s): W19.XXXA - Unspecified fall, initial encounter Status: Acute Assessment and Plan: * See above (3) Acute diarrhea: Code(s): R19.7 - Diarrhea, unspecified Status: Acute Assessment and Plan: * Likely viral in nature * Symptoms improving at time of admission * Volume depleted * 3+ ketones in urine * Stool culture obtained (4) Acute dehydration: Code(s): E86.0 - Dehydration Status: Acute Assessment and Plan: * See problem 3 * IV fluids at 125 mL an hour overnight * Na 133, otherwise no major electrolyte abnormalities (5) Leukocytosis: Qualifiers: Leukocytosis type: bandemia Qualified Code(s): D72.825 - Bandemia Code(s): D72.829 - Elevated white blood cell count, unspecified Status: Acute Assessment and Plan: * Upon admission: WBC 13 * Likely 2/2 acute viral infection, gastroenteritis * Blood cultures pending * No other signs of infection (6) Hyperglycemia: Code(s): R73.9 - Hyperglycemia, unspecified Status: Acute Assessment and Plan: * a1c 07/30: 5.4% * POC glucose: 138 Time Spent With Patient Time: Subjective Date/time seen: 07/30/24 08:42 Interval history: 64-year-old female with a past medical history anxiety, schizophrenia and prior weight loss surgery (over 20 years ago) who presented to the ER from home after having fall last night and now having left leg pain and is unable to bear weight. The patient also states that she has been having diarrhea for 1 week with multiple episodes of incontinent liquid stool. 07/30/2024 Patient sitting comfortably in bed at time of exam. Ortho following, planning for repair of intertrochanteric fracture today. Likely to go at 4pm. Pt otherwise has no complaints. She has had diarrhea for the past week along with a general URI. She states the diarrhea has improved, but we will still test for culture. Will plan for PT/OT evals after surgery. Review of Systems Review of Systems: 12 systems were reviewed with pertinent positives and negatives per HPI. Except as documented in the HPI, all other systems were reviewed and are negative. Exam Narrative: Weight 100.2 kg BMI 34.6 Const: Other: No acute distress, obese, appears stated age HENMT: Other: Mucous membranes are dry, mild erythema of the posterior soft palate, poor dentition, lump to central forehead Eyes: Other: Pupils are equal and reactive, bilateral clouding of lenses Neck: Other: No lymphadenopathy, no JVD Resp: Other: Clear to auscultation bilaterally, no increased work of breathing Cardio: Other: Regular rate, regular rhythm, 2+ bilateral radial pedal pulses GI: Other: Soft, nontender, nondistended, positive bowel sounds, no organomegaly Skin: Other: No jaundice, no pallor Neuro: Other: Alert oriented x4, speech is slightly slurred, no facial asymmetry, no localizing neurologic deficits noted during course of conversation Extrem: Other: No clubbing, cyanosis no edema, distal extremities are neurovascularly intact, pain with any movement of the left lower extremity, extremity is not shortened or obviously rotated Psych: Other: Pleasant and cooperative, fair judgment and insight Objective Data Vital Signs Vital Signs: Vital Signs - 24 hr 07/29/24 12:59 07/29/24 13:01 07/29/24 13:03 Temperature 97.8 F Pulse Rate 88 100 90 Respiratory Rate 21 H 21 H 17 Blood Pressure 136/62 178/88 H 178/88 H Pulse Oximetry 97 96 98 Oxygen Delivery 07/29/24 13:42 07/29/24 14:01 07/29/24 14:31 Temperature Pulse Rate 65 82 86 Respiratory Rate 21 H 21 H 20 Blood Pressure 134/78 164/90 H Pulse Oximetry 97 97 Oxygen Delivery 07/29/24 14:39 07/29/24 15:07 07/29/24 16:01 Temperature Pulse Rate 99 109 H 100 Respiratory Rate 20 19 15 Blood Pressure 177/73 H 159/76 H Pulse Oximetry 96 97 Oxygen Delivery 07/29/24 17:18 07/29/24 18:56 07/29/24 20:00 Temperature 98.1 F Pulse Rate 98 87 Respiratory Rate 19 18 Blood Pressure 162/76 H 168/72 H Pulse Oximetry 96 97 Oxygen Delivery Room Air 07/29/24 21:00 07/30/24 06:00 Temperature 98.9 F 98.7 F Pulse Rate 90 95 Respiratory Rate 20 20 Blood Pressure 138/64 160/98 H Pulse Oximetry 96 94 Oxygen Delivery Intake/Output Intake/Output: Intake & Output 07/27/24 07/28/24 07/29/24 07/30/24 23:59 23:59 23:59 23:59 Intake Total 1000 1000 Output Total 550 Balance 1000 450 Meds/Results Medications: Active Medications Generic Name Dose Route Start Last Admin Trade Name Freq PRN Reason Stop Dose Admin Acetaminophen 650 mg 07/29/24 16:53 Acetaminophen 325 Mg Tablet PO Q4H PRN Mild Pain (1-3) or Fever Dextrose 12.5 gm 07/29/24 21:10 Dextrose 50% 25 Gm/50 Ml Syringe IV PUSH PRN PRN Hypoglycemia Protocol Diphenhydramine HCl 50 mg 07/29/24 23:47 Diphenhydramine Hcl Cap 25 Mg Capsule PO HS PRN Insomnia Enoxaparin Sodium 40 mg 07/30/24 09:00 Enoxaparin 40 Mg/0.4 Ml Syringe SUB-Q DAILY MADHU Glucagon 1 mg 07/29/24 21:10 Glucagon For Inj 1 Mg Vial IM PRN PRN Hypoglycemia Protocol Glucose 15 gm 07/29/24 21:10 Glucose Oral Gel 15 Gm Of Glucse In 37.5 Gm Tube PO PRN PRN Hypoglycemia Protocol Hydromorphone HCl 0.5 mg 07/29/24 16:53 07/30/24 06:52 Hydromorphone Hcl Inj (*Crx) 2 Mg/Ml Vial IV PUSH 0.5 mg Q4H PRN Administration Pain Rated 7-10 Lactated Ringer's 1,000 mls @ 125 mls/hr 07/29/24 16:55 07/30/24 01:58 Lr - Lactated Ringers Iv IV CONT 125 mls/hr .Q8H MADHU Administration Dextrose 1,000 mls @ 100 mls/hr 07/29/24 21:10 Dextrose 5% 1,000 Ml IVPB PRN PRN Hypoglycemia Protocol Insulin Aspart 2 - 5 units 07/30/24 08:00 Insulin Aspart (*Bkc) 100 Units/Ml SUB-Q TIDWM MADHU Protocol Ondansetron HCl 4 mg 07/29/24 16:53 Ondansetron Inj 4 Mg/2 Ml Vial IV PUSH Q4H PRN Nausea Sertraline HCl 100 mg 07/30/24 09:00 Sertraline Hcl 50 Mg Tablet PO DAILY MADHU Temazepam 15 mg 07/29/24 23:50 07/30/24 01:48 Temazepam (*Crx) 15 Mg Capsule PO 15 mg QHS MADHU Administration Radiology Results: ITS Impressions Chest X-Ray 07/29/24 15:11 IMPRESSION: No focal infiltrate or effusion. Femur X-Ray 07/29/24 15:13 IMPRESSION: 1. Mildly comminuted intertrochanteric fracture the proximal left femur with external rotation and 15 degrees varus angulation between the femoral head and neck fragment in the metaphyseal fragment. 2. Severe medial compartment predominant tricompartmental osteoarthritis at the left knee. Hip/Pelvis X-Ray 07/29/24 15:13 IMPRESSION: 1. Mildly comminuted intertrochanteric fracture the proximal left femur with external rotation and 15 degrees varus angulation between the femoral head and neck fragment in the metaphyseal fragment. 2. Severe medial compartment predominant tricompartmental osteoarthritis at the left knee. Knee X-Ray 07/29/24 15:13 IMPRESSION: 1. Mildly comminuted intertrochanteric fracture the proximal left femur with external rotation and 15 degrees varus angulation between the femoral head and neck fragment in the metaphyseal fragment. 2. Severe medial compartment predominant tricompartmental osteoarthritis at the left knee. Labs Labs: Laboratory Results - last 24 hr 07/29/24 07/29/24 07/29/24 13:01 13:26 14:22 WBC 13.0 H RBC 5.13 Hgb 14.6 Hct 42.6 MCV 83.0 MCH 28.5 MCHC 34.3 RDW 13.2 Plt Count 235 MPV 9.7 Immature Gran % (Auto) Not Reportable Neut % (Auto) Not Reportable Lymph % (Auto) Not Reportable [place] % (Auto) Not Reportable Eos % (Auto) Not Reportable Baso % (Auto) Not Reportable Lymph # (Auto) Not Reportable [place] # (Auto) Not Reportable Eos # (Auto) Not Reportable Baso # (Auto) Not Reportable Abs Immat Gran (auto) Not Reportable Absolute Neuts (auto) Not Reportable Absolute Nucleated RBC Not Reportable Total Counted 100 Neutrophils % (Manual) 79 H Band Neutrophils % 9 H Lymphocytes % (Manual) 4.0 L Monocytes % (Manual) 8 Nucleated RBC % Not Reportable Abs Neuts (Manual) 11.44 H Abs Lymphs (Manual) 0.52 L Abs Monocytes (Manual) 1.04 H Platelet Estimate Adequate Clumped Platelets Present Schistocytes None seen PT 14.6 INR 1.1 APTT 28.7 Sodium 134 L Potassium 3.7 Chloride 100 Carbon Dioxide 23 Anion Gap 11 BUN 10 Creatinine 0.58 L Estim Creat Clear Calc Not Reportable Estimated GFR > 60 Glucose 165 H POC Capillary Glucose Hemoglobin A1c Calcium 9.2 Magnesium 1.8 Total Bilirubin 0.7 AST 37 H ALT 25 Alkaline Phosphatase 87 Total Creatine Kinase 105 Total Protein 8.0 Albumin 4.3 Lipase 20 L Urine Color Dark yellow Urine Appearance Cloudy H Urine pH 5.5 Ur Specific [place] 1.029 Urine Protein 1+ H Urine Glucose (UA) Negative Urine Ketones 3+ H Ur Blood (Man) Negative Urine Nitrate Negative Urine Bilirubin Negative Urine Urobilinogen 1.0 Add Ur Microanalysis Reviewed Leukocyte Esterase Rfl Negative Urine RBC 0-2 Urine WBC 0-5 Ur Squamous Epith Cells Few Urine Bacteria None seen Urine Casts >20 Hyaline Casts Present C. difficile (PCR) Negative Influenza A (RT-PCR) Negative Influenza B (RT-PCR) Negative RSV (RT-PCR) Negative SARS-CoV-2 RNA (RT-PCR) Negative 07/30/24 07/30/24 06:45 08:05 WBC 8.9 RBC 4.58 Hgb 12.6 Hct 39.4 MCV 86.0 MCH 27.5 MCHC 32.0 RDW 13.2 Plt Count 235 MPV 9.9 Immature Gran % (Auto) 0.5 Neut % (Auto) 75.5 H Lymph % (Auto) 9.5 L [place] % (Auto) 13.6 H Eos % (Auto) 0.2 Baso % (Auto) 0.7 Lymph # (Auto) 0.84 L [place] # (Auto) 1.2 H Eos # (Auto) 0.0 Baso # (Auto) 0.1 Abs Immat Gran (auto) 0.04 H Absolute Neuts (auto) 6.7 Absolute Nucleated RBC 0.000 Total Counted Neutrophils % (Manual) Band Neutrophils % Lymphocytes % (Manual) Monocytes % (Manual) Nucleated RBC % 0.0 Abs Neuts (Manual) Abs Lymphs (Manual) Abs Monocytes (Manual) Platelet Estimate Clumped Platelets Schistocytes PT INR APTT Sodium 133 L Potassium 3.4 Chloride 101 Carbon Dioxide 22 Anion Gap 10 BUN 6 L Creatinine 0.49 L Estim Creat Clear Calc 120 Estimated GFR > 60 Glucose 118 H POC Capillary Glucose 128 H Hemoglobin A1c 5.4 Calcium 8.5 Magnesium Total Bilirubin AST ALT Alkaline Phosphatase Total Creatine Kinase Total Protein Albumin Lipase Urine Color Urine Appearance Urine pH Ur Specific [place] Urine Protein Urine Glucose (UA) Urine Ketones Ur Blood (Man) Urine Nitrate Urine Bilirubin Urine Urobilinogen Add Ur Microanalysis Leukocyte Esterase Rfl Urine RBC Urine WBC Ur Squamous Epith Cells Urine Bacteria Urine Casts Hyaline Casts C. difficile (PCR) Influenza A (RT-PCR) Influenza B (RT-PCR) RSV (RT-PCR) SARS-CoV-2 RNA (RT-PCR) Quality VTE Prophylaxis VTE prophylaxis: pharmacologic ordered (Lovenox 40 mg subQ daily.)
[2024-07-30] MEDS: SERTRALINE HCL 50 MG TABLET 100 MG PO (10:26)
[2024-07-30 12:08] LABS: Glucose Point of Care 112 mg/dl (65-105)
[2024-07-30 13:07] LABS: Toxigenic C. Diff NEGATIVE (NEGATIVE)
--- NOTE | 2024-07-30 13:30 | PC.NURSE ---
To OR per hospital bed.
[2024-07-30] MEDS: LACTATED RINGERS 1,000 ML 30 ML IV CONT (13:35)
[2024-07-30] MEDS: HYDROmorphone HCL INJ (*CRX) 1 MG/ML SYR 0.5 MG IV PUSH ×2 (14:13→16:22)
[2024-07-30] MEDS: TRANEXAMIC ACID 1,000MG/ISO100 1,000 MG/100 ML BAG 200 MG IVPB (14:33)
--- NOTE | 2024-07-30 14:34 | P.PNAN_ITS ---
Anes - Initial Pre Proc Eval Procedure: Operation Date: 07/30/24 16:00 Proposed Procedures p Left Intertrochanteric Nail - Vitaliy Smalls MD Date/Time: 07/30/24 14:34 Surgeon: Chris Spann PA-C Pre Op Diagnosis: Intertrochancteric fx Patient Data Age: 64 Gender: F Height: 1.7 m Weight: 100.2 kg Last Vital Signs Temp 37.1 C 07/30/24 06:00 Pulse 95 07/30/24 06:00 Resp 20 07/30/24 06:00 BP 160/98 H 07/30/24 06:00 Pulse Ox 94 07/30/24 06:00 O2 Del Method Room Air 07/30/24 08:00 Allergies Allergy/AdvReac Type Severity Reaction Status Date / Time No Known Allergies Allergy Verified 05/15/24 08:47 Home Medications ?Medication ?Instructions ?Recorded ?Confirmed ?Type methylphenidate HCl 20 mg 20 mg PO DAILY 02/19/24 07/29/24 History capsule,extended release (40-60) sprinkle sertraline 100 mg tablet 100 mg PO DAILY 02/19/24 07/29/24 History temazepam 15 mg capsule 15 mg PO QHS 02/19/24 07/29/24 History Laboratory Tests 07/29/24 07/29/24 07/29/24 13:01 13:26 14:22 WBC RBC Hgb Hct MCV MCH MCHC RDW Plt Count MPV Immature Gran % (Auto) Neut % (Auto) Lymph % (Auto) [place] % (Auto) Eos % (Auto) Baso % (Auto) Lymph # (Auto) [place] # (Auto) Eos # (Auto) Baso # (Auto) Abs Immat Gran (auto) Absolute Neuts (auto) Absolute Nucleated RBC Nucleated RBC % PT 14.6 Seconds (11.1-14.7) INR 1.1 APTT 28.7 Seconds (22.3-36.8) Sodium Potassium Chloride Carbon Dioxide Anion Gap BUN Creatinine Estim Creat Clear Calc Estimated GFR Glucose POC Capillary Glucose Hemoglobin A1c Calcium Total Creatine Kinase 105 U/L (30-135) C. difficile (PCR) Negative (NEGATIVE) Influenza A (RT-PCR) Negative (Negative) Influenza B (RT-PCR) Negative (Negative) RSV (RT-PCR) Negative (Negative) SARS-CoV-2 RNA (RT-PCR) Negative (Negative) Blood Type Antibody Screen 07/30/24 07/30/24 07/30/24 06:45 08:05 09:40 WBC 8.9 K/mm3 (4.5-10.0) RBC 4.58 M/mm3 (4.2-5.4) Hgb 12.6 g/dL (12.0-15.0) Hct 39.4 % (37.0-47.0) MCV 86.0 fl (80-100) MCH 27.5 pg (26-34) MCHC 32.0 g/dl (32-36) RDW 13.2 % (11.5-14.5) Plt Count 235 k/mm3 (150-375) MPV 9.9 fl (7.4-10.4) Immature Gran % (Auto) 0.5 % (0-0.5) Neut % (Auto) 75.5 H % (45.5-73.1) Lymph % (Auto) 9.5 L % (18.3-44.2) [place] % (Auto) 13.6 H % (2.6-8.5) Eos % (Auto) 0.2 % (0-4.4) Baso % (Auto) 0.7 % (0.2-1.2) Lymph # (Auto) 0.84 L K/mm3 (0.9-3.2) [place] # (Auto) 1.2 H K/mm3 (0.1-0.6) Eos # (Auto) 0.0 K/mm3 (0-0.3) Baso # (Auto) 0.1 K/mm3 (0.0-0.1) Abs Immat Gran (auto) 0.04 H K/mm3 (0.00-0.031) Absolute Neuts (auto) 6.7 K/mm3 (1.3-6.7) Absolute Nucleated RBC 0.000 K/mm3 (0.0-0.012) Nucleated RBC % 0.0 % (0.0-0.2) PT INR APTT Sodium 133 L mmol/L (137-145) Potassium 3.4 mmol/L (3.4-5.0) Chloride 101 mmol/L (98-107) Carbon Dioxide 22 mmol/L (22-30) Anion Gap 10 mmol/L (4-12) BUN 6 L mg/dL (7-17) Creatinine 0.49 L mg/dL (0.7-1.0) Estim Creat Clear Calc 120 ml/min Estimated GFR > 60 (59 - ) Glucose 118 H mg/dL (65-110) POC Capillary Glucose 128 H mg/dl (65-105) Hemoglobin A1c 5.4 % (<5.7) Calcium 8.5 mg/dL (8.4-10.2) Total Creatine Kinase C. difficile (PCR) Influenza A (RT-PCR) Influenza B (RT-PCR) RSV (RT-PCR) SARS-CoV-2 RNA (RT-PCR) Blood Type A Positive Antibody Screen Negative 07/30/24 07/30/24 11:08 11:27 WBC RBC Hgb Hct MCV MCH MCHC RDW Plt Count MPV Immature Gran % (Auto) Neut % (Auto) Lymph % (Auto) [place] % (Auto) Eos % (Auto) Baso % (Auto) Lymph # (Auto) [place] # (Auto) Eos # (Auto) Baso # (Auto) Abs Immat Gran (auto) Absolute Neuts (auto) Absolute Nucleated RBC Nucleated RBC % PT INR APTT Sodium Potassium Chloride Carbon Dioxide Anion Gap BUN Creatinine Estim Creat Clear Calc Estimated GFR Glucose POC Capillary Glucose 112 H mg/dl (65-105) Hemoglobin A1c Calcium Total Creatine Kinase C. difficile (PCR) Negative (NEGATIVE) Influenza A (RT-PCR) Influenza B (RT-PCR) RSV (RT-PCR) SARS-CoV-2 RNA (RT-PCR) Blood Type Antibody Screen Patient hx anesthesia problems: none Family hx anesthesia problems: none Results Review: All pre-operative results and documents have been reviewed as part of the pre- operative evaluation. FORMERLY [facility], [facility] Past Medical History Medical History Generalized anxiety disorder (~02/23/12) Schizophrenia (~06/29/12) Anemia (~11/19/13) Thalassemia (~01/29/14) Acne vulgaris (~08/27/19) Class 2 obesity due to excess calories without serious comorbidity with body mass index (BMI) of 36.0 to 36.9 in adult (~09/24/19) Personal history of colonic polyps (~12/11/19) Screen for colon cancer (~12/11/19) Well adult exam (~12/25/19) Elevated liver function tests Hyponatremia (~11/17/20) Psychotic affective disorder (~11/17/20) Breast cancer Bipolar 1 disorder (~02/15/13) Anxiety ADHD (attention deficit hyperactivity disorder) (~02/23/12) Surgical History Surgical History History of mastectomy History of colonoscopy (~10/23/15) History of section (~2000) History of breast biopsy (~04/05/21) Right History of bariatric surgery (~1999) Family History Family History Mother History of knee replacement Father Diabetes mellitus Macular degeneration History of heart valve replacement Sibling Breast cancer Sibling Diabetes mellitus Grandparent Hypothyroidism Blood disorder Cerebrovascular accident Social History Social History Social History: She lives at home with her of 30 years. She has 1 biological daughter who lives with them is in her 20s. She has 3 step children and several grandchildren. She is on disability due to her psychiatric illness. She is a lifelong nonsmoker. She drinks 4-6 alcoholic beverages on the weekend. Code status: The patient states she wishes to be a do not intubate. She would be okay with CPR. But she will consent to remain full code as she is likely to need surgery during this hospital stay. Surrogate decision maker: Bob () Smoking status: Never smoker Alcohol intake: never Substance use: never Do You Feel Safe in your Home?: Yes Lack of Transportation: No Lack of Food: Never True Current Housing: I Have Housing Concerned About Future Housing: No Difficulty Paying Gas/Electric Bills: No Difficulty Paying for Meds: No Currently Unemployed: No Education: Don't Know Difficulty w/ Childcare or Family Care: No Living arrangements: with family Additional living arrangements comments: Spiritual care concerns: No Anes - Eval Final PreProcedure Day of Procedure 07/30/24 14:34 Patient weight: obese Heart: regular rate and rhythm Lungs: decreased breath sounds Airway: Mallampati scale class II Neurological: alert and oriented Last oral intake: >/= 8 hours ASA classification: III Emergent: no Anesthetic plan: proceed Anesthesia type and monitoring: general LMA and standard monitoring Results Review: All pre-operative results and documents have been reviewed as part of the pre- operative evaluation. Informed Consent: The patient's anesthetic plan and its attendant risks and benefits were discussed with the patient/family/POA. Questions were solicited and answers provided to the satisfaction of the patient/family/POA.
[2024-07-30] MEDS: ceFAZolin 2 GM/D5W 50 ML 2 GM/50 ML BAG IVPB ×2 (14:43→20:38)
[2024-07-30 16:27] LABS: Glucose Point of Care 145 mg/dl (65-105)
[2024-07-30] MEDS: LABETALOL HCL INJ 100 MG/20 ML VIAL IV PUSH (16:37)
--- NOTE | 2024-07-30 16:51 | W.PM.PROC2 ---
Procedure Note - Detailed Date of Procedure 07/30/24 Pre-op Diagnosis Displaced left hip Intertrochancteric fx Post-op Diagnosis Same Procedure Performed ORIF femur intertrochanteric fracture with cephalomedullary nail, left. Surgeon Vitaliy Smalls MD [employer] Elana Urbano RN FA Anesthesia General Description of Procedure The patient was given a general anesthetic, then carefully placed in fracture table. Sterile prep and drape performed in the usual fashion. Sterile curtain was used. Gentle traction was utilized to reduce the fracture. Fluoroscopy was used to confirm anatomic reduction and a proper placement of the implants. A longitudinal incision was created at the tip of the trochanter. The deep fascia was incised. The cannulated awl was used to open the proximal femur. The guidewire was placed across the fracture. The reamer was used to open the canal. The flexible reamers were then used to open the distal canal to 12.5 mm. The nail was placed across the fracture site. A separate incision was made for placement of the cannulated guide sleeve. The guide pin was placed in the center of the femoral head. Appropriate measurement was taken. The pin was over reamed. The screw was placed with excellent purchase. The mid-shaft locking screw was placed through the jig. The jig was removed. The wounds were irrigated and closed. The deep fascia was closed with #1 Vicryl suture followed by 2-0 Vicryl suture and renata. Sterile dressing was applied. The patient was transferred to the recovery room in stable condition. There were no complications. Implants Arthrex hip ES trochanteric fracture nail 11 x 360 mm. 130?. 90 mm lag screw. 38 mm distal locking screw. Estimated Blood Loss 300 Drains No Packing No Pathology None sent Complications No immediate complications Condition Stable Disposition PACU [facility] Billing Surgery - Charge Forward: Surgery Billing
--- NOTE | 2024-07-30 17:30 | PC.NURSE ---
Returned to room per hospital bed from OR.
[2024-07-30] MEDS: SENNA/DOCUSATE SODIUM TABLET 2 TAB PO (18:15)
[2024-07-30] MEDS: oxyCODONE/ACETAMINOPHEN (*CRX) 5-325 MG TABLET 1 TABLET PO (18:15)
[2024-07-30 20:29] LABS: Glucose Point of Care 140 mg/dl (65-105)
[2024-07-30] MEDS: oxyCODONE/ACETAMINOPHEN (*CRX) 10-325 MG TABLET 1 TAB PO (20:37)
[2024-07-31] MEDS: oxyCODONE/ACETAMINOPHEN (*CRX) 5-325 MG TABLET 1 TABLET PO ×2 (01:57→20:46)
[2024-07-31] MEDS: diphenhydrAMINE HCl CAP 25 MG CAPSULE 50 MG PO (01:58)
[2024-07-31 02:48] VITALS: BP 142/67; PULSE 99; RESP 16; TEMP 36.5; O2SAT 94
[2024-07-31] MEDS: ceFAZolin 2 GM/D5W 50 ML 2 GM/50 ML BAG IVPB ×2 (05:41→14:47)
[2024-07-31] MEDS: oxyCODONE/ACETAMINOPHEN (*CRX) 10-325 MG TABLET 1 TAB PO ×2 (05:59→14:46)
[2024-07-31 06:04] VITALS: BP 135/61; PULSE 99; RESP 16; TEMP 36.6; O2SAT 93
[2024-07-31 06:25] LABS: Basophils Percent Auto 0.6 % (0.2-1.2); Eosinophils Absolute Auto 0.1 K/mm3 (0-0.3); Eosinophils Percent Auto 0.7 % (0-4.4); Hemoglobin 11.3 g/dL (12.0-15.0); Immature Granulocyte Absolute 0.08 K/mm3 (0.00-0.031); Immature Granulocyte Percent A 1.1 % (0-0.5); Lymphocytes Absolute Auto 1.34 K/mm3 (0.9-3.2); Lymphocytes Percent Auto 18.7 % (18.3-44.2); Mean Corpuscular HGB Conc 33.2 g/dl (32-36); Mean Corpuscular Hemoglobin 27.9 pg (26-34); Mean Platelet Volume 9.7 fl (7.4-10.4); Monocytes Absolute Auto 0.9 K/mm3 (0.1-0.6); Monocytes Percent Auto 13.1 % (2.6-8.5); Neutrophils Absolute Auto 4.7 K/mm3 (1.3-6.7); Neutrophils Percent Auto 65.8 % (45.5-73.1); Platelet Count Result 256 k/mm3 (150-375); Red Blood Count 4.05 M/mm3 (4.2-5.4); White Blood Count 7.2 K/mm3 (4.5-10.0)
[2024-07-31 06:39] LABS: Anion Gap 7 mmol/L (4-12); Blood Urea Nitrogen 5 mg/dL (7-17); Calcium 8.2 mg/dL (8.4-10.2); Carbon Dioxide 27 mmol/L (22-30); Chloride 97 mmol/L (98-107); Estimated CRCL calculation 123 ml/min; Estimated Glomerular Filt Rate > 60; Glucose 113 mg/dL (65-110); Potassium 3.1 mmol/L (3.4-5.0); Sodium 131 mmol/L (137-145)
[2024-07-31 07:11] VITALS: BP 107/50; PULSE 94; RESP 18; TEMP 37.3; O2SAT 93
--- NOTE | 2024-07-31 07:56 | PM.PNORT ---
Progress Note: A&P Assessment and Plan (1) Closed comminuted intertrochanteric fracture of femur: Qualifiers: Encounter type: initial encounter Laterality: left Qualified Code(s): S72.142A - Displaced intertrochanteric fracture of left femur, initial encounter for closed fracture Code(s): S72.143A - Displaced intertrochanteric fracture of unspecified femur, initial encounter for closed fracture Status: Acute Assessment and Plan: Postop day 1: ORIF femur intertrochanteric fracture with cephalomedullary nail, left. Patient tolerated procedure well. No complications. Pain manageable with pain medication. No numbness or tingling. Patient will work with PT/OT today. May need rehab vs Home health at discharge. Ortho instructions: D/C to SNF/rehab Follow up in office in 4-6 weeks with xrays. Please call our office ([phone]) for appointment. Wound Care: Remove renata at 2 weeks post op. Daily dressing changes until healed. PT: Weightbearing as tolerated. DVT prophylaxis: continue Lovenox for 30 days total Pain medication: Oxycodone Subjective Subjective Date/Time Seen: 07/31/24 07:56 Interval history: Patient resting comfortably. Pain controlled. Review of Systems Review of Systems: All systems reviewed & are unremarkable except as noted in HPI and below Exam Narrative: Overweight 64 y/o female. Resting comfortably in bed. Wearing compression socks bilaterally. Dressing dry and intact with no drainage. Mild swelling. No distal edema. No ecchymosis. No erythema. No hematoma. Range of motion limited due to pain. Calf nontender. Thigh nontender. No varicosities. Distal pulses palpable. Wiggles toes. Objective Data Vital Signs Vital Signs: Vital Signs - 24 hr 07/30/24 08:00 07/30/24 13:35 07/30/24 16:15 Temperature 99.4 F 98.4 F Pulse Rate 95 99 Respiratory Rate 18 15 Blood Pressure 160/72 H 191/92 H Pulse Oximetry 95 97 Oxygen Delivery Room Air Room Air Simple Face Mask Oxygen Flow Rate 8 07/30/24 16:30 07/30/24 16:37 07/30/24 16:45 Temperature Pulse Rate 100 100 84 Respiratory Rate 15 20 Blood Pressure 194/85 H 172/88 H Pulse Oximetry 99 94 Oxygen Delivery Simple Face Mask Room Air Oxygen Flow Rate 8 07/30/24 17:00 07/30/24 17:09 07/30/24 18:00 Temperature 97.4 F L Pulse Rate 84 85 85 Respiratory Rate 16 16 18 Blood Pressure 172/82 H 171/82 H 153/74 H Pulse Oximetry 94 96 92 Oxygen Delivery Room Air Room Air Oxygen Flow Rate 07/30/24 18:15 07/30/24 18:45 07/30/24 19:11 Temperature 98 F 98.4 F 98.9 F Pulse Rate 88 87 83 Respiratory Rate 18 18 16 Blood Pressure 111/68 145/74 H 148/70 H Pulse Oximetry 94 94 93 Oxygen Delivery Oxygen Flow Rate 07/30/24 20:00 07/30/24 23:11 07/31/24 02:48 Temperature 98.0 F 97.7 F Pulse Rate 91 99 Respiratory Rate 16 16 Blood Pressure 139/75 142/67 H Pulse Oximetry 98 94 Oxygen Delivery Room Air Oxygen Flow Rate 07/31/24 06:04 Temperature 97.8 F Pulse Rate 99 Respiratory Rate 16 Blood Pressure 135/61 Pulse Oximetry 93 Oxygen Delivery Oxygen Flow Rate Intake/Output Intake/Output: Intake & Output 07/28/24 07/29/24 07/30/24 07/31/24 23:59 23:59 23:59 23:59 Intake Total 1000 2100 Output Total 1100 400 Balance 1000 1000 -400 Meds/Results Medications: Active Medications Generic Name Dose Route Start Last Admin Trade Name Freq PRN Reason Stop Dose Admin Acetaminophen 500 mg 07/30/24 17:26 Acetaminophen 500 Mg Tablet PO Q6H PRN Pain Rated 1-3 Dextrose 12.5 gm 07/29/24 21:10 Dextrose 50% 25 Gm/50 Ml Syringe IV PUSH PRN PRN Hypoglycemia Protocol Diphenhydramine HCl 50 mg 07/29/24 23:47 07/31/24 01:58 Diphenhydramine Hcl Cap 25 Mg Capsule PO 50 mg HS PRN Administration Insomnia Enoxaparin Sodium 40 mg 07/31/24 09:00 Enoxaparin 40 Mg/0.4 Ml Syringe SUB-Q DAILY MADHU Glucagon 1 mg 07/29/24 21:10 Glucagon For Inj 1 Mg Vial IM PRN PRN Hypoglycemia Protocol Glucose 15 gm 07/29/24 21:10 Glucose Oral Gel 15 Gm Of Glucse In 37.5 Gm Tube PO PRN PRN Hypoglycemia Protocol Hydromorphone HCl 1 mg 07/30/24 17:33 Hydromorphone Hcl Inj (*Crx) 2 Mg/Ml Vial IV PUSH Q2H PRN Breakthrough Pain Rated 7-10 or NPO Hydromorphone HCl 0.5 mg 07/30/24 17:33 Hydromorphone Hcl Inj (*Crx) 2 Mg/Ml Vial IV PUSH Q2H PRN Breakthrough Pain Rated 4-6 or NPO Dextrose 1,000 mls @ 100 mls/hr 07/29/24 21:10 Dextrose 5% 1,000 Ml IVPB PRN PRN Hypoglycemia Protocol Lactated Ringer's 1,000 mls @ 30 mls/hr 07/30/24 14:35 07/30/24 18:14 Lr - Lactated Ringers Iv IV CONT Not Given .Q24H MADHU Cefazolin Sodium 2 gm in 50 mls @ 100 mls/hr 07/30/24 22:00 07/31/24 05:41 Ancef 2 Gm/D5w 50 Ml IVPB 07/31/24 14:29 100 mls/hr Q8H MADHU Administration Ibuprofen 800 mg in 200 mls @ 400 mls/hr 07/30/24 17:26 Caldolor 800 Mg/200 Ml IVPB Q6H PRN Breakthrough Pain Rated 1-3 or NPO Insulin Aspart 2 - 5 units 07/30/24 08:00 07/30/24 16:29 Insulin Aspart (*Bkc) 100 Units/Ml SUB-Q Not Given TIDWM [facility] Protocol Labetalol HCl 5 mg 07/30/24 16:28 07/30/24 16:37 Labetalol Hcl Inj 100 Mg/20 Ml Vial IV PUSH 5 mg PRN PRN Administration hypertension Naloxone HCl 0.1 mg 07/30/24 17:26 Naloxone Hcl 0.4 Mg/Ml Vial IV PUSH Q2M PRN Opiate Reversal Ondansetron HCl 4 mg 07/30/24 17:26 Ondansetron Inj 4 Mg/2 Ml Vial IV PUSH Q4H PRN Nausea And Vomiting Oxycodone/Acetaminophen 1 tablet 07/30/24 17:26 07/31/24 01:57 Oxycodone/Acetaminophen (*Crx) 5-325 Mg Tablet PO 1 tablet Q4H PRN Administration Pain Rated 4-6 Oxycodone/Acetaminophen 1 tab 05/20/25 17:26 07/31/24 05:59 Oxycodone/Acetaminophen (*Crx) 10-325 Mg Tablet PO 1 tab Q6H PRN Administration Pain Rated 7-10 Polyethylene Glycol 17 gm 07/31/24 09:00 Polyethylene Glycol 3350 17 Gm Powd.Pack PO QAM MADHU Senna/Docusate Sodium 2 tab 07/30/24 17:26 07/30/24 18:15 Senna/Docusate Sodium Tablet PO 2 tab BID MADHU Administration Sertraline HCl 100 mg 07/30/24 09:00 07/30/24 10:26 Sertraline Hcl 50 Mg Tablet PO 100 mg DAILY MADHU Administration Temazepam 15 mg 07/29/24 23:50 07/30/24 20:36 Temazepam (*Crx) 15 Mg Capsule PO 15 mg QHS MADHU Administration Radiology Results: ITS Impressions Chest X-Ray 07/29/24 15:11 IMPRESSION: No focal infiltrate or effusion. Femur X-Ray 07/29/24 15:13 IMPRESSION: 1. Mildly comminuted intertrochanteric fracture the proximal left femur with external rotation and 15 degrees varus angulation between the femoral head and neck fragment in the metaphyseal fragment. 2. Severe medial compartment predominant tricompartmental osteoarthritis at the left knee. Hip/Pelvis X-Ray 07/29/24 15:13 IMPRESSION: 1. Mildly comminuted intertrochanteric fracture the proximal left femur with external rotation and 15 degrees varus angulation between the femoral head and neck fragment in the metaphyseal fragment. 2. Severe medial compartment predominant tricompartmental osteoarthritis at the left knee. Knee X-Ray 07/29/24 15:13 IMPRESSION: 1. Mildly comminuted intertrochanteric fracture the proximal left femur with external rotation and 15 degrees varus angulation between the femoral head and neck fragment in the metaphyseal fragment. 2. Severe medial compartment predominant tricompartmental osteoarthritis at the left knee. Labs Labs: Laboratory Results - last 24 hr 07/30/24 07/30/24 07/30/24 06:45 08:05 09:40 WBC RBC Hgb Hct MCV MCH MCHC RDW Plt Count MPV Immature Gran % (Auto) Neut % (Auto) Lymph % (Auto) [place] % (Auto) Eos % (Auto) Baso % (Auto) Lymph # (Auto) [place] # (Auto) Eos # (Auto) Baso # (Auto) Abs Immat Gran (auto) Absolute Neuts (auto) Absolute Nucleated RBC Nucleated RBC % Sodium Potassium Chloride Carbon Dioxide Anion Gap BUN Creatinine Estim Creat Clear Calc Estimated GFR Glucose POC Capillary Glucose 128 H Hemoglobin A1c 5.4 Calcium C. difficile (PCR) Blood Type A Positive Antibody Screen Negative 07/30/24 07/30/24 07/30/24 11:08 11:27 16:25 WBC RBC Hgb Hct MCV MCH MCHC RDW Plt Count MPV Immature Gran % (Auto) Neut % (Auto) Lymph % (Auto) [place] % (Auto) Eos % (Auto) Baso % (Auto) Lymph # (Auto) [place] # (Auto) Eos # (Auto) Baso # (Auto) Abs Immat Gran (auto) Absolute Neuts (auto) Absolute Nucleated RBC Nucleated RBC % Sodium Potassium Chloride Carbon Dioxide Anion Gap BUN Creatinine Estim Creat Clear Calc Estimated GFR Glucose POC Capillary Glucose 112 H 145 H Hemoglobin A1c Calcium C. difficile (PCR) Negative Blood Type Antibody Screen 07/30/24 07/31/24 20:26 05:59 WBC 7.2 RBC 4.05 L Hgb 11.3 L Hct 34.0 L MCV 84.0 MCH 27.9 MCHC 33.2 RDW 13.0 Plt Count 256 MPV 9.7 Immature Gran % (Auto) 1.1 H Neut % (Auto) 65.8 Lymph % (Auto) 18.7 [place] % (Auto) 13.1 H Eos % (Auto) 0.7 Baso % (Auto) 0.6 Lymph # (Auto) 1.34 [place] # (Auto) 0.9 H Eos # (Auto) 0.1 Baso # (Auto) 0.0 Abs Immat Gran (auto) 0.08 H Absolute Neuts (auto) 4.7 Absolute Nucleated RBC 0.000 Nucleated RBC % 0.0 Sodium 131 L Potassium 3.1 L Chloride 97 L Carbon Dioxide 27 Anion Gap 7 BUN 5 L Creatinine 0.48 L Estim Creat Clear Calc 123 Estimated GFR > 60 Glucose 113 H POC Capillary Glucose 140 H Hemoglobin A1c Calcium 8.2 L C. difficile (PCR) Blood Type Antibody Screen Quality VTE Prophylaxis VTE prophylaxis: mechanical ordered
--- NOTE | 2024-07-31 08:04 | P.PNIM_ITS ---
Progress Note: A&P Assessment and Plan (1) Closed comminuted intertrochanteric fracture of femur: Qualifiers: Encounter type: initial encounter Laterality: left Qualified Code(s): S72.142A - Displaced intertrochanteric fracture of left femur, initial encounter for closed fracture Code(s): S72.143A - Displaced intertrochanteric fracture of unspecified femur, initial encounter for closed fracture Status: Acute Assessment and Plan: * Fall from standing height, caught foot, spun, and fell on 07/28. * Follows with Dr. Smalls, already scheduled for total knee arthroplasty * L Hip/Pelvis XR: Mildly comminuted intertrochanteric fracture the proximal left femur with external rotation and 15 degrees varus angulation between the femoral head and neck fragment in the metaphyseal fragment. * Ortho consulted and following * Planned for ORIF with intramedullary nail today (07/30) * TKA deferred * POD 1 ORIF femur intertrochanteric fracture with cephalomedullary nail, left. * PT/OT evals pending * SNF placement upon discharge (2) Fall: Qualifiers: Encounter type: sequela Qualified Code(s): W19.XXXS - Unspecified fall, sequela Code(s): W19.XXXA - Unspecified fall, initial encounter Status: Acute Assessment and Plan: * See above (3) Acute diarrhea: Code(s): R19.7 - Diarrhea, unspecified Status: Acute Assessment and Plan: * Likely viral in nature * Symptoms improving at time of admission * Volume depleted * 3+ ketones in urine * Stool culture obtained (4) Acute dehydration: Code(s): E86.0 - Dehydration Status: Acute Assessment and Plan: * See problem 3 * IV fluids at 125 mL an hour overnight * Na 133, otherwise no major electrolyte abnormalities * 07/31: K 3.1, will supplement w/ PO KCl * Monitor daily labs (5) Leukocytosis: Qualifiers: Leukocytosis type: bandemia Qualified Code(s): D72.825 - Bandemia Code(s): D72.829 - Elevated white blood cell count, unspecified Status: Acute Assessment and Plan: * Upon admission: WBC 13 * Likely 2/2 acute viral infection, gastroenteritis * Blood cultures pending * No other signs of infection (6) Hyperglycemia: Code(s): R73.9 - Hyperglycemia, unspecified Status: Acute Assessment and Plan: * a1c 07/30: 5.4% * POC glucose: 138 Subjective Date/time seen: 07/31/24 08:04 Interval history: 64-year-old female with a past medical history anxiety, schizophrenia and prior weight loss surgery (over 20 years ago) who presented to the ER from home after having fall last night and now having left leg pain and is unable to bear weight. The patient also states that she has been having diarrhea for 1 week with multiple episodes of incontinent liquid stool. 07/31/2024 POD1 ORIF femur intertrochanteric fracture with cephalomedullary nail, left. Vital signs stable, pt is afebrile, physical exam benign. Neurovascularly intact. Ortho and CC following, working on rehab placement upon discharge. Otherwise stable for now. Review of Systems Review of Systems: 12 systems were reviewed with pertinent positives and negatives per HPI. Except as documented in the HPI, all other systems were reviewed and are negative. Exam Narrative: Weight 100.2 kg BMI 34.6 Const: Other: No acute distress, obese, appears stated age HENMT: Other: Mucous membranes are dry, mild erythema of the posterior soft palate, poor dentition, lump to central forehead Eyes: Other: Pupils are equal and reactive, bilateral clouding of lenses Neck: Other: No lymphadenopathy, no JVD Resp: Other: Clear to auscultation bilaterally, no increased work of breathing Cardio: Other: Regular rate, regular rhythm, 2+ bilateral radial pedal pulses GI: Other: Soft, nontender, nondistended, positive bowel sounds, no organomegaly Skin: Other: No jaundice, no pallor Neuro: Other: Alert oriented x4, speech is slightly slurred, no facial asymmetry, no localizing neurologic deficits noted during course of conversation Extrem: Other: No clubbing, cyanosis no edema, distal extremities are neurovascularly intact, pain with any movement of the left lower extremity, extremity is not shortened or obviously rotated Psych: Other: Pleasant and cooperative, fair judgment and insight Objective Data Vital Signs Vital Signs: Vital Signs - 24 hr 07/30/24 13:35 07/30/24 16:15 07/30/24 16:30 Temperature 99.4 F 98.4 F Pulse Rate 95 99 100 Respiratory Rate 18 15 15 Blood Pressure 160/72 H 191/92 H 194/85 H Pulse Oximetry 95 97 99 Oxygen Delivery Room Air Simple Face Mask Simple Face Mask Oxygen Flow Rate 8 8 07/30/24 16:37 07/30/24 16:45 07/30/24 17:00 Temperature Pulse Rate 100 84 84 Respiratory Rate 20 16 Blood Pressure 172/88 H 172/82 H Pulse Oximetry 94 94 Oxygen Delivery Room Air Room Air Oxygen Flow Rate 07/30/24 17:09 07/30/24 18:00 07/30/24 18:15 Temperature 97.4 F L 98 F Pulse Rate 85 85 88 Respiratory Rate 16 18 18 Blood Pressure 171/82 H 153/74 H 111/68 Pulse Oximetry 96 92 94 Oxygen Delivery Room Air Oxygen Flow Rate 07/30/24 18:45 07/30/24 19:11 07/30/24 20:00 Temperature 98.4 F 98.9 F Pulse Rate 87 83 Respiratory Rate 18 16 Blood Pressure 145/74 H 148/70 H Pulse Oximetry 94 93 Oxygen Delivery Room Air Oxygen Flow Rate 07/30/24 23:11 07/31/24 02:48 07/31/24 06:04 Temperature 98.0 F 97.7 F 97.8 F Pulse Rate 91 99 99 Respiratory Rate 16 16 16 Blood Pressure 139/75 142/67 H 135/61 Pulse Oximetry 98 94 93 Oxygen Delivery Oxygen Flow Rate Intake/Output Intake/Output: Intake & Output 07/28/24 07/29/24 07/30/24 07/31/24 23:59 23:59 23:59 23:59 Intake Total 1000 2100 Output Total 1100 400 Balance 1000 1000 -400 Meds/Results Medications: Active Medications Generic Name Dose Route Start Last Admin Trade Name Freq PRN Reason Stop Dose Admin Acetaminophen 500 mg 07/30/24 17:26 Acetaminophen 500 Mg Tablet PO Q6H PRN Pain Rated 1-3 Dextrose 12.5 gm 07/29/24 21:10 Dextrose 50% 25 Gm/50 Ml Syringe IV PUSH PRN PRN Hypoglycemia Protocol Diphenhydramine HCl 50 mg 07/29/24 23:47 07/31/24 01:58 Diphenhydramine Hcl Cap 25 Mg Capsule PO 50 mg HS PRN Administration Insomnia Enoxaparin Sodium 40 mg 07/31/24 09:00 Enoxaparin 40 Mg/0.4 Ml Syringe SUB-Q DAILY MADHU Glucagon 1 mg 07/29/24 21:10 Glucagon For Inj 1 Mg Vial IM PRN PRN Hypoglycemia Protocol Glucose 15 gm 07/29/24 21:10 Glucose Oral Gel 15 Gm Of Glucse In 37.5 Gm Tube PO PRN PRN Hypoglycemia Protocol Hydromorphone HCl 1 mg 07/30/24 17:33 Hydromorphone Hcl Inj (*Crx) 2 Mg/Ml Vial IV PUSH Q2H PRN Breakthrough Pain Rated 7-10 or NPO Hydromorphone HCl 0.5 mg 07/30/24 17:33 Hydromorphone Hcl Inj (*Crx) 2 Mg/Ml Vial IV PUSH Q2H PRN Breakthrough Pain Rated 4-6 or NPO Dextrose 1,000 mls @ 100 mls/hr 07/29/24 21:10 Dextrose 5% 1,000 Ml IVPB PRN PRN Hypoglycemia Protocol Lactated Ringer's 1,000 mls @ 30 mls/hr 07/30/24 14:35 07/30/24 18:14 Lr - Lactated Ringers Iv IV CONT Not Given .Q24H MADHU Cefazolin Sodium 2 gm in 50 mls @ 100 mls/hr 07/30/24 22:00 07/31/24 05:41 Ancef 2 Gm/D5w 50 Ml IVPB 07/31/24 14:29 100 mls/hr Q8H MADHU Administration Ibuprofen 800 mg in 200 mls @ 400 mls/hr 07/30/24 17:26 Caldolor 800 Mg/200 Ml IVPB Q6H PRN Breakthrough Pain Rated 1-3 or NPO Insulin Aspart 2 - 5 units 07/30/24 08:00 07/30/24 16:29 Insulin Aspart (*Bkc) 100 Units/Ml SUB-Q Not Given TIDWM MADHU Protocol Labetalol HCl 5 mg 07/30/24 16:28 07/30/24 16:37 Labetalol Hcl Inj 100 Mg/20 Ml Vial IV PUSH 5 mg PRN PRN Administration hypertension Naloxone HCl 0.1 mg 07/30/24 17:26 Naloxone Hcl 0.4 Mg/Ml Vial IV PUSH Q2M PRN Opiate Reversal Ondansetron HCl 4 mg 07/30/24 17:26 Ondansetron Inj 4 Mg/2 Ml Vial IV PUSH Q4H PRN Nausea And Vomiting Oxycodone/Acetaminophen 1 tablet 07/30/24 17:26 07/31/24 01:57 Oxycodone/Acetaminophen (*Crx) 5-325 Mg Tablet PO 1 tablet Q4H PRN Administration Pain Rated 4-6 Oxycodone/Acetaminophen 1 tab 07/30/24 17:26 07/31/24 05:59 Oxycodone/Acetaminophen (*Crx) 10-325 Mg Tablet PO 1 tab Q6H PRN Administration Pain Rated 7-10 Polyethylene Glycol 17 gm 07/31/24 09:00 Polyethylene Glycol 3350 17 Gm Powd.Pack PO QAM MADHU Senna/Docusate Sodium 2 tab 07/30/24 17:26 07/30/24 18:15 Senna/Docusate Sodium Tablet PO 2 tab BID MADHU Administration Sertraline HCl 100 mg 07/30/24 09:00 07/30/24 10:26 Sertraline Hcl 50 Mg Tablet PO 100 mg DAILY MADHU Administration Temazepam 15 mg 07/29/24 23:50 07/30/24 20:36 Temazepam (*Crx) 15 Mg Capsule PO 15 mg QHS MADHU Administration Radiology Results: ITS Impressions Chest X-Ray 07/29/24 15:11 IMPRESSION: No focal infiltrate or effusion. Femur X-Ray 07/29/24 15:13 IMPRESSION: 1. Mildly comminuted intertrochanteric fracture the proximal left femur with external rotation and 15 degrees varus angulation between the femoral head and neck fragment in the metaphyseal fragment. 2. Severe medial compartment predominant tricompartmental osteoarthritis at the left knee. Hip/Pelvis X-Ray 07/29/24 15:13 IMPRESSION: 1. Mildly comminuted intertrochanteric fracture the proximal left femur with external rotation and 15 degrees varus angulation between the femoral head and neck fragment in the metaphyseal fragment. 2. Severe medial compartment predominant tricompartmental osteoarthritis at the left knee. Knee X-Ray 07/29/24 15:13 IMPRESSION: 1. Mildly comminuted intertrochanteric fracture the proximal left femur with external rotation and 15 degrees varus angulation between the femoral head and neck fragment in the metaphyseal fragment. 2. Severe medial compartment predominant tricompartmental osteoarthritis at the left knee. Labs Labs: Laboratory Results - last 24 hr 07/30/24 07/30/24 07/30/24 06:45 08:05 09:40 WBC RBC Hgb Hct MCV MCH MCHC RDW Plt Count MPV Immature Gran % (Auto) Neut % (Auto) Lymph % (Auto) [place] % (Auto) Eos % (Auto) Baso % (Auto) Lymph # (Auto) [place] # (Auto) Eos # (Auto) Baso # (Auto) Abs Immat Gran (auto) Absolute Neuts (auto) Absolute Nucleated RBC Nucleated RBC % Sodium Potassium Chloride Carbon Dioxide Anion Gap BUN Creatinine Estim Creat Clear Calc Estimated GFR Glucose POC Capillary Glucose 128 H Hemoglobin A1c 5.4 Calcium C. difficile (PCR) Blood Type A Positive Antibody Screen Negative 07/30/24 07/30/24 07/30/24 11:08 11:27 16:25 WBC RBC Hgb Hct MCV MCH MCHC RDW Plt Count MPV Immature Gran % (Auto) Neut % (Auto) Lymph % (Auto) [place] % (Auto) Eos % (Auto) Baso % (Auto) Lymph # (Auto) [place] # (Auto) Eos # (Auto) Baso # (Auto) Abs Immat Gran (auto) Absolute Neuts (auto) Absolute Nucleated RBC Nucleated RBC % Sodium Potassium Chloride Carbon Dioxide Anion Gap BUN Creatinine Estim Creat Clear Calc Estimated GFR Glucose POC Capillary Glucose 112 H 145 H Hemoglobin A1c Calcium C. difficile (PCR) Negative Blood Type Antibody Screen 07/30/24 07/31/24 20:26 05:59 WBC 7.2 RBC 4.05 L Hgb 11.3 L Hct 34.0 L MCV 84.0 MCH 27.9 MCHC 33.2 RDW 13.0 Plt Count 256 MPV 9.7 Immature Gran % (Auto) 1.1 H Neut % (Auto) 65.8 Lymph % (Auto) 18.7 [place] % (Auto) 13.1 H Eos % (Auto) 0.7 Baso % (Auto) 0.6 Lymph # (Auto) 1.34 [place] # (Auto) 0.9 H Eos # (Auto) 0.1 Baso # (Auto) 0.0 Abs Immat Gran (auto) 0.08 H Absolute Neuts (auto) 4.7 Absolute Nucleated RBC 0.000 Nucleated RBC % 0.0 Sodium 131 L Potassium 3.1 L Chloride 97 L Carbon Dioxide 27 Anion Gap 7 BUN 5 L Creatinine 0.48 L Estim Creat Clear Calc 123 Estimated GFR > 60 Glucose 113 H POC Capillary Glucose 140 H Hemoglobin A1c Calcium 8.2 L C. difficile (PCR) Blood Type Antibody Screen Quality VTE Prophylaxis VTE prophylaxis: pharmacologic ordered (Lovenox 40 mg subQ daily.)
[2024-07-31 08:10] LABS: Glucose Point of Care 128 mg/dl (65-105)
[2024-07-31] MEDS: SERTRALINE HCL 50 MG TABLET 100 MG PO (09:00)
[2024-07-31] MEDS: ENOXAPARIN 40 MG/0.4 ML SYRINGE SUB-Q (09:00)
[2024-07-31] MEDS: HYDROmorphone HCL INJ (*CRX) 2 MG/ML VIAL 1 MG IV PUSH (10:26)
[2024-07-31 11:11] VITALS: BP 153/77; PULSE 98; RESP 18; TEMP 37.3; O2SAT 91
[2024-07-31 11:48] LABS: Glucose Point of Care 124 mg/dl (65-105)
--- NOTE | 2024-07-31 12:19 | P.PNOP_ITS ---
Progress Note: A&P Assessment and Plan (1) Orthopedic aftercare: Code(s): Z47.89 - Encounter for other orthopedic aftercare Status: Acute (2) Closed comminuted intertrochanteric fracture of femur: Qualifiers: Encounter type: initial encounter Laterality: left Qualified Code(s): S72.142A - Displaced intertrochanteric fracture of left femur, initial encounter for closed fracture Code(s): S72.143A - Displaced intertrochanteric fracture of unspecified femur, initial encounter for closed fracture Status: Acute Plan Status post IM nail left hip. Doing well. Afebrile. Vital signs stable. Dressing intact. Neurovascular intact. No edema. Calf nontender. Wiggles toes. Postoperative day 1 status post IM nail. Discussed care plan with Case Management. Rehab stay planned. Questions reviewed with the patient and family. Subjective Subjective Date/Time Seen: 07/31/24 12:19 Objective Data Vital Signs Vital Signs: Vital Signs - 24 hr 07/30/24 13:35 07/30/24 16:15 07/30/24 16:30 Temperature 37.4 C 36.9 C Pulse Rate 95 99 100 Respiratory Rate 18 15 15 Blood Pressure 160/72 H 191/92 H 194/85 H Pulse Oximetry 95 97 99 Oxygen Delivery Room Air Simple Face Mask Simple Face Mask Oxygen Flow Rate 8 8 07/30/24 16:37 07/30/24 16:45 07/30/24 17:00 Temperature Pulse Rate 100 84 84 Respiratory Rate 20 16 Blood Pressure 172/88 H 172/82 H Pulse Oximetry 94 94 Oxygen Delivery Room Air Room Air Oxygen Flow Rate 07/30/24 17:09 07/30/24 18:00 07/30/24 18:15 Temperature 36.3 C L 36.6 C Pulse Rate 85 85 88 Respiratory Rate 16 18 18 Blood Pressure 171/82 H 153/74 H 111/68 Pulse Oximetry 96 92 94 Oxygen Delivery Room Air Oxygen Flow Rate 07/30/24 18:45 07/30/24 19:11 07/30/24 20:00 Temperature 36.9 C 37.2 C Pulse Rate 87 83 Respiratory Rate 18 16 Blood Pressure 145/74 H 148/70 H Pulse Oximetry 94 93 Oxygen Delivery Room Air Oxygen Flow Rate 07/30/24 23:11 07/31/24 02:48 07/31/24 06:04 Temperature 36.7 C 36.5 C 36.6 C Pulse Rate 91 99 99 Respiratory Rate 16 16 16 Blood Pressure 139/75 142/67 H 135/61 Pulse Oximetry 98 94 93 Oxygen Delivery Oxygen Flow Rate 07/31/24 07:11 07/31/24 08:15 07/31/24 09:49 Temperature 37.3 C Pulse Rate 94 Respiratory Rate 18 Blood Pressure 107/50 L Pulse Oximetry 93 Oxygen Delivery Room Air Room Air Oxygen Flow Rate 07/31/24 11:10 Temperature Pulse Rate Respiratory Rate Blood Pressure Pulse Oximetry Oxygen Delivery Room Air Oxygen Flow Rate Intake/Output Intake/Output: Intake & Output 07/28/24 07/29/24 07/30/24 07/31/24 23:59 23:59 23:59 23:59 Intake Total 1000 2100 Output Total 1100 400 Balance 1000 1000 -400 Meds/Results Medications: Active Medications Generic Name Dose Route Start Last Admin Trade Name Freq PRN Reason Stop Dose Admin Acetaminophen 500 mg 07/30/24 17:26 Acetaminophen 500 Mg Tablet PO Q6H PRN Pain Rated 1-3 Dextrose 12.5 gm 07/29/24 21:10 Dextrose 50% 25 Gm/50 Ml Syringe IV PUSH PRN PRN Hypoglycemia Protocol Diphenhydramine HCl 50 mg 07/29/24 23:47 07/31/24 01:58 Diphenhydramine Hcl Cap 25 Mg Capsule PO 50 mg HS PRN Administration Insomnia Enoxaparin Sodium 40 mg 07/31/24 09:00 07/31/24 09:00 Enoxaparin 40 Mg/0.4 Ml Syringe SUB-Q 40 mg DAILY MADHU Administration Glucagon 1 mg 07/29/24 21:10 Glucagon For Inj 1 Mg Vial IM PRN PRN Hypoglycemia Protocol Glucose 15 gm 07/29/24 21:10 Glucose Oral Gel 15 Gm Of Glucse In 37.5 Gm Tube PO PRN PRN Hypoglycemia Protocol Hydromorphone HCl 1 mg 07/30/24 17:33 07/31/24 10:26 Hydromorphone Hcl Inj (*Crx) 2 Mg/Ml Vial IV PUSH 1 mg Q2H PRN Administration Breakthrough Pain Rated 7-10 or NPO Hydromorphone HCl 0.5 mg 07/30/24 17:33 Hydromorphone Hcl Inj (*Crx) 2 Mg/Ml Vial IV PUSH Q2H PRN Breakthrough Pain Rated 4-6 or NPO Dextrose 1,000 mls @ 100 mls/hr 07/29/24 21:10 Dextrose 5% 1,000 Ml IVPB PRN PRN Hypoglycemia Protocol Lactated Ringer's 1,000 mls @ 30 mls/hr 07/30/24 14:35 07/30/24 18:14 Lr - Lactated Ringers Iv IV CONT Not Given .Q24H MADHU Cefazolin Sodium 2 gm in 50 mls @ 100 mls/hr 07/30/24 22:00 07/31/24 05:41 Ancef 2 Gm/D5w 50 Ml IVPB 07/31/24 14:29 100 mls/hr Q8H MADHU Administration Ibuprofen 800 mg in 200 mls @ 400 mls/hr 07/30/24 17:26 Caldolor 800 Mg/200 Ml IVPB Q6H PRN Breakthrough Pain Rated 1-3 or NPO Insulin Aspart 2 - 5 units 07/30/24 08:00 07/31/24 11:51 Insulin Aspart (*Bkc) 100 Units/Ml SUB-Q Not Given TID[facility] Protocol Labetalol HCl 5 mg 07/30/24 16:28 07/30/24 16:37 Labetalol Hcl Inj 100 Mg/20 Ml Vial IV PUSH 5 mg PRN PRN Administration hypertension Naloxone HCl 0.1 mg 07/30/24 17:26 Naloxone Hcl 0.4 Mg/Ml Vial IV PUSH Q2M PRN Opiate Reversal Ondansetron HCl 4 mg 07/30/24 17:26 Ondansetron Inj 4 Mg/2 Ml Vial IV PUSH Q4H PRN Nausea And Vomiting Oxycodone/Acetaminophen 1 tablet 07/30/24 17:26 07/31/24 01:57 Oxycodone/Acetaminophen (*Crx) 5-325 Mg Tablet PO 1 tablet Q4H PRN Administration Pain Rated 4-6 Oxycodone/Acetaminophen 1 tab 07/30/24 17:26 07/31/24 05:59 Oxycodone/Acetaminophen (*Crx) 10-325 Mg Tablet PO 1 tab Q6H PRN Administration Pain Rated 7-10 Polyethylene Glycol 17 gm 07/31/24 09:00 07/31/24 08:57 Polyethylene Glycol 3350 17 Gm Powd.Pack PO Not Given QAM [facility] Senna/Docusate Sodium 2 tab 07/30/24 17:26 07/31/24 08:57 Senna/Docusate Sodium Tablet PO Not Given BID MADHU Sertraline HCl 100 mg 07/30/24 09:00 07/31/24 09:00 Sertraline Hcl 50 Mg Tablet PO 100 mg DAILY MADHU Administration Temazepam 15 mg 07/29/24 23:50 07/30/24 20:36 Temazepam (*Crx) 15 Mg Capsule PO 15 mg QHS MADHU Administration Radiology Results: ITS Impressions Chest X-Ray 07/29/24 15:11 IMPRESSION: No focal infiltrate or effusion. Femur X-Ray 07/29/24 15:13 IMPRESSION: 1. Mildly comminuted intertrochanteric fracture the proximal left femur with external rotation and 15 degrees varus angulation between the femoral head and neck fragment in the metaphyseal fragment. 2. Severe medial compartment predominant tricompartmental osteoarthritis at the left knee. Hip/Pelvis X-Ray 07/29/24 15:13 IMPRESSION: 1. Mildly comminuted intertrochanteric fracture the proximal left femur with external rotation and 15 degrees varus angulation between the femoral head and neck fragment in the metaphyseal fragment. 2. Severe medial compartment predominant tricompartmental osteoarthritis at the left knee. Knee X-Ray 07/29/24 15:13 IMPRESSION: 1. Mildly comminuted intertrochanteric fracture the proximal left femur with external rotation and 15 degrees varus angulation between the femoral head and neck fragment in the metaphyseal fragment. 2. Severe medial compartment predominant tricompartmental osteoarthritis at the left knee. Labs Labs: Laboratory Results - last 24 hr 07/30/24 07/30/24 07/30/24 11:08 16:25 20:26 WBC RBC Hgb Hct MCV MCH MCHC RDW Plt Count MPV Immature Gran % (Auto) Neut % (Auto) Lymph % (Auto) Schleicher % (Auto) Eos % (Auto) Baso % (Auto) Lymph # (Auto) Schleicher # (Auto) Eos # (Auto) Baso # (Auto) Abs Immat Gran (auto) Absolute Neuts (auto) Absolute Nucleated RBC Nucleated RBC % Sodium Potassium Chloride Carbon Dioxide Anion Gap BUN Creatinine Estim Creat Clear Calc Estimated GFR Glucose POC Capillary Glucose 145 H 140 H Calcium C. difficile (PCR) Negative 07/31/24 07/31/2407/31/25 05:59 07:52 11:18 WBC 7.2 RBC 4.05 L Hgb 11.3 L Hct 34.0 L MCV 84.0 MCH 27.9 MCHC 33.2 RDW 13.0 Plt Count 256 MPV 9.7 Immature Gran % (Auto) 1.1 H Neut % (Auto) 65.8 Lymph % (Auto) 18.7 Schleicher % (Auto) 13.1 H Eos % (Auto) 0.7 Baso % (Auto) 0.6 Lymph # (Auto) 1.34 Schleicher # (Auto) 0.9 H Eos # (Auto) 0.1 Baso # (Auto) 0.0 Abs Immat Gran (auto) 0.08 H Absolute Neuts (auto) 4.7 Absolute Nucleated RBC 0.000 Nucleated RBC % 0.0 Sodium 131 L Potassium 3.1 L Chloride 97 L Carbon Dioxide 27 Anion Gap 7 BUN 5 L Creatinine 0.48 L Estim Creat Clear Calc 123 Estimated GFR > 60 Glucose 113 H POC Capillary Glucose 128 H 124 H Calcium 8.2 L C. difficile (PCR)
[2024-07-31] MEDS: POTASSIUM CHLORIDE 20 MEQ ER TABLET PO (14:46)
[2024-07-31 15:11] VITALS: BP 122/65; PULSE 97; RESP 18; TEMP 36.6; O2SAT 95
[2024-07-31 16:43] LABS: Glucose Point of Care 122 mg/dl (65-105)
[2024-07-31 19:11] VITALS: BP 141/87; PULSE 100; RESP 18; TEMP 37.2; O2SAT 95
[2024-07-31] MEDS: TEMAZEPAM (*CRX) 15 MG CAPSULE PO (20:46)
[2024-07-31 21:06] LABS: Glucose Point of Care 139 mg/dl (65-105)
[2024-08-01 05:58] VITALS: BP 148/51; PULSE 101; RESP 18; TEMP 37.4; O2SAT 91
[2024-08-01 07:53] LABS: Basophils Absolute Auto 0.1 K/mm3 (0.0-0.1); Basophils Percent Auto 0.7 % (0.2-1.2); Eosinophils Absolute Auto 0.1 K/mm3 (0-0.3); Hematocrit 31.3 % (37.0-47.0); Hemoglobin 10.5 g/dL (12.0-15.0); Immature Granulocyte Absolute 0.12 K/mm3 (0.00-0.031); Immature Granulocyte Percent A 1.4 % (0-0.5); Lymphocytes Percent Auto 11.9 % (18.3-44.2); Mean Corpuscular HGB Conc 33.5 g/dl (32-36); Mean Corpuscular Hemoglobin 27.9 pg (26-34); Mean Corpuscular Volume 83.2 fl (80-100); Mean Platelet Volume 8.9 fl (7.4-10.4); Monocytes Percent Auto 11.8 % (2.6-8.5); Neutrophils Absolute Auto 6.1 K/mm3 (1.3-6.7); Neutrophils Percent Auto 73.2 % (45.5-73.1); Platelet Count Result 289 k/mm3 (150-375); Red Blood Count 3.76 M/mm3 (4.2-5.4); Red Cell Distribution Width 12.9 % (11.5-14.5); White Blood Count 8.4 K/mm3 (4.5-10.0)
[2024-08-01 08:00] LABS: Glucose Point of Care 133 mg/dl (65-105)
[2024-08-01 08:07] LABS: Alanine Aminotransferase 16 U/L (6-35); Albumin Level 3.2 g/dL (3.5-5.1); Alkaline Phosphatase 66 U/L (38-126); Anion Gap 8 mmol/L (4-12); Aspartate Amino Transferase 27 U/L (14-36); Bilirubin,Total 0.8 mg/dL (0.2-1.3); Blood Urea Nitrogen 3 mg/dL (7-17); Calcium 8.1 mg/dL (8.4-10.2); Carbon Dioxide 26 mmol/L (22-30); Chloride 96 mmol/L (98-107); Estimated CRCL calculation 123 ml/min; Estimated Glomerular Filt Rate > 60; Glucose 120 mg/dL (65-110); Potassium 3.1 mmol/L (3.4-5.0); Sodium 130 mmol/L (137-145)
[2024-08-01] MEDS: SERTRALINE HCL 50 MG TABLET 100 MG PO (08:46)
[2024-08-01] MEDS: POTASSIUM CHLORIDE 20 MEQ ER TABLET 40 MEQ PO (08:46)
[2024-08-01] MEDS: oxyCODONE/ACETAMINOPHEN (*CRX) 10-325 MG TABLET 1 TAB PO (08:47)
[2024-08-01] MEDS: SODIUM CHLORIDE 0.9% IV 1,000 ML 100 ML IV CONT (08:47)
[2024-08-01] MEDS: ENOXAPARIN 40 MG/0.4 ML SYRINGE SUB-Q (08:47)
[2024-08-01 11:33] LABS: Glucose Point of Care 120 mg/dl (65-105)
[2024-08-01] MEDS: AZITHROMYCIN 250 MG TABLET 500 MG PO (11:40)
--- NOTE | 2024-08-01 12:43 | P.DS_ITS ---
DS: Admitting Diagnosis Discharge Date 08/01/2024 Admitting Diagnosis Closed comminuted intertrochanteric fracture of femur Campylobacter gastroenteritis DS: Discharge Diagnosis Discharge Diagnosis (1) Closed comminuted intertrochanteric fracture of femur: Qualifiers: Encounter type: initial encounter Laterality: left Qualified Code(s): S72.142A - Displaced intertrochanteric fracture of left femur, initial encounter for closed fracture Code(s): S72.143A - Displaced intertrochanteric fracture of unspecified femur, initial encounter for closed fracture Status: Acute (2) Fall: Qualifiers: Encounter type: sequela Qualified Code(s): W19.XXXS - Unspecified fall, sequela Code(s): W19.XXXA - Unspecified fall, initial encounter Status: Acute (3) Acute diarrhea: Code(s): R19.7 - Diarrhea, unspecified Status: Acute (4) Acute dehydration: Code(s): E86.0 - Dehydration Status: Acute (5) Leukocytosis: Qualifiers: Leukocytosis type: bandemia Qualified Code(s): D72.825 - Bandemia Code(s): D72.829 - Elevated white blood cell count, unspecified Status: Acute (6) Hyperglycemia: Code(s): R73.9 - Hyperglycemia, unspecified Status: Acute (7) Campylobacter gastroenteritis: Code(s): A04.5 - Campylobacter enteritis Status: Acute DS: Summary Hospital Course Reason for hospitalization: Left leg pain, diarrhea Hospital Course: 64-year-old female with a past medical history anxiety, schizophrenia and prior weight loss surgery (over 20 years ago) who presented to the ER from home after having fall last night and now having left leg pain and is unable to bear weight. The patient also states that she has been having diarrhea for 1 week with multiple episodes of incontinent liquid stool. She reports that her grand child had recent GI symptoms that lasted about 3 days. Her had also been ill with nausea vomiting and diarrhea for about 3-4 days. Her symptoms lasted the longest with her last incontinent stool being in the ER. She denies any abdominal pain, fevers or chills. He stated that he had been having some lightheadedness with standing but did not pass out or. She reported that yesterday she was rushing around and caught her foot on the coronal rib piece of furniture. She subsequently fell landing on her left buttock. When she fell she reported that she twisted on her leg. She had immediate pain and her hip. Her family members helped her to bed and she laid in bed for the day. When she tried to get up the next day and was still having severe pain she decided come to the ER for evaluation. She does have a lump to her middle of her forehead that she reports is from an old pimple that created a calcium buildup. She denies actually hitting her head her having any loss of consciousness. She re ports that she was having some cough and felt as if she was having some phlegm stuck in her throat. She received a nebulizer treatment and 1 dose of benzo weight she reports she had a cough productive of some clear sputum. Since then she does not feel like she has anything else in her airway. She did have some erythema noted to her posterior soft palate but she denies any sore throat. She had reported some rhinorrhea and postnasal drip. Her COVID flu and RSV PCR were negative in the ER. Orthopedics consulted regarding displaced left anterior trochanteric fracture requiring ORIF with intramedullary nail. This procedure was performed on 07/[address] Smalls, with no complications and patient tolerating procedure. After this procedure, patient continued to work with PT/OT throughout hospitalization, for which they recommended continued physical therapy evaluations for the next several weeks requiring SNF placement. We worked with care coordination regarding rehab placement, and patient was accepted at the rehab [facility] [place]. Patient also presented with diarrhea for the past week. Stool sample was obtained and showed Campylobacter infection causing gastroenteritis. As patient has had symptoms longer than 1 week she will be placed on a 3 day course of azithromycin. Blood work and vital signs otherwise unremarkable and patient has been cleared by Orthopedics for discharge at this time. She will maintain on Lovenox for 30 days post discharge and has been given appropriate follow-up instructions with Orthopedics, as well as proper wound care instructions. Status at Discharge Functional status at discharge: uses cane/walker Overall status at discharge: patient is progressing back to baseline Time Spent with Patient Time attestation: Total time spent providing and/or coordinating discharge services: 35 Exam Narrative: Weight 100.2 kg BMI 34.6 Const: Other: No acute distress, obese, appears stated age HENMT: Other: Mucous membranes are dry, mild erythema of the posterior soft palate, poor dentition, lump to central forehead Eyes: Other: Pupils are equal and reactive, bilateral clouding of lenses Neck: Other: No lymphadenopathy, no JVD Resp: Other: Clear to auscultation bilaterally, no increased work of breathing Cardio: Other: Regular rate, regular rhythm, 2+ bilateral radial pedal pulses GI: Other: Soft, nontender, nondistended, positive bowel sounds, no organomegaly Skin: Other: No jaundice, no pallor Neuro: Other: Alert oriented x4, speech is slightly slurred, no facial asymmetry, no localizing neurologic deficits noted during course of conversation Extrem: Other: No clubbing, cyanosis no edema, distal extremities are neurovascularly intact, pain with any movement of the left lower extremity, extremity is not shortened or obviously rotated. Of motion is limited due to pain, calf/thigh nontender Psych: Other: Pleasant and cooperative, fair judgment and insight DS: Data Data Completed and Pending Labs on day of discharge: Labs from last 24 hours 08/01/24 08/01/24 08/01/24 11:22 07:44 07:43 WBC 8.4 RBC 3.76 L Hgb 10.5 L Hct 31.3 L MCV 83.2 MCH 27.9 MCHC 33.5 RDW 12.9 Plt Count 289 MPV 8.9 Immature Gran % (Auto) 1.4 H Neut % (Auto) 73.2 H Lymph % (Auto) 11.9 L Mower % (Auto) 11.8 H Eos % (Auto) 1.0 Baso % (Auto) 0.7 Lymph # (Auto) 1.00 Mower # (Auto) 1.0 H Eos # (Auto) 0.1 Baso # (Auto) 0.1 Abs Immat Gran (auto) 0.12 H Absolute Neuts (auto) 6.1 Absolute Nucleated RBC 0.000 Nucleated RBC % 0.0 Sodium 130 L Potassium 3.1 L Chloride 96 L Carbon Dioxide 26 Anion Gap 8 BUN 3 L Creatinine 0.48 L Estim Creat Clear Calc 123 Estimated GFR > 60 Glucose 120 H POC Capillary Glucose 120 H 133 H Calcium 8.1 L Total Bilirubin 0.8 AST 27 ALT 16 Alkaline Phosphatase 66 Total Protein 6.0 L Albumin 3.2 L 07/31/24 07/31/24 20:47 16:40 WBC RBC Hgb Hct MCV MCH MCHC RDW Plt Count MPV Immature Gran % (Auto) Neut % (Auto) Lymph % (Auto) Mower % (Auto) Eos % (Auto) Baso % (Auto) Lymph # (Auto) Mower # (Auto) Eos # (Auto) Baso # (Auto) Abs Immat Gran (auto) Absolute Neuts (auto) Absolute Nucleated RBC Nucleated RBC % Sodium Potassium Chloride Carbon Dioxide Anion Gap BUN Creatinine Estim Creat Clear Calc Estimated GFR Glucose POC Capillary Glucose 139 H 122 H Calcium Total Bilirubin AST ALT Alkaline Phosphatase Total Protein Albumin Preliminary micro results at discharge 07/29/24 21:44 Blood Culture - Preliminary Blood 07/29/24 21:44 Blood Culture - Preliminary Blood Discharge Plan Discharge Attending physician on discharge: Ana Maria Watt Consulting providers: Vitaliy Smalls Discharging Clinician: Chris Spann Anticipated Discharge Date/Time: 08/01/24 12:34 Patient Disposition: SNF Activity: as tolerated and follow weight bearing status Diet: as tolerated Discharge Instructions: Ortho instructions: * D/C to SNF/rehab * Follow up in office in 4-6 weeks with xrays. Please call our office ([phone]) for appointment. * Wound Care: Remove renata at 2 weeks post op. Daily dressing changes until healed. * PT: Weightbearing as tolerated. * DVT prophylaxis: continue Lovenox for 30 days total * Pain medication: Oxycodone Take medications as prescribed Remain active, weight-bearing as tolerated Continue with physical therapy and occupational therapy to improve strength and endurance and returned back to baseline strength Continue with fall precautions, remove rugs within the home, use hand rails when climbing stairs and use assistive devices when needed to ambulate Follow-up with primary care provider within 1 weeks Thank you for [facility] for your healthcare needs Patient Language: Slovenian Stand Alone Forms: General Discharge Information Follow-up/Referrals: Mary Soni PA [Physician Local Sales Associate] - Hailey,MD Tracie [Primary Care Provider] - Discharge Medications: New oxycodone-acetaminophen 5-325 mg tablet 1 - 2 tablet PO Q4-6H PRN (Reason: pain) Qty: 30 0RF azithromycin 500 mg tablet 500 mg PO DAILY 2 Days Qty: 2 0RF Rx Instructions: Start taking tomorrow since you received one dose today enoxaparin [Lovenox] 40 mg/0.4 mL syringe 40 mg subcut DAILY 30 Days Qty: 12 0RF Continued sertraline 100 mg tablet 100 mg PO DAILY methylphenidate HCl 20 mg cap,ER sprinkle,biphasic 40-60 20 mg PO DAILY temazepam 15 mg capsule 15 mg PO QHS Date of admission: 07/29/24 17:46 Primary Care Provider: HaileyTracie Admitting Provider: Emma Arreola Attending physician on admission: Chris Spann Condition: Stable Quality VTE Prophylaxis VTE prophylaxis: mechanical ordered
[2024-08-01 18:43] LABS: Legionella pneumophila Ag Ur NOT DETECTED
== END 2024-08-01 14:00 | DRG 481 ==
LOC: ANHED 13:25 → ANH3MEDSUR 17:55
PROVIDERS: Emergency Medicine; Internal Medicine; Orthopaedic Surgery; Admitting Provider Internal Medicine; Emergency Provider Student in an Organized Health Care Education/Training Program; PCP Family Medicine; Visit Provider Physician Assistant
PROC: 0QS736Z Reposition Left Upper Femur with Intramedullary Internal Fixation Device, Percutaneous Approach (ICD-10-PCS; CPT 27245; principal; 2024-07-30 16:00)
DX: S72.142A Displaced intertrochanteric fracture of left femur, initial encounter for closed fracture (principal); A04.5 Campylobacter enteritis; W19.XXXA Unspecified fall, initial encounter; M17.12 Unilateral primary osteoarthritis, left knee; R19.7 Diarrhea, unspecified; D72.825 Bandemia; E86.0 Dehydration; F41.1 Generalized anxiety disorder; F20.9 Schizophrenia, unspecified; R73.9 Hyperglycemia, unspecified; Z85.3 Personal history of malignant neoplasm of breast; Z20.822 Contact with and (suspected) exposure to COVID-19
CPT/HCPCS: 36415; 71045; 73502; 73552; 73560; 80048; 80053; 81001; 82550; 82948; 83036; 83690; 83735; 85025; 85610; 85730; 86850; 86900; 86901; 87040; 87045; 87427; 87449; 87493; 87637; 93005; 94640; 96361; 96374; 96375; 96376; 97110; 97116; 97161; 97166; 97530; 97535; 99199; 99285; A9270; C1713; G0378; J0690; J1171; J1650; J2250; J2270; J2704; J7030; J7120